=== PATIENT | female | born 1960 | race Hispanic/Latino ===

== ENCOUNTER 2017-09-11 04:39 | Inpatient (IN) | payer OTHER ==
[2017-09-11] VITALS (45 sets, daily range): BP systolic 93–171; BP diastolic 58–104
[~2017-09-11] VITALS: Ht 152.4 cm; Wt 78.5 kg
[~2017-09-11 04:39] MED LIST: ACETAMINOPHEN650 M1 PO; CARAFATE1 GM/10 ML PO; FENOFIBRATE160 MG PO; FLAGYL500 MG PO; GLIMEPIRIDE2 MG PO; GLYBURIDE5 MG PO; HYDROCHLOROTHIA25 MG; Insulin Detemir SQ; LEVAQUIN500 MG PO; LEVEMIR100 UNIT/1 SQ; LISINOPRIL5 MG PO; METFORMIN HCL500 MG PO; METOCLOPRAMIDE10 MG PO; NABUMETONE750 MG PO; NIFEDIPINE ER30 M1 PO; NORCO 10-325 T1 EACH PO; NOVOLOG100 UNITS1 SQ; OXYCODONE-ACET1 EAC1 PO; PANTOPRAZOLE SO40 MG PO; PROMETHAZINE HC25 M1 PO; PROTONIX40 MG PO; REGLAN10 MG PO; REMERON15 MG PO; SENOKOT-S TABL1 EACH PO; TYLENOL # 31 EA PO; TYLENOL WITH C1 EACH PO; ULTRAM 50MG50 MG PO
[2017-09-11] MEDS ORDERED: SODIUM CHLORIDE 0.9% 1000ML 1,000 ML IV STA (04:57)
[2017-09-11] MEDS ORDERED: PROMETHAZINE 12.5MG/ NACL 0.9% 12.5 MG/50 ML BAG IV ONE (05:00)
[2017-09-11 05:05] LABS: BASOPHILS % 0.1 % (0.0-1.0); HEMATOCRIT 41.9 % (34.2-44.1); HEMOGLOBIN 14.1 g/dL (12.0-16.0); LYMPHOCYTES # (AUTO) 1.3 (1.0-3.2); LYMPHOCYTES % 10.8 % (18.0-39.1); MEAN CORPUSCULAR HEMOGLOBIN 28.3 pg (28-32); MEAN CORPUSCULAR HGB CONC 33.7 g/dL (31-35); MONOCYTES # (AUTO) 0.5 (0.2-0.8); MONOCYTES % 3.9 % (4.4-11.3); NEUTROPHILS % 84.8 % (38.7-80.0); PLATELET COUNT 209 x10e3/uL (140-360); RED BLOOD COUNT 4.99 x10e6/uL (3.6-5.1); RED CELL DISTRIBUTION WIDTH 13.4 % (11.7-14.4)
[2017-09-11 05:22] LABS: ALBUMIN/GLOBULIN RATIO 0.9 (0.8-2.0); ANION GAP 21.3 mmol/L (8-16); CALCIUM 9.9 mg/dL (8.4-10.2); CREATININE, SERUM 1.17 mg/dL (0.57-1.11); POTASSIUM 4.3 mmol/L (3.5-5.1)
[2017-09-11 05:23] LABS: BILIRUBIN,URINE NEGATIVE (NEGATIVE); CLARITY,URINE CLOUDY (CLEAR); COLOR,URINE YELLOW (YELLOW); KETONES,URINE 2+ (NEGATIVE); LEUKOCYTE ESTERASE ,URINE NEGATIVE (NEGATIVE); NITRITE,URINE NEGATIVE (NEGATIVE); URINE UROBILINOGEN 0.2 mg/dL (0.2 - 1)
[2017-09-11 05:28] LABS: CREATINE KINASE MB 1.9 ng/mL (0.00-5.00); TROPONIN I 0.005 ng/mL (0-0.300)
[2017-09-11 05:30] LABS: BACTERIA,URINE MANY /HPF; PROTEIN,URINE DIPSTICK 1+ (NEGATIVE)
[2017-09-11 05:31] LABS: EPITHELIAL CELLS,URINE RARE /LPF
[2017-09-11] MEDS ORDERED: INSULIN LISPRO 100 UNIT/1 ML 3ML VIAL SQ STA (05:39)
[2017-09-11] MEDS ORDERED: INSULIN REGULAR, HUMAN 100 UNIT/1 ML 3ML VIAL IV ONE (05:45)
[2017-09-11] MEDS ORDERED: POTASSIUM CHLORIDE 20MEQ/100ML 200 ML IV PRN (06:15)
[2017-09-11] MEDS ORDERED: INSULIN DETEMIR 100 UNIT/ML PEN SQ PRN (06:15)
[2017-09-11] MEDS ORDERED: INSULIN REGULAR, HUMAN 3ML VL 1 UNIT in SODIUM CHLORIDE 0.9% 100 ML IV SCH ×2 (06:15)
[2017-09-11] MEDS ORDERED: MAGNESIUM SULF 1GRAM/DEXTROSE 100 ML IV PRN (06:15)
[2017-09-11] MEDS ORDERED: SODIUM CHLORIDE 0.45% 100 ML 100 ML IV ONE (06:29)
[2017-09-11 06:30] LABS: AMPHETAMINES SCREEN,URINE NEGATIVE (NEGATIVE); BENZODIAZEPINES SCREEN,URINE NEGATIVE (NEGATIVE); CANNABINOIDS SCREEN,URINE NEGATIVE (NEGATIVE); PHENCYCLIDINE SCREEN,URINE NEGATIVE (NEGATIVE)
[2017-09-11] MEDS ORDERED: HYDRALAZINE HCL 20 MG/ML VIAL ONE (06:31)
[2017-09-11] MEDS: HYDRALAZINE HCL 20 MG/ML VIAL IV PRN ×2 (06:34→20:46)
[2017-09-11] MEDS: CEFTRIAXONE SOD 1 GM VIAL IV SCH (06:34)
[2017-09-11] MEDS: SODIUM CHLORIDE 0.9% 1000ML 1,000 ML IV SCH ×5 (06:34→21:57)
[2017-09-11] MEDS ORDERED: OXYCODONE HCL20 M1 PO (07:45)
[2017-09-11] MEDS ORDERED: PROMETHAZINE12.5 M1 PO (07:49)
[2017-09-11] MEDS ORDERED: ZOLPIDEM TARTRA10 MG PO (07:49)
[2017-09-11] MEDS ORDERED: INSULIN REGULAR, HUMAN 3ML VL 100 UNIT in SODIUM CHLORIDE 0.9% 100 ML IV SCH ×2 (08:30)
[2017-09-11] MEDS: HYDROMORPHONE 1MG/1ML INJ IV PRN ×3 (09:09→20:47)
[2017-09-11] MEDS: ONDANSETRON HCL INJ 2 MG/ML VIAL IV PRN (09:09)
[2017-09-11] MEDS: DEXTROSE 5%/0.45% SOD CHL 1,000 ML IV SCH ×3 (10:13→17:22)
--- NOTE | 2017-09-11 10:23 | History and Physical ---
This 56-year-old female comes in with nausea and vomiting. She was found to have DKA. HISTORY OF PRESENT ILLNESS: Ms. Isadora Parnell is a 56-year-old lady with a history of recent administration of flu vaccination, and she started to have sudden sickness about a day or 2 after the flu vaccine. The patient started to have nausea and vomiting and apparently was diagnosed with flu 2. She was not given Tamiflu because the patient came to the PCP's office about 2 or 3 days later. She was given some antibiotic and some breathing treatment and sent home. Today, the patient presents with nausea, vomiting, and was dehydrated and was in DKA. PAST MEDICAL HISTORY 1. History of low back pain, chronic back pain. 2. History of diabetes mellitus. 3. History of hyperlipidemia. 4. History of hypertension. MEDICATIONS AT HOME: Include: 1. Glimepiride 2 mg. 2. Levofloxacin 5 mg. 3. Lisinopril 5 mg daily. SURGICAL HISTORY: History of hysterectomy, lap tash, and back surgery. FAMILY HISTORY: History of cirrhosis in brother and diabetes in mother. REVIEW OF SYSTEMS: Negative for chest pain. Positive for nausea and vomiting. No diarrhea. Positive for some shortness of breath. No constipation. No rectal bleeding. No hematochezia. No hematemesis. No diplopia. No blurry vision. Positive for headache, also. PHYSICAL EXAMINATION VITAL SIGNS: Temperature 98.8, pulse 82, respiratory rate 18, blood pressure 205/107. HEENT: Normocephalic and atraumatic. Dry mucosal membranes. NECK: No JVD present. CV: Normal, regular rate and rhythm. ABDOMEN: Nondistended. Mildly tender diffusely. EXTREMITIES: No clubbing. No cyanosis. No edema. MICROBIOLOGY: Urine culture is pending. LABORATORY: White count 11.7, neutrophil count 84.8. Chemistry: Sodium 131, anion gap 21.3, creatinine 1.17, estimated GFR 48, glucose 492, magnesium 2.4. Troponin is negative. CK and CK-MB were also within normal limits. T-bili was 1.0. Her bicarb was 17. Toxicology negative for everything. ASSESSMENT 1. Diabetic ketoacidosis. 2. Flu-like symptoms. 3. Viral syndrome. 4. History of diabetes. 5. History of hypertension. 6. History of hyperlipoproteinemia. PLAN: Continue monitoring the patient. We will go ahead and put her on a DKA drip. Consult also endocrinology. Continue monitoring the patient. Further recommendations per the clinical course. The patient is also on fluids, and will follow DKA protocol in the ICU. Restart her home medications. Further recommendations per the clinical course. Also order A1c. Job#: [id number]
[2017-09-11 13:15] LABS: BLOOD UREA NITROGEN 21 mg/dL (7-26); BUN/CREATININE RATIO 25 (6-25); CALCIUM 8.7 mg/dL (8.4-10.2); CARBON DIOXIDE 22 mmol/L (22-29); CHLORIDE 106 mmol/L (98-107); CREATININE, SERUM 0.84 mg/dL (0.57-1.11); EST GLOMERULAR FILTRATION RATE > 60 ML/MIN (60-); GLUCOSE 73 mg/dL (74-118); MAGNESIUM 2.2 MG/DL (1.3-2.1); SODIUM 137 mmol/L (136-145)
[2017-09-11 13:36] LABS: CHOL/HDL RATIO 5.3 (3.0-3.6)
[2017-09-11] MEDS ORDERED: POTASSIUM CHLORIDE 20MEQ/100ML 200 ML IV ONE (14:00)
[2017-09-11 17:10] LABS: ANION GAP 12.6 mmol/L (8-16); BLOOD UREA NITROGEN 19 mg/dL (7-26); BUN/CREATININE RATIO 23 (6-25); CALCIUM 8.5 mg/dL (8.4-10.2); CARBON DIOXIDE 20 mmol/L (22-29); CHLORIDE 106 mmol/L (98-107); CREATININE, SERUM 0.84 mg/dL (0.57-1.11); EST GLOMERULAR FILTRATION RATE > 60 ML/MIN (60-); GLUCOSE 213 mg/dL (74-118); MAGNESIUM 1.9 MG/DL (1.3-2.1); POTASSIUM 3.6 mmol/L (3.5-5.1); SODIUM 135 mmol/L (136-145)
[2017-09-11] MEDS ORDERED: FLUCONAZOLE 100 MG/NS 50 ML 50 ML IV SCH (17:45)
[2017-09-11 19:14] LABS: FREE T4 (FREE THYROXINE) 1.04 ng/dL (0.8-1.8); THYROID STIMULATING HORMONE 0.475 uIU/mL (0.350-4.940)
[2017-09-11] MEDS: INSULIN REGULAR, HUMAN 3ML VL 100 UNIT in SODIUM CHLORIDE 0.9% 100 ML 100 ML IV SCH ×2 (20:00)
--- NOTE | 2017-09-11 20:44 | Consultation ---
DATE OF CONSULTATION: September 11, 2017 ENDOCRINE CONSULT[address] Patient of Dr. Mansfield. Thank you very much for referring this patient. This is a 56-year-old lady, who was referred to me for evaluation of uncontrolled diabetes mellitus and diabetic ketoacidosis. Patient is a known diabetic for almost 8 to 10 years and takes oral hypoglycemics at home. She came to the hospital with history of nausea vomiting. Her blood sugar was 492 at the time of admission and anion gap was 21.3. Her hemoglobin A1c is 9.3. Patient also has history of degenerative joint disease with multiple back surgeries, and hypertension. She has history of obesity, and pretty strong family history of diabetes mellitus. Patient is postmenopausal. PHYSICAL EXAMINATION: Today. GENERAL: The patient is alert awake a little bit apprehensive. She is moderately overweight. VITALS: Her heart rate is around 78. Blood pressure is 110/70 mmHg. HEENT: Examination essentially unremarkable. Thyroid is palpable. Clinically she is euthyroid. CHEST: Bilateral vesicular breathing. She has mild bronchospasm. CARDIAC: First and second heart sounds. There is no 3rd or 4th heart sound. Ejection sound grade 2/6. NEURO: Patient has evidence of diabetic sensory neuropathy in both lower extremities. CLINICAL IMPRESSIONS 1. Diabetes mellitus, type 2, uncontrolled with complications. 2. Diabetic ketoacidosis. 3. Degenerative joint disease. 4. Hypertension. The plan at this time is to continue the IV fluids, insulin drip. Monitor her blood sugars closely and adjust insulin dose. Will also do extensive diabetic and dietary education. Slowly advance the diet. Thanks for referring this patient. I will follow this patient with you. Job#: [id number] [email or web address]
[2017-09-11] MEDS ORDERED: INSULIN DETEMIR 100 UNIT/ML PEN SQ SCH (21:00)
[2017-09-11] MEDS ORDERED: INSULIN LISPRO 100 UNIT/1 ML 3ML VIAL SQ SCH (21:00)
[2017-09-11] MEDS ORDERED: GLYBURIDE5 MG PO (21:44)
[2017-09-11] MEDS ORDERED: ROPINIROLE HCL1 MG PO (21:48)
[2017-09-11] MEDS ORDERED: CYCLOBENZAPRINE10 MG PO (21:50)
[2017-09-11] MEDS ORDERED: ACETAMINOPHEN325 M1 PO (21:51)
[2017-09-12] VITALS (18 sets, daily range): BP systolic 110–143; BP diastolic 68–95
[2017-09-12] MEDS: ONDANSETRON HCL INJ 2 MG/ML VIAL IV PRN ×3 (00:50→19:02)
[2017-09-12] MEDS: DEXTROSE 5%/0.45% SOD CHL 1,000 ML IV SCH ×2 (00:50→23:21)
[2017-09-12] MEDS: HYDROMORPHONE 1MG/1ML INJ IV PRN ×5 (00:55→23:21)
[2017-09-12] MEDS: SODIUM CHLORIDE 0.9% 1000ML 1,000 ML IV SCH ×5 (01:02→18:10)
[2017-09-12] MEDS ORDERED: PNEUMOCOCCAL VACCINE POLYVALENT 23 MCG/0.5 ML VIAL IM ONE (04:15)
[2017-09-12 04:38] LABS: BASOPHILS % 0.1 % (0.0-1.0); EOSINOPHILS # (AUTO) 0.1 (0.0-0.4); LYMPHOCYTES # (AUTO) 2.1 (1.0-3.2); LYMPHOCYTES % 24.5 % (18.0-39.1); MEAN CORPUSCULAR HEMOGLOBIN 28.4 pg (28-32); MEAN CORPUSCULAR HGB CONC 32.4 g/dL (31-35); MONOCYTES # (AUTO) 0.7 (0.2-0.8); MONOCYTES % 7.7 % (4.4-11.3); NEUTROPHILS # (AUTO) 5.8 (2.1-6.9); NEUTROPHILS % 66.4 % (38.7-80.0); RED BLOOD COUNT 3.88 x10e6/uL (3.6-5.1); RED CELL DISTRIBUTION WIDTH 14.1 % (11.7-14.4)
[2017-09-12 04:45] LABS: MEAN CORPUSCULAR VOLUME 87.6 fL (81-99); PLATELET COUNT 182 x10e3/uL (140-360)
[2017-09-12 04:51] LABS: ANION GAP 11.4 mmol/L (8-16); BLOOD UREA NITROGEN 14 mg/dL (7-26); BUN/CREATININE RATIO 16 (6-25); CALCIUM 8.4 mg/dL (8.4-10.2); CARBON DIOXIDE 20 mmol/L (22-29); CHLORIDE 110 mmol/L (98-107); CREATININE, SERUM 0.87 mg/dL (0.57-1.11); EST GLOMERULAR FILTRATION RATE > 60 ML/MIN (60-); GLUCOSE 208 mg/dL (74-118); POTASSIUM 3.4 mmol/L (3.5-5.1); SODIUM 138 mmol/L (136-145)
[2017-09-12] MEDS: CEFTRIAXONE SOD 1 GM VIAL IV SCH (05:30)
[2017-09-12] MEDS ORDERED: POTASSIUM CHLORIDE 20 MEQ TAB CR PO STA (06:56)
[2017-09-12] MEDS ORDERED: ZOLPIDEM TARTRATE 10 MG TAB PO PRN (07:00)
[2017-09-12] MEDS ORDERED: ACETAMINOPHEN 325 MG TAB PO PRN ×2 (07:00)
[2017-09-12] MEDS ORDERED: CYCLOBENZAPRINE HCL 10 MG TAB PO PRN (07:00)
[2017-09-12] MEDS ORDERED: OXYCODONE HCL 20 MG TAB CR PO PRN (07:00)
[2017-09-12] MEDS: LISINOPRIL 2.5 MG TAB PO SCH (08:50)
[2017-09-12] MEDS ORDERED: NON-FORMULARY MEDICATION (Lisinopril 5 MG) PO SCH (09:00)
[2017-09-12] MEDS ORDERED: INSULIN LISPRO 100 UNIT/1 ML 3ML VIAL SQ NR (14:15)
[2017-09-12] MEDS ORDERED: DEXTROSE 50% SYRINGE 50 ML IV PRN (14:15)
[2017-09-12] MEDS ORDERED: INSULIN LISPRO 100 UNIT/1 ML 3ML VIAL SQ SCH (16:30)
[2017-09-12] MEDS: INSULIN LISPRO 100 UNIT/1 ML 3ML VIAL SQ SCH ×2 (16:30→20:36)
[2017-09-12] MEDS: INSULIN REGULAR, HUMAN 3ML VL 100 UNIT in SODIUM CHLORIDE 0.9% 100 ML 100 ML IV SCH ×2 (20:00)
[2017-09-12] MEDS ORDERED: ROPINIROLE HCL 1 MG TAB PO SCH (21:00)
[2017-09-12] MEDS ORDERED: INSULIN DETEMIR 100 UNIT/ML PEN SQ SCH (21:00)
[2017-09-13] VITALS: BP 129/78
[2017-09-13] MEDS: ONDANSETRON HCL INJ 2 MG/ML VIAL IV PRN (03:54)
[2017-09-13] MEDS: HYDROMORPHONE 1MG/1ML INJ IV PRN (03:55)
[2017-09-13 04:00] VITALS: BP 142/82
[2017-09-13] MEDS: CEFTRIAXONE SOD 1 GM VIAL IV SCH (06:01)
[2017-09-13 07:41] VITALS: BP 157/85
[2017-09-13] MEDS ORDERED: KEFLEX500 MG PO (07:42)
[2017-09-13] MEDS ORDERED: LEVEMIR100 UNIT/1 SQ (07:43)
[2017-09-13] MEDS: LISINOPRIL 2.5 MG TAB PO SCH (08:00)
== END 2017-09-13 08:40 | disposition home or self-care (01) | DRG 638 ==
LOC: ER 04:39 → ERHOLD 11:16 → ICU 11:19 → MED/SURG3 09-12 19:51
PROVIDERS: ADMIT Family Medicine; ATTEND Family Medicine
DX: E11.10 Type 2 diabetes mellitus with ketoacidosis without coma (principal); N39.0 Urinary tract infection, site not specified; B34.9 Viral infection, unspecified; J11.1 Influenza due to unidentified influenza virus with other respiratory manifestations; I10 Essential (primary) hypertension; M47.9 Spondylosis, unspecified; E11.42 Type 2 diabetes mellitus with diabetic polyneuropathy; E87.6 Hypokalemia; Z79.84 Long term (current) use of oral hypoglycemic drugs
CPT/HCPCS: 36415; 80048; 80053; 80061; 80307; 81001; 82150; 82550; 82553; 82948; 83036; 83735; 84439; 84443; 84484; 85025; 87086; 87186; 87400; 96360; 96361; 96366; 96372; 96374; 99284; J0360; J0696; J1170; J2405; J2550; J3480; J7030; J7050

== ENCOUNTER → 2018-07-05 | Day surgery (SDC) | payer OTHER ==
[2018-06-30 12:18] LABS: BASOPHILS % 0.2 % (0.0-1.0); EOSINOPHILS # (AUTO) 0.2 (0.0-0.4); EOSINOPHILS % 2.1 % (0.0-6.0); HEMATOCRIT 41.2 % (34.2-44.1); HEMOGLOBIN 13.1 g/dL (12.0-16.0); LYMPHOCYTES # (AUTO) 2.4 (1.0-3.2); LYMPHOCYTES % 23.4 % (18.0-39.1); MEAN CORPUSCULAR HEMOGLOBIN 28.4 pg (28-32); MEAN CORPUSCULAR HGB CONC 31.8 g/dL (31-35); MEAN CORPUSCULAR VOLUME 89.2 fL (81-99); MONOCYTES # (AUTO) 0.7 (0.2-0.8); MONOCYTES % 6.9 % (4.4-11.3); NEUTROPHILS # (AUTO) 6.8 (2.1-6.9); NEUTROPHILS % 66.9 % (38.7-80.0); PLATELET COUNT 253 x10e3/uL (140-360); RED BLOOD COUNT 4.62 x10e6/uL (3.6-5.1); RED CELL DISTRIBUTION WIDTH 14.7 % (11.7-14.4)
[2018-06-30 12:38] LABS: ANION GAP 17.4 mmol/L (8-16); BLOOD UREA NITROGEN 12 mg/dL (7-26); BUN/CREATININE RATIO 14 (6-25); CALCIUM 9.8 mg/dL (8.4-10.2); CARBON DIOXIDE 25 mmol/L (22-29); CHLORIDE 104 mmol/L (98-107); CREATININE, SERUM 0.88 mg/dL (0.57-1.11); EST GLOMERULAR FILTRATION RATE > 60 ML/MIN (60-); GLUCOSE 96 mg/dL (74-118); POTASSIUM 4.4 mmol/L (3.5-5.1); SODIUM 142 mmol/L (136-145)
[~2018-07-05] MED LIST changes: +ACETAMINOPHEN325 M1 PO; +CYCLOBENZAPRINE10 MG PO; +FENTANYL CITRATE/PF 100MCG/2 ML INJ ONE; +KEFLEX500 MG PO; +MIDAZOLAM HCL 2 MG/2 ML VIAL ONE; +OXYCODONE HCL20 M1 PO; +PROMETHAZINE12.5 M1 PO; +PROPOFOL IV EMULSION 10 MG/ML 20 ML VIAL ONE; +ROPINIROLE HCL1 MG PO; +ZOLPIDEM TARTRA10 MG PO
[2018-07-05 09:50] VITALS: BP 133/75
--- OUTSIDE RECORDS SUMMARY | 2018-07-11 12:28 | XMS REPORT | Summary of Care ---
Author Author [facility] Organization [facility] Address Unknown Phone Unavailable Encounter GONZALO Nair(YASMINE) [id number] Date(s): 06/08/17 - 06/08/17 [facility] [address] [place] [address]- [phone] Discharge Disposition: Home or Self Care Attending Physician: Roz Patterson DO Admitting Physician: Roz Patterson DO Referring Physician: Roz Patterson DO Vital Signs No data available for this section Problem List Condition Effective Dates Status Health Status Informant Elevated alkaline Active phosphatase level(Confirmed) Chronic back Active pain(Confirmed) Chronic kidney Active disease (CKD)(Confirmed) Diabetes mellitus Active type 2(Confirmed) Diabetic Active neuropathy(Confirmed ) Urine(Confirmed)1, 2 05/31/11 Active Hyperlipidemia(Confi Active rmed) Hypertension(Confirm Active ed) Right groin Active pain(Confirmed) Lymphadenopathy(Conf Active irmed) Cancer of Active colon(Confirmed) Body mass index Active (BMI) 36.0-36.9, adult(Confirmed) 1MDRO ESBL+ E. coli in urine on 05/31/2011. 2Problem added by Discern Expert. Allergies, Adverse Reactions, Alerts Substance Reaction Severity Status NKDA Active Medications No data available for this section Results No data available for this section Immunizations No data available for this section Procedures Procedure Date Related Diagnosis Body Site Diabetic retinopathy screening1 03/2017 Mammogram - screening 08/2016 Colonoscopy 2016 Hysterectomy 1normal Social History Social History Type Response Exercise Exercise duration: 0. 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 Alcohol Never Smoking Status Never smoker; Exposure to Tobacco Smoke None; Cigarette Smoking Last 365 Days No; Reg Smoking Cessation Counseling No Assessment and Plan No data available for this section
--- OUTSIDE RECORDS SUMMARY | 2018-07-11 12:28 | XMS REPORT | Summary of Care ---
Author Author [facility] Organization [facility] Address Unknown Phone Unavailable Encounter GONZALO Nair(YASMINE) [id number] Date(s): 08/02/17 - 08/02/17 [facility] [address] [place] [address]- Discharge Disposition: Home or Self Care Attending Physician: Luis Fernando Dubois MD Admitting Physician: Luis Fernando Dubois MD Referring Physician: Luis Fernando Dubois MD Vital Signs No data available for this section Problem List Condition Effective Dates Status Health Status Informant Elevated alkaline Active phosphatase level(Confirmed) Pain, joint, hip, Active right(Confirmed) Chronic back Active pain(Confirmed) Chronic kidney Active disease (CKD)(Confirmed) Diabetes(Confirmed) Active Diabetes mellitus Active type 2(Confirmed) Diabetic Active neuropathy(Confirmed ) Urine(Confirmed)1, 2 05/31/11 Active Acid Active reflux(Confirmed) History of inguinal Active hernia(Confirmed) Hyperlipidemia(Confi Active rmed) Hypertension(Confirm Active ed) Hypertension(Confirm Active ed) Right groin Active pain(Confirmed) Lymphadenopathy(Conf Active irmed) Low back Active pain(Confirmed) Cancer of Resolved colon(Confirmed) Cancer of Active colon(Confirmed) Body mass index Active (BMI) 36.0-36.9, adult(Confirmed) 1MDRO ESBL+ E. coli in urine on 05/31/2011. 2Problem added by Discern Expert. Allergies, Adverse Reactions, Alerts Substance Reaction Severity Status NKDA Active Medications No data available for this section Results CHEM PANEL Most recent to 1 oldest [Reference Range]: eGFR 96 mL/min/1.73m2 1 *NA* (08/02/17 9:57 AM) POC Creatinine 0.7 mg/dL [0.5-1.4 mg/dL] (08/02/17 9:57 AM) 1Result Comment: The eGFR is calculated using the CKD-EPI formula. In most young, healthy individuals the eGFR will be >90 mL/min/1.73m2. The eGFR declines with age. An eGFR of 60-89 may be normal in some populations, particularly the elderly, for whom the CKD-EPI formula has not been extensively validated. Use of the eGFR is not recommended in the following populations: Individuals with unstable creatinine concentrations, including patients and those with serious co-morbid conditions. Patients with extremes in muscle mass or diet. The data above are obtained from the National Kidney Disease Education Program ( NKDEP) which additionally recommends that when the eGFR is used in patients with extremes of body mass index for purposes of drug dosing, the eGFR should be mul tiplied by the estimated BMI. Immunizations No data available for this section Procedures Procedure Date Related Diagnosis Body Site Colonoscopy1 06/23/17 Diabetic retinopathy screening2 03/2017 Mammogram - screening 08/2016 Appendectomy Cholecystectomy Esophagogastroduodenoscopy Hysterectomy Laparoscopic repair of hiatus hernia Lumbar spinal fusion Partial resection of colon Repair of inguinal hernia 1diverticulosis 2normal Social History Social History Type Response Exercise Exercise duration: 0. 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 Alcohol Never Smoking Status Never smoker; Exposure to Tobacco Smoke None; Cigarette Smoking Last 365 Days No; Reg Smoking Cessation Counseling No Assessment and Plan No data available for this section
--- OUTSIDE RECORDS SUMMARY | 2018-07-11 12:28 | XMS REPORT | Summary of Care ---
Author Author [facility] [place] Organization [facility] [place] Address Unknown Phone Unavailable Encounter HQ Fuadr_roberto(FIN) [id number] Date(s): 12/31/16 - 12/31/16 [facility] [place] [address] [place] [address]- [phone] Discharge Disposition: Home or Self Care Attending Physician: Estelle Bishop MD Vital Signs No data available for this section Problem List Condition Effective Dates Status Health Status Informant Abdominal Active pain(Confirmed) Diabetes mellitus Active type 2(Confirmed) Urine(Confirmed)1, 2 05/31/11 Active 1MDRO ESBL+ E. coli in urine on 05/31/2011. 2Problem added by Discern Expert. Allergies, Adverse Reactions, Alerts Substance Reaction Severity Status NKDA Active Medications No data available for this section Results No data available for this section Immunizations No data available for this section Procedures No data available for this section Social History Social History Type Response Assessment and Plan No data available for this section
--- OUTSIDE RECORDS SUMMARY | 2018-07-11 12:28 | XMS REPORT | Clinical Summary ---
Author Author [facility] Address Unknown Phone Unavailable Care Team Providers Care Collective Bargaining Specialist Name Role Phone Tyson Bauer MD PCP Allergies No Known Allergies Current Medications Prescription Sig. Disp. Refills Start End Date Status Date lisinopril Take 5 mg by mouth daily. Active (PRINIVIL,ZESTRIL) 5 mg tablet LYRICA 150 mg capsule Take 75 mg by mouth 2 12/01/19 Active nightly. 17 oxyCODone (ROXICODONE) 30 30 mg every 6 (six) hours 0 01/13/20 Active MG immediate release as needed. 17 tablet ondansetron (ZOFRAN) 4 MG 4 mg as needed for 4 12/21/19 Active tablet nausea. 17 cyclobenzaprine 10 mg as needed. 2 12/21/19 Active (FLEXERIL) 10 mg tablet 17 glyBURIDE (DIABETA) 5 MG Take 5 mg by mouth daily Active tablet with breakfast. MULTIVITAMIN ORAL Take by mouth. Active ferrous sulfate 325 (65 Take 1 tablet (325 mg 60 tablet 11 01/28/20 01/28/20 FE) MG EC tablet total) by mouth 2 (two) 17 18 times a day with meals. Active Problems Problem Noted Date Spinal stenosis 03/17/2017 Lumbar stenosis 03/16/2017 Hypertension Type 2 diabetes mellitus (HCC) Family History Medical History Relation Name Comments Cancer Mother Breast cancer Sister Relation Name Status Comments Father Mother Sister Social History Tobacco Use Types Packs/Day Years Used Date Never Smoker Smokeless Tobacco: Never Used Alcohol Use Drinks/Week oz/Week Comments No Sex Assigned at Date Recorded Not on file Last Filed Vital Signs Not on file Plan of Treatment Health Maintenance Due Date Last Done Comments DIABETIC FOOT EXAM 1969 DIABETIC RETINAL EYE EXAM 1969 CERVICAL CANCER SCREENING 1980 BREAST CANCER SCREENING 2009 COLON CANCER SCREENING 2009 SHINGRIX VACCINE (#1) 2009 INFLUENZA VACCINE 04/26/2018 08/28/2014 Implants Implanted Type Area Tile And Marble Setter Device Expiration Model / Identifier Date Serial / Lot Putmeghana Dbm Dbx 5cc - [id number] Orthopedic N/A: Spine MUSCULOSKELETAL 10/07/2018 [id number] / Implanted: Qty: 1 on 03/16/2017 by Trauma Lumbar TRANSPLANT / Vishal Morgan MD [employer] Nufix 5.0 Mm Dowel - [id number] Spinal Bilateral: NUTECH 09/06/2021 [id number] / Implanted: 03/16/2017 (Quantity not Implants Spine / on file) Lumbar [id number] Nufix 5.0 Mm Dowel - [id number] Spinal Bilateral: NUTECH 09/06/2021 [id number] / Implanted: 03/16/2017 (Quantity not Implants Spine / on file) Lumbar [id number] Results Not on fileafter 07/04/2017 Insurance Payer Benefit Subscriber ID Type Phone Address Plan / Group [employer] xxxxxxxxx HMO [employer] [facility] [place] [address]
--- OUTSIDE RECORDS SUMMARY | 2018-07-11 12:28 | XMS REPORT | Continuity of Care Document ---
Author Author [facility] Interface Address Unknown Phone Unavailable Problems Problem Status Onset Date Classification Date Reported Comments Source S/P LUMBAR FUSION Active 02/11/2018 [facility] Low back pain 12/30/2017 03/31/2018 [facility] R10.31 Active 07/12/2017 [facility] DX: R10.30=/ R59.1= Active 06/15/2017 [facility] UNK Active 06/15/2017 [facility] DX: RT GROIN PAIN ARTERIAL DOPP Active 05/31/2017 [facility] N18.3 - "CHRONIC KIDNEY DISEASE, STAGE" Active 12/21/2016 [facility] Urine<sup>1, 2</sup> Active 05/31/2011 Problem 08/05/2017 Problem added by Discern Expert. [facility], DELIA Kam,[facility] Abdominal pain Active Problem 01/03/2017 [facility], [facility] Diabetes mellitus type 2 Active Problem 03/31/2018 [facility], DELIA Kam,[facility] Right groin pain Active Problem 08/05/2017 [facility] Body mass index 36.0-36.9, adult(<span ID="[id number]">Confirmed</span>) Active Problem 09/11/2017 [facility] Acid reflux Active Problem 02/24/2018 [facility] Pain, joint, hip, right Active Problem 08/05/2017 [facility] Diabetes Active Problem 08/05/2017 [facility] Low back pain Active Problem 08/05/2017 [facility] Elevated alkaline phosphatase level Active Problem 03/24/2018 [facility] BMI 37.0-37.9, adult Active Problem 03/24/2018 [facility] Chronic back pain Active Problem 03/24/2018 [facility] Chronic kidney disease (<span ID="[id number]">Confirmed</span>) Active Problem 03/24/2018 [facility], [facility] Diabetic neuropathy Active Problem 03/24/2018 [facility], [facility] Acid reflux Active Problem 03/24/2018 [facility] History of inguinal hernia Active Problem 03/24/2018 [facility], [facility] Hyperlipidemia Active Problem 03/24/2018 [facility], [facility] Hypertension Active Problem 03/24/2018 [facility], [facility] Elevated IgE level Active Problem 03/24/2018 [facility], [facility] Lymphadenopathy Active Problem 03/24/2018 [facility] Cancer of colon Resolved Problem 03/24/2018 [facility] Pain in thoracic spine 03/31/2018 [facility] Spinal stenosis, thoracolumbar region 03/31/2018 [facility] Spondylosis without myelopathy or radiculopathy, thoracolumbar region 03/31/2018 [facility] Osteophyte, vertebrae 03/31/2018 [facility] Other specific arthropathies, not elsewhere classified, other specified site 03/31/2018 [facility] Elevated alkaline phosphatase level Active Problem 03/31/2018 [facility], [facility] BMI 37.0-37.9, adult Active Problem 03/31/2018 [facility], [facility] Chronic back pain Active Problem 03/31/2018 [facility], [facility] Chronic kidney disease (<span ID="[id number]">Confirmed</span>) Active Problem 03/31/2018 [facility], [facility] Diabetic neuropathy Active Problem 03/31/2018 [facility], [facility] Acid reflux Active Problem 03/31/2018 [facility], [facility] History of inguinal hernia Active Problem 03/31/2018 [facility], [facility] Hyperlipidemia Active Problem 03/31/2018 [facility], [facility] Hypertension Active Problem 03/31/2018 [facility], [facility] Elevated IgE level Active Problem 03/31/2018 [facility], [facility], [facility] Lymphadenopathy Active Problem 03/31/2018 [facility], [facility], [facility] Cancer of colon Resolved Problem 03/31/2018 [facility], [facility], [facility] Medications Medication Details Route Status Patient Instructions Ordering Provider Order Date Source atorvastatin 10 mg oral tablet 10 mg=1 tab, PO, Bedtime, # 90 tab, 1 Refill(s), Pharmacy: [id number] Active 01/11/2018 [facility] glyBURIDE 5 mg oral tablet 10 mg=2 tab, PO, BID, # 360 tab, 1 Refill(s), Pharmacy: [facility] [id number] Active 01/11/2018 [facility] canagliflozin 100 MG Oral Tablet [Invokana] 100 mg=1 tab, PO, Before Breakfast, # 30 tab, 5 Refill(s), Pharmacy: [facility] [id number] Active 01/10/2018 [facility] losartan 25 mg oral tablet 25 mg=1 tab, PO, Daily, # 90 tab, 1 Refill(s), Pharmacy: [facility] [id number] Active 01/10/2018 [facility] gabapentin 600 MG Oral Tablet 300 mg=0.5 tab, PO, BID, # 90 tab, 1 Refill(s), Pharmacy: [facility] [id number] Active 01/10/2018 [facility] Hydroxyzine Hydrochloride 25 MG Oral Tablet 12.5 mg=0.5 tab, PO, QID, PRN Itching, X 10 day, # 30 tab, 2 Refill(s), Pharmacy: [facility] [id number] No Longer Active 11/07/2017 [facility] Hydroxyzine Hydrochloride 25 MG Oral Tablet 12.5 mg=0.5 tab, PO, QID, PRN Itching, X 10 day, # 30 tab, 0 Refill(s), Pharmacy: [facility] [id number] Inactive 11/07/2017 [facility] losartan 25 mg oral tablet 25 mg=1 tab, PO, Daily, # 30 tab, 5 Refill(s), Pharmacy: [facility] [id number] No Longer Active 11/07/2017 [facility] Codeine Phosphate 2 MG/ML / Guaifenesin 20 MG/ML Oral Solution [Cheratussin] 5 ml, PO, Q6H, PRN for cough and congestion, X 14 day, # 150 mL, 0 Refill(s) Active 09/08/2017 [facility] Fluticasone propionate 0.05 MG/ACTUAT Metered Dose Nasal [place] 1 spray, NASAL, Daily, # 1 ea, 3 Refill(s), Pharmacy: [facility] [id number] Active 09/08/2017 [facility] Albuterol 0.833 MG/ML / Ipratropium [place] 0.167 MG/ML Inhalant Solution 3 mL, Route: NEB, Dosing Weight 85.455, kg, ONCE, STAT, Start date: 06/23/17 8:44:00 CDT, Stop date: 06/23/17 8:44:00 CDT Inactive 06/23/2017 [facility] Sodium Chloride 0.9% IV 500 mL 500 mL, Rate: 25 ml/hr, Infuse over: 20 hr, Route: IV, Dosing Weight 85.455 kg, Total Volume: 500, Start date: 06/23/17 8:44:00 CDT, Duration: 30 day, Stop date: 07/23/17 8:43:00 CDT Inactive 06/23/2017 [facility] pregabalin 100 MG Oral Capsule [Lyrica] 100 mg=1 cap, PO, BID, # 90 cap, 1 Refill(s) Active 06/20/2017 [facility] Allergies, Adverse Reactions, Alerts Substance Category Reaction Severity Reaction type Status Date Reported Comments Source Immunizations Immunization Date Given Site Status Last Updated Comments Source influenza virus vaccine, inactivated<sup>1</sup> 09/08/2017 Left Deltoid completed [place] Result Comment: Patient waited 15 minutes, no reaction noted[facility], inactivated<sup>1</sup> 09/08/2017 Left Deltoid completed [place] Result Comment: Patient waited 15 minutes, no reaction noted. [facility], inactivated<sup>1</sup> 09/08/2017 Left Deltoid completed [place] Result Comment: Patient waited 15 minutes, no reaction noted. [facility], [facility] Results Order Name Results Value Reference Range Date Interpretation Comments Source Spine lumbar wo contrast CT Spine lumbar wo contrast CT Clinical Indication: - pain. 57-year-old female with chronic back pain and multiple previous surgeries. Comparison: CT post myelogram October 26, 2016 TECHNIQUE: Sequential trans-axial images were obtained with a multi-detector helical CT. Coronal and sagittal reconstructions were obtained. CT Radiation Dose DLP 551 mGy-cm FINDINGS: ALIGNMENT AND GENERAL ASSESSMENT: There are 5 nonrib-bearing lumbar vertebral segments. Postoperative changes of posterior fusions are seen with intrapedicle screws bilaterally at the levels of L2, L3 and L4 with left-sided screws at the levels of L5 and S1. The screws are attached to posterior rods. The hardware is intact. The right screws have been removed from the levels of L5 and S1 since the previous examination. The screws at the level of L2 are located within the pedicles posteriorly and then extends through the superior endplates at the junction with the posterior wall of the vertebral bodies. The tips are located within the disc space. Bony lucencies surrounding both of the screws. The screws at the level of L3 are seen within the pedicles posteriorly and penetrate the endplates with the tips located partially within the disc disc space. The screws at L4 and L5 are within the pedicles and the tips are within the vertebral bodies. The left screw at S1 is seen within the pedicle and penetrates the anterior body of the S1 by approximately 6 mm with progressive lucency surrounding the screw especially in the body of S1 since the previous examination suspicious for loosening or infection. Postoperative changes of anterior interbody fusions are seen with fusion material and metallic markers. Again seen is an anterior wedging deformity of L1 that similar to the previous CT October 26, 2016. The anterior and posterior paraspinal soft tissues are unremarkable. There are no fractures or subluxations of the lumbar spine. There are no pars interarticularis defects and no spondylolisthesis. The facet joints are well aligned. DISK SPACES AND SOFT TISSUES: MRI has higher sensitivity and specificity for disc and soft tissue disease. T11-T12: The disc spaces unremarkable. No extradural abnormality is seen. Mild bilateral facet arthropathies are seen. T12-L1: No changes seen in the disc space compared to the previous examination. Retropulsion of the posterior superior endplate is seen into the spinal canal by 6 mm similar to the previous examination. No significant narrowing of the spinal canal is seen. No narrowing of the neural foramina is seen. Moderate facet arthropathies are seen. L1-L2: The disc spaces unremarkable. No extradural abnormality is seen. No narrowing of the neural foramina is seen. Moderate to moderately advanced facet arthropathies are seen. PICC artifact from the rods partially obscures the detail. L2-L3: Moderately advanced narrowing of the anterior disc space is seen. Interbody fusion material is again seen in the posterior disc space with a bilateral laminectomy at L3. Again seen is the interbody fusion material and metallic spacers projecting posteriorly into the spinal canal on the right and left similar to the previous examination. The dural sac is less well-seen without the intrathecal contrast seen on the previous examination. The degree of spinal stenosis cannot be adequately assessed. Mild to moderate right and no left narrowing of the neural foramina is seen. L3-L4: Anterior disc space narrowing is seen. Intradiscal fusion material is seen in the position within the disc space. Postoperative changes of a bilateral laminectomy are again seen. No abnormality is seen within the spinal canal or the neural foramina. Fusion of the facets are seen. L4-L5: Intradiscal fusion material is seen within the disc space. A focal protrusion is seen to the left of midline that may represent a disc remnant or fusion material. No other abnormality is seen within the spinal canal. Osteophytic ridging is seen in the right neural foramen along the endplates. Mild right and no left narrowing of the neural foramina is seen. L5-S1: Intradiscal fusion material is again seen. A dense protrusion with a punctate metallic spacer is seen in the right lateral recess that was also seen on the previous examination October 26, 2016. No narrowing of the neural foramina is seen. Fusion of the facets are again seen. If there is further concern, CT myelogram or MRI of the lumbar spine may be performed for complete assessment. IMPRESSION: 1. Increased bony lucency is seen surrounding the remaining left screw at S1 since the CT October 26, 2016 consistent with an infection or loosening. 2. Again seen is the spinal stenosis at L2-3 with the fusion material extending into the spinal canal. The degree of spinal stenosis cannot be determined without the intradural contrast that was seen on the previous examination. 3. The anterior compression deformity at L1 remains stable compared to the previous examination. 4. Both of the screws at L2 penetrates the superior endplate and are surrounded by bony lucency that may be postoperative, infection or loosening. 5. Postoperative changes of a posterior and anterior fusions as described above with multiple laminectomies. 6. Dense extradural abnormality is seen in the right lateral recess at L5-S1 similar to the previous examination. This previously significantly indenting the dural sac and the right traversing nerve root. SL: [id number] 02/21/2018 - - Read by: Danilo Menard MD Dictated Date/time: 02/23/18 09:52 Electronically Signed by: Danilo Menard MD 02/23/18 10:53 FINAL REPORT [facility] Spine lumbar w/wo contrast MRI Spine lumbar w/wo contrast MRI LUMBAR SPINE MRI WITH AND WITHOUT CONTRAST. Indication:57 years Female M54.5 Low back pain - M54.5 Low back pain Comparison: October 26, 2016 CT the lumbar myelogram TECHNIQUE: Sagittal T1, sagittal T2, sagittal STIR and axial T1/T2 images without contrast were obtained. Postcontrast sagittal T1 and axial T1 images were obtained after the administration of 17 cc of Dotarem. FINDINGS: Again noted is laminectomy defects from L3 through S1 with artificial disc cages and pedicle screws and rods from L2 through S1. The right greater than left L2 pedicle screws enter into the L1-2 disc. There is been interval removal of the right S1 pedicle screw. The right L5-S1 artificial disc cage extends approximately 10 mm beyond the posterior cortex of L5 into the right subarticular/foraminal region. Bilateral L2-3 and left L4-5 artificial disc cages extends 3 mm posteriorly predominantly into the central canal and L2-3 right lateral recess. There is stable moderate compression deformity of the L1 vertebral body with residual enhancement and T2 hyperintensity of the superior endplate suggesting this is probably acute to subacute. Superior portion of the posterior cortex is demonstrates retropulsion of 6 mm into the canal with mild to moderate canal stenosis and slight contact and minimal flattening to the conus. Mild posterior wedge deformities of the L3-L5 vertebral bodies is prob ably related to the artificial disc cages. The vertebrae are otherwise normal in shape, signal intensity and alignment. No evidence of arachnoiditis or significant paravertebral fluid collection. Mild posterior epidural scarring is noted without significant mass effect on the thecal side. The conus medullaris terminates normally at the L1 level. There is no intradural mass lesion. T12-L1: Disc is desiccated with mild disc height loss. 4 mm disc bulge exaggerated by the retropulsion of the L1 cortex with minimal facet hypertrophy. His results in [id number] canal stenosis with slight contact to the anterior conus, with minimal flattening. No cord signal change. Mild bilateral neural foraminal narrowing. No focal disc herniation. L1-L2: Disc is desiccated with disc height preserved. Minimal disc bulge 2 mm with mild facet hypertrophy. Mildly limited by metallic artifact, without evidence of disc herniation, significant canal or neural foraminal narrowing. L2-L3: Limited by metallic artifact. Migration of artificial disc cages posteriorly resulting in in mild right lateral recess narrowing. No residual disc herniation, significant canal or neural foraminal narrowing. L3-L4: Limited by metallic artifact. No significant disc bulge/herniation or canal/neural foraminal narrowing. L4-L5: Limited by metallic artifact. Retropulsed left artificial disc cage resulting in mild left lateral recess narrowing. No significant canal or neural foraminal narrowing. No focal disc herniation. L5-S1: Limited by metallic artifact. Posterior placement right artificial disc cage results in moderate right lateral recess narrowing with displacement and impingement of the descending right S1 nerve root. Moderate right and mild left neural foraminal narrowing with minimal residual facet hypertrophy/foraminal disc osteophyte complexes. This causes deformity of the right L5 nerve root. IMPRESSION: 1. Postoperative and degenerative changes are grossly stable as detailed above. This includes artificial disc cages migrated posteriorly into the canal with deformity/displacement of the foraminal right L5 and descending right S1 nerve roots. Other mild stenoses as above. 2. Acute to subacute L1 moderate compression fracture with retropulsion of fragments causing contact and minimal flattening of the anterior conus. This is likely posttraumatic/insufficiency in nature. 12/23/2017 - - Read by: Rasheed Gutierrez MD Dictated Date/time: 12/23/17 15:33 Electronically Signed by: Rasheed Gutierrez MD 12/23/17 16:02 FINAL REPORT [facility] Spine Thoracic w/wo contrast MRI Spine Thoracic w/wo contrast MRI PATIENT NAME: LOREN ROCK : 1960; Age: 57 years y/o Female MR: [id number] STUDY: Spine Thoracic w/wo contrast MRI 12/23/2017 8:07 AM CDT ORDERING PHYSICIAN: Piotr Ceja MD CLINICAL INDICATION: M54.6 Pain in thoracic spine - M54.6 Pain in thoracic spine; TECHNIQUE: Multiplanar, multisequence MRI thoracic spine both prior to and after uncomplicated IV administration of 17 cc Dotarem contrast COMPARISON: Limited comparison made to lumbar CT myelogram of 10/26/2016 and lumbar MRI of December 23, 2017 FINDINGS: The thoracic vertebral bodies have normal height, shape, and alignment. There is an L1 superior endplate compression deformity. There is no worrisome marrow signal abnormality. The thoracic cord signal is normal and homogenous. Paravertebral soft tissue signals are normal. INTERVERTEBRAL DISC SPACES, SPINAL CANAL, AND NEURAL FORAMINA: The thoracic intervertebral disc heights and signals are maintained. There is multilevel lower thoracic facet hypertrophy. At T9-T10 and T10-T11 enlarged facets indent the thecal sac but do not cause mass effect on spinal cord. Neural foramina are patent. IMPRESSION: 1. Lower thoracic facet arthropathy with facets indenting thecal sac but not causing substantial mass effect on spinal cord 2. No substantial thoracic disc degeneration 3. Please refer to same-day lumbar spine for additional findings 12/23/2017 - - Read by: Vitaly Richardson MD Dictated Date/time: 12/23/17 16:07 Electronically Signed by: Vitaly Richardson MD 12/23/17 16:39 FINAL REPORT [facility] CHEM PANEL eGFR 96 mL/min/1.73m2 08/02/2017 Result Comment: The eGFR is calculated using the [...] from the National Kidney Disease Education Program (NKDEP) which additionally recommends that when the eGFR is used in patients with extremes of body mass index for purposes of drug dosing, the eGFR should be multiplied by the estimated BMI. [facility] CHEM PANEL POC Creatinine 0.7 mg/dL 0.5 - 1.4 08/02/2017 [facility] Pelvis w/wo contrast MRI Pelvis w/wo contrast MRI MRI pelvis with and without contrast HISTORY: 56-year-old female with complaints of chronic right lower quadrant abdominal pain. TECHNIQUE: T1, T2 and STIR sequences performed in multiple planes. Fat- suppressed T1 acquisitions included with and without IV contrast. COMPARISON: CT 06/16/2017, 01/28/2012. FINDINGS: No bowel distention, inflammatory change, lymphadenopathy or significant free fluid are apparent. There is evidence of colonic fecal loading within the proximal right colon. Absent uterus. No adnexal mass. Trace volume free fluid is considered physiologic. A few scattered diverticula are seen along the course of the proximal right colon and the distal left colon. No evidence of associated inflammatory change. Normal appearance of the urinary bladder. No significant marrow abnormality. Susceptibility artifact is seen within the lumbosacral spine which is attributable to pedicle screws, posterior rods an intravertebral spacer devices.. Spacer device on the right side at the lumbosacral junction extends into the right lateral recess (image 40 of series 6). This is stable as compared to CT myelogram of 10/26/2016. IMPRESSION: 1. No acute finding. 2. Moderate proximal colonic fecal loading suggests a history of constipation. 3. Diverticulosis. 4. Hysterectomy. 5. Right intervertebral spacer device at L5-S1 extends into the right lateral recess of the spinal canal. Correlate for radicular symptoms. 08/02/2017 - - Read by: Von Martinez MD Dictated Date/time: 08/02/17 13:20 Electronically Signed by: Von Martinez MD 08/02/17 13:35 FINAL REPORT [facility] CHEM PANEL eGFR 67 mL/min/1.73m2 06/20/2017 Result Comment: The eGFR is calculated using the [...] from the National Kidney Disease Education Program (NKDEP) which additionally recommends that when the eGFR is used in patients with extremes of body mass index for purposes of drug dosing, the eGFR should be multiplied by the estimated BMI. [facility] CHEM PANEL Chloride Lvl 105 meq/L 95 - 109 06/20/2017 [facility] CHEM PANEL Potassium Lvl 4.8 meq/L 3.5 - 5.1 06/20/2017 [facility] CHEM PANEL Calcium Lvl 9.3 mg/dL 8.5 - 10.5 06/20/2017 [facility] CHEM PANEL CO2 25 meq/L 24 - 32 06/20/2017 [facility] CHEM PANEL Sodium Lvl 138 meq/L 135 - 145 06/20/2017 [facility] CHEM PANEL BUN 27 mg/dL 7 - 22 06/20/2017 [facility] CHEM PANEL Glucose Lvl 140 mg/dL 70 - 99 06/20/2017 [facility] CHEM PANEL Creatinine Lvl 0.95 mg/dL 0.50 - 1.40 06/20/2017 [facility] CHEM PANEL AGAP 12.8 meq/L 10.0 - 20.0 06/20/2017 [facility] Pelvis wo IV contrast CT Pelvis wo IV contrast CT Pelvis wo IV contrast CT Female 56 years Clinical Indication: lymphadenopathy \\T\\ rt groin pain, pt states she was having rt groin pain and they found lymph nodes in that area; Comparison: 01/28/2012 Technique: Noncontrast CT of the pelvis is performed from the umbilicus to the symphysis pubis after oral contrast only. 25cc omni po. Coronal and sagittal reformatted views. CT FXG=958 mGy-cm. FINDINGS: Examination of the pelvis is compared with previous examination of 01/28/2012. Since the prior examination the patient has had a posterior laminectomy and fusion involving the lower lumbar spine. Postoperative scarring is present in the posterior midline. There is some metallic hardware associated with pedicle screws related to the fusion procedure. The bowel is normal in course and caliber. The cecum projects into the right lower pelvis and produces impression on the urinary bladder. Proximal sigmoid diverticulosis is moderate. There is formed stool in the rectum. A large calcification seen near the bladder base on the left is elongated in the course of the ureter, measuring 14 mm in length. This calcification was present on the previous examination and appears slightly larger. The calcifications inferior to the ureter and likely represents a phlebolith. Some additional phleboliths seen in the left lateral pelvis. No iliac or inguinal adenopathy identified. A few small superficial inguinal nodes seen bilaterally are within normal limits of size, but slightly more prominent than on the previous exam. The visualized osseous structures are remarkable for some spurring projecting anteriorly from the region of the greater trochanter of the right proximal femur. This may represent evidence of intraorbital injury involving anterior muscular attachments to the greater trochanter which have healed with bony deformity and some heterotopic ossification. IMPRESSION: 1. Multiple calcified phleboliths in the pelvis including a prominent left lower pelvic phlebolith measuring 14 mm in greatest dimension. Slightly increased from previous exam. Doubtful clinical significance. 2. Interval development of deformity in the region of the greater trochanter of the right femur. Findings may represent the result of interval trauma or possibly bone graft harvest site? 3. Interval multilevel lower lumbar laminectomy and fusion procedure with postoperative scarring. 4. No significant adenopathy identified. 5. Sigmoid diverticulosis. SL: [id number] 06/16/2017 - - Read by: Berlin Longo MD Dictated Date/time: 06/16/17 10:03 Electronically Signed by: Berlin Longo MD 06/16/17 10:12 FINAL REPORT [facility] Ext Lower limited non vascular US Ext Lower limited non vascular US Patient Name: LOREN ROCK : 1960; Age: 56 years Female MR: [id number] Study: Ext Lower limited non vascular US 06/08/2017 7:07 AM CDT Clinical Indication: - r/o inguinal/femoral hernia. COMPARISON: Computed axial tomography scan 01/28/2012. FINDINGS: There is a 1.6 x 0.6 x 1.3 cm lymph node in the right groin area. There is no ultrasound evidence for recurrent hernia. No mass or fluid collections identified. IMPRESSION: Right groin lymph node. No evidence for recurrent hernia. If the symptoms do not improve, computed tomography scan of the pelvis without IV contrast may provide more detail. SL: [id number] 06/08/2017 - - Read by: Rodger Bobby MD Dictated Date/time: 06/08/17 07:53 Electronically Signed by: Rodger Bobby MD 06/08/17 07:57 FINAL REPORT [facility] Retroperitoneal Complete US Retroperitoneal Complete US Exam: Bilateral renal ultrasound. Reason for Exam: N18.3 Chronic kidney disease, stage 3 (moderate) Comparison Exam: CT scan 01/28/2012 Discussion: Multiple sagittal and axial images were obtained of the kidneys. The right kidney measures 7.9 x 4.8 x 4.7 cm. It is of unremarkable echogenicity without focal masses, hydronephrosis, or shadowing renal calculi. The cortical thickness measures 1.0 cm. The left kidney measures 11.8 x 5.3 x 5.3 cm. It is of unremarkable echogenicity without focal masses, hydronephrosis, or shadowing renal calculi. The cortical thickness measures 1.3 cm. Visualized portions of the bladder are unremarkable. Bilateral ureteral jets are identified. Visualized portions of the aorta and IVC are unremarkable. The common iliac arteries are not adequately seen. Impression: 1. Right kidney is smaller than expected. The kidneys are unremarkable in echogenicity without evidence for hydronephrosis. 12/31/2016 - - Read by: Glen Michelle MD Dictated Date/time: 12/31/16 10:29 Electronically Signed by: Glen Michelle MD 12/31/16 10:31 FINAL REPORT [facility] Spine lumbar myelogram DX Spine lumbar myelogram DX EXAM: FLUOROSCOPY-GUIDED LUMBAR PUNCTURE FOR CT MYELOGRAM. EXAM: CT MYELOGRAM Lumbar SPINE. DATE: 10/26/2016 9:35 AM [employer] INDICATION: M43.28 Fusion of spine, sacral and sacrococcygeal region, Z98.1 Arthrodesis status COMPARISON: CT abdomen and pelvis 05/31/2011. PROCEDURE: An interlaminar lumbar puncture was carried out under fluoroscopic guidance with a 22 gauge spinal needle at the level of L3-L4 under the usual sterile conditions and local anesthesia. 10 mL of Omnipaque 240 was instilled into the lumbar thecal sac. The patient tolerated the procedure well. FLUOROSCOPIC TIME: [address] Lumbar SPINE TECHNIQUE: Axial images of Lumbar spine were obtained following intrathecal administration of contrast as described above. Coronal and sagittal reformatted images are provided. FINDINGS: 5 nonrib-bearing lumbar type vertebral bodies. Interval posterior fusion from L2 to S1 with transpedicular screws and paraspinous stabilization rods. Laminectomies at L3-S1. Interval development of anterior compression fracture deformity of L1 with 50% loss of vertebral body height. Retropulsion of the posterior superior aspect of the vertebral body by 7 mm with flattening of the ventral surface of the cord conus and mild to moderate spinal canal stenosis. L1-L2: The L2 transpedicular screws course through the superior endplate to terminate partially within the L1-T2 disc space. Lucency surrounding the screws as they course through the superior endplate. Osteophyte formation is seen around the right transpedicular screw. Mild circumferential disc bulge. No significant spinal canal stenosis or neural foraminal stenosis. L2-L3: L3 laminectomies. Interbody fusion devices are seen in the disc space and project posterior to the vertebral body margins into the spinal canal particularly on the right. The right interbody device projects into the spinal canal and inferior right neural foramen. The left interbody device projects mildly into the spinal canal. Indentation of the ventral thecal sac with mild spinal canal stenosis. Mild right neural foraminal stenosis. Clumping of the intrathecal nerve roots in the ventral thecal sac and posterior displacement of the interbody devices may obscure residual or recurrent disc protrusion material. Mild osseous bridging between the vertebral bodies. Osseous graft material seen posteriorly with fusion of the right facet joint. The L3 vertebral body demonstrates posterior compression deformity with 25% loss of posterior vertebral body height. L3-L4: Laminectomies. Interbody fusion devices without mild osseous bridging between the vertebral bodies. Small radiopaque, possibly metallic fragment is seen along the ventral margin of the thecal sac and epidural space at the level of the superior margin of the L4 vertebral body. Posterior fusion with pedicle screws and stabilization rods as previously mentioned. There is some osseous fusion of the posterior elements/facets. No significant spinal canal or neural foraminal stenosis. Mild chronic posterior compression deformity of L4. L4-L5: Laminectomies. Posterior fusion with bilateral pedicle screws and stabilization rods. Osseous fusion of the posterior elements. Interbody devices are seen in the intervertebral disc spaces with minimal osseous bridging between the vertebral bodies. No significant spinal canal or neural foraminal stenosis. Left interbody device mildly indents the left ventral thecal sac. Mild posterior compression deformity of L4 vertebral body L5-S1: Laminectomies. Posterior fusion with bilateral pedicle screws and stabilization rods. Osseous fusion of the posterior elements. Lucency surrounding the bilateral S1 screws suggesting loosening. The right S1 screw extends through the superior endplate of S1. The right interbody device projects posterior to the vertebral body the right subarticular zone and neural foramen. Mass effect on the descending right S1 nerve root. Indentation mass effect on the right aspect of the thecal sac. Osseous fusion of the posterior elements. Mild compression deformity of the posterior aspect of the L5 vertebral body. There is some thickening and clumping of the intrathecal nerve roots of the cauda equina particularly at L2-L3. IMPRESSION: New anterior compression fracture deformity of L1 with 50% loss of vertebral body height and retropulsion of the posterior superior aspect of vertebral body by 7 mm. This results in mild to moderate narrowing of the spinal canal and indentation the ventral aspect of the conus. New mild posterior compression deformities of L3, L4 and L5. Postsurgical changes with laminectomies from L3 to S1 and posterior fusion with transpedicular screws and paraspinous stabilization rods from L2 to S1. Interbody fusion devices from L2-L3 through L5-S1. The transpedicular screws at L2 transverse the superior endplate of the L2 vertebral body into the L1-L2 disc space, right greater than left. Lucency surrounding the screws suggesting loosening. Interbody devices at L2-L3 projects posterior to the vertebral body margin indenting the thecal sac and mildly narrowing the spinal canal. Ventral clumping of the intrathecal nerve roots of the cauda equina at this level may suggest the sequela of arachnoiditis. This in combination with the posterior displacement of the interbody devices could obscure underlying residual disc material. The right interbody device projects into the right subarticular zone and inferior right neural foramen. Lucency surrounding the S1 screw suggestive of loosening. The right S1 screw projects through the superior endplate to the margin of the intervertebral disc space. The right interbody device at L5-S1 projects posterior to the vertebral body margin into the right subarticular zone and right neural foramen. Posterior displacement of the descending right S1 nerve root. 10/26/2016 - - Read by: Rebeca Villasenor MD Dictated Date/time: 10/27/16 08:50 Electronically Signed by: Rebcea Villasenor MD 10/27/16 11:31 FINAL REPORT [facility] Spine lumbar myelogram CT Spine lumbar myelogram CT EXAM: FLUOROSCOPY-GUIDED LUMBAR PUNCTURE FOR CT MYELOGRAM. EXAM: CT MYELOGRAM Lumbar SPINE. DATE: 10/26/2016 9:35 AM [employer] INDICATION: M43.28 Fusion of spine, sacral and sacrococcygeal region, Z98.1 Arthrodesis status COMPARISON: CT abdomen and pelvis 05/31/2011. PROCEDURE: An interlaminar lumbar puncture was carried out under fluoroscopic guidance with a 22 gauge spinal needle at the level of L3-L4 under the usual sterile conditions and local anesthesia. 10 mL of Omnipaque 240 was instilled into the lumbar thecal sac. The patient tolerated the procedure well. FLUOROSCOPIC TIME: [address] Lumbar SPINE TECHNIQUE: Axial images of Lumbar spine were obtained following intrathecal administration of contrast as described above. Coronal and sagittal reformatted images are provided. FINDINGS: 5 nonrib-bearing lumbar type vertebral bodies. Interval posterior fusion from L2 to S1 with transpedicular screws and paraspinous stabilization rods. Laminectomies at L3-S1. Interval development of anterior compression fracture deformity of L1 with 50% loss of vertebral body height. Retropulsion of the posterior superior aspect of the vertebral body by 7 mm with flattening of the ventral surface of the cord conus and mild to moderate spinal canal stenosis. L1-L2: The L2 transpedicular screws course through the superior endplate to terminate partially within the L1-T2 disc space. Lucency surrounding the screws as they course through the superior endplate. Osteophyte formation is seen around the right transpedicular screw. Mild circumferential disc bulge. No significant spinal canal stenosis or neural foraminal stenosis. L2-L3: L3 laminectomies. Interbody fusion devices are seen in the disc space and project posterior to the vertebral body margins into the spinal canal particularly on the right. The right interbody device projects into the spinal canal and inferior right neural foramen. The left interbody device projects mildly into the spinal canal. Indentation of the ventral thecal sac with mild spinal canal stenosis. Mild right neural foraminal stenosis. Clumping of the intrathecal nerve roots in the ventral thecal sac and posterior displacement of the interbody devices may obscure residual or recurrent disc protrusion material. Mild osseous bridging between the vertebral bodies. Osseous graft material seen posteriorly with fusion of the right facet joint. The L3 vertebral body demonstrates posterior compression deformity with 25% loss of posterior vertebral body height. L3-L4: Laminectomies. Interbody fusion devices without mild osseous bridging between the vertebral bodies. Small radiopaque, possibly metallic fragment is seen along the ventral margin of the thecal sac and epidural space at the level of the superior margin of the L4 vertebral body. Posterior fusion with pedicle screws and stabilization rods as previously mentioned. There is some osseous fusion of the posterior elements/facets. No significant spinal canal or neural foraminal stenosis. Mild chronic posterior compression deformity of L4. L4-L5: Laminectomies. Posterior fusion with bilateral pedicle screws and stabilization rods. Osseous fusion of the posterior elements. Interbody devices are seen in the intervertebral disc spaces with minimal osseous bridging between the vertebral bodies. No significant spinal canal or neural foraminal stenosis. Left interbody device mildly indents the left ventral thecal sac. Mild posterior compression deformity of L4 vertebral body L5-S1: Laminectomies. Posterior fusion with bilateral pedicle screws and stabilization rods. Osseous fusion of the posterior elements. Lucency surrounding the bilateral S1 screws suggesting loosening. The right S1 screw extends through the superior endplate of S1. The right interbody device projects posterior to the vertebral body the right subarticular zone and neural foramen. Mass effect on the descending right S1 nerve root. Indentation mass effect on the right aspect of the thecal sac. Osseous fusion of the posterior elements. Mild compression deformity of the posterior aspect of the L5 vertebral body. There is some thickening and clumping of the intrathecal nerve roots of the cauda equina particularly at L2-L3. IMPRESSION: New anterior compression fracture deformity of L1 with 50% loss of vertebral body height and retropulsion of the posterior superior aspect of vertebral body by 7 mm. This results in mild to moderate narrowing of the spinal canal and indentation the ventral aspect of the conus. New mild posterior compression deformities of L3, L4 and L5. Postsurgical changes with laminectomies from L3 to S1 and posterior fusion with transpedicular screws and paraspinous stabilization rods from L2 to S1. Interbody fusion devices from L2-L3 through L5-S1. The transpedicular screws at L2 transverse the superior endplate of the L2 vertebral body into the L1-L2 disc space, right greater than left. Lucency surrounding the screws suggesting loosening. Interbody devices at L2-L3 projects posterior to the vertebral body margin indenting the thecal sac and mildly narrowing the spinal canal. Ventral clumping of the intrathecal nerve roots of the cauda equina at this level may suggest the sequela of arachnoiditis. This in combination with the posterior displacement of the interbody devices could obscure underlying residual disc material. The right interbody device projects into the right subarticular zone and inferior right neural foramen. Lucency surrounding the S1 screw suggestive of loosening. The right S1 screw projects through the superior endplate to the margin of the intervertebral disc space. The right interbody device at L5-S1 projects posterior to the vertebral body margin into the right subarticular zone and right neural foramen. Posterior displacement of the descending right S1 nerve root. 10/26/2016 - - Read by: Rebeca Villasenor MD Dictated Date/time: 10/27/16 08:50 Electronically Signed by: Rebeca Villasenor MD 10/27/16 11:31 FINAL REPORT [facility] Vital Signs Vital Sign Value Date Comments Source Height 152.4 cm 02/07/2018 [facility] Weight 85.994 02/07/2018 [facility] BMI Calculated 37.03 02/07/2018 [facility] Systolic (mm Hg) 129 02/07/2018 [facility] Diastolic (mm Hg) 87 02/07/2018 [facility] Heart Rate 91 02/07/2018 [facility] Temperature Oral (F) 97.9 F 02/07/2018 [facility] Height 152.4 cm 01/10/2018 [facility] Temperature Oral (F) 98.0 F 01/10/2018 [facility] Respitory Rate 14 01/10/2018 [facility] BMI Calculated 37.77 01/10/2018 [facility] Weight 87.727 01/10/2018 [facility] Systolic (mm Hg) 130 01/10/2018 [facility] Diastolic (mm Hg) 76 01/10/2018 [facility] Heart Rate 63 01/10/2018 [facility] Height 152.4 cm 11/07/2017 [facility] Weight 86.364 11/07/2017 [facility] BMI Calculated 37.18 11/07/2017 [facility] Temperature Oral (F) 98.3 F 11/07/2017 [facility] Respitory Rate 14 11/07/2017 [facility] Heart Rate 81 11/07/2017 [facility] Systolic (mm Hg) 144 11/07/2017 [facility] Diastolic (mm Hg) 84 11/07/2017 [facility] Height 152.4 cm 09/08/2017 [facility] BMI Calculated 36.99 09/08/2017 [facility] Weight 85.909 09/08/2017 [facility] Systolic (mm Hg) 135 09/08/2017 [facility] Diastolic (mm Hg) 83 09/08/2017 [facility] Temperature Oral (F) 98.2 F 09/08/2017 [facility] Respitory Rate 14 09/08/2017 [facility] Heart Rate 54 09/08/2017 [facility] Respitory Rate 20 06/23/2017 [facility] Systolic (mm Hg) 121 06/23/2017 [facility] Diastolic (mm Hg) 86 06/23/2017 [facility] Systolic (mm Hg) 133 06/23/2017 [facility] Diastolic (mm Hg) 93 06/23/2017 [facility] Respitory Rate 21 06/23/2017 [facility] Diastolic (mm Hg) 73 06/23/2017 [facility] Systolic (mm Hg) 103 06/23/2017 [facility] Respitory Rate 19 06/23/2017 [facility] Heart Rate 80 06/23/2017 [facility] Heart Rate 66 06/20/2017 [facility] Temperature Oral (F) 98 F 06/20/2017 [facility] Height 152.4 cm 06/20/2017 [facility] BMI Calculated 36.79 06/20/2017 [facility] Weight 85.455 06/20/2017 [facility] Encounters Location Location Details Encounter Type Encounter Number Reason For Visit Attending Provider ADM Date DC Date Status Source [facility] [place] [facility] [id number] Piotr Ceja 10/26/2016 10/27/2016 DELIA Kam [facility] [place] [facility] Di[facility] Services [id number] Estelle Bishop 12/31/2016 01/01/2017 [facility] [place] [facility]patient [id number] UMER PATTERSON 05/31/2017 [facility] Outpatient [id number] Umer Patterson 06/08/2017 06/09/2017 [facility] Outpatient [id number] Umer Patterson 06/16/2017 06/17/2017 [facility] Bedded Outpatient [id number] Angelo Gilliam 06/23/2017 06/23/2017 [facility] Outpatient [id number] FRANTZ CHAPMAN 07/07/2017 [facility] Outpatient [id number] Frantz Chapman 08/02/2017 08/03/2017 [facility] Outpatient [id number] UMER PATTERSON 09/08/2017 [facility] Primary Care [facility] Outpatient [id number] Umer Patterson 09/08/2017 09/09/2017 [facility] Primary Care [facility] Outpatient [id number] Umer Patterson 11/07/2017 11/08/2017 [facility] Phone Message [id number] 12/13/2017 12/15/2017 [facility] Phone Message [id number] 12/15/2017 12/17/2017 [facility] Ambulatory Pre-Reg [id number] Sergo Palacios 12/16/2017 12/16/2017 [facility] [place] [facility] Dia Services [id number] Piotr Ceja 12/23/2017 12/24/2017 [facility] [place] Outpatient [id number] UMER PATTERSON 01/10/2018 [facility] Primary Care [facility] Outpatient [id number] Umer Patterson 01/10/2018 01/11/2018 [facility] Phone Message [id number] 01/31/2018 02/02/2018 [facility] Outpatient [id number] TYSON GONSALO 02/07/2018 [facility] Outpatient [id number] Tyson [facility] 02/07/2018 02/08/2018 [facility] Phone Message [id number] 02/09/2018 02/11/2018 [facility] Phone Message [id number] 02/09/2018 02/11/2018 [facility] [place] Phone Message [id number] 02/09/2018 02/11/2018 [facility] Outpatient [id number] Tyson Gonsalo 02/21/2018 02/22/2018 [facility] Phone Message [id number] 03/06/2018 03/08/2018 [facility] Outpatient [id number] [facility] 03/14/2018 [facility] Ambulatory Pre-Reg [id number] Sergo Palacios 03/14/2018 03/14/2018 [facility] Outpatient [id number] UMER PATTERSON 04/11/2018 [facility] Outpatient [id number] UMER PATTERSON 05/23/2018 [facility] Outpatient [id number] UMER PATTERSON 07/24/2018 [facility] Procedures Procedure Code Date Perfomer Comments Source Colonoscopy<sup>1</sup> [id number] 06/23/2017 diverticulosis [facility] Colonoscopy<sup>1</sup> [id number] 06/23/2017 diverticulosis [facility] Colonoscopy<sup>1</sup> 41198924 06/23/2017 diverticulosis [facility] Colonoscopy<sup>1</sup> 31799275 06/23/2017 diverticulosis [facility] [place] Diabetic retinopathy screening<sup>1</sup> [id number] 03/26/2017 normal [facility] Diabetic retinopathy screening<sup>2</sup> 984872793 03/26/2017 normal [facility] Diabetic retinopathy screening<sup>2</sup> 981518513 03/26/2017 normal [facility] Diabetic retinopathy screening<sup>2</sup> 065427791 03/26/2017 normal [facility] Diabetic retinopathy screening<sup>2</sup> 965178867 03/26/2017 normal [facility] [place] Mammogram - screening [id number] 08/26/2016 [facility] Mammogram - screening [id number] 08/26/2016 [facility] Mammogram - screening [id number] 08/26/2016 [facility] Mammogram - screening [id number] 08/26/2016 [facility] [place] Colonoscopy [id number] 09/26/2015 [facility] Hysterectomy [id number] [facility] Appendectomy [id number] [facility] Cholecystectomy [id number] [facility] Esophagogastroduodenoscopy [id number] [facility] Hysterectomy [id number] [facility] Laparoscopic repair of hiatus hernia [id number] [facility] Lumbar spinal fusion [id number] [facility] Partial resection of colon [id number] [facility] Repair of inguinal hernia [id number] [facility] Appendectomy [id number] [facility] Cholecystectomy [id number] [facility] Esophagogastroduodenoscopy [id number] [facility] Laparoscopic repair of hiatus hernia [id number] [facility] Lumbar spinal fusion [id number] [facility] Partial resection of colon [id number] [facility] Repair of inguinal hernia [id number] [facility] Appendectomy [id number] [facility] Cholecystectomy [id number] [facility] Esophagogastroduodenoscopy 56858302 [facility] Hysterectomy 881110155 [facility] Laparoscopic repair of hiatus hernia [id number] [facility] Lumbar spinal fusion 49219582 [facility] Partial resection of colon [id number] [facility] Repair of inguinal hernia 82502921 [facility] Appendectomy [id number] [facility] [place] Cholecystectomy [id number] [facility] [place] Esophagogastroduodenoscopy [id number] [facility] [place] Hysterectomy [id number] [facility] [place] Laparoscopic repair of hiatus hernia [id number] [facility] [place] Lumbar spinal fusion [id number] [facility] [place] Partial resection of colon [id number] [facility] [place] Repair of inguinal hernia [id number] [facility] [place]
--- OUTSIDE RECORDS SUMMARY | 2018-07-11 12:28 | XMS REPORT | Summary of Care ---
Author Author [facility] Organization [facility] Address Unknown Phone Unavailable Encounter GONZALO Nair(YASMINE) [id number] Date(s): 06/23/17 - 06/23/17 [facility] [address] [place] [address]- Discharge Disposition: Home or Self Care Attending Physician: Angelo Gliliam MD Referring Physician: Angelo Gilliam MD Vital Signs 1 2 3 Most recent to oldest [Reference Range]: 152.4 cm (06/20/17 9:11 AM) Height 98 DegF (06/20/17 9:37 AM) Temperature Oral [96.4-99.1 DegF] 121/86 mmHg (06/23/17 11:34 AM) 133/93 mmHg (06/23/17 11:19 AM) Blood Pressure [90-140/60-90 mmHg] 103 mmHg (06/23/17 11:04 AM) Systolic Blood Pressure [90-140 mmHg] 73 mmHg (06/23/17 11:04 AM) Diastolic Blood Pressure [60-90 mmHg] 20 BRMIN (06/23/17 11:34 AM) 21 BRMIN *HI* (06/23/17 11:19 AM) 19 BRMIN (06/23/17 11:04 AM) Respiratory Rate [14-20 BRMIN] 80 bpm (06/23/17 8:45 AM) 66 bpm (06/20/17 9:37 AM) Peripheral Pulse Rate [60-100 bpm] 85.455 kg (06/20/17 9:11 AM) Weight 36.79 m2 (06/20/17 9:11 AM) Body Mass Index Problem List Condition Effective Dates Status Health [...] Substance Reaction Severity Status NKDA Active Medications albuterol-ipratropium 2.5-0.5 mg inhalation solution 3 mL, Route: NEB, Dosing Weight 85.455, kg, ONCE, STAT, Start date: 06/23/17 8:4 4:00 CDT, Stop date: 06/23/17 8:44:00 CDT Start Date: 06/23/17 Stop Date: 06/23/17 Status: Discontinued Lyrica 100 mg oral capsule 100 mg=1 cap, PO, BID, # 90 cap, 1 Refill(s) Start Date: 06/20/17 Status: Ordered Sodium Chloride 0.9% IV 500 mL 500 mL, Rate: 25 ml/hr, Infuse over: 20 hr, Route: IV, Dosing Weight 85.455 kg, Total Volume: 500, Start date: 06/23/17 8:44:00 CDT, Duration: 30 day, Stop date : 07/23/17 8:43:00 CDT Start Date: 06/23/17 Stop Date: 06/23/17 Status: Discontinued Results ELECTROLYTES Most recent to 1 oldest [Reference Range]: Sodium Lvl [135-145 138 mEq/L mEq/L] (06/20/17 9:42 AM) Potassium Lvl 4.8 mEq/L [3.5-5.1 mEq/L] (06/20/17 9:42 AM) Chloride Lvl [95-109 105 mEq/L mEq/L] (06/20/17 9:42 AM) CO2 [24-32 mEq/L] 25 mEq/L (06/20/17 9:42 AM) AGAP [10.0-20.0 12.8 mEq/L mEq/L] (06/20/17 9:42 AM) CHEM PANEL Most recent to 1 oldest [Reference Range]: Creatinine Lvl 0.95 mg/dL [0.50-1.40 mg/dL] (06/20/17 9:42 AM) eGFR 67 mL/min/1.73m2 1 *NA* (06/20/17 9:42 AM) BUN [7-22 mg/dL] 27 mg/dL *HI* (06/20/17 9:42 AM) Glucose Lvl [70-99 140 mg/dL mg/dL] *HI* (06/20/17 9:42 AM) Calcium Lvl 9.3 mg/dL [8.5-10.5 mg/dL] (06/20/17 9:42 AM) 1Result Comment: The eGFR is calculated [...] repair of hiatus hernia Lumbar spinal fusion Repair of inguinal hernia 1diverticulosis 2normal Social History Social History Type Response Exercise Exercise duration: 0. 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 Alcohol Current1 Smoking Status Never smoker; Exposure to Tobacco Smoke None; Cigarette Smoking Last 365 Days No; Reg Smoking Cessation Counseling No 1rare Assessment and Plan No data available for this section
--- OUTSIDE RECORDS SUMMARY | 2018-07-11 12:28 | XMS REPORT | Summary of Care ---
Author Author [facility] Organization [facility] Address Unknown Phone Unavailable Encounter GONZALO Nair(YASMINE) [id number] Date(s): 06/16/17 - 06/16/17 [facility] [address] [place] [address]- Discharge Disposition: Home or Self Care Attending [...] Active neuropathy(Confirmed ) Urine(Confirmed)1, 2 05/31/11 Active History of inguinal Active hernia(Confirmed) Hyperlipidemia(Confi Active rmed) Hypertension(Confirm Active ed) Right [...]
--- OUTSIDE RECORDS SUMMARY | 2018-07-11 12:28 | XMS REPORT | Summary of Care ---
Author Author [facility] Outpatient Imaging - [facility] Outpatient Imaging - [facility] Address Unknown Phone Unavailable Encounter HQ Joanie(YASMINE) [id number] Date(s): 10/26/16 - 10/26/16 [facility] Outpatient Imaging - [facility] [address] [place] [address]- Discharge Disposition: Home or Self Care Attending Physician: Piotr Ceja MD Vital Signs No data available for [...]
--- OUTSIDE RECORDS SUMMARY | 2018-07-11 12:29 | XMS REPORT | Summary of Care ---
Author Author [facility] Organization [facility] Neurosurgery [facility] Address Unknown Phone Unavailable Encounter HQ Joanie(FIN) [id number] Date(s): 03/06/18 - 03/07/18 [facility] Neurosurgery [facility] [address], [address] [place], [place] [address] [phone] Vital Signs No data available for this section Problem List Condition Effective Dates Status Health Status Informant Elevated alkaline Active phosphatase level(Confirmed) BMI 37.0-37.9, Active adult(Confirmed) Chronic back Active pain(Confirmed) Chronic kidney Active disease (CKD)(Confirmed) Diabetes mellitus Active type 2(Confirmed) Diabetic Active neuropathy(Confirmed ) Acid Active reflux(Confirmed) History of inguinal Active hernia(Confirmed) Hyperlipidemia(Confi Active rmed) Hypertension(Confirm Active ed) Hypertension(Confirm Active ed) Elevated IgE Active level(Confirmed) Lymphadenopathy(Conf Active irmed) Cancer of Resolved colon(Confirmed) Cancer of Active colon(Confirmed) Allergies, Adverse Reactions, Alerts Substance Reaction Severity Status NKDA Active Medications No data available for this section Results No data available for this section Immunizations Given and Recorded Vaccine Date Status Refusal Reason influenza virus vaccine, inactivated1 09/08/17 Given 1Result Comment: Patient waited 15 minutes, no reaction noted. Procedures Procedure Date Related Diagnosis Body Site Status Colonoscopy1 06/23/17 Completed Diabetic retinopathy screening2 03/2017 Completed Mammogram - screening 08/2016 Completed Appendectomy Completed Cholecystectomy Completed Esophagogastroduodenoscopy Completed Hysterectomy Completed Laparoscopic repair of hiatus hernia Completed Lumbar spinal fusion Completed Partial resection of colon Completed Repair of inguinal hernia Completed 1diverticulosis 2normal Social History Social History Type Response Exercise Exercise duration: 0. 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 Alcohol Never Smoking Status Never smoker; Exposure to Tobacco Smoke None; Cigarette Smoking Last 365 Days No; Reg Smoking Cessation Counseling No entered on: 02/07/18 Assessment and Plan No data available for this section
--- OUTSIDE RECORDS SUMMARY | 2018-07-11 12:29 | XMS REPORT | Summary of Care ---
Author Author [facility] Organization [facility] Neurosurgery [facility] Address Unknown Phone Unavailable Encounter HQ Joanie(FIN) [id number] Date(s): 01/31/18 - 02/01/18 [facility] Neuro[facility] [address], [address] [place], [place] [address] [phone] Vital Signs No data available for this [...] Reg Smoking Cessation Counseling No entered on: 01/10/18 Assessment and Plan No data available for this section
--- OUTSIDE RECORDS SUMMARY | 2018-07-11 12:29 | XMS REPORT | Summary of Care ---
Author Author [facility] Organization [facility] Address Unknown Phone Unavailable Encounter GONZALO Nair(YASMINE) [id number] Date(s): 11/07/17 - 11/07/17 [facility] [address], [address] [place] [address]- [phone] Discharge Disposition: Home or Self Care Attending Physician: Roz Patterson DO Vital Signs Most recent to 1 oldest [Reference Range]: Height 152.4 cm (11/07/17 11:58 AM) Temperature Oral 98.3 DegF [96.4-99.1 DegF] (11/07/17 11:58 AM) Blood Pressure 144/84 mmHg [90-140/60-90 mmHg] *HI* (11/07/17 11:58 AM) Respiratory Rate 14 BRMIN [14-20 BRMIN] (11/07/17 11:58 AM) Peripheral Pulse 81 bpm Rate [60-100 bpm] (11/07/17 11:58 AM) Weight 86.364 kg (11/07/17 11:58 AM) Body Mass Index 37.18 m2 (11/07/17 11:58 AM) Problem List Condition Effective Dates Status Health [...] Substance Reaction Severity Status NKDA Active Medications hydrOXYzine hydrochloride 25 mg oral tablet 12.5 mg=0.5 tab, PO, QID, PRN Itching, X 10 day, # 30 tab, 2 Refill(s), Pharmacy : [facility] [id number] Start Date: 11/07/17 Stop Date: 12/07/17 Status: Completed hydrOXYzine hydrochloride 25 mg oral tablet 12.5 mg=0.5 tab, PO, QID, PRN Itching, X 10 day, # 30 tab, 0 Refill(s), Pharmacy : [facility] [id number] Start Date: 11/07/17 Stop Date: 11/07/17 Status: Discontinued losartan 25 mg oral tablet 25 mg=1 tab, PO, Daily, # 30 tab, 5 Refill(s), Pharmacy: [facility] [id number] Start Date: 11/07/17 Stop Date: 01/10/18 Status: Discontinued Results No data available for this section [...]
--- OUTSIDE RECORDS SUMMARY | 2018-07-11 12:29 | XMS REPORT | Summary of Care ---
Author Author [facility] Organization [facility] Address Unknown Phone Unavailable Encounter HQ Joanie(FIN) [id number] Date(s): 02/09/18 - 02/10/18 [facility] [address], [address] [place], [place] [address] [phone] Vital Signs No data available for this [...]
--- OUTSIDE RECORDS SUMMARY | 2018-07-11 12:29 | XMS REPORT | Summary of Care ---
Author Author [facility] Organization [facility] Neurosurgery [facility] Address Unknown Phone Unavailable Encounter HQ Joanie(FIN) [id number] Date(s): 01/31/18 - 02/01/18 [facility] Neurosurgery [facility] [address] [address] [facility], [address] [place], [place] [address] [phone] Vital Signs No data available for this [...]
--- OUTSIDE RECORDS SUMMARY | 2018-07-11 12:29 | XMS REPORT | Summary of Care ---
Author Author [facility] Organization [facility] Neurosurgery [facility] Address Unknown Phone Unavailable Encounter HQ Joanie(FIN) [id number] Date(s): 02/09/18 - 02/10/18 [facility] Neurosurgery [facility] [address], [address] [place], [place] [address] [phone] Vital Signs No data available for this [...]
--- OUTSIDE RECORDS SUMMARY | 2018-07-11 12:29 | XMS REPORT | Summary of Care ---
Author Author [facility] Organization [facility] Address Unknown Phone Unavailable Encounter GONZALO Nair(FIN) [id number] Date(s): 09/08/17 - 09/08/17 [facility] [address], [address] [place], [place] [address]- [phone] Discharge Disposition: Home or Self Care Attending Physician: Roz Patterson DO Vital Signs Most recent to 1 oldest [Reference Range]: Height 152.4 cm (09/08/17 3:53 PM) Temperature Oral 98.2 DegF [96.4-99.1 DegF] (09/08/17 3:53 PM) Blood Pressure 135/83 mmHg [90-140/60-90 mmHg] (09/08/17 3:53 PM) Respiratory Rate 14 BRMIN [14-20 BRMIN] (09/08/17 3:53 PM) Peripheral Pulse 54 bpm Rate [60-100 bpm] *LOW* (09/08/17 3:53 PM) Weight 85.909 kg (09/08/17 3:53 PM) Body Mass Index 36.99 m2 (09/08/17 3:53 PM) Problem List Condition Effective Dates Status Health Status Informant Elevated alkaline Active phosphatase level(Confirmed) Chronic back Active pain(Confirmed) Chronic kidney Active disease (CKD)(Confirmed) Diabetes mellitus Active type 2(Confirmed) Diabetic Active neuropathy(Confirmed ) Acid Active reflux(Confirmed) History of inguinal Active hernia(Confirmed) Hyperlipidemia(Confi Active rmed) Hypertension(Confirm Active ed) Hypertension(Confirm Active ed) Lymphadenopathy(Conf Active irmed) Cancer of Resolved colon(Confirmed) Cancer of Active colon(Confirmed) Body mass index Active (BMI) 36.0-36.9, adult(Confirmed) Allergies, Adverse Reactions, Alerts Substance Reaction Severity Status NKDA Active Medications Cheratussin AC oral syrup 5 ml, PO, Q6H, PRN for cough and congestion, X 14 day, # 150 mL, 0 Refill(s) Start Date: 09/08/17 Stop Date: 09/22/17 Status: Ordered fluticasone nasal 0.05 mg/inh spray 1 spray, NASAL, Daily, # 1 ea, 3 Refill(s), Pharmacy: [facility] [id number] Start Date: 09/08/17 Stop Date: 09/03/18 Status: Ordered Results No data available for this section [...]
--- OUTSIDE RECORDS SUMMARY | 2018-07-11 12:29 | XMS REPORT | Summary of Care ---
Author Author [facility] Organization [facility] Address Unknown Phone Unavailable Encounter GONZALO Nair(YASMINE) [id number] Date(s): 01/10/18 - 01/10/18 [facility] [address] [place] [address], [address] [place] [address]- [phone] Discharge Disposition: Home or Self Care Attending Physician: Roz Patterson DO Vital Signs Most recent to 1 oldest [Reference Range]: Height 152.4 cm (01/10/18 10:17 AM) Temperature Oral 98.0 DegF [96.4-99.1 DegF] (01/10/18 10:17 AM) Blood Pressure 130/76 mmHg [90-140/60-90 mmHg] (01/10/18 10:17 AM) Respiratory Rate 14 BRMIN [14-20 BRMIN] (01/10/18 10:17 AM) Peripheral Pulse 63 bpm Rate [60-100 bpm] (01/10/18 10:17 AM) Weight 87.727 kg (01/10/18 10:17 AM) Body Mass Index 37.77 m2 (01/10/18 10:17 AM) Problem List Condition Effective Dates Status [...] Substance Reaction Severity Status NKDA Active Medications atorvastatin 10 mg oral tablet 10 mg=1 tab, PO, Bedtime, # 90 tab, 1 Refill(s), Pharmacy: [facility] [address] Start Date: 01/11/18 Stop Date: 07/10/18 Status: Ordered gabapentin 600 mg oral tablet 300 mg=0.5 tab, PO, BID, # 90 tab, 1 Refill(s), [facility] [id number] [id number] Start Date: 01/10/18 Stop Date: 07/09/18 Status: Ordered glyBURIDE 5 mg oral tablet 10 mg=2 tab, PO, BID, # 360 tab, 1 Refill(s), [facility]30 95 Start Date: 01/11/18 Stop Date: 07/10/18 Status: Ordered Invokana 100 mg oral tablet 100 mg=1 tab, PO, Before Breakfast, # 30 tab, 5 Refill(s), Pharmacy: [facility] [address] Start Date: 01/10/18 Status: Ordered losartan 25 mg oral tablet 25 mg=1 tab, PO, Daily, # 90 tab, 1 Refill(s), [facility] 03 095 Start Date: 01/10/18 Stop Date: 07/09/18 Status: Ordered Results No data available for [...]
--- OUTSIDE RECORDS SUMMARY | 2018-07-11 12:29 | XMS REPORT | Summary of Care ---
Author Author DIANN Neurosurgery [facility] Organization [employer] Neurosurgery [facility] Address Unknown Phone Unavailable Encounter HQ Joanie(FIN) [id number] Date(s): 02/09/18 - 02/10/18 [facility] [facility] [facility] [address] [facility] [address], [address] [place], [place] [address] [phone] Vital Signs No data available for this [...]
--- OUTSIDE RECORDS SUMMARY | 2018-07-11 12:29 | XMS REPORT | Summary of Care ---
Author Author [facility] Organization [facility] Neurosurgery [facility] Address Unknown Phone Unavailable Encounter GONZALO Nair(YASMINE) [id number] Date(s): 12/16/17 - 12/16/17 [facility] Neurosurgery [facility] [address], [address] [place], [place] [address] [phone] Attending Physician: Alesha Ravi NP Referring Physician: Sergo Palacios Vital Signs No data available for this [...]
--- OUTSIDE RECORDS SUMMARY | 2018-07-11 12:29 | XMS REPORT | Summary of Care ---
Author Author [facility] Organization [facility] Neurosurgery [facility] Address Unknown Phone Unavailable Encounter GONZALO Nair(YASMINE) [id number] Date(s): 03/14/18 - 03/14/18 [facility]surgery [facility] [address], [address] [place], [place] [address] [phone] Attending Physician: Tyson Leal MD Referring Physician: Sergo Palacios Vital Signs No [...]
--- OUTSIDE RECORDS SUMMARY | 2018-07-11 12:29 | XMS REPORT | Summary of Care ---
Author Author [facility] Organization [facility] Neurosurgery [facility] Address Unknown Phone Unavailable Encounter GONZALO Nair(FIN) [id number] Date(s): 12/15/17 - 12/16/17 [facility] Neurosurgery [facility] [address], [address] [phone] Vital Signs No data available for this [...]
--- OUTSIDE RECORDS SUMMARY | 2018-07-11 12:29 | XMS REPORT | Summary of Care ---
Author Author [facility] Organization [facility] Neurosurgery [facility] Address Unknown Phone Unavailable Encounter HQ Joanie(FIN) [id number] Date(s): 12/13/17 - 12/14/17 [facility] Neurosurgery [facility] [address], [address] [place], [place] [address] [phone] Vital Signs No data available for this [...]
--- OUTSIDE RECORDS SUMMARY | 2018-07-11 12:29 | XMS REPORT | Summary of Care ---
Author Author [facility] Organization [facility] Neurosurgery [facility] Address Unknown Phone Unavailable Encounter GONZALO Nair(YASMINE) [id number] Date(s): 02/07/18 - 02/07/18 [facility] Neurosurgery [facility] [address], [address] [place], [place] [address] [phone] Discharge Disposition: Home or Self Care Attending Physician: Tyson Leal MD Referring Physician: Sergo Palacios Vital Signs Most recent to 1 oldest [Reference Range]: Height 152.4 cm (02/07/18 2:21 PM) Temperature Oral 97.9 DegF [96.4-99.1 DegF] (02/07/18 2:21 PM) Blood Pressure 129/87 mmHg [90-140/60-90 mmHg] (02/07/18 2:21 PM) Peripheral Pulse 91 bpm Rate [60-100 bpm] (02/07/18 2:21 PM) Weight 85.994 kg (02/07/18 2:21 PM) Body Mass Index 37.03 m2 (02/07/18 2:21 PM) Problem List Condition Effective Dates Status [...]
--- OUTSIDE RECORDS SUMMARY | 2018-07-11 12:29 | XMS REPORT | Summary of Care ---
Author Author [facility] [place] Organization [facility] [place] Address Unknown Phone Unavailable Encounter HQ Joanie(FIN) [id number] Date(s): 12/23/17 - 12/23/17 [facility] - [place] [address] [place], [place] [address] [phone] Encounter Diagnosis Low back pain (Final) - 12/29/17 Pain in thoracic spine (Final) - Spinal stenosis, thoracolumbar region (Final) - Spondylosis without myelopathy or radiculopathy, thoracolumbar region (Final) - Osteophyte, vertebrae (Final) - Other specific arthropathies, not elsewhere classified, other specified site (Final) - Discharge Disposition: Home or Self Care Attending [...]
--- OUTSIDE RECORDS SUMMARY | 2018-07-11 12:29 | XMS REPORT | Summary of Care ---
Author Author [facility] Organization [facility] Address Unknown Phone Unavailable Encounter GONZALO Nair(YASMINE) [id number] Date(s): 02/21/18 - 02/21/18 [facility] [address] [place] [address]- [phone] Discharge Disposition: Home or Self Care Attending Physician: Tyson Leal MD Admitting Physician: Tyson Leal MD Referring Physician: Tyson Leal MD Vital Signs No data available for [...]
== END | disposition home or self-care (01) ==
LOC: OR 05:05
PROVIDERS: ATTEND Surgery
DX: Z12.11 Encounter for screening for malignant neoplasm of colon (principal); K57.30 Diverticulosis of large intestine without perforation or abscess without bleeding; I10 Essential (primary) hypertension; E11.9 Type 2 diabetes mellitus without complications; Z01.810 Encounter for preprocedural cardiovascular examination; Z01.812 Encounter for preprocedural laboratory examination; Z79.84 Long term (current) use of oral hypoglycemic drugs
CPT/HCPCS: 36415 ×2; 45378; 80048; 82948; 85025; 93005; J2250

== ENCOUNTER → 2019-06-22 | Day surgery (SDC) | payer BC, OTHER ==
[2019-06-19 17:15] LABS: BASOPHILS % 0.4 % (0.0-1.0); EOSINOPHILS # (AUTO) 0.2 (0.0-0.4); HEMATOCRIT 37.5 % (34.2-44.1); HEMOGLOBIN 11.8 g/dL (12.0-16.0); MEAN CORPUSCULAR HEMOGLOBIN 28.9 pg (28-32); MEAN CORPUSCULAR HGB CONC 31.5 g/dL (31-35); MEAN CORPUSCULAR VOLUME 91.7 fL (81-99); MONOCYTES # (AUTO) 0.5 (0.2-0.8); MONOCYTES % 5.9 % (4.4-11.3); NEUTROPHILS # (AUTO) 5.3 (2.1-6.9); NEUTROPHILS % 65.2 % (38.7-80.0); PLATELET COUNT 212 x10e3/uL (140-360); RED BLOOD COUNT 4.09 x10e6/uL (3.6-5.1)
[2019-06-19 17:30] LABS: ANION GAP 11.4 mmol/L (8-16); CALCIUM 9.3 mg/dL (8.4-10.2); CREATININE, SERUM 0.95 mg/dL (0.57-1.11); POTASSIUM 4.4 mmol/L (3.5-5.1)
--- NOTE | 2019-06-19 17:48 | Diagnostic Imaging Report ---
Frontal and lateral views of the chest. HISTORY: Preop, screening colonoscopy COMPARISON: None available. DISCUSSION: Soft tissue attenuation partially limits sensitivity of the exam. Lungs: Low lung volumes result in bibasilar vascular crowding, accentuation of the pulmonary interstitial markings, central pulmonary vasculature, and the cardiac silhouette. Allowing for these limitations, the findings are as follows: No evidence of a consolidative pneumonia or pulmonary alveolar edema. Pleura: No pleural effusion or pneumothorax. Heart and mediastinum: The cardiomediastinal silhouette appear(s) unremarkable. Bones and soft tissues: Partially visualized lumbar fixation hardware. Other: Cholecystectomy clips. IMPRESSION: No acute radiographic abnormality. Signed by: Dr. Rosas Reed D.O., M.M.M. on 06/19/2019 5:45 PM
[~2019-06-22] MED LIST changes: +LIDOCAINE HCL 2% LOCAL INJ 5 ML SDV VIAL INJ ONE; +LOSARTAN POTAS100 MG PO
--- OUTSIDE RECORDS SUMMARY | 2019-06-22 05:41 | XMS REPORT | Clinical Summary ---
Author Author [facility] Organization [facility] Address Unknown Phone Unavailable Care Team Providers Care Rn Procedures Name Role Phone Tyson Bauer MD PCP Allergies No Known Allergies Medications End Date Status Medication Sig Dispensed Refills Start Date Active lisinopril Take 5 mg by 0 (PRINIVIL,ZESTRIL) 5 mg mouth daily. tablet Active LYRICA 150 mg capsule Take 75 mg by 2 mouth 7 nightly. Active oxyCODone (ROXICODONE) 30 30 mg every 6 0 MG immediate release (six) hours 7 tablet as needed. Active ondansetron (ZOFRAN) 4 MG 4 mg as 4 tablet needed for 7 nausea. Active cyclobenzaprine 10 mg as 2 (FLEXERIL) 10 mg tablet needed. 7 Active glyBURIDE (DIABETA) 5 MG Take 5 mg by 0 tablet mouth daily with breakfast. Active MULTIVITAMIN ORAL Take by 0 mouth. Active Problems Problem Noted Date Spinal stenosis 03/17/2017 Lumbar stenosis 03/16/2017 Hypertension Type 2 diabetes mellitus Family History Medical History Relation Name Comments Cancer Mother Breast cancer Sister Relation Name Status Comments Father Mother Sister Social History Date Tobacco Use Types Packs/Day Years Used Never Smoker Smokeless Tobacco: Never Used Drinks/Week oz/Week Comments Alcohol Use No Sex Assigned at Date Recorded Not on file Industry Job Start Date Occupation Not on file Not on file Not on file Travel End Travel History Travel Start No recent travel history available. Last Filed Vital Signs Not on file Plan of Treatment Health Maintenance Due Date Last Done Comments DIABETIC RETINAL EYE EXAM 1959 DIABETIC FOOT EXAM 1969 CERVICAL CANCER SCREENING 1980 BREAST CANCER SCREENING 2009 COLONOSCOPY SCREENING 2009 SHINGLES VACCINES (#1) 2009 INFLUENZA VACCINE 04/26/2019 08/28/2014 Implants Device Identifier Shelf Expiration Date Model / Serial / Lot Implanted Type Area Manufactur er 10/07/2018 [id number] / / Putty Dbm Dbx 5cc - [id number] Orthopedic N/A: Spine MUSCULOSKE Implanted: Qty: 1 on 03/16/2017 by Trauma Lumbar Vishal Freitas MD at [facility] Implants [facility] 09/06/2021 [id number] / / [id number] Nufix 5.0 Mm Dowel - [id number] Spinal Bilateral: NUTECH Implanted: 03/16/2017 at [facility] Implants Spine Lumbar [facility] (Quantity not on file) 09/06/2021 [id number] / / [id number] Nufix 5.0 Mm Dowel - [id number] Spinal Bilateral: NUTECH Implanted: 03/16/2017 at [facility] Implants Spine Lumbar [facility] (Quantity not on file) Results Not on fileafter 06/21/2018 Insurance Type Payer Benefit Subscriber ID Effective Phone Address Plan / Dates Group HMO [employer] xxxxxxxxx [id number] [employer] resent [facility] Advance Directives For more information, please contact: [phone] 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
--- OUTSIDE RECORDS SUMMARY | 2019-06-22 05:42 | XMS REPORT | Continuity of Care Document ---
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 tab, PO, Bedtime, # 90 tab, 1 Refill(s), [facility] [id number] Active 01/11/2018 [facility] glyBURIDE 5 mg oral tablet 10 mg=2 tab, PO, BID, # 360 tab, 1 Refill(s), [facility] [id number] Active 01/11/2018 [facility] canagliflozin 100 MG Oral Tablet [Invokana] 100 mg=1 tab, PO, Before Breakfast, # 30 tab, 5 Refill(s), Pharmacy: [facility] [id number] Active 01/10/2018 [facility] losartan 25 mg oral tablet 25 mg=1 tab, PO, Daily, # 90 tab, 1 Refill(s), Pharmacy: [facility] [id number] Active 01/10/2018 [facility] gabapentin 600 MG Oral Tablet 300 mg=0.5 tab, PO, BID, # 90 tab, 1 Refill(s), Pharmacy: [facility] [id number] Active 01/10/2018 [facility] Hydroxyzine Hydrochloride 25 MG Oral Tablet 12.5 mg=0.5 tab, PO, QID, PRN Itching, X 10 day, # 30 tab, 2 Refill(s), Pharmacy: [facility] [id number] No Longer Active 11/07/2017 [facility] Hydroxyzine Hydrochloride 25 MG Oral Tablet 12.5 mg=0.5 tab, PO, QID, PRN Itching, X 10 day, # 30 tab, 0 Refill(s), Pharmacy: [facility] [id number] Inactive 11/07/2017 [facility] losartan 25 mg oral tablet 25 mg=1 tab, PO, Daily, # 30 tab, 5 Refill(s), Pharmacy: [facility] [id number] No Longer Active 11/07/2017 [facility] Codeine Phosphate 2 MG/ML / Guaifenesin 20 MG/ML Oral Solution [Cheratussin] 5 ml, PO, Q6H, PRN for cough and congestion, X 14 day, # 150 mL, 0 Refill(s) Active 09/08/2017 [facility] Fluticasone propionate 0.05 MG/ACTUAT Metered Dose Nasal [place] 1 spray, NASAL, Daily, # 1 ea, 3 Refill(s), Pharmacy: [facility] [id number] Active 09/08/2017 [facility] Albuterol 0.833 MG/ML / Ipratropium [place] 0.167 MG/ML Inhalant Solution 3 mL, Route: NEB, Dosing Weight 85.455, kg, ONCE, STAT, Start date: 06/23/17 8:44:00 CDT, Stop date: 06/23/17 8:44:00 CDT Inactive 06/23/2017 [facility] Sodium Chloride 0.9% IV 500 mL 500 mL, Rate: 25 ml/hr, Infuse over: 20 hr, Route: IV, Dosing Weight 85.455 kg, Total Volume: 500, Start date: 06/23/17 8:44:00 CDT, Duration: 30 day, Stop date: 07/23/17 8:43:00 CDT Inactive 06/23/2017 [facility] pregabalin 100 MG Oral Capsule [Lyrica] 100 mg=1 cap, PO, BID, # 90 cap, 1 Refill(s) Active 06/20/2017 [facility] Allergies, Adverse Reactions, Alerts Substance Category Reaction Severity Reaction type Status Date Reported Comments Source No Known Medication Allergies Assertion Drug allergy [facility] Immunizations Immunization Date Given Site Status Last Updated Comments Source pneumococcal 23-valent vaccine 09/16/2018 Left deltoid completed [facility], DELIA De Dios,[facility] influenza virus vaccine, inactivated<sup>1</sup> 07/24/2018 Left Deltoid completed [facility] Result Comment: Patient waited 15 minutes, no reaction noted. [facility], DELIA De Dios,[facility] influenza virus vaccine, inactivated<sup>1</sup> 09/08/2017 Left Deltoid completed [facility] Result Comment: Patient waited 15 minutes, no reaction noted. [facility], DELIA De Dios,[facility] influenza virus vaccine, inactivated<sup>2</sup> 09/08/2017 Left Deltoid completed [facility] Result Comment: Patient waited 15 minutes, no reaction noted. [facility] Order Name Results Value Reference Range Date Interpretation Comments Source CARDIAC ENZYMES Troponin-I <0.02 0.00 - 0.40 03/29/2019 [facility] CARDIAC ENZYMES Troponin-I <0.02 0.00 - 0.40 03/29/2019 [facility] LIPIDS LDL (Calculated) 64 <=99 mg/dL 03/29/2019 [facility] LIPIDS VLDL 29 03/29/2019 [facility] LIPIDS Chol 154 <=199 mg/dL 03/29/2019 [facility] LIPIDS HDL 61 >=61 mg/dL 03/29/2019 [facility] LIPIDS Trig 144 <=149 mg/dL 03/29/2019 [facility] LIPIDS CHD Risk 2.52 3.90 - 5.80 03/29/2019 [facility] SPECIAL CHEMISTRY Hgb A1C 6.6 <=5.6 % 03/29/2019 [facility] URINE AND STOOL UA Mucus Few /LPF None Seen /LPF 03/29/2019 [facility] URINE AND STOOL UA Color Ltyellow 03/29/2019 [facility] URINE AND STOOL UA Urobilinogen <=1.0 mg/dL 0.1 - 1.0 03/29/2019 [facility] URINE AND STOOL UA Turbidity Clear (03/29/19 8:02 AM) Clear 03/29/2019 [facility] URINE AND STOOL UA Protein Negative mg/dL Negative mg/dL 03/29/2019 [facility] URINE AND STOOL UA pH 6.0 5.0 - 8.0 03/29/2019 [facility] URINE AND STOOL UA Spec Grav 1.006 <=1.030 03/29/2019 [facility] URINE AND STOOL UA Glucose Negative mg/dL Negative mg/dL 03/29/2019 [facility] URINE AND STOOL UA Blood Negative (03/29/19 8:02 AM) Negative 03/29/2019 [facility] URINE AND STOOL UA Bili Negative *NA* (03/29/19 8:02 AM) Negative 03/29/2019 [facility] URINE AND STOOL UA Ketones Negative mg/dL Negative mg/dL 03/29/2019 [facility] URINE AND STOOL UA Nitrite Negative (03/29/19 8:02 AM) Negative 03/29/2019 [facility] URINE AND STOOL UA WBC 3 0 - 5 03/29/2019 [facility] URINE AND STOOL UA Leuk Est Trace *ABN* (03/29/19 8:02 AM) Negative 03/29/2019 [facility] URINE AND STOOL UA Sq Epi Few /LPF Few /LPF 03/29/2019 [facility] URINE AND STOOL UA Bacteria Many /HPF None Seen /HPF 03/29/2019 [facility] CARDIAC ENZYMES BNP 18 <=100 pg/mL 03/29/2019 [facility] CARDIAC ENZYMES Total CK 72 12 - 191 03/29/2019 [facility] CARDIAC ENZYMES Troponin-I <0.02 0.00 - 0.40 03/29/2019 [facility] CHEM PANEL B/C Ratio 12 6 - 25 03/29/2019 [facility] CHEM PANEL AGAP 11.6 10.0 - 20.0 03/29/2019 [facility] CHEM PANEL A/G Ratio 1.0 0.7 - 1.6 03/29/2019 [facility] CHEM PANEL Globulin 3.9 2.7 - 4.2 03/29/2019 [facility] CHEM PANEL Alk Phos 132 39 - 136 03/29/2019 [facility] CHEM PANEL AST 27 0 - 37 03/29/2019 [facility] CHEM PANEL ALT 61 0 - 65 03/29/2019 [facility] CHEM PANEL Albumin Lvl 3.8 3.5 - 5.0 03/29/2019 [facility] CHEM PANEL Bili Total 0.6 0.2 - 1.3 03/29/2019 [facility] CHEM PANEL Chloride Lvl 107 95 - 109 03/29/2019 [facility] CHEM PANEL Sodium Lvl 137 135 - 145 03/29/2019 [facility] CHEM PANEL Potassium Lvl 3.6 3.5 - 5.1 03/29/2019 [facility] CHEM PANEL Total Protein 7.7 6.4 - 8.4 03/29/2019 [facility] CHEM PANEL Calcium Lvl 9.5 8.5 - 10.5 03/29/2019 [facility] CHEM PANEL CO2 22 24 - 32 03/29/2019 [facility] CHEM PANEL eGFR 78 03/29/2019 Result Comment: The eGFR is calculated using [...] should be multiplied by the estimated BMI. [facility] CHEM PANEL Glucose Lvl 191 70 - 99 03/29/2019 [facility] CHEM PANEL BUN 10 7 - 22 03/29/2019 [facility] CHEM [facility] Creatinine Lvl 0.83 0.50 - 1.40 03/29/2019 [facility] HEMATOLOGY PT 12.2 12.0 - 14.7 03/29/2019 [facility] HEMATOLOGY INR 0.92 0.85 - 1.17 03/29/2019 [facility] HEMATOLOGY PTT 35.3 22.9 - 35.8 03/29/2019 [facility] HEMATOLOGY RBC 4.34 4.20 - 5.40 03/29/2019 [facility] HEMATOLOGY Hgb 12.7 12.0 - 16.0 03/29/2019 [facility] HEMATOLOGY WBC 7.0 3.7 - 10.4 03/29/2019 [facility] MCV 87.2 80.0 - 98.0 03/29/2019 [facility] Hct 37.8 36.0 - 48.0 03/29/2019 [facility] MCH 29.3 27.0 - 31.0 03/29/2019 [facility] Platelet 189 133 - 450 03/29/2019 [facility] MCHC 33.5 32.0 - 36.0 03/29/2019 [facility] RDW 13.9 11.5 - 14.5 03/29/2019 [facility] MPV 8.9 7.4 - 10.4 03/29/2019 [facility] Neutrophils # 5.5 1.5 - 8.1 03/29/2019 [facility] Basophils 0.2 0.0 - 1.0 03/29/2019 [facility] Monocytes # 0.4 0.0 - 0.8 03/29/2019 [facility] Lymphocytes # 1.1 1.0 - 5.5 03/29/2019 [facility] Eosinophils 0.8 0.0 - 4.0 03/29/2019 [facility] Eosinophils # 0.1 0.0 - 0.5 03/29/2019 [facility] Segs 78.1 45.0 - 75.0 03/29/2019 [facility] Monocytes 5.4 2.0 - 12.0 03/29/2019 [facility] Lymphocytes 15.5 20.0 - 40.0 03/29/2019 [facility] CHEM PANEL eGFR 97 09/16/2018 Result Comment: The eGFR is calculated using [...] should be multiplied by the estimated BMI. [facility] CHEM PANEL ALT 29 0 - 65 09/16/2018 [facility] CHEM PANEL AST 18 0 - 37 09/16/2018 [facility] CHEM PANEL Alk Phos 78 39 - 136 09/16/2018 [facility] CHEM PANEL Bili Total 0.3 0.2 - 1.3 09/16/2018 [facility] CHEM PANEL B/C Ratio 16 6 - 25 09/16/2018 [facility] CHEM PANEL Albumin Lvl 2.6 3.5 - 5.0 09/16/2018 [facility] CHEM PANEL Total Protein 5.6 6.4 - 8.4 09/16/2018 [facility] CHEM PANEL Globulin 3.0 2.7 - 4.2 09/16/2018 [facility] CHEM PANEL A/G Ratio 0.9 0.7 - 1.6 09/16/2018 [facility] CHEM PANEL Calcium Lvl 7.4 8.5 - 10.5 09/16/2018 [facility] CHEM PANEL AGAP 7.6 10.0 - 20.0 09/16/2018 [facility] CHEM PANEL BUN 11 7 - 22 09/16/2018 [facility] CHEM PANEL Creatinine Lvl 0.68 0.50 - 1.40 09/16/2018 [facility] CHEM PANEL Sodium Lvl 143 135 - 145 09/16/2018 [facility] CHEM PANEL Chloride Lvl 113 95 - 109 09/16/2018 [facility] CHEM PANEL Potassium Lvl 3.6 3.5 - 5.1 09/16/2018 [facility] CHEM PANEL CO2 26 24 - 32 09/16/2018 [facility] CHEM PANEL Glucose Lvl 134 70 - 99 09/16/2018 [facility] HEMATOLOGY MPV 8.9 7.4 - 10.4 09/16/2018 [facility] HEMATOLOGY Platelet 140 133 - 450 09/16/2018 [facility] HEMATOLOGY MCHC 32.6 32.0 - 36.0 09/16/2018 [facility] HEMATOLOGY RDW 14.1 11.5 - 14.5 09/16/2018 [facility] HEMATOLOGY MCV 88.4 80.0 - 98.0 09/16/2018 [facility] HEMATOLOGY MCH 28.8 27.0 - 31.0 09/16/2018 [facility] HEMATOLOGY Hgb 10.5 12.0 - 16.0 09/16/2018 [facility] HEMATOLOGY Hct 32.4 36.0 - 48.0 09/16/2018 [facility] HEMATOLOGY WBC 5.0 3.7 - 10.4 09/16/2018 [facility] HEMATOLOGY RBC 3.67 4.20 - 5.40 09/16/2018 [facility] HEMATOLOGY Eosinophils 3.6 0.0 - 4.0 09/16/2018 [facility] HEMATOLOGY Monocytes 9.4 2.0 - 12.0 09/16/2018 [facility] Lymphocytes 28.5 20.0 - 40.0 09/16/2018 [facility] HEMATOLOGY Segs 57.9 45.0 - 75.0 09/16/2018 [facility] HEMATOLOGY Basophils 0.6 0.0 - 1.0 09/16/2018 [facility] HEMATOLOGY Eosinophils # 0.2 0.0 - 0.5 09/16/2018 [facility] Monocytes # 0.5 0.0 - 0.8 09/16/2018 [facility] Lymphocytes # 1.4 1.0 - 5.5 09/16/2018 [facility] Neutrophils # 2.9 1.5 - 8.1 09/16/2018 [facility] SPECIAL CHEMISTRY Hgb A1C 6.5 <=5.6 % 09/16/2018 [facility] ELECTROLYTES Potassium Lvl 4.2 3.5 - 5.1 09/15/2018 [facility] ELECTROLYTES Calcium Lvl 7.4 8.5 - 10.5 09/15/2018 [facility] ELECTROLYTES CO2 24 24 - 32 09/15/2018 [facility] ELECTROLYTES Chloride Lvl 110 95 - 109 09/15/2018 [facility] ELECTROLYTES AGAP 10.2 10.0 - 20.0 09/15/2018 [facility] ELECTROLYTES eGFR 44 09/15/2018 Result Comment: The eGFR is calculated using [...] should be multiplied by the estimated BMI. [facility] ELECTROLYTES Sodium Lvl 140 135 - 145 09/15/2018 [facility] ELECTROLYTES Creatinine Lvl 1.32 0.50 - 1.40 09/15/2018 [facility] ELECTROLYTES BUN 21 7 - 22 09/15/2018 [facility] ELECTROLYTES Glucose Lvl 60 70 - 99 09/15/2018 [facility] MCHC 32.4 32.0 - 36.0 09/15/2018 [facility] RDW 14.1 11.5 - 14.5 09/15/2018 [facility] Platelet 169 133 - 450 09/15/2018 Result Comment: specimen not clotted, [id number]/16/2017 06:43 [facility] MPV 8.8 7.4 - 10.4 09/15/2018 [facility] MCH 28.7 27.0 - 31.0 09/15/2018 [facility] RBC 3.81 4.20 - 5.40 09/15/2018 [facility] Hgb 11.0 12.0 - 16.0 09/15/2018 [facility] Hct 33.8 36.0 - 48.0 09/15/2018 [facility] MCV 88.8 80.0 - 98.0 09/15/2018 [facility] WBC 8.9 3.7 - 10.4 09/15/2018 [facility] Monocytes # 0.8 0.0 - 0.8 09/15/2018 [facility] Eosinophils # 0.2 0.0 - 0.5 09/15/2018 [facility] Monocytes 8.9 2.0 - 12.0 09/15/2018 [facility] Eosinophils 1.9 0.0 - 4.0 09/15/2018 [facility] Basophils 0.4 0.0 - 1.0 09/15/2018 [facility] Neutrophils # 5.1 1.5 - 8.1 09/15/2018 [facility] Lymphocytes # 2.8 1.0 - 5.5 09/15/2018 [facility] HEMATOLOGY Segs 57.6 45.0 - 75.0 09/15/2018 [facility] Lymphocytes 31.2 20.0 - 40.0 09/15/2018 [facility] CHEM PANEL POC Creatinine 1.7 0.5 - 1.4 09/15/2018 [facility] CHEM PANEL eGFR 33 09/15/2018 Result Comment: The eGFR is calculated using [...] should be multiplied by the estimated BMI. [facility] URINE AND STOOL UA RBC 8 0 - 2 09/15/2018 [facility] URINE AND STOOL UA Bacteria Occasional /HPF None Seen /HPF 09/15/2018 [facility] URINE AND STOOL UA Sq Epi Many /LPF Few /LPF 09/15/2018 [facility] URINE AND STOOL UA WBC 37 0 - 5 09/15/2018 [facility] URINE AND STOOL UA Leuk Est Negative (09/14/18 8:09 PM) Negative 09/15/2018 [facility] URINE AND STOOL UA Nitrite Negative (09/14/18 8:09 PM) Negative 09/15/2018 [facility] URINE AND STOOL UA Blood Negative (09/14/18 8:09 PM) Negative 09/15/2018 [facility] URINE AND STOOL UA Urobilinogen 0.2 0.1 - 1.0 09/15/2018 [facility] URINE AND STOOL UA Glucose 100 mg/dL Negative mg/dL 09/15/2018 [facility] URINE AND STOOL UA pH 5.0 5.0 - 8.0 09/15/2018 [facility] URINE AND STOOL UA Protein 100 mg/dL Negative mg/dL 09/15/2018 [facility] URINE AND STOOL UA Turbidity Clear (09/14/18 8:09 PM) Clear 09/15/2018 [facility] URINE AND STOOL UA Spec Grav 1.025 <=1.030 09/15/2018 [facility] URINE AND STOOL UA Color Yellow *NA* (09/14/18 8:09 PM) Yellow 09/15/2018 [facility] URINE AND STOOL UA Mucus Few /LPF None Seen /LPF 09/15/2018 [facility] URINE AND STOOL UA Ketones Trace *ABN* (09/14/18 8:09 PM) Negative 09/15/2018 [facility] URINE AND STOOL UA Bili Moderate *ABN* (09/14/18 8:09 PM) Negative 09/15/2018 [facility] Culture: Urine >100,000 CFU/mL Skin Radha 09/15/2018 [facility] CARDIAC ENZYMES Troponin-I <0.02 0.00 - 0.40 09/14/2018 [facility] CHEM PANEL Lactic Acid Lvl 1.7 0.5 - 2.2 09/14/2018 [facility] CHEM PANEL Lipase Lvl 109 73 - 393 09/14/2018 [facility] CHEM PANEL B/C Ratio 11 6 - 25 09/14/2018 [facility] CHEM PANEL AGAP 14.3 10.0 - 20.0 09/14/2018 [facility] CHEM PANEL A/G Ratio 0.9 0.7 - 1.6 09/14/2018 [facility] CHEM PANEL Globulin 4.2 2.7 - 4.2 09/14/2018 [facility] CHEM PANEL Albumin Lvl 3.6 3.5 - 5.0 09/14/2018 [facility] CHEM PANEL ALT 43 0 - 65 09/14/2018 [facility] CHEM PANEL AST 24 0 - 37 09/14/2018 [facility] CHEM PANEL Alk Phos 112 39 - 136 09/14/2018 [facility] CHEM PANEL Bili Total 0.6 0.2 - 1.3 09/14/2018 [facility] CHEM PANEL BUN 17 7 - 22 09/14/2018 [facility] CHEM PANEL Glucose Lvl 130 70 - 99 09/14/2018 [facility] CHEM PANEL Sodium Lvl 135 135 - 145 09/14/2018 [facility] CHEM PANEL Creatinine Lvl 1.49 0.50 - 1.40 09/14/2018 [facility] CHEM PANEL Potassium Lvl 4.3 3.5 - 5.1 09/14/2018 [facility] CHEM PANEL Chloride Lvl 101 95 - 109 09/14/2018 [facility] [facility]EL CO2 24 24 - 32 09/14/2018 [facility] CHEM PANEL Total Protein 7.8 6.4 - 8.4 09/14/2018 [facility] CHEM PANEL Calcium Lvl 8.7 8.5 - 10.5 09/14/2018 [facility] HEMATOLOGY Neutrophils # 9.5 1.5 - 8.1 09/14/2018 [facility] HEMATOLOGY Lymphocytes # 1.7 1.0 - 5.5 09/14/2018 [facility] Monocytes # 0.7 0.0 - 0.8 09/14/2018 [facility] HEMATOLOGY Eosinophils 0.2 0.0 - 4.0 09/14/2018 [facility] Monocytes 6.3 2.0 - 12.0 09/14/2018 [facility] Lymphocytes 13.9 20.0 - 40.0 09/14/2018 [facility] Segs 79.4 45.0 - 75.0 09/14/2018 [facility] Basophils 0.2 0.0 - 1.0 09/14/2018 [facility] MPV 9.8 7.4 - 10.4 09/14/2018 [facility] MCHC 32.4 32.0 - 36.0 09/14/2018 [facility] RDW 14.3 11.5 - 14.5 09/14/2018 [facility] Platelet 223 133 - 450 09/14/2018 [facility] MCV 89.4 80.0 - 98.0 09/14/2018 [facility] MCH 29.0 27.0 - 31.0 09/14/2018 [facility] RBC 4.53 4.20 - 5.40 09/14/2018 [facility] Hct 40.5 36.0 - 48.0 09/14/2018 [facility] Hgb 13.1 12.0 - 16.0 09/14/2018 [facility] WBC 11.9 3.7 - 10.4 09/14/2018 [facility] CHEM PANEL eGFR 96 08/02/2017 Result Comment: The eGFR is calculated [...] should be multiplied by the estimated BMI. [facility] CHEM PANEL POC Creatinine 0.7 0.5 - 1.4 08/02/2017 [facility] CHEM PANEL eGFR 67 06/20/2017 Result Comment: The eGFR is calculated [...] should be multiplied by the estimated BMI. [facility] CHEM PANEL Chloride Lvl 105 95 - 109 06/20/2017 [facility] CHEM PANEL Potassium Lvl 4.8 3.5 - 5.1 06/20/2017 [facility] CHEM PANEL Calcium Lvl 9.3 8.5 - 10.5 06/20/2017 [facility] CHEM PANEL CO2 25 24 - 32 06/20/2017 [facility] CHEM PANEL Sodium Lvl 138 135 - 145 06/20/2017 [facility] CHEM PANEL BUN 27 7 - 22 06/20/2017 [facility] CHEM PANEL Glucose Lvl 140 70 - 99 06/20/2017 [facility] CHEM PANEL Creatinine Lvl 0.95 0.50 - 1.40 06/20/2017 [facility] CHEM PANEL AGAP 12.8 10.0 - 20.0 06/20/2017 [facility] Pathology Reports No Data Provided for This Section Diagnostic Reports Report Value Date Source Brain wo contrast MRI Patient Name: LOREN ROCK : 1960; Age: 58 years y/o Female MR: [id number] Study: Brain wo contrast MRI 03/29/2019 6:54 AM CDT Ordering Physician: Rehana Young MD Clinical Indication: - TIA; Comparison: CT from 03/29/2019 TECHNIQUE: Multiplanar multisequence noncontrast magnetic resonance imaging of the brain performed. FINDINGS: There is no acute intracranial hemorrhage, acute infarct, mass, focal edema, midline shift or herniation. There is mild generalized cerebral volume loss with associated ventricular prominence. There are mild nonspecific FLAIR hyperintensities in the periventricular white matter likely representing chronic small vessel ischemic changes in this age. A couple of these are oriented perpendicular to the lateral ventricles, underlying demyelinating process is not entirely excluded. Reflect. There is moderate-sized focus of encephalomalacia/gliosis with hemosiderin deposition in the right occipital lobe related to prior hemorrhagic infarct. Similar smaller focus of encephalomalacia in the left occipital cortex, suggestive of old infarct. A small old left cerebellar infarct is seen. The posterior fossa and midline structures are grossly unremarkable. The central intracranial flow voids are maintained. The paranasal sinuses and mastoids are clear. The visualized orbits and soft tissues are unremarkable. IMPRESSION: 1. No evidence of acute intracranial process. 2. 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 3. Multiple FLAIR hyperintensities in the periventricular and deep hemispheric white matter likely representing chronic microangiopathy. 4. Old lacunar insult in the right thalamus. 03/29/2019 [facility] Carotid artery Doppler bilat US BILATERAL CAROTID DOPPLER: HISTORY: Transient ischemic attack. TECHNIQUE: Triplex evaluation of the cervical carotid and vertebral vasculature was done. Stenosis estimates are based on Consensus Panel and NASCET Criteria. FINDINGS: No significant plaque is demonstrated. The peak systolic velocity in the right common carotid artery is 70 cm/s. The peak systolic velocity in the right internal carotid artery is 63 cm/s, with a right systolic velocity ratio of 0.9. The peak systolic velocity in the left common carotid artery is 80 cm/s. The peak systolic velocity in the left internal carotid artery is 47 cm/s, with a left systolic velocity ratio of 0.6. Antegrade flow is demonstrated in the vertebral arteries. IMPRESSION: No evidence of significant carotid stenosis. [id number] 03/29/2019 [facility] Chest 1view DX CHEST RADIOGRAPH SINGLE VIEW INDICATION: Chest pain, headaches COMPARISON: Chest radiograph 09/14/2018 IMPRESSION: The lungs are underinflated. No consolidation or other acute intrathoracic abnormalities are visualized. SL:16 03/29/2019 [facility] Brain wo contrast CT CT BRAIN WITHOUT CONTRAST INDICATION: Headache, vomiting COMPARISON: CT brain 12/23/2018 TECHNIQUE: All CT scans at this location are performed using dose optimization techniques as appropriate to a performed exam including the following: * Automated exposure control * Adjustment of the mA and/or kV according to patient size (this includes techniques or standardized protocols for targeted exams where dose is matched to indication/reason for exam; i.e. extremities or head) * Use of iterative reconstruction technique CT dose DLP 902.22 DISCUSSION: There are chronic infarcts of the right occipitotemporal region and left cerebellum. There is no evidence of acute vascular insults, space occupying lesions, hemorrhage, hydrocephalus, midline shift, or extra-axial fluid collections. The calvarium is intact. The bilateral mastoid air cells, middle ear cavities, external auditory canals, and paranasal sinuses are clear. IMPRESSION: Stable chronic infarcts of the right occipitotemporal region and left cerebellum. No acute intracranial abnormalities are visualized. SL:16 03/29/2019 [facility] Shoulder series DX Thoracic spine, 2 views Lumbar spine, 3 views Left shoulder, 3 views HISTORY: Pain following trauma. COMPARISON: Abdominopelvic CT 09/14/2018. Lumbar MRI 07/27/2018. FINDINGS: Thoracic spine: AP and lateral images of the thoracic spine demonstrate no acute skeletal abnormality. Positioning versus slight dextroscoliotic curvature. Mild degenerative changes noted. No focal bone lesion apparent. Lumbar spine: AP and lateral images of the lumbar spine. Moderate chronic L1 compression fracture deformity. Intact pedicle screws and posterior rods are again demonstrated on the right side from L2 through L4 and on the left side from L2 through S1. Corresponding intervertebral spacer devices again noted along the fused segment, L2-S1. Opaque markers are again demonstrated posterior to the vertebral body column/disc spaces at the levels of L2-L3 and L5-S1. Left shoulder: Frontal images of the left shoulder with internal and extra rotation of the humerus. Transscapular Y view included. No acute bone, joint or soft tissue abnormality. Evidence of glenohumeral osteoarthritis noted. IMPRESSION: 1. No acute finding. SL: [id number] 12/23/2018 [facility] Spine lumbar 2 or 3 views DX Thoracic spine, 2 views Lumbar spine, 3 views Left shoulder, 3 views HISTORY: Pain following trauma. COMPARISON: Abdominopelvic CT 09/14/2018. Lumbar MRI 07/27/2018. FINDINGS: Thoracic spine: AP and lateral images of the thoracic spine demonstrate no acute skeletal abnormality. Positioning versus slight dextroscoliotic curvature. Mild degenerative changes noted. No focal bone lesion apparent. Lumbar spine: AP and lateral images of the lumbar spine. Moderate chronic L1 compression fracture deformity. Intact pedicle screws and posterior rods are again demonstrated on the right side from L2 through L4 and on the left side from L2 through S1. Corresponding intervertebral spacer devices again noted along the fused segment, L2-S1. Opaque markers are again demonstrated posterior to the vertebral body column/disc spaces at the levels of L2-L3 and L5-S1. Left shoulder: Frontal images of the left shoulder with internal and extra rotation of the humerus. Transscapular Y view included. No acute bone, joint or soft tissue abnormality. Evidence of glenohumeral osteoarthritis noted. IMPRESSION: 1. No acute finding. SL: [id number] 12/23/2018 [facility] Spine cervical wo contrast CT (ER) Spine cervical wo contrast CT (ER) CLINICAL HX: - trauma; COMPARISON: none TECHNIQUE: Contiguous transaxial 2.5 mm images were obtained through the cervical spine. Images were reformatted in sagittal and coronal projections. CT imaging performed at this location utilizes radiation dose optimization techniques which include one or more of the following: -Automated exposure control -Adjustment of the mA and/or kV according to patient size -Use of iterative reconstruction technique CT Radiation Dose DLP 946.16 mGy-cm FINDINGS: BONES: There is no evidence for fracture or subluxation. The alignment on the sagittal and coronal reformations is within normal limits. No significant spondylosis is evident. There is mild facet arthrosis, mid cervical region. The bony spinal canal is patent throughout the cervical spine. NECK SOFT TISSUES: The prevertebral soft tissues are within normal limits. Airway and lung apices: Visualized portion of the lung apices and airway are clear. IMPRESSION: No significant abnormality is noted on the cervical spine CT. SL: [id number] 12/23/2018 [facility] Spine thoracic 2 views DX Thoracic spine, 2 views Lumbar spine, 3 views Left shoulder, 3 views HISTORY: Pain following trauma. COMPARISON: Abdominopelvic CT 09/14/2018. Lumbar MRI 07/27/2018. FINDINGS: Thoracic spine: AP and lateral images of the thoracic spine demonstrate no acute skeletal abnormality. Positioning versus slight dextroscoliotic curvature. Mild degenerative changes noted. No focal bone lesion apparent. Lumbar spine: AP and lateral images of the lumbar spine. Moderate chronic L1 compression fracture deformity. Intact pedicle screws and posterior rods are again demonstrated on the right side from L2 through L4 and on the left side from L2 through S1. Corresponding intervertebral spacer devices again noted along the fused segment, L2-S1. Opaque markers are again demonstrated posterior to the vertebral body column/disc spaces at the levels of L2-L3 and L5-S1. Left shoulder: Frontal images of the left shoulder with internal and extra rotation of the humerus. Transscapular Y view included. No acute bone, joint or soft tissue abnormality. Evidence of glenohumeral osteoarthritis noted. IMPRESSION: 1. No acute finding. SL: [id number] 12/23/2018 [facility] Brain wo contrast CT Clinical Indication trauma. Comparison: None TECHNIQUE: CT images were obtained from the foramen magnum to the vertex without the use of intravenous contrast on a multidetector CT. Axial, coronal and sagittal reformats created. CT imaging performed at this location utilizes radiation dose optimization techniques which include one or more of the following: -Automated exposure control -Adjustment of the mA and/or kV according to patient size -Use of iterative reconstruction technique CT Radiation Dose DLP: 982 mGy-cm. DLP means Dose Length Product, a radiation dose metric that does not report individual patient dose, but is a reference value related to the radiation output of the scanner used for this exam. FINDINGS: Calvarium and scalp: No acute skull fracture or scalp hematoma. Ventricles and sulci: Mild age-related cerebral volume loss. No hydrocephalus. Extra-axial spaces: No acute extra axial hemorrhage, fluid collection or mass effect. BRAIN PARENCHYMA: No acute parenchymal hemorrhage, or large subacute vascular territory infarction. There is a 2.7 cm chronic infarction centered in the middle/inferior right occipital lobe (series 400, image 22; series 2, image 32). There is also a chronic 1.7 cm infarction in the left cerebellum (series 2, image 13). There is also a 0.8 cm chronic infarction in the left middle/inferior occipital lobe (400, image 38) Are scattered areas of hypoattenuation in the supratentorial white matter, which are nonspecific, but likely represent mild microvascular ischemic changes. There is no mass effect, midline shift or edema. Paranasal sinuses and mastoid air cells: Paranasal sinuses are unremarkable. The mastoid air cells are clear. If there is further concern for intracranial pathology or acute stroke, MRI of the brain may be performed for complete assessment. IMPRESSION: No acute intracranial hemorrhage, mass effect or large subacute infarction. 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 SL: [id number] 12/23/2018 [facility] ED Abdomen/Pelvis IV contrast only CT Clinical Indication: Abdominal pain. Comparison: CT pelvis without contrast, 06/16/2017. Technique: Multi-detector CT imaging of the abdomen and pelvis is performed with contrast. Coronal and sagittal reconstructions were obtained. IV CONTRAST: 100 mL of Omnipaque GI CONTRAST: No oral contrast was administered which can limit assessment. CT imaging performed at this location utilizes radiation dose optimization techniques which include one or more of the following: -Automated exposure control -Adjustment of the mA and/or kV according to patient size -Use of iterative reconstruction technique CT Radiation Dose DLP 1192 mGy-cm FINDINGS: CT ABDOMEN WITH CONTRAST: LUNG BASES: Bibasilar atelectasis. ABDOMINAL SOLID ORGANS: The contrast enhanced images of the spleen, pancreas, gallbladder, adrenals and kidneys are unremarkable. There is diffuse hypoattenuation of the hepatic parenchyma. There is right-sided renal cortical atrophy and scarring. There is a 2 mm nonobstructing calculus in the inferior right renal collecting system. STOMACH AND BOWEL: Lack of oral contrast limits assessment. Stomach is decompressed. Nonopacified small bowel loops are unremarkable. The appendix is nonvisualized. There are surgical clips along the cecum, suggesting appendectomy. There is colonic diverticulosis without associated inflammatory changes. PERITONEUM AND RETROPERITONEUM: There is no abdominal lymphadenopathy. There is no pneumoperitoneum or abdominal ascites. There are no retroperitoneal abnormalities. VASCULAR STRUCTURES: The abdominal aorta is unremarkable without aneurysm. Takeoffs of the mesenteric arteries and renal arteries are patent. The inferior vena cava is unremarkable. Portal venous structures are grossly patent. OSSEOUS STRUCTURES: Mild multilevel degenerative spondylosis. ------- CT PELVIS WITH CONTRAST: REPRODUCTIVE ORGANS: Status post hysterectomy. BOWEL: Sigmoid diverticulosis without associated inflammatory changes. PERITONEAL AND EXTRAPERITONEAL REGIONS: There is no pelvic free fluid or lymphadenopathy. The inguinal regions are unremarkable. Unchanged pelvic fluid with are noted. BLADDER / : The bladder is unremarkable. OSSEOUS STRUCTURES: Mild multilevel degenerative spondylosis. Stable lumbosacral fixation hardware. ----- IMPRESSION: 1. Nonobstructing right nephrolithiasis and right renal atrophy with cortical scarring. 2. Colonic diverticulosis without evidence of diverticulitis. 3. Hepatic steatosis and/or chronic hepatocellular disease. 09/14/2018 [facility] Chest 1view DX SINGLE VIEW CHEST RADIOGRAPH CLINICAL INDICATION: Abnormal chest sounds - chest pain. TECHNIQUE: A single frontal view radiograph of the chest was obtained. COMPARISON: Chest x-ray 05/05/2012 FINDINGS: There is no acute osseous fracture or dislocation. There is an incompletely imaged lumbar metallic device suggesting fusion. There are surgical clips in the right upper quadrant abdomen. There is no intra-abdominal free gas under the hemidiaphragms. The cardiomediastinal silhouette reveals normal size and contour. There are increased reticular markings in the region of the lingula and medial right lung base. There is no pneumothorax or pleural effusion. IMPRESSION: 1. There are increased mild reticular markings in the region of the lingula and medial right lung base which could be atelectasis or infiltrate. SL: [id number] 09/14/2018 [facility] Spine lumbar w/wo contrast MRI Spine lumbar w/wo contrast MRI 07/27/2018 1:33 PM CDT CLINICAL: S32.010A Wedge compression fracture of first lumbar vertebra, initial encounter for closed fracture - S32.010A Wedge compression fracture of first lumbar vertebra, initial encounter for closed fracture TECHNIQUE: Sagittal T1, sagittal T2 with fat saturation, axial T1 and axial T2 images were obtained. Intravenous gadolinium was given. Contrast: 16 mL gadolinium IV contrast. COMPARISON: 02/21/2018 CT, 12/23/2017 MRI exam. FINDINGS: The conus medullaris terminates at the L1-L2 level. Stable multiple level lumbar spine postsurgical changes. No evidence of pseudomeningocele or arachnoiditis. Stable moderate chronic L1 superior endplate compression fracture deformity. No marrow edema. Stable approximately 4 mm retropulsion with contact with the anterior margin of the lower spinal cord and mild to moderate central canal stenosis. T12-L1: Mild to moderate central canal stenosis due to the L1 retropulsion as above. No foraminal stenosis. L1-L2: No central canal stenosis. Stable mild right foraminal stenosis due to disc osteophyte complex. L2-L3: Stable mild central canal stenosis due to posterior protrusion of the disc graft material into the anterior epidural space. No foraminal stenosis. L3-L4: No central canal or foraminal stenosis. L4-L5: Stable approximately 3 mm posterior protrusion of the left interbody graft into the left lateral recess. No central canal stenosis. Stable mild bilateral foraminal stenosis. L5-S1: Stable effacement of the right lateral recess with mass effect on the right S1 and S2 descending nerve roots. Stable severe bilateral foraminal stenosis. No central canal stenosis. No abnormal enhancement is seen. IMPRESSION: 1. Stable findings compared to the prior imaging exams. 2. Stable moderate chronic L1 vertebral compression fracture and retropulsion with mild to moderate central canal stenosis. 3. Stable L2-L3 mild central canal stenosis due to posterior protrusion of disc graft material into the spinal canal. 4. Stable L5-S1 severe right lateral recess stenosis with mass effect on right S1 and S2 descending nerve roots, likely due to posterior protrusion of the disc graft material into the right lateral recess. Stable severe bilateral foraminal stenosis. 07/27/2018 [facility] [place] Spine lumbar wo contrast CT Clinical Indication: [...] and the right traversing nerve root. SL: [id number] 02/21/2018 [facility] Spine lumbar w/wo contrast MRI LUMBAR SPINE [...] with minimal facet hypertrophy. His results in [id number] canal stenosis with slight contact to the [...] This is likely posttraumatic/insufficiency in nature. 12/23/2017 [facility] Thoracic w/wo contrast MRI PATIENT NAME: LOREN ROCK : 1960; Age: 57 years y/o Female MR: [id number] STUDY: Spine Thoracic w/wo contrast MRI 12/23/2017 [...] same-day lumbar spine for additional findings 12/23/2017 [facility] Pelvis w/wo contrast MRI MRI pelvis with [...] spinal canal. Correlate for radicular symptoms. 08/02/2017 [facility] Pelvis wo IV contrast CT Pelvis wo [...] po. Coronal and sagittal reformatted views. CT BDN=549 mGy-cm. FINDINGS: Examination of the pelvis is [...] significant adenopathy identified. 5. Sigmoid diverticulosis. SL: [id number] 06/16/2017 [facility] Ext Lower limited non vascular US Patient Name: LOREN ROCK : 1960; Age: 56 years Female MR: [id number] Study: Ext Lower limited non vascular US [...] IV contrast may provide more detail. SL: [id number] 06/08/2017 [facility] Retroperitoneal Complete US Exam: Bilateral renal ultrasound. [...] in echogenicity without evidence for hydronephrosis. 12/31/2016 [facility] [place] [facility] lumbar myelogram DX EXAM: FLUOROSCOPY-GUIDED LUMBAR PUNCTURE FOR CT MYELOGRAM. EXAM: CT MYELOGRAM Lumbar SPINE. DATE: 10/26/2016 9:35 AM [facility] BIT INDICATION: M43.28 Fusion of spine, sacral and [...] the descending right S1 nerve root. 10/26/2016 [facility] [place] [facility] lumbar myelogram CT EXAM: FLUOROSCOPY-GUIDED LUMBAR PUNCTURE FOR CT MYELOGRAM. EXAM: CT MYELOGRAM Lumbar SPINE. DATE: 10/26/2016 9:35 AM TAPPER BIT INDICATION: M43.28 Fusion of spine, sacral and [...] the descending right S1 nerve root. 10/26/2016 [facility] Consultation Notes No Data Provided for This Section Discharge Summaries No Data Provided for This Section History and Physicals No Data Provided for This Section Vital Signs Vital Sign Value Date Comments Source BMI Calculated 34.44 04/03/2019 [facility] Weight 80 04/03/2019 [facility] Systolic (mm Hg) 157 04/03/2019 [facility] Diastolic (mm Hg) 92 04/03/2019 [facility] Heart Rate 73 04/03/2019 [facility] Respitory Rate 14 04/03/2019 [facility] Height 152.4 cm 04/03/2019 [facility] Heart Rate 71 03/29/2019 [facility] Respitory Rate 17 03/29/2019 [facility] Systolic (mm Hg) 153 03/29/2019 [facility] Diastolic (mm Hg) 88 03/29/2019 [facility] Temperature Oral (F) 98.6 F 03/29/2019 [facility] Respitory Rate 19 03/29/2019 [facility] Weight 77.273 03/29/2019 [facility] Height 152.4 cm 03/29/2019 [facility] BMI Calculated 33.27 03/29/2019 [facility] Temperature Oral (F) 98.1 F 03/29/2019 [facility] Heart Rate 74 03/29/2019 [facility] Respitory Rate 16 03/29/2019 [facility] Systolic (mm Hg) 159 03/29/2019 [facility] Diastolic (mm Hg) 91 03/29/2019 [facility] Temperature Oral (F) 98.5 F 03/29/2019 [facility] Heart Rate 82 03/29/2019 [facility] Systolic (mm Hg) 150 03/29/2019 [facility] Diastolic (mm Hg) 78 03/29/2019 [facility] BMI Calculated 33.27 03/29/2019 [facility] Weight 77.273 03/29/2019 [facility] Height 152.4 cm 03/29/2019 [facility] [facility] BMI Calculated 33.27 03/29/2019 [facility] Height 152.4 cm 01/02/2019 [facility] Weight 80.909 01/02/2019 [facility] BMI Calculated 34.84 01/02/2019 [facility] Systolic (mm Hg) 169 01/02/2019 [facility] Diastolic (mm Hg) 95 01/02/2019 [facility] Respitory Rate 14 01/02/2019 [facility] Heart Rate 58 01/02/2019 [facility] Temperature Oral (F) 98.0 F 01/02/2019 [facility] Heart Rate 79 12/23/2018 [facility] Temperature Oral (F) 98.1 F 12/23/2018 [facility] Respitory Rate 18 12/23/2018 [facility] Systolic (mm Hg) 122 12/23/2018 [facility] Diastolic (mm Hg) 86 12/23/2018 [facility] Respitory Rate 18 12/23/2018 [facility] Systolic (mm Hg) 131 12/23/2018 [facility] Diastolic (mm Hg) 83 12/23/2018 [facility] Heart Rate 78 12/23/2018 [facility] Systolic (mm Hg) 143 12/23/2018 [facility] Diastolic (mm Hg) 84 12/23/2018 [facility] Respitory Rate 18 12/23/2018 [facility] BMI Calculated 35.23 12/23/2018 [facility] Height 152.4 cm 12/23/2018 [facility] Heart Rate 79 12/23/2018 [facility] Temperature Oral (F) 97.9 F 12/23/2018 [facility] Weight 81.818 12/23/2018 [facility] BMI Calculated 34.84 10/03/2018 [facility] Weight 80.909 10/03/2018 [facility] Height 152.4 cm 10/03/2018 [facility] Heart Rate 75 10/03/2018 [facility] Respitory Rate 14 10/03/2018 [facility] Systolic (mm Hg) 148 10/03/2018 [facility] Diastolic (mm Hg) 85 10/03/2018 [facility] Temperature Oral (F) 97.9 F 09/16/2018 [facility] Systolic (mm Hg) 158 09/16/2018 [facility] Diastolic (mm Hg) 92 09/16/2018 [facility] Respitory Rate 18 09/16/2018 [facility] Heart Rate 49 09/16/2018 [facility] Respitory Rate 18 09/16/2018 [facility] Systolic (mm Hg) 138 09/16/2018 [facility] Diastolic (mm Hg) 79 09/16/2018 [facility] Heart Rate 55 09/16/2018 [facility] Temperature Oral (F) 98.9 F 09/16/2018 [facility] Respitory Rate 18 09/16/2018 [facility] Systolic (mm Hg) 128 09/16/2018 [facility] Diastolic (mm Hg) 78 09/16/2018 [facility] Heart Rate 60 09/16/2018 [facility] Temperature Oral (F) 97.7 F 09/16/2018 [facility] Weight 82 09/15/2018 [facility] BMI Calculated 35.31 09/15/2018 [facility] Height 152.4 cm 09/15/2018 [facility] Height 152.4 cm 09/14/2018 [facility] BMI Calculated 33.27 09/14/2018 [facility] Weight 77.273 09/14/2018 [facility] BMI Calculated 35.42 09/08/2018 [facility] Weight 82.273 09/08/2018 [facility] Height 152.4 cm 09/08/2018 [facility] Heart Rate 73 09/08/2018 [facility] Temperature Oral (F) 98.0 F 09/08/2018 [facility] Respitory Rate 14 09/08/2018 [facility] Systolic (mm Hg) 133 09/08/2018 [facility] Diastolic (mm Hg) 78 09/08/2018 [facility] Heart Rate 79 07/24/2018 [facility] Respitory Rate 14 07/24/2018 [facility] Temperature Oral (F) 98.0 F 07/24/2018 [facility] Height 152.4 cm 07/24/2018 [facility] Weight 83.182 07/24/2018 [facility] BMI Calculated 35.81 07/24/2018 [facility] Systolic (mm Hg) 137 07/24/2018 [facility] Diastolic (mm Hg) 88 07/24/2018 [facility] Height 152.4 cm 05/23/2018 [facility] Heart Rate 86 05/23/2018 [facility] Respitory Rate 14 05/23/2018 [facility] Temperature Oral (F) 98.0 F 05/23/2018 [facility] BMI Calculated 36.21 05/23/2018 [facility] Weight 84.091 05/23/2018 [facility] Systolic (mm Hg) 139 05/23/2018 [facility] Diastolic (mm Hg) 85 05/23/2018 [facility] Weight 85 04/11/2018 [facility] BMI Calculated 36.6 04/11/2018 [facility] Systolic (mm Hg) 170 04/11/2018 [facility] Diastolic (mm Hg) 91 04/11/2018 [facility] Temperature Oral (F) 98.0 F 04/11/2018 [facility] Respitory Rate 14 04/11/2018 [facility] Heart Rate 83 04/11/2018 [facility] Height 152.4 cm 04/11/2018 [facility] Height 152.4 cm 02/07/2018 [facility] Weight [...] 09/08/2017 [facility] Respitory Rate 20 06/23/2017 [facility] Systolic (mm Hg) 121 06/23/2017 [facility] Diastolic (mm Hg) 86 06/23/2017 [facility] Systolic (mm Hg) 133 06/23/2017 [facility] Diastolic (mm Hg) 93 06/23/2017 [facility] Respitory Rate 21 06/23/2017 [facility] Diastolic (mm Hg) 73 06/23/2017 [facility] Systolic (mm Hg) 103 06/23/2017 [facility] Respitory Rate 19 06/23/2017 [facility] Heart Rate 80 06/23/2017 [facility] Heart Rate 66 06/20/2017 [facility] Temperature Oral (F) 98 F 06/20/2017 [facility] Height 152.4 cm 06/20/2017 [facility] BMI Calculated 36.79 06/20/2017 [facility] Weight 85.455 06/20/2017 [facility] Encounters Location Location Details Encounter Type Encounter Number Reason For Visit Attending Provider ADM Date DC Date Status Source [facility] [place] [facility] Services [id number] Piotr Ceja 10/26/2016 10/27/2016 DELIA Kam [facility] - [place] Out[facility] Diag Services [id number] Estelle Bishop 12/31/2016 01/01/2017 [facility] [place] Outpatient [id number] UMER PATTERSON 05/31/2017 [facility] Outpatient [id number] Umer Patterson 06/08/2017 06/09/2017 [facility] Outpatient [id number] Umer Patterson 06/16/2017 06/17/2017 [facility] Bedded Outpatient [id number] Angelo Wadedhyay 06/23/2017 06/23/2017 [facility] [id number] FRANTZ ADELA 07/07/2017 Active [facility] Outpatient [id number] Frantz Adela 08/02/2017 08/03/2017 [facility] Outpatient [id number] UMER LEONARDO 09/08/2017 Active [facility] Outpatient [id number] Umer Williamh 09/08/2017 09/09/2017 [facility] Outpatient [id number] Umer Williamh 11/07/2017 11/08/2017 [facility] Phone Message [id number] 12/13/2017 12/15/2017 [facility] Phone Message [id number] 12/15/2017 12/17/2017 [facility] Ambulatory Pre-Reg [id number] Sergo Palacios 12/16/2017 12/16/2017 [facility] Out[facility] - [place] Outpt Diag Services [id number] Piotr Ceja 12/23/2017 12/24/2017 [facility] [place] Outpatient [id number] UMER PATTERSON 01/10/2018 Active [facility] Outpatient [id number] Umer Patterson 01/10/2018 01/11/2018 [facility] Phone Message [id number] 01/31/2018 02/02/2018 [facility] Outpatient [id number] TYSON POWERSH 02/07/2018 Active [facility] Outpatient [id number] Tyosn Powersh 02/07/2018 02/08/2018 [facility] Phone Message [id number] 02/09/2018 02/11/2018 [facility] Phone Message [id number] 02/09/2018 02/11/2018 [facility] Phone Message [id number] 02/09/2018 02/11/2018 [facility] Outpatient [id number] Tyson Powersh 02/21/2018 02/22/2018 [facility] Phone Message [id number] 03/06/2018 03/08/2018 [facility] Outpatient [id number] TYSON DOMÍNGUEZIEH 03/14/2018 Active [facility] Ambulatory Pre-Reg [id number] Sergo Philip 03/14/2018 03/14/2018 [facility] Outpatient [id number] UMER PATTERSON 04/11/2018 Active [facility] Outpatient [id number] Umer Patterson 04/11/2018 04/12/2018 [facility] Phone Message [id number] 04/12/2018 04/14/2018 [facility] Outpatient [id number] UMER PATTERSON 05/23/2018 Active [facility] Outpatient [id number] Umer Patterson 05/23/2018 05/24/2018 [facility] Primary [facility] Phone Message [id number] 05/26/2018 05/28/2018 [facility] Outpatient [id number] UMER PATTERSON 07/24/2018 Active [facility] Outpatient [id number] Umer Patterson 07/24/2018 07/25/2018 [facility] - [place] Outpt Diag Services [id number] Piotr Ceja 07/27/2018 07/28/2018 [facility] [place] Outpatient [id number] UMER PATTERSON 09/08/2018 Active [facility] Primary [facility] Outpatient [id number] Umer Patterson 09/08/2018 09/09/2018 [facility] Inpatient [id number] Bartolo Cm 09/14/2018 09/16/2018 [facility] Outpatient [id number] UMER PATTERSON 10/03/2018 Active [facility] Outpatient [id number] Umer Patterson 10/03/2018 10/04/2018 [facility] Emergency [id number] Yovany Nba 12/23/2018 12/23/2018 [facility] Primary [facility] Phone Message [id number] 12/26/2018 12/28/2018 [facility] Outpatient [id number] Umer Patterson 01/02/2019 Active [facility] Outpatient [id number] Umer Leonardo 01/02/2019 01/03/2019 Medical [facility] Observation [id number] Evelyne Schofield 03/29/2019 03/29/2019 [facility] Outpatient [id number] Umer Leonardo 04/03/2019 Active [facility] Outpatient [id number] Umer [facility] 04/03/2019 04/04/2019 Medical [facility] Procedures Procedure Code Date Perfomer Comments Source Diabetic retinopathy screening<sup>1, 2</sup> [id number] 08/25/2018 normalnormal [facility], [facility] [place],[facility] Colonoscopy<sup>1</sup> [id number] 06/23/2017 diverticulosis [facility], [facility] [place],[facility] Colonoscopy<sup>3</sup> [id number] 06/23/2017 diverticulosis Medical [facility], [facility] [place],[facility] Diabetic retinopathy screening<sup>1</sup> [id number] 03/26/2017 normal [facility] Diabetic retinopathy screening<sup>2</sup> [id number] 03/26/2017 normal Medical [facility], [facility] [place],[facility] Mammogram - screening [id number] 08/26/2016 Medical [facility], [facility] [place],[facility] Colonoscopy [id number] 09/26/2015 [facility] Appendectomy [id number] Medical [facility], [facility] [place],[facility] Cholecystectomy [id number] Medical [facility], [facility] [place],[facility] Esophagogastroduodenoscopy [id number] Medical [facility], [facility] [place],[facility] Hysterectomy [id number] Medical [facility], [facility] [place],[facility] Laparoscopic repair of hiatus hernia [id number] Medical [facility], [facility] [place],[facility] Lumbar spinal fusion [id number] Medical [facility], [facility] [place],[facility] Partial resection of colon [id number] Medical [facility], [facility] [place],[facility] Repair of inguinal hernia [id number] [facility], [facility] Assessment and Plan Assessment and Plan Date Source Extracted from:Title: Clinical Document Author: Andie Steel MD Date: 03/29/19 [facility] Initial Cardiology Consultation Note Reason for Consult: Chest pain Chief Complaint: Headache HPI: This is a 58-year-old woman with a past medical history of diabetes mellitus, GERD, hypertension, hyperlipidemia, colon cancer who presented with headaches that began yesterday. She notices a throbbing headache with associated numbness of her left face and nausea vomiting. The episode was also associated with the chest pain that she describes as a dull pain located in a focal substernal area that is reproducible on palpation. There is also some associated tingling of the right upper extremity. Currently her symptoms have resolved and she feels better. She had a stress test about 2 years ago that was normal Her EKG is a normal and first set of cardiac enzymes is normal REVIEW OF SYSTEMS: CONSTITUTIONAL: No fever. No chills. No dizziness. No weakness. EYES: No pain, erythema, or discharge. No blurring of vision. EAR, NOSE AND THROAT: No sore throat, URI symptoms. No epistaxis. No tinnitus. CARDIOVASCULAR: + chest pain. No palpitations. No lower extremity edema. RESPIRATORY: No shortness of breath, cough, pain with respiration, or pleuritic chest pain. No hemoptysis. No dyspnea. No paroxysmal nocturnal dyspnea. GASTROINTESTINAL: No abdominal pain, nausea, diarrhea, vomiting. GENITOURINARY: No frequency, urgency, nocturia. No hematuria or dysuria. MUSCULOSKELETAL: No arthralgias or myalgias. INTEGUMENTARY: No swelling. No bruising. No contusions. No abrasions. No lymphangitis. NEUROLOGIC:+ headache. No neck pain. + numbness or tingling of the extremities. No weakness. PSYCHIATRIC: No confusion. METABOLIC: No fatigue. No weakness. No history of thyroid, diabetes or adrenal problems. HEMATOLOGICAL: No bleeding. No petechiae. No bruising. ALLERGY: No asthma. No urticaria. Past Medical History Cancer of colon Hypertension Diabetes mellitus Hyperlipidemia GERD Chronic back pain Allergies: Allergies (1) Active Reaction No Known Medication Allergies None documented Medications: Medications (26) Active Scheduled Meds (5): 03/30/19 aspirin (aspirin 81 mg tablet, enteric coated) 81 mg PO Daily 03/29/19 atorvastatin 80 mg PO Bedtime 03/29/19 enoxaparin 40 mg SUB-Q [id number] 03/29/19 losartan 50 mg PO Daily 03/29/19 sodium chloride (Saline Flush 0.9%) 10 ml IVP Q12H Unscheduled Meds: None PRN Meds (17): 03/29/19 Dextrose 50% in Water IV (Dextrose 50% Syringe) 12.5 gm IVP PRN 03/29/19 Dextrose 50% in Water IV (Dextrose 50% Syringe) 25 gm IVP PRN 03/29/19 acetaminophen 650 mg PO Q4H 03/29/19 acetaminophen 650 mg PO Q4H 03/29/19 bisacodyl 10 mg ND Daily 03/29/19 glucagon 1 mg IM PRN 03/29/19 hydrALAZINE 10 mg IV Q6H 03/29/19 insulin lispro 1 unit SUB-Q TID-Before Meals 03/29/19 insulin lispro 2 unit SUB-Q TID-Before Meals 03/29/19 insulin lispro 3 unit SUB-Q TID-Before Meals 03/29/19 insulin lispro 4 unit SUB-Q TID-Before Meals 03/29/19 insulin lispro 5 unit SUB-Q TID-Before Meals 03/29/19 nitroglycerin (nitroglycerin SL Tab) 0.4 mg SL Q5Min 03/29/19 nitroglycerin (nitroglycerin 0.1 mg/hr transdermal film) 1 patch Transdermal Daily 03/29/19 ondansetron 4 mg PO Q8H 03/29/19 sodium chloride (Saline Flush 0.9%) 10 ml IVP PRN 03/29/19 temazepam 15 mg PO Bedtime One Time Meds (4): 03/29/19 (Completed) acetaminophen 650 mg PO ONCE 03/29/19 (Completed) aspirin 325 mg PO ONCE 03/29/19 (Completed) diphenhydrAMINE 25 mg IVP ONCE 03/29/19 (Completed) metoclopramide 10 mg IVP ONCE Continuous Infusions: None Home medication: No qualifying data available Family history Father: DM - Diabetes mellitus Mother: Cancer Sister: CA - Breast cancer Grandparent: DM - Diabetes mellitus Brother: Cancer Social history Employment/School Details: Status: Unemployed. 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 Alcohol Details: Never Exercise Details: Exercise duration: 0. Tobacco Details: Use: Never smoker. Ready to change: No. Household tobacco concerns: No. Tobacco smoke exposure: None. Did the Patient Smoke Cigarettes Anytime During the Last 365 Days? No. Cessation Counseling Provided? No. Substance Abuse Details: Use: None. Vital Signs (last 24 hrs) Last Charted Temp Oral 98.1 DegF (MAR 29 07:50) Heart Rate Peripheral 74 bpm (MAR 29 07:50) Resp Rate 19 BRMIN (MAR 29 08:30) SBP H 159mmHg (MAR 29 07:50) DBP H 91mmHg (MAR 29 07:50) SpO2 96 % (MAR 29 08:30) Weight 77.273 kg (MAR 29 08:05) Height 152.4 cm (MAR 29 08:05) BMI 33.27 (MAR 29 08:05) I/O Intake Output Balance 03/29/2019 7a-3p 10.00 0.00 10.00 As of 10:51 3p-11p 0.00 0.00 0.00 11p-7a 0.00 0.00 0.00 Totals 10.00 0.00 10.00 03/28/2019 7a-3p 0.00 0.00 0.00 3p-11p 0.00 0.00 0.00 11p-7a 0.00 0.00 0.00 Totals 0.00 0.00 0.00 03/27/2019 7a-3p 0.00 0.00 0.00 3p-11p 0.00 0.00 0.00 11p-7a 0.00 0.00 0.00 Totals 0.00 0.00 0.00 Physical exam: Gen: Alert, no apparent distress Neck: No carotid bruits, No JVD Lungs: CTAB Heart: Regular, S1-S2, reproducible on palpation Abd: Soft, non tender, positive bowel sounds Ext: No edema, 2+ pulses distally Neuro: No focal deficits Skin: warm, moist Labs (Last four charted values) WBC 7.0 (MAR 29) Hgb 12.7 (MAR 29) Hct 37.8 (MAR 29) Plt 189 (MAR 29) Na 137 (MAR 29) K 3.6 (MAR 29) CO2 L 22 (MAR 29) Cl 107 (MAR 29) Cr 0.83 (MAR 29) BUN 10 (MAR 29) Glucose Random H 191 (MAR 29) Ca 9.5 (MAR 29) PT 12.2 (MAR 29) INR 0.92 (MAR 29) PTT 35.3 (MAR 29) Troponin <0.02 (MAR 29) Total CK 72 (MAR 29) Electrocardiogram:NSR Assessment and plan: Chest pain: Atypical chest pain that is reproducible on palpation. She can be trended for total of 3 sets of cardiac enzymes and if these are negative she may be discharged Hypertension continue home meds Hyperlipidemia: Continue statin Migraine headaches: Per neurology Thank you for the consult. Call with questions. 03/29/2019 Ai Extracted from:Title: History and Physical Author: Vitaly Barney MD Date: 09/15/18 57yo woman with above PMHx presents with N/V/poor PO fluid intake and evidence of UTI Abdominal pain, acute(R10.9) >analgesics/antiemetics, analgesics Ordered: Admit/Condition, 09/14/18 21:12:00 TAPPER BIT, Status: Inpatient, Acute, Expected LOS: 2 Midnights, Marlo Figueredo MD, Mikhail GOMEZ Review/Approve Yes, Isolation: No Isolation/Standard Precautions, TIFFANI (acute kidney injury) | Abdominal pain, acute | Acute lower UTI | Back... Acute lower UTI(N39.0) >Given IV rocephin in the ED and will continue for now pending culture results Ordered: Admit/Condition, 09/14/18 21:12:00 TAPPER BIT, Status: Inpatient, Acute, Expected LOS: 2 Midnights, Marlo Figueredo MD, Mikhail GOMEZ Review/Approve Yes, Isolation: No Isolation/Standard Precautions, TIFFANI (acute kidney injury) | Abdominal pain, acute | Acute lower UTI | Back... TIFFANI (acute kidney injury)(N17.9) >close to resolution overnight. WIll rechek labs in AM, avoid nephrotoxins Ordered: Admit/Condition, 09/14/18 21:12:00 TAPPER BIT, Status: Inpatient, Acute, Expected LOS: 2 Midnights, Marlo Figueredo MD, Mikhail GOMEZ Review/Approve Yes, Isolation: No Isolation/Standard Precautions, TIFFANI (acute kidney injury) | Abdominal pain, acute | Acute lower UTI | Back... Back pain, chronic(M54.9) >reconcile home meds. Ordered: Admit/Condition, 09/14/18 21:12:00 TAPPER BIT, Status: Inpatient, Acute, Expected LOS: 2 Midnights, Marlo Figueredo MD, Mikhail GOMEZ Review/Approve Yes, Isolation: No Isolation/Standard Precautions, TIFFANI (acute kidney injury) | Abdominal pain, acute | Acute lower UTI | Back... N&V (nausea and vomiting)(R11.2) >symptoms have been cocntrolled Ordered: Admit/Condition, 09/14/18 21:12:00 TAPPER BIT, Status: Inpatient, Acute, Expected LOS: 2 Midnights, Marlo Figueredo MD, Mikhail GOMEZ Review/Approve Yes, Isolation: No Isolation/Standard Precautions, TIFFANI (acute kidney injury) | Abdominal pain, acute | Acute lower UTI | Back... Right nephrolithiasis(N20.0) >without evidence of obstrucition Ordered: Admit/Condition, 09/14/18 21:12:00 TAPPER BIT, Status: Inpatient, Acute, Expected LOS: 2 Midnights, Marlo Figueredo MD, Mikhail GOMEZ Review/Approve Yes, Isolation: No Isolation/Standard Precautions, TIFFANI (acute kidney injury) | Abdominal pain, acute | Acute lower UTI | Back... per protocol 2-3 midnights, inpatient 09/16/2018 [facility] Plan of Care No Data Provided for This Section Social History Social History Date Source Social History TypeResponse Substance Abuse Use: None. Exercise Exercise duration: 0. 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 Alcohol Never Smoking Status Never smoker; Ready to change: No; Concerns about tobacco use in household: No; Exposure to Tobacco Smoke None; Cigarette Smoking Last 365 Days No; Reg Smoking Cessation Counseling No entered on: 04/03/19 09/15/2018 [facility] Social History TypeResponse Substance Abuse Use: None. Exercise Exercise duration: 0. 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 Alcohol Never Smoking Status Never smoker; Ready to change: No; Concerns about tobacco use in household: No; Exposure to Tobacco Smoke None; Cigarette Smoking Last 365 Days No; Reg Smoking Cessation Counseling No entered on: 04/03/19 09/15/2018 [facility] Social History TypeResponse Substance Abuse Use: None. Exercise Exercise duration: 0. 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 Alcohol Never Smoking Status Never smoker; Exposure to Tobacco Smoke None; Cigarette Smoking Last 365 Days No; Reg Smoking Cessation Counseling No entered on: 02/07/18 05/31/2017 [facility] Social History TypeResponse 10/27/2016 DELIA Kam Family History No Data Provided for This Section Advance Directives No Data Provided for This Section Functional Status No Data Provided for This Section
--- OUTSIDE RECORDS SUMMARY | 2019-06-22 05:42 | XMS REPORT | Summary of Care ---
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 Role Phone Roz Patterson PCP Encounter [facility] [phone] Date(s): 09/08/18 - 09/08/18 [facility] [address] [address]- Discharge Disposition: Home or Self Care Attending Physician: Roz Patterson DO Vital Signs Most recent to 1 oldest [Reference Range]: Height 152.4 cm (09/08/18 9:21 AM) Temperature Oral 98.0 DegF [96.4-99.1 DegF] (09/08/18 9:21 AM) Blood Pressure 133/78 mmHg [90-140/60-90 mmHg] (09/08/18 9:21 AM) Respiratory Rate 14 BRMIN [14-20 BRMIN] (09/08/18 9:21 AM) Peripheral Pulse 73 bpm Rate [60-100 bpm] (09/08/18 9:21 AM) Weight 82.273 kg (09/08/18 9:21 AM) Body Mass Index 35.42 m2 (09/08/18 9:21 AM) Problem List Condition Effective Dates Status Health Status Informant Anemia(Confirmed) Active BMI Active 34.0-34.9,adult(Conf irmed) Chronic back Active pain(Confirmed) Diabetic Active neuropathy(Confirmed ) Acid Active reflux(Confirmed) History of inguinal Active hernia(Confirmed) Hyperlipidemia(Confi Active rmed) Hypertension(Confirm Active ed) Elevated IgE Active level(Confirmed) Lymphadenopathy(Conf Active irmed) Cancer of Resolved colon(Confirmed) Cancer of Active colon(Confirmed) Diabetes type 2, Active controlled(Confirmed ) Allergies, Adverse Reactions, Alerts No Known Medication Allergies Medications ciprofloxacin 500 mg oral tablet 500 mg=1 tab, PO, Q12H, for UTI, X 3 day, # 6 tab, 0 Refill(s), Pharmacy: [facility] [id number] Start Date: 09/08/18 Stop Date: 09/08/18 Status: Completed ciprofloxacin 500 mg oral tablet 500 mg=1 tab, PO, Q12H, for UTI, X 3 day, # 6 tab, 0 Refill(s), [facility] [id number] Start Date: 09/08/18 Stop Date: 09/11/18 Status: Discontinued sulfamethoxazole-trimethoprim DS 800 mg-160 mg oral tablet 1 tab, PO, BID, For UTI, X 3 day, # 6 tab, 0 Refill(s), [facility] [id number] Start Date: 09/11/18 Stop Date: 09/14/18 Status: Completed Results No data available for this section Immunizations Given and Recorded Vaccine Date Status Refusal Reason pneumococcal 23-valent vaccine 09/16/18 Given influenza virus vaccine, inactivated1 07/24/18 Given influenza virus vaccine, inactivated2 09/08/17 Given 1Result Comment: Patient waited 15 minutes, no reaction noted. 2Result Comment: Patient waited 15 minutes, no reaction noted. Procedures Procedure Date Related Diagnosis Body Site Status Diabetic retinopathy screening1, 2 08/25/18 Completed Colonoscopy3 06/23/17 Completed Mammogram - screening 08/2016 Completed Appendectomy Completed Cholecystectomy Completed Esophagogastroduodenoscopy Completed Hysterectomy Completed Laparoscopic repair of hiatus hernia Completed Lumbar spinal fusion Completed Partial resection of colon Completed Repair of inguinal hernia Completed 1normal 2normal 3diverticulosis Social History Social History Type Response Substance Abuse Use: None. Exercise Exercise duration: 0. 

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
--- OUTSIDE RECORDS SUMMARY | 2019-06-22 05:42 | XMS REPORT | Summary of Care ---
Author Author [facility] Organization [facility] Address Unknown Phone Unavailable Care Team Providers Care Funeral Planning Counselor Name Role Phone Roz Patterson PCP Encounter HQ Manavntr_roberto([facility]) [phone] Date(s): 03/29/19 - 03/29/19 [facility] [address] [place] [address]- Discharge Disposition: Home or Self Care Attending Physician: Evelyne Schofield MD Admitting Physician: Evelyne Schofield MD Vital Signs 1 2 3 Most recent to oldest [Reference Range]: 152.4 cm (03/29/19 8:05 AM) 152.4 cm (03/29/19 4:43 AM) Height 98.6 DegF (03/29/19 12:48 PM) 98.1 DegF (03/29/19 7:50 AM) 98.5 DegF (03/29/19 7:10 AM) Temperature Oral [96.4-99.1 DegF] 153/88 mmHg *HI* (03/29/19 12:48 PM) 159/91 mmHg *HI* (03/29/19 7:50 AM) 150/78 mmHg *HI* (03/29/19 7:10 AM) Blood Pressure [90-140/60-90 mmHg] 17 BRMIN (03/29/19 12:48 PM) 19 BRMIN (03/29/19 8:30 AM) 16 BRMIN (03/29/19 7:50 AM) Respiratory Rate [14-20 BRMIN] 71 bpm (03/29/19 12:48 PM) 74 bpm (03/29/19 7:50 AM) 82 bpm (03/29/19 7:10 AM) Peripheral Pulse Rate [60-100 bpm] 77.273 kg (03/29/19 8:05 AM) 77.273 kg (03/29/19 4:43 AM) Weight 33.27 m2 (03/29/19 8:05 AM) 33.27 m2 (03/29/19 6:56 AM) 33.27 m2 (03/29/19 4:43 AM) Body Mass Index Problem List Condition [...] Reactions, Alerts No Known Medication Allergies Medications acetaminophen 650 mg, 2 tab, Route: PO, Drug form: TAB, Q4H, Dosing Weight 77.273, kg, PRN Oth er -See Comment, Start date: 03/29/19 6:56:00 CDT, Duration: 30 day, Stop date: 04/28/19 6:55:00 CDT, 0 Notes: Do not exceed 4 gm/day. (Same as: Tylenol) Start Date: 03/29/19 Stop Date: 03/29/19 Status: Discontinued acetaminophen 650 mg, 2 tab, Route: PO, Drug form: TAB, Q4H, Dosing Weight 77.273, kg, PRN Alissa n 1-3/Temp > 100.4 F, Start date: 03/29/19 6:54:00 CDT, Duration: 30 day, Stop date: 04/28/19 6:53:00 CDT, 0 Notes: Do not exceed 4 gm/day. (Same as: Tylenol) Start Date: 03/29/19 Stop Date: 03/29/19 Status: Discontinued acetaminophen 650 mg, Route: PO, Drug form: TAB, ONCE, Dosing Weight 77.273, kg, Priority: STA T, Start date: 03/29/19 5:21:00 CDT, Stop date: 03/29/19 5:21:00 CDT Start Date: 03/29/19 Stop Date: 03/29/19 Status: Completed aspirin 325 mg, 1 tab, Route: PO, Drug form: TAB, ONCE, Dosing Weight 77.273, kg, Priori ty: STAT, Start date: 03/29/19 6:35:00 CDT, Stop date: 03/29/19 6:35:00 CDT, 0 Notes: Take with food. Start Date: 03/29/19 Stop Date: 03/29/19 Status: Completed aspirin 81 mg tablet, enteric coated 81 mg, Route: PO, Drug form: ECTAB, Q24H, Dosing Weight 77.273, kg, Start date: 03/29/19 7:00:00 CDT, Duration: 30 day, Stop date: 04/27/19 7:00:00 CDT Start Date: 03/29/19 Stop Date: 03/29/19 Status: Deleted aspirin 81 mg tablet, enteric coated 81 mg=1 tab, PO, Daily, # 30 tab, 0 Refill(s), Pharmacy: [facility] Start Date: 03/29/19 Status: Ordered aspirin 81 mg tablet, enteric coated 81 mg, 1 tab, Route: PO, Drug form: ECTAB, Daily, Start date: 03/30/19 9:00:00 C DT, Duration: 30 day, Stop date: 04/28/19 9:00:00 CDT, 0 Notes: Do not crush or chew.(Same As: Ecotrin) Start Date: 03/30/19 Stop Date: 03/29/19 Status: Canceled atorvastatin 80 mg, 2 tab, Route: PO, Drug form: TAB, Bedtime, Dosing Weight 77.273, kg, Star t date: 03/29/19 21:00:00 CDT, Duration: 30 day, Stop date: 04/27/19 21:00:00 CD T, 0 Notes: (Same as: Lipitor) Start Date: 03/29/19 Stop Date: 03/29/19 Status: Canceled bisacodyl 10 mg, 1 supp, Route: TN, Drug form: SUPP, Daily, Dosing Weight 77.273, kg, PRN Constipation, Start date: 03/29/19 6:54:00 CDT, Duration: 30 day, Stop date: 12/12 6:53:00 CDT, 0 Notes: (Same As: Dulcolax, Bisco-Lax) Start Date: 03/29/19 Stop Date: 03/29/19 Status: Discontinued Dextrose 50% Syringe 12.5 gm, 25 mL, Route: IVP, Drug Form: INJ, Dosing Weight 77.273, kg, PRN, PRN B lood Glucose Results, Start date: 03/29/19 8:28:00 CDT, Duration: 30 day, Stop d ate: 04/28/19 8:27:00 CDT, 0 Start Date: 03/29/19 Stop Date: 03/29/19 Status: Discontinued Dextrose 50% Syringe 25 gm, 50 mL, Route: IVP, Drug Form: INJ, Dosing Weight 77.273, kg, PRN, PRN Blo od Glucose Results, Start date: 03/29/19 8:28:00 CDT, Duration: 30 day, Stop carmina e: 04/28/19 8:27:00 CDT, 0 Start Date: 03/29/19 Stop Date: 03/29/19 Status: Discontinued diphenhydrAMINE 25 mg, Route: IVP, ONCE, Dosing Weight 77.273, kg, Priority: STAT, Start date: 0 03/29/19 5:05:00 CDT, Stop date: 03/29/19 5:05:00 CDT Start Date: 03/29/19 Stop Date: 03/29/19 Status: Completed enoxaparin 40 mg, 0.4 mL, Route: SUB-Q, Drug form: INJ, [id number], Dosing Weight 77.273, kg, Start date: 03/29/19 7:00:00 CDT, Duration: 30 day, Stop date: 04/27/19 7:00:00 CDT, 0 Notes: (Same as: Lovenox) Start Date: 03/29/19 Stop Date: 03/29/19 Status: Discontinued enoxaparin 40 mg, Route: SUB-Q, Drug form: INJ, [id number], Dosing Weight 77.273, kg, Start d ate: 03/29/19 7:00:00 CDT, Stop date: 04/27/19 7:00:00 CDT Start Date: 03/29/19 Stop Date: 03/29/19 Status: Deleted glucagon 1 mg, Route: IM, Drug form: PDR/INJ, PRN, Dosing Weight 77.273, kg, PRN Blood Gl ucose Results, Start date: 03/29/19 8:28:00 CDT, Duration: 30 day, Stop date: 8:27:00 CDT, 0 Start Date: 03/29/19 Stop Date: 03/29/19 Status: Discontinued hydrALAZINE 10 mg, 0.5 mL, Route: IV, Drug form: INJ, Q6H, Dosing Weight 77.273, kg, PRN, St art date: 03/29/19 6:52:00 CDT, Duration: 30 day, Stop date: 04/28/19 6:51:00 CD T, SBP more than 160 mm of Hg, 0 Notes: (Same as: Apresoline)Push over 5 minutes Start Date: 03/29/19 Stop Date: 03/29/19 Status: Discontinued insulin lispro 1 unit, 0.01 mL, Route: SUB-Q, Drug form: SOLN, TID-Before Meals, Dosing Weight 77.273, kg, PRN Blood Glucose Results, Start date: 03/29/19 8:28:00 CDT, Duratio n: 30 day, Stop date: 04/28/19 8:27:00 CDT, 0 Notes: (Same as: Humalog) Roll in palms of hands gently; Do not shake vigorously . WASTE: F/P - Black; E - Municipal Trash BinStable for 28 days at room tempera ture.Expires in days from Date Start Date: 03/29/19 Stop Date: 03/29/19 Status: Discontinued insulin lispro 3 unit, 0.03 mL, Route: SUB-Q, Drug form: SOLN, TID-Before Meals, Dosing Weight 77.273, kg, PRN Blood Glucose Results, Start date: 03/29/19 8:28:00 CDT, Duratio n: 30 day, Stop date: 04/28/19 8:27:00 CDT, 0 Notes: (Same as: Humalog) Roll in palms of hands gently; Do not shake vigorously . WASTE: F/P - Black; E - Municipal Trash BinStable for 28 days at room tempera ture.Expires in days from Date Start Date: 03/29/19 Stop Date: 03/29/19 Status: Discontinued insulin lispro 2 unit, 0.02 mL, Route: SUB-Q, Drug form: SOLN, TID-Before Meals, Dosing Weight 77.273, kg, PRN Blood Glucose Results, Start date: 03/29/19 8:28:00 CDT, Duratio n: 30 day, Stop date: 04/28/19 8:27:00 CDT, 0 Notes: (Same as: Humalog) Roll in palms of hands gently; Do not shake vigorously . WASTE: F/P - Black; E - Municipal Trash BinStable for [address] [facility].Expires in days from Date Start Date: 03/29/19 Stop Date: 03/29/19 Status: Discontinued insulin lispro 4 unit, 0.04 mL, Route: SUB-Q, Drug form: SOLN, TID-Before Meals, Dosing Weight 77.273, kg, PRN Blood Glucose Results, Start date: 03/29/19 8:28:00 CDT, Duratio n: 30 day, Stop date: 04/28/19 8:27:00 CDT, 0 Notes: (Same as: Humalog) Roll in palms of hands gently; Do not shake vigorously . WASTE: F/P - Black; E - Municipal Trash BinStable for [address] [facility].Expires in days from Date Start Date: 03/29/19 Stop Date: 03/29/19 Status: Discontinued insulin lispro 5 unit, 0.05 mL, Route: SUB-Q, Drug form: SOLN, TID-Before Meals, Dosing Weight 77.273, kg, PRN Blood Glucose Results, Start date: 03/29/19 8:28:00 CDT, Duratio n: 30 day, Stop date: 04/28/19 8:27:00 CDT, 0 Notes: (Same as: Humalog) Roll in palms of hands gently; Do not shake vigorously . WASTE: F/P - Black; E - Municipal Trash BinStable for 28 days at room tempera ture.Expires in days from Date Start Date: 03/29/19 Stop Date: 03/29/19 Status: Discontinued losartan 50 mg, 1 tab, Route: PO, Drug form: TAB, Daily, Dosing Weight 77.273, kg, Start date: 03/29/19 9:00:00 CDT, Duration: 30 day, Stop date: 04/27/19 9:00:00 CDT, 0 Notes: (Same as: Unruly) Start Date: 03/29/19 Stop Date: 03/29/19 Status: Discontinued metoclopramide 10 mg, Route: IVP, Drug form: INJ, ONCE, Dosing Weight 77.273, kg, Priority: STA T, Start date: 03/29/19 5:05:00 CDT, Stop date: 03/29/19 5:05:00 CDT Start Date: 03/29/19 Stop Date: 03/29/19 Status: Completed nitroglycerin 0.1 mg/hr transdermal film 1 patch, Route: Transdermal, Drug Form: ERFILM, Dosing Weight 77.273, kg, Daily, Start date: 03/29/19 9:00:00 CDT, Duration: 30 day, Stop date: 04/27/19 9:00:00 CDT, 0 Notes: Apply only once for up to 12 hours in a 24 hour period (12 hours on and 1 2 hours off.)(Same as:Nitro-Dur,Deponit,Transderm Nitro) For topical use only." Remove old patch before application of new patch" Start Date: 03/29/19 Stop Date: 03/29/19 Status: Canceled nitroglycerin 0.1 mg/hr transdermal film 1 patch, Route: Transdermal, Drug Form: ERFILM, Dosing Weight 77.273, kg, Daily, PRN Chest Pain, Start date: 03/29/19 8:28:00 CDT, Duration: 30 day, Stop date: 04/28/19 8:27:00 CDT, 0 Notes: Apply only once for up to 12 hours in a 24 hour period (12 hours on and 1 2 hours off.)(Same as:Nitro-Dur,Deponit,Transderm Nitro) For topical use only." Remove old patch before application of new patch" Start Date: 03/29/19 Stop Date: 03/29/19 Status: Discontinued nitroglycerin SL Tab 0.4 mg, 1 tab, Route: SL, Drug form: TAB, Q5Min, Dosing Weight 77.273, kg, PRN C hest Pain, Start date: 03/29/19 6:56:00 CDT, Duration: 3 doses or times, Stop da te: Limited # of times, 0 Notes: (Same as:Nitroquick, Nitrostat)"Do Not Crush" Sublingual tablet Start Date: 03/29/19 Stop Date: 03/29/19 Status: Discontinued ondansetron 4 mg, 1 tab, Route: PO, Drug form: TAB, Q8H, Dosing Weight 77.273, kg, PRN Nause a & Vomiting, Start date: 03/29/19 6:56:00 CDT, Duration: 30 day, Stop date: 04/28/19 6:55:00 CDT, 0 Notes: (Same as: Zofran) Start Date: 03/29/19 Stop Date: 03/29/19 Status: Discontinued remove patch Route: TOP, Drug form: ERFILM, Bedtime, Start date: 03/29/19 21:00:00 CDT, Durat ion: 30 day, Stop date: 04/27/19 21:00:00 CDT, 0 Notes: Remove from 9 pm to 9 am daily for 12 hour nitrate free period. (Verify Patient has not taken Viagra, Cialis or Levitra in last 24 hours; if taken, hold NTG and notify MD.) Start Date: 03/29/19 Stop Date: 03/29/19 Status: Deleted Saline Flush 0.9% 10 ml, Route: IVP, Drug Form: INJ, Dosing Weight 77.273, kg, Q12H, Start date: 0 03/29/19 9:00:00 CDT, Duration: 30 day, Stop date: 04/27/19 21:00:00 CDT Start Date: 03/29/19 Stop Date: 03/29/19 Status: Deleted Saline Flush 0.9% 10 ml, Route: IVP, Drug Form: INJ, Dosing Weight 77.273, kg, PRN, PRN Line Flush , Start date: 03/29/19 6:56:00 CDT, Duration: 30 day, Stop date: 04/28/19 6:55:0 0 CDT Start Date: 03/29/19 Stop Date: 03/29/19 Status: Deleted Saline Flush 0.9% 10 ml, Route: IVP, Drug Form: INJ, Dosing Weight 77.273, kg, Q12H, Start date: 0 03/29/19 9:00:00 CDT, Duration: 30 day, Stop date: 04/27/19 21:00:00 CDT, 0 Notes: (Same as: BD Posiflush) Start Date: 03/29/19 Stop Date: 03/29/19 Status: Discontinued Saline Flush 0.9% 10 ml, Route: IVP, Drug Form: INJ, Dosing Weight 77.273, kg, PRN, PRN Line Flush , Start date: 03/29/19 6:54:00 CDT, Duration: 30 day, Stop date: 04/28/19 6:53:0 0 CDT, 0 Notes: (Same as: BD Posiflush) Start Date: 03/29/19 Stop Date: 03/29/19 Status: Discontinued temazepam 15 mg, 1 cap, Route: PO, Drug form: CAP, Bedtime, Dosing Weight 77.273, kg, PRN Insomnia, Start date: 03/29/19 6:56:00 CDT, Duration: 30 day, Stop date: 9 6:55:00 CDT, 0 Notes: (Same As: Restoril) Start Date: 03/29/19 Stop Date: 03/29/19 Status: Discontinued Results 1 2 3 Most recent to oldest [Reference Range]: 5.5 K/CMM (03/29/19 5:09 AM) Neutrophils # [1.5-8.1 K/CMM] 1.1 K/CMM (03/29/19 5:09 AM) Lymphocytes # [1.0-5.5 K/CMM] 0.4 K/CMM (03/29/19 5:09 AM) Monocytes # [0.0-0.8 K/CMM] 0.1 K/CMM (03/29/19 5:09 AM) Eosinophils # [0.0-0.5 K/CMM] 18 pg/mL (03/29/19 5:09 AM) BNP [<=100 pg/mL] 78 mL/min/1.73m2 1 *NA* (03/29/19 5:09 AM) eGFR 1.0 (03/29/19 5:09 AM) A/G Ratio [0.7-1.6] 3.8 g/dL (03/29/19 5:09 AM) Albumin Lvl [3.5-5.0 g/dL] 132 unit/L (03/29/19 5:09 AM) Alk Phos [39-136 unit/L] 61 unit/L (03/29/19:09 AM) ALT [0-65 unit/L] 11.6 mEq/L (03/29/19:09 AM) AGAP [10.0-20.0 mEq/L] 27 unit/L (03/29/19:09 AM) AST [0-37 unit/L] 12 (03/29/19 5:09 AM) B/C Ratio [6-25] 0.2 % (03/29/19 5:09 AM) Basophils [0.0-1.0 %] 10 mg/dL (03/29/19 5:09 AM) BUN [7-22 mg/dL] 9.5 mg/dL (03/29/19 5:09 AM) Calcium Lvl [8.5-10.5 mg/dL] 2.52 *LOW* (03/29/19 11:16 AM) CHD Risk [3.90-5.80] 154 mg/dL (03/29/19 11:16 AM) Chol [<=199 mg/dL] 72 unit/L (03/29/19 5:09 AM) Total CK [12-191 unit/L] 107 mEq/L (03/29/19 5:09 AM) Chloride Lvl [95-109 mEq/L] 22 mEq/L *LOW* (03/29/19 5:09 AM) CO2 [24-32 mEq/L] 0.83 mg/dL (03/29/19 5:09 AM) Creatinine Lvl [0.50-1.40 mg/dL] 0.8 % (03/29/19 5:09 AM) Eosinophils [0.0-4.0 %] 3.9 g/dL (03/29/19 5:09 AM) Globulin [2.7-4.2 g/dL] 191 mg/dL *HI* (03/29/19 5:09 AM) Glucose Lvl [70-99 mg/dL] 37.8 % (03/29/19:09 AM) Hct [36.0-48.0 %] 61 mg/dL (03/29/19 11:16 AM) HDL [>=61 mg/dL] 12.7 g/dL (03/29/19:09 AM) Hgb [12.0-16.0 g/dL] 6.6 % *HI* (03/29/19 11:16 AM) Hgb A1C [<=5.6 %] 0.92 (03/29/19:09 AM) INR [0.85-1.17] 3.6 mEq/L (03/29/19:09 AM) Potassium Lvl [3.5-5.1 mEq/L] 64 mg/dL (03/29/19 11:16 AM) LDL (Calculated) [<=99 mg/dL] 15.5 % *LOW* (03/29/19 5:09 AM) Lymphocytes [20.0-40.0 %] 29.3 pg (03/29/19:09 AM) MCH [27.0-31.0 pg] 33.5 g/dL (03/29/19:09 AM) MCHC [32.0-36.0 g/dL] 87.2 fL (03/29/19 5:09 AM) MCV [80.0-98.0 fL] 5.4 % (03/29/19 5:09 AM) Monocytes [2.0-12.0 %] 8.9 fL (03/29/19 5:09 AM) MPV [7.4-10.4 fL] 137 mEq/L (03/29/19 5:09 AM) Sodium Lvl [135-145 mEq/L] 189 K/CMM (03/29/19 5:09 AM) Platelet [133-450 K/CMM] 78.1 % *HI* (03/29/19 5:09 AM) Segs [45.0-75.0 %] 7.7 g/dL (03/29/19 5:09 AM) Total Protein [6.4-8.4 g/dL] 12.2 seconds (03/29/19 5:09 AM) PT [12.0-14.7 seconds] 35.3 seconds (03/29/19 5:09 AM) PTT [22.9-35.8 seconds] 4.34 M/CMM (03/29/19 5:09 AM) RBC [4.20-5.40 M/CMM] 13.9 % (03/29/19 5:09 AM) RDW [11.5-14.5 %] 0.6 mg/dL (03/29/19 5:09 AM) Bili Total [0.2-1.3 mg/dL] 144 mg/dL (03/29/19 11:16 AM) Trig [<=149 mg/dL] <0.02 ng/mL (03/29/19 3:31 PM) <0.02 ng/mL (03/29/19 11:16 AM) <0.02 ng/mL (03/29/19 5:09 AM) Troponin-I [0.00-0.40 ng/mL] Many /HPF *ABN* (03/29/19 8:02 AM) UA Bacteria [None Seen /HPF] Negative *NA* (03/29/19 8:02 AM) UA Bili [Negative] Negative (03/29/19 8:02 AM) UA Blood [Negative] Ltyellow *NA* (03/29/19 8:02 AM) UA Color Negative mg/dL *NA* (03/29/19 8:02 AM) UA Glucose [Negative mg/dL] Negative mg/dL *NA* (03/29/19 8:02 AM) UA Ketones [Negative mg/dL] Trace *ABN* (03/29/19 8:02 AM) UA Leuk Est [Negative] Few /LPF *NA* (03/29/19 8:02 AM) UA Mucus [None Seen /LPF] Negative (03/29/19 8:02 AM) UA Nitrite [Negative] 6.0 (03/29/19 8:02 AM) UA pH [5.0-8.0] Negative mg/dL (03/29/19 8:02 AM) UA Protein [Negative mg/dL] 1.006 (03/29/19 8:02 AM) UA Spec Grav [<=1.030] Few /LPF *NA* (03/29/19 8:02 AM) UA Sq Epi [Few /LPF] Clear (03/29/19 8:02 AM) UA Turbidity [Clear] <=1.0 mg/dL *NA* (03/29/19 8:02 AM) UA Urobilinogen [0.1-1.0 mg/dL] 3 /HPF (03/29/19 8:02 AM) UA WBC [0-5 /HPF] 7.0 K/CMM (03/29/19 5:09 AM) WBC [3.7-10.4 K/CMM] 29 *NA* (03/29/19 11:16 AM) VLDL 1Result Comment: The eGFR is calculated using [...] mul tiplied by the estimated BMI. Immunizations Given and Recorded Vaccine Date Status [...] No entered on: 03/29/19 Assessment and Plan Extracted from: Title: Clinical Document Author: Andie Steel MD Date: 03/29/19 [facility] Initial Cardiology Consultation Note [...] GERD Chronic back pain Allergies: Allergies (1) ActiveReaction No Known Medication AllergiesNone documented Medications: Medications (26) Active Scheduled Meds (5): 03/30/19 aspirin (aspirin 81 mg tablet, enteric coated) 81 mg PO Daily 03/29/19 atorvastatin 80 mg PO Bedtime 03/29/19 enoxaparin 40 mg SUB-Q [id number] 03/29/19 losartan 50 mg PO Daily 03/29/19 [...] mg PO Q4H 03/29/19 bisacodyl 10 mg TN Daily 03/29/19 glucagon 1 mg IM PRN [...] Signs (last 24 hrs) Last Charted Temp Oral98.1 DegF (MAR 29 07:50) Heart Rate [id number] bpm (MAR 29 07:50) Resp Rate 19 BRMIN (MAR 29 08:30) SBPH 159mmHg (MAR 29 07:50) DBPH 91mmHg (MAR 29 07:50) XrT040 % (MAR 29 08:30) Ktdsou66.273 kg (MAR 29 08:05) Sbcgdm348.4 cm (MAR 29 08:05) BMI33.27 (MAR 29 08:05) I/O Intake OutputBalance 03/29/20197a-3p 10.00 0.00 10.00As of 10:51 3p-11p 0.00 0.00 0.00 11p-7a 0.00 0.00 0.00 Totals 10.00 0.00 10.00 03/28/20197a-3p 0.00 0.00 0.00 3p-11p 0.00 0.00 0.00 11p-7a 0.00 0.00 0.00 Totals 0.00 0.00 0.00 03/27/20197a-3p 0.00 0.00 0.00 3p-11p 0.00 0.00 0.00 11p-7a 0.00 0.00 0.00 Totals 0.00 0.00 0.00 Physical exam: Gen: Alert, no apparent distress Neck: No carotid bruits, No JVD Lungs: CTAB Heart: Regular, S1-S2, reproducible on palpation Abd: Soft, non tender, positive bowel sounds Ext: No edema, 2+ pulses distally Neuro: No focal deficits Skin: warm, moist Labs (Last four charted values) WBC 7.0(MAR 29) Hgb 12.7(MAR 29) Hct 37.8(MAR 29) Plt 189(MAR 29) Na 137(MAR 29) K 3.6(MAR 29) CO2 L 22(MAR 29) Cl 107(MAR 29) Cr 0.83(MAR 29) BUN 10(MAR 29) Glucose Random H 191(MAR 29) Ca 9.5(MAR 29) PT 12.2(MAR 29) INR 0.92(MAR 29) PTT 35.3(MAR 29) Troponin <0.02(MAR 29) Total CK 72(MAR 29) Electrocardiogram:NSR Assessment and plan: Chest pain: Atypical chest pain that is reproducible on palpation. She can be trended for total of 3 sets of cardiac enzymes and if these are negative she may be discharged Hypertension continue home meds Hyperlipidemia: Continue statin Migraine headaches: Per neurology Thank you for the consult. Call with questions.
--- OUTSIDE RECORDS SUMMARY | 2019-06-22 05:43 | XMS REPORT | Summary of Care ---
Author Author [facility] Organization [facility] Address Unknown Phone Unavailable Encounter GONZALO Nair(YASMINE) [id number] Date(s): 01/02/19 - 01/02/19 [facility] [address] [address]- Discharge Disposition: Home or Self Care Attending Physician: Roz Patterson DO Vital Signs Most recent to 1 oldest [Reference Range]: Height 152.4 cm (01/02/19 8:01 AM) Temperature Oral 98.0 DegF [96.4-99.1 DegF] (01/02/19 8:01 AM) Blood Pressure 169/95 mmHg [90-140/60-90 mmHg] *HI* (01/02/19 8:01 AM) Respiratory Rate 14 BRMIN [14-20 BRMIN] (01/02/19 8:01 AM) Peripheral Pulse 58 bpm Rate [60-100 bpm] *LOW* (01/02/19 8:01 AM) Weight 80.909 kg (01/02/19 8:01 AM) Body Mass Index 34.84 m2 (01/02/19 8:01 AM) Problem List Condition Effective Dates Status [...] Substance Reaction Severity Status NKDA Active Medications Blood Glucose Monitor 1 ea, MISC, Daily, freestyle machine. Use as directed., # 1 ea, 0 Refill(s), Ph armacy: [facility] Start Date: 01/04/19 Status: Ordered Blood Glucose Test Strips 1 box, MISC, TID-Before Meals, freestyle, # 100 strip, 3 Refill(s), Pharmacy: [facility] Start Date: 01/04/19 Status: Ordered Blood Glucose Test Strips 1 box, MISC, TID-Before Meals, # 100 strip, 3 Refill(s), [facility] Start Date: 01/02/19 Stop Date: 01/04/19 Status: Completed tizanidine 2 mg oral tablet 2 mg=1 tab, PO, TID, PRN for muscle spasm, # 30 tab, 1 Refill(s), Pharmacy: [facility] Start Date: 01/02/19 Status: Ordered Results No data available for [...] Smoking Cessation Counseling No entered on: 01/02/19 Assessment and Plan No data available for this section
--- OUTSIDE RECORDS SUMMARY | 2019-06-22 05:43 | XMS REPORT | Summary of Care ---
Author Author [facility] Organization [facility] Address Unknown Phone Unavailable Care Team Providers Care Maintenance Department Manager Name Role Phone Roz Patterson PCP Encounter HQ Misha_roberto([facility]) [id number] Date(s): 07/24/18 - 07/24/18 [facility] [address] [address]- [phone] Discharge Disposition: Home or Self Care Attending Physician: Roz Patterson DO Vital Signs Most recent to 1 oldest [Reference Range]: Height 152.4 cm (07/24/18 11:45 AM) Temperature Oral 98.0 DegF [96.4-99.1 DegF] (07/24/18 11:45 AM) Blood Pressure 137/88 mmHg [90-140/60-90 mmHg] (07/24/18 11:45 AM) Respiratory Rate 14 BRMIN [14-20 BRMIN] (07/24/18 11:45 AM) Peripheral Pulse 79 bpm Rate [60-100 bpm] (07/24/18 11:45 AM) Weight 83.182 kg (07/24/18 11:45 AM) Body Mass Index 35.81 m2 (07/24/18 11:45 AM) Problem List Condition Effective Dates Status [...] Reactions, Alerts No Known Medication Allergies Medications No Known Medications Results No data available for this section [...]
--- OUTSIDE RECORDS SUMMARY | 2019-06-22 05:43 | XMS REPORT | Summary of Care ---
Author Author [facility] Organization [facility] Address Unknown Phone Unavailable Encounter [facility] Joanie([place]) [id number] Date(s): 12/26/18 - 12/27/18 [facility] [address] [facility] [address] [place] [address]- Vital Signs No data available for this [...] Severity Status NKDA Active Medications Blood Glucose Test Strips 1 box, MISC, TID-Before Meals, # 100 strip, 3 Refill(s), Pharmacy: [email or web address] [id number] Start Date: 12/26/18 Status: Ordered Results No data available for [...]
--- OUTSIDE RECORDS SUMMARY | 2019-06-22 05:43 | XMS REPORT | Summary of Care ---
Author Author [facility] Care [facility] Organization [facility] Address Unknown Phone Unavailable Care Team Providers Care Orthopedic Physician Name Role Phone Roz Patterson PCP Encounter [facility] [email or web address]([facility] [phone] Date(s): 04/03/19 - 04/03/19 [facility] [address] [address]- Discharge Disposition: Home or Self Care Attending Physician: Roz Patterson DO Vital Signs Most recent to 1 oldest [Reference Range]: Height 152.4 cm (04/03/19 9:52 AM) Blood Pressure 157/92 mmHg [90-140/60-90 mmHg] *HI* (04/03/19 9:52 AM) Respiratory Rate 14 BRMIN [14-20 BRMIN] (04/03/19 9:52 AM) Peripheral Pulse 73 bpm Rate [60-100 bpm] (04/03/19 9:52 AM) Weight 80 kg (04/03/19 9:52 AM) Body Mass Index 34.44 m2 (04/03/19 9:52 AM) Problem List Condition Effective Dates Status Health Status Informant Anemia(Confirmed) Active BMI Active 34.0-34.9,adult(Conf irmed) Chronic back Active pain(Confirmed) Diabetic Active neuropathy(Confirmed ) Body mass index Active (BMI) 34.0-34.9, adult(Confirmed) Acid Active reflux(Confirmed) History of inguinal Active hernia(Confirmed) Hyperlipidemia(Confi Active rmed) Hypertension(Confirm Active ed) Elevated IgE Active level(Confirmed) Lymphadenopathy(Conf Active irmed) Cancer of Resolved colon(Confirmed) Cancer of Active colon(Confirmed) Diabetes type 2, Active controlled(Confirmed ) Allergies, Adverse Reactions, Alerts No Known Medication Allergies Medications glyBURIDE 5 mg oral tablet 10 mg=2 tab, PO, BID, # 360 tab, 1 Refill(s), Pharmacy: [id number] Start Date: 04/03/19 Stop Date: 09/30/19 Status: Ordered losartan 100 mg oral tablet 100 mg=1 tab, PO, Daily, # 90 tab, 1 Refill(s), Pharmacy: [facility] [id number] Start Date: 04/03/19 Status: Ordered metFORMIN PO, 0 Refill(s) Start Date: 04/03/19 Stop Date: 04/03/19 Status: Discontinued metFORMIN 1000 mg oral tablet 1,000 mg=1 tab, PO, BID-Meals, # 180 tab, 1 Refill(s), Pharmacy: [facility] [id number] Start Date: 04/03/19 Stop Date: 09/30/19 Status: Ordered Results No data available for [...] Smoking Cessation Counseling No entered on: 04/03/19 Assessment and Plan No data available for this section
--- OUTSIDE RECORDS SUMMARY | 2019-06-22 05:43 | XMS REPORT | Summary of Care ---
Author Author [facility] Organization [facility] Address Unknown Phone Unavailable Care Team Providers Care Elementary Supervisor Name Role Phone Roz Patterson PCP Encounter HQ [email or web address]) [phone] Date(s): 09/14/18 - 09/16/18 [facility] [address] [place] [address]- [phone] Encounter Diagnosis TIFFANI (acute kidney injury) (Discharge Diagnosis) - 09/14/18 Right nephrolithiasis (Discharge Diagnosis) - 09/14/18 Hepatic steatosis (Discharge Diagnosis) - 09/14/18 Abdominal pain, acute (Discharge Diagnosis) - 09/14/18 Colon, diverticulosis (Discharge Diagnosis) - 09/14/18 N&V (nausea and vomiting) (Discharge Diagnosis) - 09/14/18 Back pain, chronic (Discharge Diagnosis) - 09/14/18 Acute lower UTI (Discharge Diagnosis) - 09/14/18 Urinary tract infection, site not specified (Final) - 09/27/18 Acute kidney failure, unspecified (Final) - Chronic kidney disease, stage 3 (moderate) (Final) - Type 2 diabetes mellitus with diabetic chronic kidney disease (Final) - Hypertensive chronic kidney disease with stage 1 through stage 4 chronic kidney disease, or unspecified chronic kidney disease (Final) - Hyperlipidemia, unspecified (Final) - Calculus of kidney (Final) - Type 2 diabetes mellitus with diabetic neuropathy, unspecified (Final) - Dorsalgia, unspecified (Final) - Gastro-esophageal reflux disease without esophagitis (Final) - Diverticulosis of large intestine without perforation or abscess without bleedin g (Final) - Fatty (change of) liver, not elsewhere classified (Final) - Personal history of other malignant neoplasm of large intestine (Final) - Discharge Disposition: Home or Self Care Attending Physician: Bartolo Cm MD Admitting Physician: Bartolo Cm MD Vital Signs 1 2 3 Most recent to oldest [Reference Range]: 152.4 cm (09/15/18 12:21 AM) 152.4 cm (09/14/18 2:42 PM) Height 80 kg (09/15/18 6:26 AM) Current Weight 97.9 DegF (09/16/18 11:30 AM) 98.9 DegF (09/16/18 7:52 AM) 97.7 DegF (09/16/18 4:46 AM) Temperature Oral [96.4-99.1 DegF] 158/92 mmHg *HI* (09/16/18 11:30 AM) 138/79 mmHg (09/16/18 7:52 AM) 128/78 mmHg (09/16/18 4:46 AM) Blood Pressure [90-140/60-90 mmHg] 18 BRMIN (09/16/18 11:30 AM) 18 BRMIN (09/16/18 7:52 AM) 18 BRMIN (09/16/18 4:46 AM) Respiratory Rate [14-20 BRMIN] 49 bpm *LOW* (09/16/18 11:30 AM) 55 bpm *LOW* (09/16/18 7:52 AM) 60 bpm (09/16/18 4:46 AM) Peripheral Pulse Rate [60-100 bpm] 82 kg (09/15/18 12:21 AM) 77.273 kg (09/14/18 2:42 PM) Weight 35.31 m2 (09/15/18 12:21 AM) 33.27 m2 (09/14/18 2:42 PM) Body Mass Index Problem List Condition Effective [...] Reactions, Alerts No Known Medication Allergies Medications *Please bring pt's own glyburide to pharmacy for label* *Please bring pt's own glyburide to pharmacy for label*, ATTN:RN, Drug form: MIS C, Route: MISC, QSHIFT, 09/16/18 0:00:00 MANAGER LOAN, Duration: 30 day, Stop date: 10/15 16:00:00 MANAGER LOAN Start Date: 09/16/18 Stop Date: 09/16/18 Status: Discontinued acetaminophen 650 mg, 2 tab, Route: PO, Drug form: TAB, Q4H, Dosing Weight 82, kg, PRN For Tem p > 100.4 F, Start date: 09/15/18 2:16:00 MANAGER LOAN, Duration: 30 day, Stop date: 10/15/18 2:15:00 MANAGER LOAN Notes: Do not exceed 4 gm/day. (Same as: Tylenol) Start Date: 09/15/18 Stop Date: 09/16/18 Status: Discontinued atorvastatin 10 mg, 1 tab, Route: PO, Drug form: TAB, Bedtime, Dosing Weight 82, kg, Start da te: 09/15/18 21:00:00 MANAGER LOAN, Duration: 30 day, Stop date: 10/14/18 21:00:00 MANAGER LOAN Notes: (Same As: Lipitor) Start Date: 09/15/18 Stop Date: 09/16/18 Status: Discontinued Ceftin 250 mg oral tablet 250 mg=1 tab, PO, BID, X 7 day, # 14 tab, 0 Refill(s) Start Date: 09/16/18 Stop Date: 09/23/18 Status: Completed cefTRIAXone + sterile water 10 mL 1 gm, Route: IV, [id number], Dosing Weight 82, kg, Start date: 09/15/18 22:00:00 CS T, Duration: 10 day, Stop date: 09/24/18 22:00:00 MANAGER LOAN, ABX Indication: Urinary T ract Infection Notes: (Same As: Rocephin).Use with 100 mL NS and infuse over 30 min MEDICA TION WASTE Product Size: 1000 mgProduct Wasted: ___ mg Start Date: 09/15/18 Stop Date: 09/16/18 Status: Discontinued Dextrose 50% Syringe 12.5 gm, 25 mL, Route: IVP, Drug Form: INJ, Dosing Weight 82, kg, PRN, PRN Blood Glucose Results, Start date: 09/15/18 2:16:00 MANAGER LOAN, Duration: 30 day, Stop date: 10/15/18 2:15:00 MANAGER LOAN Start Date: 09/15/18 Stop Date: 09/15/18 Status: Discontinued Dextrose 50% Syringe 25 gm, 50 mL, Route: IVP, Drug Form: INJ, Dosing Weight 82, kg, PRN, PRN Blood G lucose Results, Start date: 09/15/18 2:16:00 MANAGER LOAN, Duration: 30 day, Stop date: 0 10/15/18 2:15:00 MANAGER LOAN Start Date: 09/15/18 Stop Date: 09/15/18 Status: Discontinued Dextrose 50% Syringe 12.5 gm, 25 mL, Route: IVP, Drug Form: INJ, Dosing Weight 82, kg, PRN, PRN Blood Glucose Results, Start date: 09/15/18 18:43:00 MANAGER LOAN, Duration: 30 day, Stop date: 10/15/18 18:42:00 MANAGER LOAN Start Date: 09/15/18 Stop Date: 09/16/18 Status: Discontinued Dextrose 50% Syringe 25 gm, 50 mL, Route: IVP, Drug Form: INJ, Dosing Weight 82, kg, PRN, PRN Blood G lucose Results, Start date: 09/15/18 18:43:00 MANAGER LOAN, Duration: 30 day, Stop date: 10/15/18 18:42:00 MANAGER LOAN Start Date: 09/15/18 Stop Date: 09/16/18 Status: Discontinued gabapentin 300 mg, 1 cap, Route: PO, Drug form: CAP, BID, Dosing Weight 82, kg, Start date: 09/16/18 9:00:00 MANAGER LOAN, Duration: 30 day, Stop date: 10/15/18 17:00:00 MANAGER LOAN Notes: (Same as: Neurontin) Start Date: 09/16/18 Stop Date: 09/16/18 Status: Discontinued glucagon 1 mg, Route: IM, Drug form: PDR/INJ, PRN, Dosing Weight 82, kg, PRN Blood Glucos e Results, Start date: 09/15/18 2:16:00 MANAGER LOAN, Duration: 30 day, Stop date: 2:15:00 MANAGER LOAN Start Date: 09/15/18 Stop Date: 09/15/18 Status: Discontinued glucagon 1 mg, Route: IM, Drug form: PDR/INJ, PRN, Dosing Weight 82, kg, PRN Blood Glucos e Results, Start date: 09/15/18 18:43:00 MANAGER LOAN, Duration: 30 day, Stop date: 10/15 18:42:00 MANAGER LOAN Start Date: 09/15/18 Stop Date: 09/16/18 Status: Discontinued glyBURIDE 10 mg, Route: PO, Drug form: TAB, BID, Dosing Weight 82, kg, Start date: 8 9:00:00 MANAGER LOAN, Duration: 30 day, Stop date: 10/15/18 17:00:00 MANAGER LOAN Start Date: 09/16/18 Stop Date: 09/16/18 Status: Discontinued heparin 5,000 unit, 1 mL, Route: SUB-Q, Drug form: INJ, Q8H, Dosing Weight 82, kg, Start date: 09/15/18 8:00:00 MANAGER LOAN, Stop date: 10/15/18 0:00:00 MANAGER LOAN Notes: porcine heparin Start Date: 09/15/18 Stop Date: 09/16/18 Status: Discontinued insulin lispro 1 unit, 0.01 mL, Route: SUB-Q, Drug form: SOLN, Bedtime, Dosing Weight 82, kg, P RN Blood Glucose Results, Start date: 09/15/18 18:43:00 MANAGER LOAN, Duration: 30 day, S top date: 10/15/18 18:42:00 MANAGER LOAN Notes: (Same as: Humalog ) Roll in palms of hands gently; Do not shake `vigorou sly. "Single Patient Use Only " WASTE: F/P - Black; E - SET Trash Bin St able for 28 days at room temperature.Expires in days from Da te Start Date: 09/15/18 Stop Date: 09/16/18 Status: Discontinued insulin lispro 2 unit, 0.02 mL, Route: SUB-Q, Drug form: SOLN, Bedtime, Dosing Weight 82, kg, P RN Blood Glucose Results, Start date: 09/15/18 18:43:00 MANAGER LOAN, Duration: 30 day, S top date: 10/15/18 18:42:00 MANAGER LOAN Notes: (Same as: Humalog ) Roll in palms of hands gently; Do not shake `vigorou sly. "Single Patient Use Only " WASTE: F/P - Black; E - [facility] [employer] [facility] able for 28 days at room temperature.Expires in days from Da te Start Date: 09/15/18 Stop Date: 09/16/18 Status: Discontinued insulin lispro 4 unit, 0.04 mL, Route: SUB-Q, Drug form: SOLN, TID-Before Meals, Dosing Weight 82, kg, PRN Blood Glucose Results, Start date: 09/15/18 18:43:00 MANAGER LOAN, Duration: 30 day, Stop date: 10/15/18 18:42:00 MANAGER LOAN Notes: (Same as: Humalog ) Roll in palms of hands gently; Do not shake `vigorou sly. "Single Patient Use Only " WASTE: F/P - Black; E - [facility] [employer] [facility] [address] able for 28 days at room temperature.Expires in days from Da te Start Date: 09/15/18 Stop Date: 09/16/18 Status: Discontinued insulin lispro 10 unit, 0.1 mL, Route: SUB-Q, Drug form: SOLN, TID-Before Meals, Dosing Weight 82, kg, PRN Blood Glucose Results, Start date: 09/15/18 18:43:00 MANAGER LOAN, Duration: 30 day, Stop date: 10/15/18 18:42:00 MANAGER LOAN Notes: (Same as: Humalog ) Roll in palms of hands gently; Do not shake `vigorou sly. "Single Patient Use Only " WASTE: F/P - Black; E - [facility] [employer] [address] able for 28 days at room temperature.Expires in days from Da te Start Date: 09/15/18 Stop Date: 09/16/18 Status: Discontinued insulin lispro 8 unit, 0.08 mL, Route: SUB-Q, Drug form: SOLN, TID-Before Meals, Dosing Weight 82, kg, PRN Blood Glucose Results, Start date: 09/15/18 18:43:00 MANAGER LOAN, Duration: 30 day, Stop date: 10/15/18 18:42:00 MANAGER LOAN Notes: (Same as: Humalog ) Roll in palms of hands gently; Do not shake `vigorou sly. "Single Patient Use Only " WASTE: F/P - Black; E - [facility] [employer] [address] able for 28 days at room temperature.Expires in days from Da te Start Date: 09/15/18 Stop Date: 09/16/18 Status: Discontinued insulin lispro 6 unit, 0.06 mL, Route: SUB-Q, Drug form: SOLN, TID-Before Meals, Dosing Weight 82, kg, PRN Blood Glucose Results, Start date: 09/15/18 18:43:00 MANAGER LOAN, Duration: 30 day, Stop date: 10/15/18 18:42:00 MANAGER LOAN Notes: (Same as: Humalog ) Roll in palms of hands gently; Do not shake `vigorou sly. "Single Patient Use Only " WASTE: F/P - Black; E - [facility] [employer] [address] able for 28 days at room temperature.Expires in days from Da te Start Date: 09/15/18 Stop Date: 09/16/18 Status: Discontinued insulin lispro 2 unit, 0.02 mL, Route: SUB-Q, Drug form: SOLN, TID-Before Meals, Dosing Weight 82, kg, PRN Blood Glucose Results, Start date: 09/15/18 18:43:00 MANAGER LOAN, Duration: 30 day, Stop date: 10/15/18 18:42:00 MANAGER LOAN Notes: (Same as: Humalog ) Roll in palms of hands gently; Do not shake `vigorou sly. "Single Patient Use Only " WASTE: F/P - Black; E - [facility] [employer] [address] able for 28 days at room temperature.Expires in days from Da te Start Date: 09/15/18 Stop Date: 09/16/18 Status: Discontinued insulin lispro 4 unit, 0.04 mL, Route: SUB-Q, Drug form: SOLN, Bedtime, Dosing Weight 82, kg, P RN Blood Glucose Results, Start date: 09/15/18 18:43:00 MANAGER LOAN, Duration: 30 day, S top date: 10/15/18 18:42:00 MANAGER LOAN Notes: (Same as: Humalog ) Roll in palms of hands gently; Do not shake `vigorou sly. "Single Patient Use Only " WASTE: F/P - Black; E - [facility] [employer] [address] able for 28 days at room temperature.Expires in days from Da te Start Date: 09/15/18 Stop Date: 09/16/18 Status: Discontinued insulin lispro 3 unit, 0.03 mL, Route: SUB-Q, Drug form: SOLN, Bedtime, Dosing Weight 82, kg, P RN Blood Glucose Results, Start date: 09/15/18 18:43:00 MANAGER LOAN, Duration: 30 day, S top date: 10/15/18 18:42:00 MANAGER LOAN Notes: (Same as: Humalog ) Roll in palms of hands gently; Do not shake `vigorou sly. "Single Patient Use Only " WASTE: F/P - Black; E - [facility] [facility] [address] able for 28 days at room temperature.Expires in days from Da te Start Date: 09/15/18 Stop Date: 09/16/18 Status: Discontinued Keflex 500 mg oral capsule 500 mg=1 cap, PO, TID, X 7 day, # 21 cap, 0 Refill(s) Start Date: 09/14/18 Stop Date: 09/14/18 Status: Discontinued losartan 50 mg, 1 tab, Route: PO, Drug form: TAB, Daily, Dosing Weight 82, kg, Start date : 09/16/18 9:00:00 MANAGER LOAN, Duration: 30 day, Stop date: 10/15/18 9:00:00 MANAGER LOAN Notes: (Same as: Unruly) Start Date: 09/16/18 Stop Date: 09/16/18 Status: Discontinued morphine Sulfate 4 mg, 1 mL, Route: IVP, Drug form: SOLN, ONCE, Dosing Weight 77.273, kg, Priorit y: STAT, Start date: 09/14/18 17:39:00 MANAGER LOAN, Stop date: 09/14/18 17:39:00 MANAGER LOAN Notes: (Same as:MORPhine Sulfate) Start Date: 09/14/18 Stop Date: 09/14/18 Status: Completed morphine Sulfate 4 mg, 1 mL, Route: IVP, Drug form: SOLN, Q4H, Dosing Weight 82, kg, PRN Pain Sco re 7-10, Start date: 09/15/18 2:16:00 MANAGER LOAN, Duration: 30 day, Stop date: 10/15/18 2:15:00 MANAGER LOAN Notes: (Same as:MORPhine Sulfate) Start Date: 09/15/18 Stop Date: 09/16/18 Status: Discontinued morphine Sulfate 4 mg, 1 mL, Route: IVP, Drug form: SOLN, ONCE, Dosing Weight 77.273, kg, Priorit y: STAT, Start date: 09/14/18 15:50:00 MANAGER LOAN, Stop date: 09/14/18 15:50:00 MANAGER LOAN Notes: (Same as:MORPhine Sulfate) Start Date: 09/14/18 Stop Date: 09/14/18 Status: Completed morphine Sulfate 4 mg, 1 mL, Route: IVP, Drug form: SOLN, ONCE, Dosing Weight 77.273, kg, Priorit y: STAT, Start date: 09/14/18 21:16:00 MANAGER LOAN, Stop date: 09/14/18 21:16:00 MANAGER LOAN Notes: (Same as:MORPhine Sulfate) Start Date: 09/14/18 Stop Date: 09/14/18 Status: Completed ondansetron 4 mg, 2 mL, Route: IVP, Drug form: INJ, Q4H, Dosing Weight 82, kg, PRN Nausea & Vomiting, Start date: 09/15/18 2:16:00 MANAGER LOAN, Duration: 30 day, Stop date: 2:15:00 MANAGER LOAN Notes: (Same as: Zofran) MEDICATION WASTE Product Size: 4 mgProduct Was salud: ___ mg Start Date: 09/15/18 Stop Date: 09/16/18 Status: Discontinued Rocephin + sterile water 10 mL 1 gm, Route: IV, ONCE, Dosing Weight 77.273, kg, Priority: STAT, Start date: 21:13:00 MANAGER LOAN, Stop date: 09/14/18 21:13:00 MANAGER LOAN, ABX Indication: Urinary Tr act Infection Notes: (Same As: Rocephin).Use with 100 mL NS and infuse over 30 min MEDICA TION WASTE Product Size: 1000 mgProduct Wasted: ___ mg Start Date: 09/14/18 Stop Date: 09/14/18 Status: Completed Saline Flush 0.9% 10 ml, Route: IVP, Drug Form: INJ, Dosing Weight 82, kg, PRN, PRN Line Flush, St art date: 09/15/18 2:16:00 MANAGER LOAN, Duration: 30 day, Stop date: 10/15/18 2:15:00 CS T Notes: (Same as: BD Posiflush) Start Date: 09/15/18 Stop Date: 09/16/18 Status: Discontinued Sodium Chloride 0.9% (Bolus) IV 1,000 mL, 1000 ml/hr, Infuse Over: 1 hr, Route: IV, 1,000, Drug form: INJ, ONCE, Priority: STAT, Dosing Weight 77.273 kg, Start date: 09/14/18 17:42:00 MANAGER LOAN, Stop date: 09/14/18 17:42:00 MANAGER LOAN Start Date: 09/14/18 Stop Date: 09/14/18 Status: Completed Sodium Chloride 0.9% (Bolus) IV 1,000 mL, 1000 ml/hr, Infuse Over: 1 hr, Route: IV, 1,000, Drug form: INJ, ONCE, Dosing Weight 82 kg, Start date: 09/15/18 0:31:00 MANAGER LOAN, Stop date: 09/15/18 0:31 :00 MANAGER LOAN Start Date: 09/15/18 Stop Date: 09/15/18 Status: Completed Sodium Chloride 0.9% (Bolus) IV 1,000 mL, 1000 ml/hr, Infuse Over: 1 hr, Route: IV, 1,000, Drug form: INJ, ONCE, Priority: STAT, Dosing Weight 77.273 kg, Start date: 09/14/18 15:50:00 MANAGER LOAN, Stop date: 09/14/18 15:50:00 MANAGER LOAN Start Date: 09/14/18 Stop Date: 09/14/18 Status: Completed Sodium Chloride 0.9% IV 1,000 mL 1,000 mL, Rate: 125 ml/hr, Infuse over: 8 hr, Route: IV, Dosing Weight 82 kg, To cyn Volume: 1,000, Start date: 09/15/18 2:16:00 MANAGER LOAN, Duration: 30 day, Stop date : 10/15/18 2:15:00 MANAGER LOAN, 1.9, m2 Start Date: 09/15/18 Stop Date: 09/16/18 Status: Discontinued Zofran 4 mg, 2 mL, Route: IVP, Drug form: INJ, ONCE, Dosing Weight 77.273, kg, Priority : STAT, Start date: 09/14/18 15:50:00 MANAGER LOAN, Stop date: 09/14/18 15:50:00 MANAGER LOAN Notes: (Same as: Zofran) MEDICATION WASTE Product Size: 4 mgProduct Was salud: ___ mg Start Date: 09/14/18 Stop Date: 09/14/18 Status: Completed Zofran ODT 4 mg oral tablet, disintegrating 4 mg=1 tab, PO, TID, PRN Nausea & Vomiting, Dissolve tab under tongue, # 15 tab, 0 Refill(s) Start Date: 09/14/18 Stop Date: 09/14/18 Status: Discontinued Results 1 2 3 Most recent to oldest [Reference Range]: 2.9 K/CMM (09/16/18 5:51 AM) 5.1 K/CMM (09/15/18 6:00 AM) 9.5 K/CMM *HI* (09/14/18 4:32 PM) Neutrophils # [1.5-8.1 K/CMM] 1.4 K/CMM (09/16/18 5:51 AM) 2.8 K/CMM (09/15/18 6:00 AM) 1.7 K/CMM (09/14/18 4:32 PM) Lymphocytes # [1.0-5.5 K/CMM] 0.5 K/CMM (09/16/18 5:51 AM) 0.8 K/CMM (09/15/18 6:00 AM) 0.7 K/CMM (09/14/18 4:32 PM) Monocytes # [0.0-0.8 K/CMM] 0.2 K/CMM (09/16/18 5:51 AM) 0.2 K/CMM (09/15/18 6:00 AM) Eosinophils # [0.0-0.5 K/CMM] 97 mL/min/1.73m2 1 *NA* (09/16/18 5:51 AM) 44 mL/min/1.73m2 2 *NA* (09/15/18 6:00 AM) 33 mL/min/1.73m2 3 *NA* (09/14/18 8:55 PM) eGFR 0.9 (09/16/18 5:51 AM) 0.9 (09/14/18 4:32 PM) A/G Ratio [0.7-1.6] 2.6 g/dL *LOW* (09/16/18 5:51 AM) 3.6 g/dL (09/14/18 4:32 PM) Albumin Lvl [3.5-5.0 g/dL] 78 unit/L (09/16/18 5:51 AM) 112 unit/L (09/14/18 4:32 PM) Alk Phos [39-136 unit/L] 29 unit/L (09/16/18 5:51 AM) 43 unit/L (09/14/18 4:32 PM) ALT [0-65 unit/L] 7.6 mEq/L *LOW* (09/16/18 5:51 AM) 10.2 mEq/L (09/15/18 6:00 AM) 14.3 mEq/L (09/14/18 4:32 PM) AGAP [10.0-20.0 mEq/L] 18 unit/L (09/16/18 5:51 AM) 24 unit/L (09/14/18 4:32 PM) AST [0-37 unit/L] 16 (09/16/18 5:51 AM) 11 (09/14/18 4:32 PM) B/C Ratio [6-25] 0.6 % (09/16/18 5:51 AM) 0.4 % (09/15/18 6:00 AM) 0.2 % (09/14/18 4:32 PM) Basophils [0.0-1.0 %] 11 mg/dL (09/16/18 5:51 AM) 21 mg/dL (09/15/18 6:00 AM) 17 mg/dL (09/14/18 4:32 PM) BUN [7-22 mg/dL] 7.4 mg/dL *LOW* (09/16/18 5:51 AM) 7.4 mg/dL *LOW* (09/15/18 6:00 AM) 8.7 mg/dL (09/14/18 4:32 PM) Calcium Lvl [8.5-10.5 mg/dL] 113 mEq/L *HI* (09/16/18 5:51 AM) 110 mEq/L *HI* (09/15/18 6:00 AM) 101 mEq/L (09/14/18 4:32 PM) Chloride Lvl [95-109 mEq/L] 26 mEq/L (09/16/18 5:51 AM) 24 mEq/L (09/15/18 6:00 AM) 24 mEq/L (09/14/18 4:32 PM) CO2 [24-32 mEq/L] 0.68 mg/dL (09/16/18 5:51 AM) 1.32 mg/dL (09/15/18 6:00 AM) 1.49 mg/dL *HI* (09/14/18 4:32 PM) Creatinine Lvl [0.50-1.40 mg/dL] 3.6 % (09/16/18 5:51 AM) 1.9 % (09/15/18 6:00 AM) 0.2 % (09/14/18 4:32 PM) Eosinophils [0.0-4.0 %] 3.0 g/dL (09/16/18 5:51 AM) 4.2 g/dL (09/14/18 4:32 PM) Globulin [2.7-4.2 g/dL] 134 mg/dL *HI* (09/16/18 5:51 AM) 60 mg/dL *LOW* (09/15/18 6:00 AM) 130 mg/dL *HI* (09/14/18 4:32 PM) Glucose Lvl [70-99 mg/dL] 32.4 % *LOW* (09/16/18 5:51 AM) 33.8 % *LOW* (09/15/18 6:00 AM) 40.5 % (09/14/18 4:32 PM) Hct [36.0-48.0 %] 10.5 g/dL *LOW* (09/16/18 5:51 AM) 11.0 g/dL *LOW* (09/15/18 6:00 AM) 13.1 g/dL (09/14/18 4:32 PM) Hgb [12.0-16.0 g/dL] 6.5 % *HI* (09/16/18 5:51 AM) Hgb A1C [<=5.6 %] 3.6 mEq/L (09/16/18 5:51 AM) 4.2 mEq/L (09/15/18 6:00 AM) 4.3 mEq/L (09/14/18 4:32 PM) Potassium Lvl [3.5-5.1 mEq/L] 1.7 mMol/L (09/14/18 4:32 PM) Lactic Acid Lvl [0.5-2.2 mMol/L] 109 unit/L (09/14/18 4:32 PM) Lipase Lvl [73-393 unit/L] 28.5 % (09/16/18 5:51 AM) 31.2 % (09/15/18 6:00 AM) 13.9 % *LOW* (09/14/18 4:32 PM) Lymphocytes [20.0-40.0 %] 28.8 pg (09/16/18 5:51 AM) 28.7 pg (09/15/18 6:00 AM) 29.0 pg (09/14/18 4:32 PM) MCH [27.0-31.0 pg] 32.6 g/dL (09/16/18 5:51 AM) 32.4 g/dL (09/15/18 6:00 AM) 32.4 g/dL (09/14/18 4:32 PM) MCHC [32.0-36.0 g/dL] 88.4 fL (09/16/18 5:51 AM) 88.8 fL (09/15/18 6:00 AM) 89.4 fL (09/14/18 4:32 PM) MCV [80.0-98.0 fL] 9.4 % (09/16/18 5:51 AM) 8.9 % (09/15/18 6:00 AM) 6.3 % (09/14/18 4:32 PM) Monocytes [2.0-12.0 %] 8.9 fL (09/16/18 5:51 AM) 8.8 fL (09/15/18 6:00 AM) 9.8 fL (09/14/18 4:32 PM) MPV [7.4-10.4 fL] 143 mEq/L (09/16/18 5:51 AM) 140 mEq/L (09/15/18 6:00 AM) 135 mEq/L (09/14/18 4:32 PM) Sodium Lvl [135-145 mEq/L] 140 K/CMM (09/16/18 5:51 AM) 169 K/CMM 4 (09/15/18 6:00 AM) 223 K/CMM (09/14/18 4:32 PM) Platelet [133-450 K/CMM] 57.9 % (09/16/18 5:51 AM) 57.6 % (09/15/18 6:00 AM) 79.4 % *HI* (09/14/18 4:32 PM) Segs [45.0-75.0 %] 5.6 g/dL *LOW* (09/16/18 5:51 AM) 7.8 g/dL (09/14/18 4:32 PM) Total Protein [6.4-8.4 g/dL] 3.67 M/CMM *LOW* (09/16/18 5:51 AM) 3.81 M/CMM *LOW* (09/15/18 6:00 AM) 4.53 M/CMM (09/14/18 4:32 PM) RBC [4.20-5.40 M/CMM] 14.1 % (09/16/18 5:51 AM) 14.1 % (09/15/18 6:00 AM) 14.3 % (09/14/18 4:32 PM) RDW [11.5-14.5 %] 0.3 mg/dL (09/16/18 5:51 AM) 0.6 mg/dL (09/14/18 4:32 PM) Bili Total [0.2-1.3 mg/dL] <0.02 ng/mL (09/14/18 4:32 PM) Troponin-I [0.00-0.40 ng/mL] Occasional /HPF *NA* (09/14/18 8:09 PM) UA Bacteria [None Seen /HPF] Moderate *ABN* (09/14/18 8:09 PM) UA Bili [Negative] Negative (09/14/18 8:09 PM) UA Blood [Negative] Yellow *NA* (09/14/18 8:09 PM) UA Color [Yellow] 100 mg/dL *ABN* (09/14/18 8:09 PM) UA Glucose [Negative mg/dL] Trace *ABN* (09/14/18 8:09 PM) UA Ketones [Negative] Negative (09/14/18 8:09 PM) UA Leuk Est [Negative] Few /LPF *NA* (09/14/18 8:09 PM) UA Mucus [None Seen /LPF] Negative (09/14/18 8:09 PM) UA Nitrite [Negative] 5.0 (09/14/18 8:09 PM) UA pH [5.0-8.0] 100 mg/dL *ABN* (09/14/18 8:09 PM) UA Protein [Negative mg/dL] 8 /HPF *HI* (09/14/18 8:09 PM) UA RBC [0-2 /HPF] 1.025 (09/14/18 8:09 PM) UA Spec Grav [<=1.030] Many /LPF *ABN* (09/14/18 8:09 PM) UA Sq Epi [Few /LPF] Clear (09/14/18 8:09 PM) UA Turbidity [Clear] 0.2 EU/dL (09/14/18 8:09 PM) UA Urobilinogen [0.1-1.0 EU/dL] 37 /HPF *HI* (09/14/18 8:09 PM) UA WBC [0-5 /HPF] 5.0 K/CMM (09/16/18 5:51 AM) 8.9 K/CMM (09/15/18 6:00 AM) 11.9 K/CMM *HI* (09/14/18 4:32 PM) WBC [3.7-10.4 K/CMM] 1.7 mg/dL *HI* (09/14/18 8:55 PM) POC Creatinine [0.5-1.4 mg/dL] 1Result Comment: The eGFR is calculated using [...] be mul tiplied by the estimated BMI. 2Result Comment: The eGFR is calculated using the [...] be mul tiplied by the estimated BMI. 3Result Comment: The eGFR is calculated using the [...] be mul tiplied by the estimated BMI. 4Result Comment: specimen not clotted, [id number] 06:43 Microbiology Reports TEST: Culture: Urine STATUS: Auth (Verified) BODY SITE: SOURCE: Urine, Clean Catch COLLECTED DATE/TIME: 09/14/18 8:09 PM FINAL REPORT >100,000 CFU/mL Skin Radha Immunizations Given and Recorded Vaccine Date Status [...] No entered on: 04/03/19 Assessment and Plan Extracted from: Title: History and Physical Author: Vitaly Barney MD Date: 09/15/18 57yo woman with above PMHx presents with N/V/poor PO fluid intake and evidence of UTI Abdominal pain, acute(R10.9) >analgesics/antiemetics, analgesics Ordered: Admit/Condition, 09/14/18 21:12:00 MANAGER LOAN, Status: Inpatient, Acute, Expected LOS: 2 Midnights, Marlo Figueredo MD, Admit MD Review/Approve Yes, Isolation: No Isolation/Standard Precautions, TIFFANI (acute kidney injury) | Abdominal pain, acute | Acute lower UTI | Back... Acute lower UTI(N39.0) >Given IV rocephin in the ED and will continue for now pending culture results Ordered: Admit/Condition, 09/14/18 21:12:00 MANAGER LOAN, Status: Inpatient, Acute, Expected LOS: 2 Midnights, Marlo Figueredo MD, Mikhail GOMEZ Review/Approve Yes, Isolation: No Isolation/Standard Precautions, TIFFANI (acute kidney injury) | Abdominal pain, acute | Acute lower UTI | Back... TIFFANI (acute kidney injury)(N17.9) >close to resolution overnight. WIll rechek labs in AM, avoid nephrotoxins Ordered: Admit/Condition, 09/14/18 21:12:00 MANAGER LOAN, Status: Inpatient, Acute, Expected LOS: 2 Midnights, Marlo Figueredo MD, Mikhail GOMEZ Review/Approve Yes, Isolation: No Isolation/Standard Precautions, TIFFANI (acute kidney injury) | Abdominal pain, acute | Acute lower UTI | Back... Back pain, chronic(M54.9) >reconcile home meds. Ordered: Admit/Condition, 09/14/18 21:12:00 MANAGER LOAN, Status: Inpatient, Acute, Expected LOS: 2 Midnights, Marlo Figueredo MD, Mikhail GOMEZ Review/Approve Yes, Isolation: No Isolation/Standard Precautions, TIFFANI (acute kidney injury) | Abdominal pain, acute | Acute lower UTI | Back... N&V (nausea and vomiting)(R11.2) >symptoms have been cocntrolled Ordered: Admit/Condition, 09/14/18 21:12:00 MANAGER LOAN, Status: Inpatient, Acute, Expected LOS: 2 Midnights, Marlo Figueredo MD, Mikhail GOMEZ Review/Approve Yes, Isolation: No Isolation/Standard Precautions, TIFFANI (acute kidney injury) | Abdominal pain, acute | Acute lower UTI | Back... Right nephrolithiasis(N20.0) >without evidence of obstrucition Ordered: Admit/Condition, 09/14/18 21:12:00 MANAGER LOAN, Status: Inpatient, Acute, Expected LOS: 2 Midnights, Marlo Figueredo MD, Admit MD Review/Approve Yes, Isolation: No Isolation/Standard Precautions, TIFFANI (acute kidney injury) | Abdominal pain, acute | Acute lower UTI | Back... per protocol 2-3 midnights, inpatient
--- OUTSIDE RECORDS SUMMARY | 2019-06-22 05:44 | XMS REPORT ---
Author Author [facility] Organization [facility] Address Unknown Phone Unavailable Care Team Providers Care Hash Slinger Name Role Phone aRcquel NEIL Unavailable Unavailable Payers Payer Name Policy Type Policy Number Effective Date Expiration Date Problems This patient has no known problems. Allergies, Adverse Reactions, Alerts Allergy Name Allergy Type Status Severity Reaction(s) Onset Date Inactive Date Treating Clinician Comments No Known Allergies DA Active U 2018-07-13 00:00:00 Medications This patient has no known medications. Encounters Start Date/Time End Date/Time Encounter Type Admission Type Attending Clinicians [facility] Facility Care Department Encounter ID 2019-03-29 06:37:00 2019-03-29 06:37:00 Outpatient E [facility] [id number] Results Test Description Test Time Test Comments Text Results Atomic Results Result Comments CHEST 2 VIEWS 2019-06-19 17:43:00 [place] [address] Patient Name: LOREN ROCK MR #: [id number] : 1960 Age/Sex: 58/F Req #: [id number] Adm Physician: Ordered by: VERONICA NEIL MD Report #: [id number] Location: OR Room/Bed: Procedure: [id number] DX/CHEST 2 VIEWS Exam Date: 06/19/19 Exam Time: 1710 REPORT STATUS: Signed Frontal and lateral views of the chest. HISTORY: Preop, screening colonoscopy COMPARISON: None available. DISCUSSION: Soft tissue attenuation partially limits sensitivity of the exam. Lungs: Low lung volumes result in bibasilar vascular crowding, accentuation of the pulmonary interstitial markings, central pulmonary vasculature, and the cardiac silhouette. Allowing for these limitations, the findings are as follows: No evidence of a consolidative pneumonia or pulmonary alveolar edema. Pleura: No pleural effusion or pneumothorax. Heart and mediastinum: The cardiomediastinal silhouette appear(s) unremarkable. Bones and soft tissues: Partially visualized lumbar fixation hardware. Other: Cholecystectomy clips. IMPRESSION: No acute radiographic abnormality. Signed by: Dr. Salty Reed D.O., M.M.M. on 06/19/2019 5:45 PM Dictated By: SALTY REED DO 44 Transcribed By: REED on 06/19/191744 COPY TO: VERONICA NEIL MD
--- OUTSIDE RECORDS SUMMARY | 2019-06-22 05:44 | XMS REPORT | Summary of Care ---
Author Author [facility] Care [facility] Organization [facility] Address Unknown Phone Unavailable Care Team Providers Care Planishing Hammer Operator Name Role Phone Roz Patterson PCP Encounter HQ Manavntr_roberto(FIN) [id number] Date(s): 10/03/18 - 10/03/18 [facility] [address] [address]- Discharge Disposition: Home or Self Care Attending Physician: Roz Patterson DO Vital Signs Most recent to 1 oldest [Reference Range]: Height 152.4 cm (10/03/18 8:25 AM) Blood Pressure 148/85 mmHg [90-140/60-90 mmHg] *HI* (10/03/18 8:25 AM) Respiratory Rate 14 BRMIN [14-20 BRMIN] (10/03/18 8:25 AM) Peripheral Pulse 75 bpm Rate [60-100 bpm] (10/03/18 8:25 AM) Weight 80.909 kg (10/03/18 8:25 AM) Body Mass Index 34.84 m2 (10/03/18 8:25 AM) Problem List Condition Effective Dates Status [...] Reactions, Alerts No Known Medication Allergies Medications gabapentin 600 mg oral tablet 600 mg=1 tab, PO, BID, # 180 tab, 1 Refill(s), Pharmacy: [id number] Start Date: 10/03/18 Stop Date: 03/29/19 Status: Completed Results No data available for [...]
--- OUTSIDE RECORDS SUMMARY | 2019-06-22 05:44 | XMS REPORT | Summary of Care ---
Author Author [facility] Organization [facility] Address Unknown Phone Unavailable Encounter GONZALO Nair(FIN) [id number] Date(s): 04/11/18 - 04/11/18 [facility] [address] [facility], [address] [place] [address]- [phone] Discharge Disposition: Home or Self Care Attending Physician: Roz Patterson DO Vital Signs Most recent to 1 oldest [Reference Range]: Height 152.4 cm (04/11/18 8:05 AM) Temperature Oral 98.0 DegF [96.4-99.1 DegF] (04/11/18 8:05 AM) Blood Pressure 170/91 mmHg [90-140/60-90 mmHg] *HI* (04/11/18 8:05 AM) Respiratory Rate 14 BRMIN [14-20 BRMIN] (04/11/18 8:05 AM) Peripheral Pulse 83 bpm Rate [60-100 bpm] (04/11/18 8:05 AM) Weight 85 kg (04/11/18 8:05 AM) Body Mass Index 36.6 m2 (04/11/18 8:05 AM) Problem List Condition Effective Dates Status [...] Substance Reaction Severity Status NKDA Active Medications Bydureon Pen 2 mg subcutaneous injection, extended release 2 mg, SUB-Q, qWeek, # 4 ea, 5 Refill(s), Pharmacy: [facility] [id number] Start Date: 04/13/18 Stop Date: 05/23/18 Status: Discontinued gabapentin 600 mg oral tablet 300 mg=0.5 tab, PO, BID, X 90 day, # 90 tab, 1 Refill(s), Pharmacy: [facility] [id number] Start Date: 04/11/18 Stop Date: 04/12/18 Status: Completed glyBURIDE 5 mg oral tablet 10 mg=2 tab, PO, BID, # 360 tab, 1 Refill(s), Pharmacy: [facility] Start Date: 04/11/18 Stop Date: 10/08/18 Status: Ordered losartan 50 mg oral tablet =1 tab, PO, Daily, # 90 tab, Refill(s) 1, Pharmacy: [facility] [id number] Start Date: 10/16/18 Status: Ordered losartan 50 mg oral tablet 50 mg=1 tab, PO, Daily, # 90 tab, 1 Refill(s), Pharmacy: [facility] Start Date: 04/11/18 Stop Date: 10/16/18 Status: Completed metFORMIN 1000 mg oral tablet =1 tab, PO, BID-Meals, # 180 tab, Refill(s) 1, Pharmacy: [facility] 095 Start Date: 10/16/18 Status: Ordered metFORMIN 1000 mg oral tablet 1,000 mg=1 tab, PO, BID-Meals, # 180 tab, 1 Refill(s), Pharmacy: [facility] [id number] Start Date: 04/11/18 Stop Date: 10/16/18 Status: Completed metFORMIN 500 mg oral tablet 500 mg=1 tab, PO, BID-Meals, X 90 day, # 180 tab, 1 Refill(s), Pharmacy: [facility] [id number] Start Date: 04/11/18 Stop Date: 04/11/18 Status: Completed Victoza 18 mg/3 mL subcutaneous injection 1.2 mg, SUB-Q, Daily, Initial: 0.6 mg once daily for 1 week; then increase to 1. 2 mg once daily, # 6 mL, 5 Refill(s), Pharmacy: [facility] [id number] Start Date: 04/11/18 Stop Date: 10/03/19 Status: Ordered Results No data available for [...] Reg Smoking Cessation Counseling No entered on: 10/03/18 Assessment and Plan No data available for this section
--- OUTSIDE RECORDS SUMMARY | 2019-06-22 05:44 | XMS REPORT | Summary of Care ---
Author Author [facility] Organization [facility] Address Unknown Phone Unavailable Encounter GONZALO Nair(FIN) [id number] Date(s): 05/26/18 - 05/27/18 [facility] [address] [facility] [address] [place] [address]- Vital Signs No data available for this [...] Substance Reaction Severity Status NKDA Active Medications Insulin Pen Poth Misc/Other 1 ea, MISC, Daily, # 100 ea, 3 Refill(s), dispense needles for victoza Start Date: 05/26/18 Stop Date: 09/16/18 Status: Discontinued Results No data available for [...]
--- OUTSIDE RECORDS SUMMARY | 2019-06-22 05:44 | XMS REPORT | Summary of Care ---
Author Author [facility] Organization [facility] Address Unknown Phone Unavailable Encounter HQ Joanie(FIN) [id number] Date(s): 04/12/18 - 04/13/18 [facility] [address] [facility], [address] [place] [address]- [phone] Vital Signs No data available for this [...] Substance Reaction Severity Status NKDA Active Medications gabapentin 600 mg oral tablet 300 mg=0.5 tab, PO, BID, X 90 day, # 90 tab, 1 Refill(s), Pharmacy: [facility] [id number] Start Date: 04/12/18 Stop Date: 10/03/18 Status: Completed Results No data available for [...]
--- OUTSIDE RECORDS SUMMARY | 2019-06-22 05:44 | XMS REPORT | Summary of Care ---
Author Author [facility] Organization [facility] [place] Address Unknown Phone Unavailable Care Team Providers Care Engraver Wood Name Role Phone Roz Patterson PCP Encounter HQ Joanie([facility]) [id number] Date(s): 07/27/18 - 07/27/18 [facility] [address] [place] [address] [phone] Encounter Diagnosis Wedge compression fracture of first lumbar vertebra, initial encounter for close d fracture (Final) - 08/01/18 Wedge compression fracture of second lumbar vertebra, initial encounter for clos ed fracture (Final) - Other intervertebral disc displacement, lumbar region (Final) - Spinal stenosis, lumbar region without neurogenic claudication (Final) - Osteophyte, vertebrae (Final) - Discharge Disposition: Home or Self Care Attending Physician: Piotr Ceja MD Referring Physician: Piotr Ceja MD Vital Signs No [...] Alerts No Known Medication Allergies Medications No data available for this section [...]
--- OUTSIDE RECORDS SUMMARY | 2019-06-22 05:44 | XMS REPORT | Summary of Care ---
Author Author [facility] Organization [facility] Address Unknown Phone Unavailable Encounter GONZALO Nair(YASMINE) [id number] Date(s): 05/23/18 - 05/23/18 [facility] [address] [facility], [address] [place] [address]- [phone] Discharge Disposition: Home or Self Care Attending Physician: Roz Patterson DO Vital Signs Most recent to 1 oldest [Reference Range]: Height 152.4 cm (05/23/18 8:35 AM) Temperature Oral 98.0 DegF [96.4-99.1 DegF] (05/23/18 8:35 AM) Blood Pressure 139/85 mmHg [90-140/60-90 mmHg] (05/23/18 8:35 AM) Respiratory Rate 14 BRMIN [14-20 BRMIN] (05/23/18 8:35 AM) Peripheral Pulse 86 bpm Rate [60-100 bpm] (05/23/18 8:35 AM) Weight 84.091 kg (05/23/18 8:35 AM) Body Mass Index 36.21 m2 (05/23/18 8:35 AM) Problem List Condition Effective Dates Status [...] Reaction Severity Status NKDA Active Medications No Known Medications Results No data [...]
[2019-06-22 09:50] VITALS: BP 137/90
== END | disposition home or self-care (01) ==
LOC: OR 05:37
PROVIDERS: ATTEND Surgery
DX: Z12.11 Encounter for screening for malignant neoplasm of colon (principal); Z85.038 Personal history of other malignant neoplasm of large intestine; K57.30 Diverticulosis of large intestine without perforation or abscess without bleeding; Z90.49 Acquired absence of other specified parts of digestive tract; Z01.810 Encounter for preprocedural cardiovascular examination; Z01.812 Encounter for preprocedural laboratory examination; Z01.818 Encounter for other preprocedural examination; Z79.84 Long term (current) use of oral hypoglycemic drugs
CPT/HCPCS: 36415 ×2; 45378; 71046; 80048; 82948; 85025; 93005; J2001; J2250; J2704; J3010

== ENCOUNTER 2019-10-19 18:40 | Inpatient (IN) | payer BC, OTHER ==
[~2019-10-19] VITALS: Ht 152.4 cm; Wt 78.5 kg
[~2019-10-19 18:40] MED LIST changes: -FENTANYL CITRATE/PF 100MCG/2 ML INJ ONE; -LIDOCAINE HCL 2% LOCAL INJ 5 ML SDV VIAL INJ ONE; -MIDAZOLAM HCL 2 MG/2 ML VIAL ONE; -PROPOFOL IV EMULSION 10 MG/ML 20 ML VIAL ONE
[2019-10-19] MEDS ORDERED: SODIUM CHLORIDE 0.9% 1000ML 1,000 ML IV STA (18:43)
[2019-10-19] MEDS ORDERED: ONDANSETRON HCL INJ 2MG/ML 2ML 2 MG/ML VIAL IV STA (18:43)
[2019-10-19] MEDS ORDERED: MORPHINE SULFATE 2 MG/ML SYR 1ML IV STA (19:04)
[2019-10-19] MEDS ORDERED: PANTOPRAZOLE 40 MG 10ML VIAL IV STA (19:11)
[2019-10-19 19:31] LABS: BASOPHILS % 0.1 % (0.0-1.0); EOSINOPHILS % 0.4 % (0.0-6.0); HEMATOCRIT 33.6 % (34.2-44.1); HEMOGLOBIN 10.5 g/dL (12.0-16.0); LYMPHOCYTES # (AUTO) 1.2 (1.0-3.2); LYMPHOCYTES % 13.8 % (18.0-39.1); MEAN CORPUSCULAR HEMOGLOBIN 25.4 pg (28-32); MEAN CORPUSCULAR HGB CONC 31.3 g/dL (31-35); MEAN CORPUSCULAR VOLUME 81.4 fL (81-99); MONOCYTES # (AUTO) 0.3 (0.2-0.8); MONOCYTES % 3.7 % (4.4-11.3); NEUTROPHILS # (AUTO) 6.8 (2.1-6.9); NEUTROPHILS % 81.6 % (38.7-80.0); PLATELET COUNT 239 x10e3/uL (140-360); RED BLOOD COUNT 4.13 x10e6/uL (3.6-5.1); RED CELL DISTRIBUTION WIDTH 13.4 % (11.7-14.4)
--- NOTE | 2019-10-19 19:37 | Diagnostic Imaging Report ---
EXAMINATION: Head CT without contrast. HISTORY:Headache and vomiting. COMPARISON:CT brain from 12/27/2015. TECHNIQUE: Multidetector axial images were obtained from the foramen magnum to the vertex without contrast. The images were reconstructed using brain and bone algorithms. Thin section brain images were reformatted into coronal and sagittal planes. Dose modulation, iterative reconstruction, and/or weight based adjustment of the mA/kV was utilized to reduce the radiation dose to as low as reasonably achievable. Intravenous contrast: None IMAGE QUALITY: Acceptable. FINDINGS: Skull/scalp: No lytic or blastic. lesions. No surgical changes. Parenchyma: Interval development of cortical-based hypodensity in right more than left occipital lobe represents age indeterminate vascular insult in [employer] territory. Interval development of focal hypodensity in lateral aspect of left cerebellar hemisphere represents another age indeterminate, possible chronic vascular insult. Unchanged punctate chronic lacunar infarct in the anterior limb of left internal capsule. No acute hemorrhage or mass. Arteries: No density suggestive of thrombosis. Mild atherosclerotic calcification in bilateral carotid siphon. Dural sinuses: No abnormal density suggestive of thrombosis. Ventricles: No hydrocephalus or displacement. Extra-axial spaces: No abnormal density. Brain volume: Mild generalized cerebral volume loss. Craniocervical junction: No mass, Chiari malformation, or basilar invagination. Sella: Partial empty sella. Paranasal/mastoid sinuses: Mild mucosal thickening in bilateral ethmoid sinuses. IMPRESSION: 1. Interval development of age indeterminate vascular insult in right more than left occipital lobe in [employer] territory. 2. Interval development of age indeterminate possible chronic vascular insult in left cerebellar hemisphere. 3. Chronic punctate lacunar infarct in the anterior limb of left internal capsule. 4. Mild generalized cerebral volume loss. Signed by: Dr. Tracy Perez M.D. on 10/19/2019 7:35 PM
[2019-10-19] MEDS ORDERED: HYDRALAZINE HCL 20 MG/ML VIAL IV STA (19:38)
[2019-10-19 19:39] LABS: INR 0.86; PROTHROMBIN TIME 12.2 seconds (11.9-14.5)
[2019-10-19 19:40] LABS: PARTIAL THROMBOPLASTIN TIME 29.7 seconds (23.8-35.5)
[2019-10-19 19:50] LABS: ALBUMIN/GLOBULIN RATIO 1.1 (0.8-2.0); ANION GAP 19.8 mmol/L (8-16); CALCIUM 9.7 mg/dL (8.4-10.2); CREATININE, SERUM 0.99 mg/dL (0.57-1.11); POTASSIUM 3.8 mmol/L (3.5-5.1)
[2019-10-19 19:56] LABS: CREATINE KINASE MB 0.9 ng/mL (0-5.0)
--- NOTE | 2019-10-19 20:42 | Diagnostic Imaging Report ---
CT Abdomen And Pelvis with Intravenous Contrast INDICATION: Nausea, vomiting ^abd pain n/v ^[id number] ^2009 TECHNIQUE: Thin collimation axial images obtained from the diaphragm to the level of the pubic symphysis following the uneventful administration of 100 cc of low osmolar, nonionic intravenous contrast. Dose reduction techniques used: Automated exposure control, adjustment of the mAs and/or kVp according to patient size, standardized low-dose protocol, and/or iterative reconstruction technique. RADIATION DOSE: Total DLP: 719 mGy*cm Estimated effective dose: (DLP x 0.015 x size factor) mSv CTDIvol has been reviewed. It is below the limits set by the Radiation Protocol Committee (RPC). COMPARISON: Report of CT of the abdomen/pelvis performed 01/28/2016. Images are not available for comparison.. ABDOMEN FINDINGS: Lung Bases: Bibasilar atelectasis. There is mild thickening of the distal esophagus. A small hiatal hernia may be present. Visualized portion of the heart is normal. Liver: Steatosis. No evidence for mass. The right lobe measures 20 cm in length. Gallbladder: Absent. No biliary ductal dilatation. Pancreas: Mild atrophy. No mass or ductal dilatation. Spleen: Normal in size. No evidence of mass.. Adrenal Glands: No evidence for mass. Kidneys: Right: Atrophic with normal enhancement parenchyma. No soft tissue mass. No hydronephrosis. Left: Normal enhancement. No soft tissue mass. No hydronephrosis. Lymph Nodes: No lymphadenopathy. Aorta: Normal in diameter with scattered calcifications PELVIS FINDINGS: Bowel: Stomach: Normal. Small Bowel: Small periampullary duodenal diverticulum. Small bowel is normal in diameter with normal wall thickness. Large Bowel: Moderate burden of stool throughout. No mural thickening or pericolonic inflammation. There are a few scattered diverticula. Surgical clips at the base of the cecum. Appendix: Absent. Bladder: Well distended and normal. The uterus is absent. No adnexal mass Peritoneum/retroperitoneum: No free fluid or fluid collection. Bones: Hardware in the lumbar spine from L2 to S1. No evidence of hardware failure. There is a compression fracture of L1 proximally 50%. This is stable by report. No new compression deformities. Small focus of retropulsed bone from the superior endplate of L1 the spinal canal. Soft tissues: Small fat-containing helical hernia. IMPRESSION: 1. Diverticulosis coli. No evidence for bowel obstruction or inflammation. 2. Steatosis and hepatomegaly. 3. Hysterectomy, appendectomy, and cholecystectomy. 4. Nonspecific thickening of the distal esophagus, either due to vomiting or small hiatal hernia. 5. L1 compression deformity as described above. Signed by: Dr. Allyson Ta MD on 10/19/2019 8:40 PM
[2019-10-19] MEDS ORDERED: MORPHINE SULFATE 2 MG/ML SYR 1ML IV PRN (21:00)
[2019-10-19] MEDS ORDERED: PROMETHAZINE 12.5MG/ NACL 0.9% 12.5 MG/50 ML BAG IV ONE (21:00)
[2019-10-19 21:18] LABS: BILIRUBIN,URINE NEGATIVE (NEGATIVE); CLARITY,URINE SL CLOUDY (CLEAR); COLOR,URINE YELLOW (YELLOW); KETONES,URINE NEGATIVE (NEGATIVE); LEUKOCYTE ESTERASE ,URINE NEGATIVE (NEGATIVE); NITRITE,URINE NEGATIVE (NEGATIVE); PROTEIN,URINE DIPSTICK NEGATIVE (NEGATIVE); URINE UROBILINOGEN 0.2 mg/dL (0.2 - 1)
[2019-10-19] MEDS ORDERED: PANTOPRAZOLE 40 MG 10ML VIAL IV SCH (21:30)
[2019-10-19 21:32] LABS: BACTERIA,URINE MANY /HPF; EPITHELIAL CELLS,URINE FEW /LPF; WBC,URINE (MAN) 0-5 /HPF (0-5)
[2019-10-19] MEDS ORDERED: SODIUM CHLORIDE 0.9% 50ML 50 ML ONE (21:47)
[2019-10-19] MEDS ORDERED: IOPAMIDOL 370 MG/ML 200 ML INFUS..BTL INJ ONE (21:47)
--- NOTE | 2019-10-19 22:38 | NUR ---
Pt requesting to take medications she normally takes at home- Gabapetin and "something for anxiety", unable to recall precise doses and schedule times; unable to provide medication list for reconciliation at this time; will medicate per standing orders from ED physician and will continue to monitor. Spouse at bedside and updated on plan of care, call light in easy reach, will continue to monitor.
[2019-10-19] MEDS: ONDANSETRON HCL INJ 2MG/ML 2ML 2 MG/ML VIAL IV PRN (22:40)
[2019-10-19] MEDS: MORPHINE SULFATE INJ 4 MG/ML INJ 1ML IV PRN (22:41)
[2019-10-19] MEDS: SODIUM CHLORIDE 0.9% 1000ML 1,000 ML IV SCH (22:44)
[2019-10-20] VITALS (8 sets, daily range): BP systolic 124–192; BP diastolic 67–89
[2019-10-20] MEDS: PROMETHAZINE 12.5MG/ NACL 0.9% 12.5 MG/50 ML BAG IV PRN (00:49)
[2019-10-20] MEDS ORDERED: ATIVAN1 MG PO (01:12)
[2019-10-20] MEDS ORDERED: LORAZEPAM 1 MG TAB PO PRN (01:45)
[2019-10-20] MEDS ORDERED: DEXTROSE 50% SYRINGE 50 ML IV PRN ×3 (01:45→03:15)
[2019-10-20] MEDS ORDERED: METOCLOPRAMIDE HCL 10 MG/2ML VIAL IV ONE (01:45)
[2019-10-20] MEDS: MORPHINE SULFATE INJ 4 MG/ML INJ 1ML IV PRN ×5 (02:34→21:02)
[2019-10-20] MEDS: SODIUM CHLORIDE 0.9% 1000ML 1,000 ML IV SCH ×3 (02:35→20:59)
[2019-10-20 06:08] LABS: BASOPHILS % 0.1 % (0.0-1.0); HEMATOCRIT 33.3 % (34.2-44.1); HEMOGLOBIN 10.2 g/dL (12.0-16.0); LYMPHOCYTES # (AUTO) 1.7 (1.0-3.2); LYMPHOCYTES % 15.9 % (18.0-39.1); MEAN CORPUSCULAR HEMOGLOBIN 25.4 pg (28-32); MEAN CORPUSCULAR HGB CONC 30.6 g/dL (31-35); MEAN CORPUSCULAR VOLUME 82.8 fL (81-99); MONOCYTES # (AUTO) 0.5 (0.2-0.8); MONOCYTES % 4.9 % (4.4-11.3); NEUTROPHILS # (AUTO) 8.5 (2.1-6.9); NEUTROPHILS % 78.6 % (38.7-80.0); PLATELET COUNT 223 x10e3/uL (140-360); RED BLOOD COUNT 4.02 x10e6/uL (3.6-5.1); RED CELL DISTRIBUTION WIDTH 13.7 % (11.7-14.4)
[2019-10-20 06:18] LABS: CREATINE KINASE 68 IU/L (29-168)
[2019-10-20] MEDS: METOCLOPRAMIDE HCL 10 MG/2ML VIAL IV SCH ×3 (06:28→17:12)
[2019-10-20 06:41] LABS: ALANINE AMINOTRANSFERASE 40 IU/L (0-55); ALBUMIN 3.7 g/dL (3.5-5.0); ALBUMIN/GLOBULIN RATIO 1.1 (0.8-2.0); ALKALINE PHOSPHATASE 144 IU/L (40-150); ANION GAP 16.5 mmol/L (8-16); BLOOD UREA NITROGEN 12 mg/dL (7-26); BUN/CREATININE RATIO 14 (6-25); CALCIUM 9.2 mg/dL (8.4-10.2); CARBON DIOXIDE 21 mmol/L (22-29); CHLORIDE 103 mmol/L (98-107); CREATININE, SERUM 0.84 mg/dL (0.57-1.11); EST GLOMERULAR FILTRATION RATE > 60 ML/MIN (60-); GLUCOSE 244 mg/dL (74-118); POTASSIUM 3.5 mmol/L (3.5-5.1); SODIUM 137 mmol/L (136-145)
[2019-10-20] MEDS: INSULIN LISPRO 100 UNIT/1 ML 3ML VIAL SQ SCH ×4 (07:24→21:02)
[2019-10-20] MEDS: PANTOPRAZOLE 40 MG 10ML VIAL IV SCH ×2 (10:04→21:02)
[2019-10-20] MEDS: ONDANSETRON HCL INJ 2MG/ML 2ML 2 MG/ML VIAL IV PRN ×3 (10:59→21:02)
--- NOTE | 2019-10-20 12:06 | Diagnostic Imaging Report ---
History: Evaluate age-indeterminate infarcts are seen on head CT. Comparison studies: Head CT 10/19/2019 at 18:51 hours Technique: Sagittal and axial T2 FS, axial DWI, axial T2*GRE, axial T1 FLAIR and axial coronal T2 FLAIR. Intravenous contrast: None Findings: Scalp: Normal in signal. No masses. Bone marrow: Normal in signal intensity. Brain sulci: Appropriate for age. Ventricles: Mildly prominent. No hydrocephalus. Extra axial spaces: No mass, no fluid collection. Parenchyma: No mass, acute hemorrhage or acute ischemia. A few scattered T2 FLAIR hyperintense foci in the supratentorial white matter are nonspecific but are most compatible with chronic microvascular ischemic changes. There are small chronic lacunar infarcts in the right reyes radiata near the level of the perirolandic gyri. Chronic bilateral middle occipital infarcts are also present with encephalomalacia and gliosis (2.5 cm on the right subcentimeter on the on the left). Right occipital infarct is with curvilinear decreased signal along its margins on the T2*GRE sequence compatible with hemosiderin staining from prior hemorrhage. Small chronic insult with encephalomalacia and gliosis also present in the left cerebellum. Suprasellar region: No abnormalities. Craniocervical junction: Patent foramen magnum. No Chiari malformation. Vessels: Normal flow-voids in the arteries and sinuses. Incidental findings: Left intraocular lens or placement for previous cataract surgery. IMPRESSION: 1. No acute intracranial abnormalities. 2. Mild chronic microvascular ischemic changes with chronic bilateral middle occipital and left cerebellar infarcts and small lacunar infarcts in the right reyes radiata. Signed by: Dr. Danilo Greene M.D. on 10/20/2019 12:04 PM
[2019-10-20 14:29] LABS: CREATINE KINASE 47 IU/L (29-168)
--- NOTE | 2019-10-20 15:04 | History and Physical ---
CHIEF COMPLAINT: A 58-year-old female who comes in with intractable nausea, vomiting, and headache. HISTORY OF PRESENTING ILLNESS: Ms. Isadora Parnell who is a 58-year-old female with multiple episodes of nausea and vomiting was in usual state of health until yesterday. The patient had something from [employer] and apparently that exposure to food and the patient started to have intractable nausea and vomiting and which led on to continuum of nausea and the patient also started to have headache. Came to emergency room and brought by the spouse and the patient was admitted to the hospital for intractable nausea and vomiting. PAST MEDICAL HISTORY: 1. History of uncontrolled diabetes mellitus. 2. History of hypertension. 3. History of hyperlipidemia. 4. History of restless legs syndrome. 5. History of long-term use of insulin. 6. History of CVA in the past. 7. History of reflux esophagitis. 8. History of chronic back pain. 9. History of again colon mass. PAST SURGICAL HISTORY: 1. History of abdominal surgeries, which include hysterectomy and also a cholecystectomy. 2. The patient also had a hiatal hernia repair. 3. Other surgeries include multiple back surgeries x4. 4. The patient also has had history for colon resection for colonic max colon cancer. MEDICATIONS: She takes at home as presented are: 1. Glyburide 5 mg daily. 2. Lorazepam 1 mg daily. 3. Losartan 100 mg daily. 4. Metformin 500 mg daily. 5. Oxycodone 30 mg q.4 hours p.r.n. 6. Ropinirole 1 mg daily. ALLERGIES: THE PATIENT HAS NO DRUG ALLERGIES. SOCIAL HISTORY: No EtOH, no IV drug abuse reported by the . The patient is currently asleep. FAMILY HISTORY: Positive for diabetes and positive for hypertension. REVIEW OF SYSTEMS: Most of this filled by the , the patient is sleepy at this time. Positive for chest pain. Positive for some shortness of breath. Positive for nausea and vomiting as described. No constipation. No rectal bleeding. No hematochezia. Positive for abdominal pain. Positive for headache and no diplopia, no blurry vision, and no paresthesias or hyperesthesias or weakness in either extremities. PHYSICAL EXAMINATION: GENERAL: The patient is alert, can be is arousable, but goes back to sleep. VITAL SIGNS: Temperature is 99, pulse of 80, respirations of 24, blood pressure is 133/67, and pulse oximetry of 96% on room air. HEENT: Normocephalic and atraumatic. Pupils are reactive. NECK: No JVD present. CVS: S1 and S2 normal. Regular rate and rhythm. LUNGS: Clear to auscultation. ABDOMEN: In binder, nontender, and nondistended. EXTREMITIES: No clubbing, no cyanosis, and no edema. LABORATORY DATA: Initial white count is 8.36, hemoglobin 10.5, hematocrit of 33.6, and platelet counts 239. Neutrophil count is 81.6. Chemistry shows sodium of 141, potassium of 3.8, CO2 was 21, BUN of 14, and creatinine 0.99. EGFR of 57, glucose is 273. Troponins x2 has been negative. Lipase was negative. IMAGING STUDIES: Abdominal CT shows diverticulosis coli, steatosis and hepatomegaly, hysterectomy, appendectomy, cholecystectomy, nonspecific thickening of the distal esophagus either due to vomiting or hiatal hernia and L1 compression fracture seen. Brain CT was done, which shows interval development of age indeterminate vascular insult in the right more than the left occipital lobe in the [employer] territory, chronic punctate lacunar infarcts and mild generalized volume loss. MICROBIOLOGY: Urine culture is pending. Urine did show many bacteria. ASSESSMENT: Ms. Isadora Parnell is a 58-year-old female with history of diabetes with: 1. Intractable nausea and vomiting. 2. Hypoglycemia. 3. Possible age-indeterminate stroke. 4. History of chest pain. 5. History of hyperlipidemia. 6. Headache. 7. Epigastric pain. 8. History of colon cancer. 9. History of hypertension. PLAN: Continue monitoring the patient. IV fluid has been resuscitated. The patient will be getting Phenergan and one dose of Reglan has been given. We will continue to monitor the patient. Fluids will be resuscitated and electrolytes will be balanced out as needed. Further recommendation per clinical course. We will continue to monitor the patient and start her back on insulin sliding scale and monitor CO2 levels. MD DONTA PatelJ/MODL /[id number]
[2019-10-20] MEDS: HYDRALAZINE HCL 20 MG/ML VIAL IV PRN (17:15)
--- NOTE | 2019-10-20 19:51 | Consultation ---
DATE OF CONSULTATION: 10/20/2019 Neurology Consultation REASON FOR CONSULTATION: Seeing the patient for stroke. HISTORY OF PRESENT ILLNESS: She comes in actually for nausea, and vomiting and possible hiatal hernia, but I am seeing her for multiple strokes seen on the CT scan that appeared to be chronic or subacute. Ms. Parnell is having mostly nausea, vomiting, and dyspepsia. She reports no history of strokes. Recent visit to eye doctor was clean despite having an occipital lesion. REVIEW OF SYSTEMS: Nausea, vomiting, and some abdominal pain and discomfort. PHYSICAL EXAMINATION: VITAL SIGNS: Stable. Her blood pressure is 140/87, heart rate is 87, temperature is 98.1. HEENT: Extraocular muscles intact. Face symmetric. Tongue is midline. Speech is clear. Visual quadrants are intact to stimulation, dilated by double simultaneous stimulation as well as direct stimulation. Pupils are reactive. NECK: There is no nuchal rigidity. Trachea is midline. CARDIOVASCULAR: Regular rate and rhythm. PULMONARY: Clear to auscultation. ABDOMEN: Soft and nontender. NEUROLOGIC: Reflexes are 1/4. ASSESSMENT AND PLAN: I am seeing her for chronic strokes, etiology not clear. I discussed workup with the family including an echocardiogram and carotid duplex, which has been done by . No evidence at this time of arrhythmias. She is currently on aspirin daily. Our recommendation will be to finish the workup as there is no evidence of other etiology carotid evaluation. We will put the patient on Plavix and statin and get a lipid panel and then follow up as an outpatient. KRISTAN RODRIGUEZ MD RR/MODL /[id number]
[2019-10-21] VITALS (7 sets, daily range): BP systolic 114–154; BP diastolic 64–92
[2019-10-21] MEDS: METOCLOPRAMIDE HCL 10 MG/2ML VIAL IV SCH ×5 (00:13→23:44)
[2019-10-21] MEDS: MORPHINE SULFATE INJ 4 MG/ML INJ 1ML IV PRN ×5 (04:29→23:45)
[2019-10-21] MEDS: SODIUM CHLORIDE 0.9% 1000ML 1,000 ML IV SCH ×2 (04:29→17:32)
[2019-10-21] MEDS: ONDANSETRON HCL INJ 2MG/ML 2ML 2 MG/ML VIAL IV PRN ×4 (04:29→19:50)
[2019-10-21 05:15] LABS: BASOPHILS % 0.1 % (0.0-1.0); EOSINOPHILS # (AUTO) 0.3 (0.0-0.4); EOSINOPHILS % 4.4 % (0.0-6.0); HEMATOCRIT 30.7 % (34.2-44.1); HEMOGLOBIN 9.5 g/dL (12.0-16.0); LYMPHOCYTES # (AUTO) 2.2 (1.0-3.2); LYMPHOCYTES % 28.9 % (18.0-39.1); MEAN CORPUSCULAR HEMOGLOBIN 25.1 pg (28-32); MEAN CORPUSCULAR HGB CONC 30.9 g/dL (31-35); MEAN CORPUSCULAR VOLUME 81.2 fL (81-99); MONOCYTES # (AUTO) 0.6 (0.2-0.8); MONOCYTES % 7.5 % (4.4-11.3); NEUTROPHILS # (AUTO) 4.5 (2.1-6.9); PLATELET COUNT 215 x10e3/uL (140-360); RED BLOOD COUNT 3.78 x10e6/uL (3.6-5.1); RED CELL DISTRIBUTION WIDTH 13.8 % (11.7-14.4)
[2019-10-21 05:44] LABS: ANION GAP 12.3 mmol/L (8-16); CALCIUM 8.8 mg/dL (8.4-10.2); CHOL/HDL RATIO 3.3 (3.0-3.6); CREATININE, SERUM 0.96 mg/dL (0.57-1.11); MAGNESIUM 1.7 MG/DL (1.3-2.1); POTASSIUM 3.3 mmol/L (3.5-5.1)
[2019-10-21] MEDS: INSULIN LISPRO 100 UNIT/1 ML 3ML VIAL SQ SCH ×4 (07:22→20:27)
[2019-10-21] MEDS ORDERED: POTASSIUM CHLORIDE 20 MEQ TAB CR PO NR (08:02)
--- NOTE | 2019-10-21 08:08 | NUR ---
Met with Dr. Bragg. He stated pt is not ready to go home and change to inpatient status
[2019-10-21] MEDS: PANTOPRAZOLE 40 MG 10ML VIAL IV SCH ×2 (09:08→20:14)
--- NOTE | 2019-10-21 10:08 | Progress Note ---
DATE: SUBJECTIVE: A 58-year-old female who came in with intractable nausea and vomiting. The patient is currently feeling a bit better. Has been given Reglan, Zofran, and promethazine as needed. The patient has taken some clear liquid diet in the morning and has tolerated so far. OBJECTIVE: VITAL SIGNS: Temperature is 99, her pulse is 65, respirations of 18, blood pressure is 151/92, and pulse oximetry of 97% on room air. HEENT: Normocephalic and atraumatic. Pupils are reactive to light and accommodation. CVS: S1 and S2 normal. Regular rate and rhythm. ABDOMEN: Tender in the epigastrium. Bowel sounds are positive, but sluggish. EXTREMITIES: No clubbing, no cyanosis, no edema. LABORATORY DATA: White count is 7.57, hemoglobin of 9.5, and hematocrit of 30.7. Chemistry, sodium 141, potassium of 3.3, BUN of 17, and creatinine of 0.96. Glucose is 178. Her amylase and lipase are normal. Troponins were normal and A1c was 7.4. ASSESSMENT: Ms. Isadora Parnell is a 58-year-old with: 1. Intractable nausea and vomiting. 2. Possible age indeterminate stroke. 3. History of hypertension. 4. History of chest pain. 5. Epigastric pain and history of colon cancer and hypertension. PLAN: Continue fluid. Continue with Reglan, Zofran, and promethazine as needed. Fluid resuscitation will be stopped. The patient to tolerate food and advance diet. If not possible, we can do EGD in the morning with Dr. Ahumada. Continue to monitor the patient. Further recommendations per clinical course. MD BATSHEVA Patel/MARIEL /[id number]
--- NOTE | 2019-10-21 11:48 | NUR ---
progress notes s: no acute neuro complaints, continues to have nausea and emesis v 98.6 69 138/73 aox3 calm speech clear no nuchal rigidity rrr cta abd soft cn intact no dysarthria reflexse 1/4 no ataxia a/p chronic strokes- hemorhagic and ischemic possible cerebral amyloid angiopathy discussed outpt workup and preventative care, including asa 325 sbp control < 140 atorvastatin 40 carotid duplex pending but diagnostic testing won't likely change recomendations neuro to sign off outpt follow up w/ neurology in3 weeks
[2019-10-22] VITALS (10 sets, daily range): BP systolic 133–188; BP diastolic 63–90
[2019-10-22] MEDS ORDERED: DONNATAL/LIDOCAINE/MAALOX 30 ML SUSP PO ONE
[2019-10-22] MEDS ORDERED: MAGNESIUM/ALUMINUM/SIMETHICONE 30 ML UDC ONE (00:46)
[2019-10-22] MEDS ORDERED: BELLADONNA ALK/PHENOBARBITAL 5 ML UDC ONE (00:55)
[2019-10-22] MEDS ORDERED: LIDOCAINE VISC 2% SOLN 15 ML UDC ONE (00:57)
[2019-10-22] MEDS: MORPHINE SULFATE INJ 4 MG/ML INJ 1ML IV PRN ×5 (04:15→21:14)
[2019-10-22] MEDS: ONDANSETRON HCL INJ 2MG/ML 2ML 2 MG/ML VIAL IV PRN ×5 (04:15→21:14)
[2019-10-22] MEDS: HYDRALAZINE HCL 20 MG/ML VIAL IV PRN ×3 (04:16→20:45)
[2019-10-22] MEDS: SODIUM CHLORIDE 0.9% 1000ML 1,000 ML IV SCH ×4 (04:17→19:28)
[2019-10-22] MEDS: METOCLOPRAMIDE HCL 10 MG/2ML VIAL IV SCH ×3 (05:04→17:09)
[2019-10-22 05:49] LABS: ANION GAP 12.6 mmol/L (8-16); BLOOD UREA NITROGEN 11 mg/dL (7-26); BUN/CREATININE RATIO 12 (6-25); CARBON DIOXIDE 22 mmol/L (22-29); CHLORIDE 108 mmol/L (98-107); EST GLOMERULAR FILTRATION RATE > 60 ML/MIN (60-); GLUCOSE 162 mg/dL (74-118); POTASSIUM 3.6 mmol/L (3.5-5.1); SODIUM 139 mmol/L (136-145)
[2019-10-22 06:33] LABS: FERRITIN 25.94 ng/mL (4.63-204.00)
[2019-10-22] MEDS: INSULIN LISPRO 100 UNIT/1 ML 3ML VIAL SQ SCH ×4 (07:23→20:16)
[2019-10-22] MEDS ORDERED: CEFTRIAXONE SOD 1 GM/NS 50 ML 50 ML IV SCH (07:30)
[2019-10-22 07:48] LABS: ALANINE AMINOTRANSFERASE 46 IU/L (0-55); ALBUMIN 3.5 g/dL (3.5-5.0); ALBUMIN/GLOBULIN RATIO 1.2 (0.8-2.0); ALKALINE PHOSPHATASE 122 IU/L (40-150); ANION GAP 14.4 mmol/L (8-16); BLOOD UREA NITROGEN 11 mg/dL (7-26); BUN/CREATININE RATIO 13 (6-25); CALCIUM 9.1 mg/dL (8.4-10.2); CARBON DIOXIDE 20 mmol/L (22-29); CHLORIDE 108 mmol/L (98-107); CREATININE, SERUM 0.83 mg/dL (0.57-1.11); EST GLOMERULAR FILTRATION RATE > 60 ML/MIN (60-); GLUCOSE 195 mg/dL (74-118); POTASSIUM 3.4 mmol/L (3.5-5.1); SODIUM 139 mmol/L (136-145)
[2019-10-22] MEDS: PROMETHAZINE 12.5MG/ NACL 0.9% 12.5 MG/50 ML BAG IV PRN (08:04)
[2019-10-22] MEDS: PANTOPRAZOLE 40 MG 10ML VIAL IV SCH ×2 (08:04→20:09)
[2019-10-22] MEDS: IRON SUCROSE 100 MG in SODIUM CHLORIDE 0.9% 100 ML 100 ML IV SCH (08:59)
--- NOTE | 2019-10-22 09:17 | Progress Note ---
DATE: SUBJECTIVE: The patient comes into the hospital with intractable nausea and vomiting. The patient is able to keep some of the clear liquid diet yesterday, but until the evening the patient started to have intractable abdominal pain and some nausea and the patient is currently in pain 8/10 in intensity. The patient is scheduled for EGD with Dr. Ahumada. OBJECTIVE: VITAL SIGNS: Temperature is 98.5, pulse of 82, respirations of 14, blood pressure is 132/63, and pulse oximetry of 98%. HEENT: Normocephalic and atraumatic. In pain. CVS: S1 and S2 normal. Regular rate and rhythm. ABDOMEN: Tender in the epigastric area. EXTREMITIES: No clubbing. No cyanosis. No edema. LUNGS: Clear to auscultation. LABORATORY DATA: Chemistries show iron of 31, TIBC 412, transferrin of 294. Coags were normal. MICROBIOLOGY: Urine culture grew E coli and Enterobacter. ASSESSMENT: Isadora Parnell is a 58-year-old female with: 1. Intractable nausea and vomiting. 2. Age indeterminate stroke. 3. History of hypertension. 4. Urinary tract infection. 5. Chest pain. 6. Epigastric pain and history of colon cancer. PLAN: Continue fluids. Continue with antiemetics. Continue with EGD today and the patient will be put on antibiotics. We will put her on Rocephin 1 g q.12 hours. Further recommendation per clinical course. We will continue to monitor the patient along with Dr. Ahumada. MD BATSHEVA Patel/MARIEL /[id number]
[2019-10-22] MEDS ORDERED: ACETAMINOPHEN 1000 MG/100 ML IV STA (12:12)
[2019-10-22] MEDS ORDERED: PROPOFOL IV EMULSION 10 MG/ML 50 ML VIAL ONE (12:45)
[2019-10-22] MEDS: PIPER-TAZ 3.375 GM 50 ML IV SCH ×2 (12:59→17:09)
--- NOTE | 2019-10-22 14:09 | NUR ---
PT has had n/v all morning, more dry heave than emesis. abd pain and fever. MD made aware and medicated. pt now leaving for EGD. vs stable
--- NOTE | 2019-10-22 18:50 | NUR ---
Report received. Assumed care. Assessment done. See interventions.
--- NOTE | 2019-10-22 20:46 | NUR ---
Medicated for BP 188/90.
--- NOTE | 2019-10-22 22:29 | Operative Report ---
DATE OF PROCEDURE: 10/22/2019 SURGEON: Tanner Stone MD PROCEDURE: EGD with biopsies. ADDITIONAL REFERRING PHYSICIAN: Donal Bragg MD. INDICATIONS FOR EGD: Upper abdominal pain, nausea, and vomiting. MEDICATIONS: The patient was done under MAC, please see anesthesiologist's note. PROCEDURE IN DETAIL: With the patient in left lateral decubitus position, the flexible fiberoptic Olympus gastroscope was introduced into the esophagus under direct visualization without any difficulty. There was some patchy erythema noted in distal esophagus. The scope was then advanced with ease into the stomach traversing a small hiatal hernia. The mucosa overlying the antrum and the body revealed some diffuse erythema and moderate edema and biopsies were obtained and sent to stain for H pylori. Pylorus was intubated with ease and the scope was advanced all the way to the second portion of the duodenum. The scope was then withdrawn slowly and mucosa overlying the proximal second portion and duodenal bulb grossly appeared to be within normal limits. Biopsies were obtained to rule out sprue. The scope was then withdrawn back into the stomach and retroflexed and the patient apparently has a slipped Raiza. The scope was then straightened out, it was subsequently withdrawn. The patient tolerated the procedure well. IMPRESSION: 1. Distal esophagitis, mild. 2. Small hiatal hernia. 3. Slipped Raiza. 4. Gastritis, biopsied, biopsies sent to stain for H pylori. 5. Rule out sprue. PLAN: Follow up histology. Initiate Protonix 40 mg IV piggyback b.i.d. Tanner Stone MD [facility] [place]/MODL /[id number] cc: MD Donal Ortiz MD Maurice S Haddad, MD
[2019-10-23] VITALS (8 sets, daily range): BP systolic 134–177; BP diastolic 63–94
[2019-10-23] MEDS: METOCLOPRAMIDE HCL 10 MG/2ML VIAL IV SCH ×4 (01:08→17:33)
[2019-10-23] MEDS: MORPHINE SULFATE INJ 4 MG/ML INJ 1ML IV PRN ×5 (01:09→21:41)
[2019-10-23] MEDS: PIPER-TAZ 3.375 GM 50 ML IV SCH ×4 (01:09→17:33)
[2019-10-23] MEDS: ONDANSETRON HCL INJ 2MG/ML 2ML 2 MG/ML VIAL IV PRN ×5 (01:09→21:36)
[2019-10-23] MEDS: HYDRALAZINE HCL 20 MG/ML VIAL IV PRN (04:27)
[2019-10-23 05:13] LABS: BASOPHILS % 0.1 % (0.0-1.0); EOSINOPHILS % 0.1 % (0.0-6.0); HEMATOCRIT 33.9 % (34.2-44.1); HEMOGLOBIN 10.2 g/dL (12.0-16.0); LYMPHOCYTES # (AUTO) 1.2 (1.0-3.2); LYMPHOCYTES % 13.9 % (18.0-39.1); MEAN CORPUSCULAR HEMOGLOBIN 24.8 pg (28-32); MEAN CORPUSCULAR HGB CONC 30.1 g/dL (31-35); MEAN CORPUSCULAR VOLUME 82.3 fL (81-99); MONOCYTES # (AUTO) 0.6 (0.2-0.8); MONOCYTES % 6.7 % (4.4-11.3); NEUTROPHILS # (AUTO) 6.7 (2.1-6.9); NEUTROPHILS % 78.6 % (38.7-80.0); PLATELET COUNT 238 x10e3/uL (140-360); RED BLOOD COUNT 4.12 x10e6/uL (3.6-5.1); RED CELL DISTRIBUTION WIDTH 14.2 % (11.7-14.4)
[2019-10-23] MEDS: SODIUM CHLORIDE 0.9% 1000ML 1,000 ML IV SCH ×3 (05:18→20:59)
[2019-10-23 05:41] LABS: ALANINE AMINOTRANSFERASE 39 IU/L (0-55); ALBUMIN 3.7 g/dL (3.5-5.0); ALBUMIN/GLOBULIN RATIO 1.2 (0.8-2.0); ALKALINE PHOSPHATASE 125 IU/L (40-150); ANION GAP 16.5 mmol/L (8-16); BLOOD UREA NITROGEN 9 mg/dL (7-26); BUN/CREATININE RATIO 10 (6-25); CALCIUM 9.2 mg/dL (8.4-10.2); CARBON DIOXIDE 20 mmol/L (22-29); CHLORIDE 104 mmol/L (98-107); CREATININE, SERUM 0.89 mg/dL (0.57-1.11); EST GLOMERULAR FILTRATION RATE > 60 ML/MIN (60-); GLUCOSE 188 mg/dL (74-118); POTASSIUM 3.5 mmol/L (3.5-5.1); SODIUM 137 mmol/L (136-145)
[2019-10-23] MEDS: PANTOPRAZOLE 40 MG 10ML VIAL IV SCH ×2 (08:06→20:51)
[2019-10-23] MEDS: INSULIN LISPRO 100 UNIT/1 ML 3ML VIAL SQ SCH ×4 (08:12→20:52)
--- NOTE | 2019-10-23 08:21 | Progress Note ---
DATE: SUBJECTIVE: A 59-year-old female, in IM 188. The patient comes in with intractable nausea and vomiting, continues to cough and have some congestion. The patient also has nausea upon eating. The patient has been seen by Dr. Aponte yesterday for possible slippage of the Raiza and EGD shows gastritis. PHYSICAL EXAMINATION: VITAL SIGNS: Temperature is 98.2, pulse of 94, respirations of 18, and blood pressure is 177/83, on room air. HEENT: Normocephalic and atraumatic. Pupils are reactive to light and accommodation. CVS: S1 and S2 normal. Regular rate and rhythm. ABDOMEN: Tender in the epigastrium. EXTREMITIES: No clubbing, no cyanosis, no edema. IMAGING STUDIES: Carotid brain MRI within normal limits. Had small lacunar infarcts of right reyes radiata and also bilateral middle occipital and left cerebral infarcts, which are chronic. ASSESSMENT: Ms. Isadora Parnell with: 1. Intractable nausea and vomiting. 2. Gastritis. 3. Hypertension. 4. Age indeterminate stroke. 5. Urinary tract infection. 6. Chest pain. 7. Epigastric pain and history of colon cancer. PLAN: Consult with Dr. Aponte has been done. The patient will have further study and possible discharge after for possible surgery as an outpatient basis. If not, the patient should will have surgery here secondary to the intractable nausea and vomiting. Further recommendation per clinical course. We will continue to monitor the patient. The patient is also has urinary tract infection at this time, which she is on Zosyn for it. MD BATSHEVA Patel/MODL /[id number]
[2019-10-23] MEDS: IRON SUCROSE 100 MG in SODIUM CHLORIDE 0.9% 100 ML 100 ML IV SCH (09:10)
--- NOTE | 2019-10-23 19:25 | NUR ---
Patient received sitting up in bed. Family at bedside. AAO x 4. Patient had no complaints of pain or discomfort. Respirations even and non-labored. Fall precautions implemented. Patient instructed to call for assistance when needed. Call light within reach.
[2019-10-23] MEDS ORDERED: FENTANYL CITRATE/PF 100MCG/2 ML INJ IV ONE (20:09)
[2019-10-23] MEDS ORDERED: MIDAZOLAM HCL 2 MG/2 ML VIAL INJ ONE (20:09)
[2019-10-24] VITALS (11 sets, daily range): BP systolic 140–176; BP diastolic 64–94
[2019-10-24] MEDS: PIPER-TAZ 3.375 GM 50 ML IV SCH ×5 (00:34→23:27)
[2019-10-24] MEDS: METOCLOPRAMIDE HCL 10 MG/2ML VIAL IV SCH ×5 (00:34→23:26)
[2019-10-24] MEDS: MORPHINE SULFATE INJ 4 MG/ML INJ 1ML IV PRN ×6 (01:45→23:27)
[2019-10-24] MEDS: ONDANSETRON HCL INJ 2MG/ML 2ML 2 MG/ML VIAL IV PRN ×3 (01:47→10:55)
[2019-10-24] MEDS: SODIUM CHLORIDE 0.9% 1000ML 1,000 ML IV SCH ×4 (04:59→23:00)
[2019-10-24] MEDS ORDERED: POTASSIUM CHLORIDE 20 MEQ TAB CR PO ONE (06:50)
--- NOTE | 2019-10-24 07:00 | NUR ---
Patient resting comfortably. Shift report given to oncoming nurse.
[2019-10-24] MEDS: INSULIN LISPRO 100 UNIT/1 ML 3ML VIAL SQ SCH ×4 (08:07→20:30)
[2019-10-24] MEDS: IRON SUCROSE 100 MG in SODIUM CHLORIDE 0.9% 100 ML 100 ML IV SCH (08:29)
[2019-10-24] MEDS: PANTOPRAZOLE 40 MG 10ML VIAL IV SCH ×2 (08:29→20:28)
--- NOTE | 2019-10-24 09:17 | Progress Note ---
DATE: SUBJECTIVE: This is a 59-year-old female, who comes in with intractable nausea and vomiting. Endoscopy showed a slipped Raiza fundoplication. The patient also has gastritis, continues to have a little bit of nausea and vomiting, but much better. Has to be seen by Dr. Aponte, Surgery, for possible redo of Raiza. Currently, no chest pain. No shortness of breath. Complains of some diarrhea, which is not watery. Also, on Zosyn for urinary tract infection and fever. Medications reviewed. PHYSICAL EXAMINATION: VITAL SIGNS: Temperature is 99.1, pulse 64, respirations of 12, blood pressure is 140/64, pulse oximetry of 100% on room air. HEENT: Normocephalic and atraumatic. Pupils are reactive to light and accommodation. CVS: S1 and S2 normal. Regular rate and rhythm. ABDOMEN: Tender in the epigastrium and also in the left lower quadrant and right lower quadrant also. EXTREMITIES: No clubbing, no cyanosis, no edema. LABORATORY DATA: On 10/23/2019, hemoglobin of 10.2, hematocrit of 33.2, and yesterday's sodium was 137, potassium 3.5, creatinine is normal. Glucose is running good. ASSESSMENT: This is Isadora Parnell is a 59-year-old female with: 1. Intractable nausea and vomiting. 2. Slipped Raiza fundoplication. 3. Gastritis. 4. Hypertension. 5. Hypokalemia. 6. History of age indeterminate stroke. 7. Urinary tract infection. 8. Epigastric pain. 9. History of colon cancer resection. PLAN: Continue monitor the patient. We will follow up on Surgery recommendation. Possible discharge if no surgeries to be done. Continue Zosyn. Monitor diarrhea. Monitor potassium and replace potassium today. Further recommendation per clinical course. MD BATSHEVA Patel/MODL /[id number]
[2019-10-24] MEDS: HYDRALAZINE HCL 20 MG/ML VIAL IV PRN (19:41)
--- NOTE | 2019-10-24 21:51 | NUR ---
Received patient from [facility] via wheelchair. Patient resting in bed, no s/s of distress or c/o pain at this time. All safety measures in place. Family at bedside. Will continue to monitor.
[2019-10-25] MEDS: MORPHINE SULFATE INJ 4 MG/ML INJ 1ML IV PRN ×5 (03:28→21:15)
[2019-10-25] MEDS: HYDRALAZINE HCL 20 MG/ML VIAL IV PRN ×2 (04:37→07:51)
[2019-10-25] MEDS: PIPER-TAZ 3.375 GM 50 ML IV SCH (05:35)
[2019-10-25] MEDS: METOCLOPRAMIDE HCL 10 MG/2ML VIAL IV SCH ×3 (05:35→18:20)
[2019-10-25 06:23] LABS: ANION GAP 13.4 mmol/L (8-16); BLOOD UREA NITROGEN 5 mg/dL (7-26); BUN/CREATININE RATIO 6 (6-25); CALCIUM 8.7 mg/dL (8.4-10.2); CARBON DIOXIDE 22 mmol/L (22-29); CHLORIDE 109 mmol/L (98-107); CREATININE, SERUM 0.77 mg/dL (0.57-1.11); EST GLOMERULAR FILTRATION RATE > 60 ML/MIN (60-); GLUCOSE 122 mg/dL (74-118); POTASSIUM 3.4 mmol/L (3.5-5.1); SODIUM 141 mmol/L (136-145)
--- NOTE | 2019-10-25 06:37 | NUR ---
Dr. Bragg here to see patient. Received orders to give 20 mEq potassium IV once, and to change Zosyn to Rocephin 1 g IVPB Q24.
--- NOTE | 2019-10-25 07:18 | NUR ---
Bedside report given to day nurse. Patient resting in bed, no s/s of distress or c/o pain at this time. All safety measures in place. Family at bedside.
--- NOTE | 2019-10-25 07:24 | NUR ---
Received patient and a/ox3, in bed, no N/V, NPO at the moment, Gastric studies due this morning, IV running, KCL being replaced for hypokalemia, Ceftriaxone started for uncomplicated UTI, will monitor.
[2019-10-25] MEDS: INSULIN LISPRO 100 UNIT/1 ML 3ML VIAL SQ SCH ×4 (07:30→21:00)
[2019-10-25] MEDS ORDERED: POTASSIUM CHLORIDE 20MEQ/100ML 100 ML IV ONE (07:30)
[2019-10-25 07:50] VITALS: BP 187/77
[2019-10-25] MEDS: PANTOPRAZOLE 40 MG 10ML VIAL IV SCH ×2 (07:52→21:15)
[2019-10-25] MEDS: ONDANSETRON HCL INJ 2MG/ML 2ML 2 MG/ML VIAL IV PRN ×4 (07:54→21:15)
[2019-10-25] MEDS: IRON SUCROSE 100 MG in SODIUM CHLORIDE 0.9% 100 ML 100 ML IV SCH (08:50)
--- NOTE | 2019-10-25 09:01 | Progress Note ---
DATE: HISTORY OF PRESENT ILLNESS: This patient is a 59-year-old female who comes with intractable nausea and vomiting that still continues. The patient continues to have abdominal pain and diarrhea, weak, and debilitated. The patient feels very weak when she gets up. Currently on Zosyn. We will switch this to Rocephin. She is on Protonix for GI and scoped with a finding of gastritis and slipping up with Raiza fundoplication. Surgeries on consult, the patient is also scheduled for gastric emptying study to see if surgery is the recommendation or not. OBJECTIVE: VITAL SIGNS: Temperature is 99.1, pulse is 66, blood pressure is 168/74. The patient is on room air at this time. GENERAL: On examination, alert and oriented x3. The patient looks sick, has nausea. HEENT: Normocephalic and atraumatic. Pupils reactive. NECK: No JVD. CVS: S1 and S2 normal, regular rate and rhythm. ABDOMEN: Tender in the epigastrium and also in the left lower quadrant. EXTREMITIES: No clubbing, no cyanosis, no edema. LABORATORY VALUES: The patient's white count is 8.54, hemoglobin of 10.2, hematocrit of 33.9. Sodium 131, potassium 3.4, glucose is 122. MICROBIOLOGY: C diff E coli on urine cultures and on Serology, C diff is negative. ASSESSMENT: Ms. Santana with: 1. Intractable nausea and vomiting. 2. Intractable abdominal pain. 3. Slipped Raiza fundoplication. 4. History of gastroparesis. 5. History of uncontrolled diabetes. 6. Hypertension. 7. Low-grade fever, which continues. PLAN: Gastric emptying study today. The patient also get incentive spirometer. We will switch the Zosyn to Rocephin, has good coverage with E coli. We will continue to monitor the patient and surgery depending on gastric emptying today. MD BATSHEVA Patel/MARIEL /[id number]
[2019-10-25 09:26] VITALS: BP 187/77
--- NOTE | 2019-10-25 09:44 | NUR ---
Patient alert and responsive, no distress, picked up at this time for Gastric emptying study, sent Venofer to be infused by procedure nurse, at nuclear medicine and she agreed to run.
[2019-10-25 11:43] VITALS: BP 160/72
[2019-10-25 15:41] VITALS: BP 137/67
[2019-10-25] MEDS: SODIUM CHLORIDE 0.9% 1000ML 1,000 ML IV SCH ×2 (16:04→20:59)
[2019-10-25] MEDS: CEFTRIAXONE SOD 1 GM/NS 50 ML 50 ML IV SCH (16:33)
--- NOTE | 2019-10-25 19:10 | NUR ---
Rounds completed, report given to on coming nurse, call light within reach, safety in place,
--- NOTE | 2019-10-25 19:12 | Diagnostic Imaging Report ---
Solid-phase gastric emptying study Reason for examination: Abdominal pain The protocol used for this study is based on the Consensus Recommendations for Gastric Scintigraphy by the [place] [employer] and the Society of Nuclear Medicine. Clinical information: The patient is diabetic. The patient had gastric sleeve surgery and hiatal hernia repair approximately 8 years ago. The patient has been receiving pain medications and metoclopramide. The patient has been fasting for at least 6 hours prior to this exam. Radiopharmaceutical: Tc-99m sulfur colloid 1 mCi Report: The radiopharmaceutical was added to Ensure Enlive 8 ounces. The patient took the liquid meal orally. Images were obtained of the abdomen in the anterior and posterior projections at 10 minutes post the meal and at 1, 2, 3, and 4 hours. Uptake was determined from the geometric mean of the anterior and posterior counts and the counts were corrected for decay of the radiolabel. NOTE: The patient was very nauseated and having severe abdominal pain at one hour post ingestion of the liquid meal. She was given ondansetron at 1.5 hours post the meal. She continued to have severe abdominal pain and was given metoclopramide and morphine at 2 hours. The percent gastric retention of the labeled meal at: 1 hour was 91% (normal 30-90%) 2 hours was 72% (normal <60%) 3 hours was 71% (normal <30%) 4 hours was 57% (normal <10%) Impression: Gastric emptying is markedly delayed throughout the study. Findings are compatible with severe gastroparesis, however, because the patient was given ondansetron, metoclopramide and morphine during the study, the results may not be valid. The study should be repeated when the patient's nausea and pain have lessened and she can manage without metoclopramide and morphine for more than 4 hours. Signed by: Dr. Piedad Sanchez M.D. on 10/25/2019 7:09 PM
[2019-10-25 19:40] VITALS: BP 163/89
[2019-10-25 21:15] VITALS: BP 163/89
--- NOTE | 2019-10-25 21:15 | NUR ---
PATIENT RESTING IN BED AOX4, NO SIGNS OF DISTRESS NOTED. IS AT BEDSIDE AND PATIENT VOICES PAIN AT A LEVEL OF 8 AND WAS MEDICATED ORDERED. PATIENT WAS FED ON FULL LIQUID DIET AFTER PREVIOUSLY BEING NPO ALL DAY DUE TO GASTRIC EMPTYING STUDY AND IV FLUIDS ARE RUNNING AT ORDERED RATE. BED IS LOW, BOTH SIDE RAILS ARE UP, CALL LIGHT WITHIN EASY REACH, WILL CONTINUE TO MONITOR.
[2019-10-26] VITALS (7 sets, daily range): BP systolic 146–178; BP diastolic 74–94
[2019-10-26] MEDS: METOCLOPRAMIDE HCL 10 MG/2ML VIAL IV SCH ×4 (00:18→17:48)
--- NOTE | 2019-10-26 00:30 | NUR ---
DR. SAINI HAS MADE ROUNDS WITH PATIENT. PATIENT INFORMED TO REMAIN NPO AND OF POSSIBLE PROCEDURES THE FOLLOWING DAY.
[2019-10-26] MEDS: ONDANSETRON HCL INJ 2MG/ML 2ML 2 MG/ML VIAL IV PRN ×5 (01:33→20:27)
[2019-10-26] MEDS: MORPHINE SULFATE INJ 4 MG/ML INJ 1ML IV PRN ×4 (01:33→13:47)
[2019-10-26] MEDS: SODIUM CHLORIDE 0.9% 1000ML 1,000 ML IV SCH ×2 (02:00→13:29)
[2019-10-26] MEDS: HYDRALAZINE HCL 20 MG/ML VIAL IV PRN (05:24)
[2019-10-26 06:20] LABS: BLOOD UREA NITROGEN 5 mg/dL (7-26); BUN/CREATININE RATIO 7 (6-25); CALCIUM 8.7 mg/dL (8.4-10.2); CARBON DIOXIDE 22 mmol/L (22-29); CHLORIDE 108 mmol/L (98-107); CREATININE, SERUM 0.71 mg/dL (0.57-1.11); EST GLOMERULAR FILTRATION RATE > 60 ML/MIN (60-); GLUCOSE 124 mg/dL (74-118); SODIUM 142 mmol/L (136-145)
--- NOTE | 2019-10-26 07:00 | NUR ---
Received bedside shift report from SANDRA Persaud. Patient awake at this time, no visible signs of distress noted. Spouse at bedside. Call light within reach.
[2019-10-26] MEDS: INSULIN LISPRO 100 UNIT/1 ML 3ML VIAL SQ SCH ×3 (07:30→16:30)
[2019-10-26] MEDS: IRON SUCROSE 100 MG in SODIUM CHLORIDE 0.9% 100 ML 100 ML IV SCH (09:19)
[2019-10-26] MEDS: PANTOPRAZOLE 40 MG 10ML VIAL IV SCH ×2 (09:19→20:28)
--- NOTE | 2019-10-26 14:00 | NUR ---
DR. SANFORD OFFICE CALLED FOR CONSULT AND MESSAGE LEFT WITH RUDDY.
[2019-10-26] MEDS: CEFTRIAXONE SOD 1 GM/NS 50 ML 50 ML IV SCH (17:48)
[2019-10-26] MEDS ORDERED: POTASSIUM CHLORIDE 20 MEQ TAB CR PO STA (18:42)
--- NOTE | 2019-10-26 18:45 | NUR ---
RECIEVED 59 YR OLD FEMALE RESTING IN SEMIFOWLERS POSITION.PT IS ALERT AND ORIENTED X3. AT BEDSIDE. AWAITING DISCHARGE. RESPIRATIONS EVEN AND UNLABORED. NO DISTRESS. BED IN LOW POSITION.CALL LIGHT WITHIN REACH.LEFT PT SITTING ON SIDE OF BED WAITING FOR DISCAHRGE.
--- NOTE | 2019-10-26 20:23 | NUR ---
PAGE PLACED FOR MD Juana NEIL CONCERNING DISCHARGE. WAITING FOR CALLBACK.
--- NOTE | 2019-10-26 20:26 | NUR ---
PAGE PLACED FOR MD Nicki SAINI CONCERNING DISCHARGE. WAITING FOR CALLBACK.
--- NOTE | 2019-10-26 20:37 | NUR ---
SPOKE WITH MD Juana NEIL CONCERNING PT REQUEST TO DISCHARGE. ORDERS TO FOLLOW UP NEXT WEEK RECEIVED.
--- NOTE | 2019-10-26 21:12 | NUR ---
RT PIV D/C WITH CATHETER INTACT. SITE WITHOUT SIGNS OF INFECTION. DRESING TO SITE - NO BLEEDING NOTED. D/C HOME ORDERED WITH FAMILY VIA W/C- PCT TOOK PT TO PRIVATE CAR.dISCHARGE INSTRUCTIONS GIVEN TO PT AND FAMILY. tHEY VERBALIZED UNDERSTANDING OF ALL DISCHARGE TEACHING.
--- NOTE | 2019-10-26 22:16 | Progress Note ---
DATE: SUBJECTIVE: This is a 59-year-old female with history of intractable nausea and vomiting, who comes in with gastroparesis. Her gastric emptying was positive. The patient needs surgery, revision of Raiza fundoplication. The patient is currently feeling a bit better and over the weekend, the patient can be discharged home to be followed up with Dr. Aponte for further surgery. OBJECTIVE: VITAL SIGNS: Temperature is 98.5, pulse is 75, blood pressure is 167/93. HEENT: Normocephalic and atraumatic. No icterus present. CVS: S1 and S2 normal. Regular rate and rhythm. ABDOMEN: Tender in the epigastrium. EXTREMITIES: No clubbing, no cyanosis, no edema. LUNGS: Clear. LABORATORY DATA: Chemistries show sodium 142, potassium 3.0, BUN of 5, creatinine 0.71, and glucose of 143. ASSESSMENT: Ms. Isadora Parnell with: 1. Intractable nausea and vomiting. 2. Slippage of fundoplication. 3. Gastritis. 4. Urinary tract infection. 5. Uncontrolled diabetes. 6. Obesity. 7. Gastroparesis. PLAN: Will be discharged home with Reglan. Follow up with Dr. Aponte on a later date and possible surgery as an outpatient. Further recommendations per clinical course. MD BATSHEVA Patel/MARIEL /[id number]
== END 2019-10-26 21:12 | disposition home or self-care (01) | DRG 921 ==
LOC: ER 18:40 → ERHOLD 21:04 → IMCU 10-20 00:09 → OBSVTOIN 10-21 08:05 → MED/SURG 10-24 22:21
PROVIDERS: ADMIT Family Medicine; ATTEND Family Medicine
PROC: 0DB78ZX Excision of Stomach, Pylorus, Via Natural or Artificial Opening Endoscopic, Diagnostic (ICD-10-PCS; principal; 2019-10-22 14:53)
DX: T85.591A Other mechanical complication of esophageal anti-reflux device, initial encounter (principal); K44.9 Diaphragmatic hernia without obstruction or gangrene; K20.9 Esophagitis, unspecified; E11.649 Type 2 diabetes mellitus with hypoglycemia without coma; Z79.4 Long term (current) use of insulin; K29.70 Gastritis, unspecified, without bleeding; Z86.73 Personal history of transient ischemic attack (TIA), and cerebral infarction without residual deficits; R51 Headache; Z85.038 Personal history of other malignant neoplasm of large intestine; E78.5 Hyperlipidemia, unspecified
CPT/HCPCS: 36415; 43239; 70450; 70551; 74177; 78264; 80048; 80053; 80061; 81001; 82150; 82550; 82553; 82607; 82728; 82746; 82948; 83036; 83540; 83690; 83735; 84466; 84484; 85025; 85045; 85610; 85730; 87086; 87186; 87493; 88305; 88312; 93005; 93306; 93880; 96361; 96372; 99285; A9541; G0378; J0360; J0696; J1756; J2250; J2270; J2405; J2543; J2550; J2765; J3010; J3480; J7030; Q9967

== ENCOUNTER 2019-10-29 10:40 | Inpatient (IN) | payer BC, OTHER ==
[~2019-10-29] VITALS: Ht 157.5 cm; Wt 78.9 kg
[~2019-10-29 10:40] MED LIST changes: +ATIVAN1 MG PO
[2019-10-29] MEDS ORDERED: ONDANSETRON HCL INJ 2MG/ML 2ML 2 MG/ML VIAL IV NR (10:51)
[2019-10-29] MEDS ORDERED: MORPHINE SULFATE INJ 4 MG/ML INJ 1ML IV NR (10:51)
[2019-10-29] MEDS ORDERED: SODIUM CHLORIDE 0.9% 1000ML 1,000 ML IV ONE (11:00)
[2019-10-29 11:49] LABS: BASOPHILS % 0.2 % (0.0-1.0); EOSINOPHILS % 0.4 % (0.0-6.0); HEMATOCRIT 41.2 % (34.2-44.1); HEMOGLOBIN 13.1 g/dL (12.0-16.0); LYMPHOCYTES # (AUTO) 1.8 (1.0-3.2); LYMPHOCYTES % 17.5 % (18.0-39.1); MEAN CORPUSCULAR HEMOGLOBIN 25.8 pg (28-32); MEAN CORPUSCULAR HGB CONC 31.8 g/dL (31-35); MEAN CORPUSCULAR VOLUME 81.3 fL (81-99); MONOCYTES # (AUTO) 0.8 (0.2-0.8); MONOCYTES % 7.5 % (4.4-11.3); NEUTROPHILS # (AUTO) 7.4 (2.1-6.9); PLATELET COUNT 259 x10e3/uL (140-360); RED BLOOD COUNT 5.07 x10e6/uL (3.6-5.1); RED CELL DISTRIBUTION WIDTH 17.5 % (11.7-14.4)
[2019-10-29 12:06] LABS: CLARITY,URINE CLEAR (CLEAR); COLOR,URINE YELLOW (YELLOW); LEUKOCYTE ESTERASE ,URINE NEGATIVE (NEGATIVE); NITRITE,URINE NEGATIVE (NEGATIVE); PROTEIN,URINE DIPSTICK 2+ (NEGATIVE)
[2019-10-29 12:07] LABS: BILIRUBIN,URINE MODERATE (NEGATIVE); KETONES,URINE 2+ (NEGATIVE); URINE UROBILINOGEN 0.2 mg/dL (0.2 - 1)
[2019-10-29 12:08] LABS: RBC,URINE 0-5 /HPF (0-5); WBC,URINE (MAN) 0-5 /HPF (0-5)
[2019-10-29 12:09] LABS: BACTERIA,URINE RARE /HPF; EPITHELIAL CELLS,URINE FEW /LPF
[2019-10-29 12:16] LABS: ALANINE AMINOTRANSFERASE 41 IU/L (0-55); ALBUMIN 4.3 g/dL (3.5-5.0); ALBUMIN/GLOBULIN RATIO 1.1 (0.8-2.0); ALKALINE PHOSPHATASE 116 IU/L (40-150); BLOOD UREA NITROGEN 29 mg/dL (7-26); BUN/CREATININE RATIO 33 (6-25); CHLORIDE 104 mmol/L (98-107); CREATININE, SERUM 0.88 mg/dL (0.57-1.11); EST GLOMERULAR FILTRATION RATE > 60 ML/MIN (60-); GLUCOSE 179 mg/dL (74-118); POTASSIUM 3.1 mmol/L (3.5-5.1); SODIUM 140 mmol/L (136-145)
[2019-10-29 12:31] LABS: ANION GAP 26.1 mmol/L (8-16); CARBON DIOXIDE 13 mmol/L (22-29)
[2019-10-29] MEDS ORDERED: KCL 20MEQ/.9 SOD CHL 1,000 ML IV ONE (13:15)
[2019-10-29 14:41] LABS: CREATINE KINASE MB 0.5 ng/mL (0-5.0)
[2019-10-29] MEDS: HYDROMORPHONE 1MG/1ML INJ IV PRN (17:49)
[2019-10-29] MEDS: ONDANSETRON HCL INJ 2MG/ML 2ML 2 MG/ML VIAL IV PRN (17:49)
[2019-10-29 20:00] VITALS: BP 140/84
[2019-10-29 21:35] VITALS: BP 140/84
[2019-10-29 21:40] VITALS: BP 140/84
--- NOTE | 2019-10-29 22:30 | NUR ---
RECEIVED PATIENT FROM ER AOX4 IN STABLE CONDITION, NO SIGNS OF DISTRESS NOTED. IS AT BEDSIDE AND PATIENT VOICES PAIN AT THIS TIME AND WILL BE MEDICATED ORDERED. NEW IV STARTED IN RIGHT HAND WITH 20 GAUGE AND IV FLUIDS ARE RUNNING AT ORDERED RATE. BED IS IN LOWEST POSITION, BOTH SIDE RAILS ARE UP, CALL LIGHT WITHIN EASY REACH, WILL CONTINUE TO MONITOR.
[2019-10-30] VITALS (8 sets, daily range): BP systolic 102–150; BP diastolic 60–91
[2019-10-30] MEDS: HYDROMORPHONE 1MG/1ML INJ IV PRN ×6 (00:04→22:25)
[2019-10-30] MEDS: ONDANSETRON HCL INJ 2MG/ML 2ML 2 MG/ML VIAL IV PRN ×6 (00:05→22:25)
[2019-10-30] MEDS ORDERED: METOCLOPRAMIDE HCL 10 MG/2ML VIAL IV ONE (00:15)
[2019-10-30] MEDS ORDERED: PANTOPRAZOLE 40 MG 10ML VIAL IV STA (00:16)
[2019-10-30] MEDS ORDERED: PANTOPRAZOL 40MG/SOD CHL 0.9% 250 ML IV SCH (00:30)
--- NOTE | 2019-10-30 00:30 | NUR ---
DR. Nicki SAINI HAS MADE ROUNDS WITH PATIENT AND INFORMED HER OF UPDATES AND POSSIBLE PROCEDURES INVOLVING HER CARE.
[2019-10-30] MEDS ORDERED: SODIUM CHLORIDE 0.9% 250ML 250 ML ONE (01:58)
[2019-10-30] MEDS: PANTOPRAZOL 40MG/SOD CHL 0.9% 50 ML IV SCH ×7 (02:00→20:59)
[2019-10-30] MEDS: METOCLOPRAMIDE HCL 10 MG/2ML VIAL IV SCH ×4 (06:29→23:44)
[2019-10-30 06:39] LABS: ALANINE AMINOTRANSFERASE 34 IU/L (0-55); ALBUMIN 3.3 g/dL (3.5-5.0); ALBUMIN/GLOBULIN RATIO 1.3 (0.8-2.0); ALKALINE PHOSPHATASE 83 IU/L (40-150); ANION GAP 14.1 mmol/L (8-16); BLOOD UREA NITROGEN 27 mg/dL (7-26); BUN/CREATININE RATIO 29 (6-25); CALCIUM 8.8 mg/dL (8.4-10.2); CARBON DIOXIDE 20 mmol/L (22-29); CHLORIDE 110 mmol/L (98-107); CREATININE, SERUM 0.94 mg/dL (0.57-1.11); EST GLOMERULAR FILTRATION RATE > 60 ML/MIN (60-); GLUCOSE 121 mg/dL (74-118); POTASSIUM 3.1 mmol/L (3.5-5.1); SODIUM 141 mmol/L (136-145)
[2019-10-30 06:40] LABS: CREATINE KINASE MB 0.4 ng/mL (0-5.0)
[2019-10-30] MEDS ORDERED: LORAZEPAM 1 MG TAB PO PRN (07:00)
--- NOTE | 2019-10-30 07:00 | NUR ---
bedside rounds done. pt is alert resting in bed, no s/s of distress, pt complains of abdominal pain 6/10, pain medication previously given by PM RN. call light within reach and instructed pt to call RN for help. will continue to monitor
[2019-10-30 07:02] LABS: HEMATOCRIT 31.6 % (34.2-44.1); HEMOGLOBIN 9.7 g/dL (12.0-16.0); LYMPHOCYTES % 31.1 % (18.0-39.1); MEAN CORPUSCULAR HEMOGLOBIN 25.6 pg (28-32); MEAN CORPUSCULAR HGB CONC 30.7 g/dL (31-35); MEAN CORPUSCULAR VOLUME 83.4 fL (81-99); MONOCYTES % 9.5 % (4.4-11.3); NEUTROPHILS % 55.7 % (38.7-80.0); PLATELET COUNT 208 x10e3/uL (140-360); RED BLOOD COUNT 3.79 x10e6/uL (3.6-5.1)
[2019-10-30 07:03] LABS: BASOPHILS % 0.3 % (0.0-1.0); EOSINOPHILS % 3.1 % (0.0-6.0)
[2019-10-30] MEDS ORDERED: POTASSIUM CHLORIDE 20MEQ/100ML 100 ML IV ONE (07:30)
[2019-10-30 08:32] LABS: EOSINOPHILS # (AUTO) 0.2 (0.0-0.4); MONOCYTES # (AUTO) 0.6 (0.2-0.8); NEUTROPHILS # (AUTO) 3.6 (2.1-6.9)
[2019-10-30] MEDS: LOSARTAN POTASSIUM 100 MG TAB PO SCH (08:57)
[2019-10-30] MEDS: ROPINIROLE HCL 1 MG TAB PO SCH (08:58)
[2019-10-30] MEDS ORDERED: SODIUM CHLORIDE 0.9% 500ML 500 ML ONE (09:07)
--- NOTE | 2019-10-30 12:32 | History and Physical ---
HISTORY OF PRESENT ILLNESS: This is a 59-year-old female, who was discharged two days prior to admission with history of slipped Raiza fundoplication, intractable nausea and vomiting. The patient went home, was not able to keep any fluids down or any food down. The patient felt weak, tired. Called in Dr. Aponte, surgeon for an appointment. The patient was asked to come to the emergency room for further care and was found to be dehydrated and also came in and admitted for intractable nausea and vomiting. PAST MEDICAL HISTORY: History of anxiety, history of hypertension, history of hyperlipidemia, history of restless legs syndrome, history of diabetes mellitus with neuropathy. MEDICATIONS: She takes at home are glyburide 5 mg daily, lorazepam 1 mg as needed, losartan 100 mg daily, metformin 5 mg daily, oxycodone 30 mg q.4 hours, ropinirole 1 mg at nighttime. PAST SURGICAL HISTORY: 1. The patient has surgical history of hiatal hernia, which was repaired with Raiza fundoplication. 2. History of multiple back surgeries. 3. Hysterectomy. 4. Laparoscopic cholecystectomy. 5. The patient had again multiple back surgeries. The patient recent hospitalization about a week ago and was discharged recently. FAMILY HISTORY: Positive for cancer in mother and sister, cirrhosis in brother. Daughter with a history of seizures and history of mother with diabetes mellitus. SOCIAL HISTORY: Lives with . No EtOH. No IV drug abuse either. REVIEW OF SYSTEMS: Negative for chest pain. No shortness of breath. Positive for nausea. Positive vomiting. No diarrhea. No constipation, abdominal pain noted. No diplopia. No blurry vision. No paresthesias. No hyperesthesias. No radicular symptoms at this time. The patient does suffer from chronic back pain. PHYSICAL EXAMINATION: VITAL SIGNS: Temperature is 97.8, pulse of 56, respirations of 18, blood pressure is 150/79, pulse ox of 96%. HEENT: Normocephalic, atraumatic. Pupils are reactive to light and accommodation. CVS: S1 and S2 normal, regular rhythm. ABDOMEN: Tender in the left lower quadrant, epigastric area in the right lower quadrant too. EXTREMITIES: No clubbing, no cyanosis, no edema. MICROBIOLOGY: None was done. LABORATORY VALUES: Initial white count is 10.04, hemoglobin 13.1, hematocrit of 40.2, neutrophil count was normal at 74. Chemistry; sodium of 140, potassium 3.1, BUN of 29, and creatinine 0.9, anion gap was 26.1, glucose is 179. ALT and alkaline phosphate within normal limits. AST was slightly elevated at 34. Troponin x2 has been negative so far. ASSESSMENT: Ms. Isadora Parnell with: 1. Intractable nausea and vomiting, failed outpatient treatment to regulate her nausea and vomiting. 2. Status post endoscopy with the last visit with findings of gastritis and slipped Raiza fundoplication. 3. Gastroparesis upon gastric emptying study. 4. History of urinary tract infection. 5. Presence of diabetes mellitus. 6. Hyperlipidemia. 7. Chronic pain syndrome. 8. Low back pain. 9. Hypertension. PLAN: Consult with Dr. Tanner Stone and Dr. Fabien Aponte has been done. The patient probably will have surgery for gastroparesis. Reglan will be given. We will continue monitoring the patient's blood pressure. IV hydralazine will be instituted as needed and also restart home medications. Further recommendation per clinical course. We will continue to monitor the patient. The patient has to be seen by Dr. Aponte, who deemed if the surgery is necessary at this point of time. Further recommendation per clinical course. ADDENDUM: Additional diagnoses of dehydration with hypokalemia and rule out urinary tract infection. We will send a urine culture and urine analysis. MD DONTA PatelJ/MODL /[id number]
--- NOTE | 2019-10-30 14:55 | NUR ---
Visit made by the Spiritual Care Department Pastoral Visitor, Luz Zapata. PV provided pastoral presence, prayer, hospitality, and supportive listening. Pastoral Visitor informed pt/family of the scope of [employer] and availability. BEATRIZ GIBSON [employer]ylinder Machine [employer] Spiritual Care Department O: [phone] Pager: [phone] ([phone] calling from)
--- NOTE | 2019-10-30 18:40 | NUR ---
pt education rendered, consent form signed. at the bedside
--- NOTE | 2019-10-30 20:55 | NUR ---
PATIENT IS AOX3 IN STABLE CONDITION, NO SIGNS OF DISTRESS NOTED. IS AT BEDSIDE AND PATIENT VOICES PAIN AT A LEVEL OF 7 AND WILL BE MEDICATED ORDERED. IV PROTONIX DRIP IS RUNNING AT ORDERED RATE, AND PATIENT IS AWARE OF NPO AFTER MIDNIGHT FOR PROCEDURE TOMORROW. BED IS IN LOWEST POSITION, BOTH SIDE RAILS ARE UP, CALL LIGHT WITHIN EASY REACH, WILL CONTINUE TO MONITOR.
[2019-10-31] VITALS (12 sets, daily range): BP systolic 119–157; BP diastolic 61–80
[2019-10-31] MEDS: PANTOPRAZOL 40MG/SOD CHL 0.9% 50 ML IV SCH ×3 (01:45→11:27)
[2019-10-31] MEDS: ONDANSETRON HCL INJ 2MG/ML 2ML 2 MG/ML VIAL IV PRN ×3 (02:59→21:51)
[2019-10-31] MEDS: HYDROMORPHONE 1MG/1ML INJ IV PRN ×2 (02:59→07:07)
[2019-10-31] MEDS: METOCLOPRAMIDE HCL 10 MG/2ML VIAL IV SCH ×2 (05:40→11:27)
--- NOTE | 2019-10-31 06:46 | Progress Note ---
DATE: 10/31/2019 SUBJECTIVE: The patient is 59-year-old female, who comes in with intractable nausea and vomiting, slipped Raiza fundoplication, and hiatal hernia. Currently, the patient is also having some nausea, slept well. No chest pains. Positive for abdominal pain, epigastric. No fever noted. OBJECTIVE: VITAL SIGNS: Temperature 97.2, pulse of 76, respirations of 20, blood pressure is 123/80, pulse oximetry of 97% on room air. HEENT: Normocephalic and atraumatic. Pupils are reactive. CVS: S1 and S2 normal. Regular rate and rhythm. ABDOMEN: Tender in the epigastrium. Bowel sounds are positive. EXTREMITIES: No clubbing, no cyanosis, no edema. LABORATORY VALUES: White count is 6.50, hemoglobin of 9.7, hematocrit of 31.6. Chemistry shows sodium of 141, potassium of 3.4, BUN of 27, creatinine 0.94. MICROBIOLOGY: Urine cultures are still pending. ASSESSMENT: Ms. Isadora Parnell with: 1. Hiatal hernia. 2. Slipped Raiza fundoplication. 3. Diabetes mellitus. 4. Hyperlipidemia. 5. Chronic pain syndrome. PLAN: Today, the patient is scheduled for surgery. The patient is for repair of hiatal hernia, Raiza, and pyloromyotomy. The patient had exploratory laparotomy this morning, findings will dictate surgical procedure. Further recommendation per clinical course. We will continue to monitor the patient and maintenance medicines will be switched to IV. MD BATSHEVA Patel/MARIEL /[id number]
--- NOTE | 2019-10-31 07:00 | NUR ---
received bedside report. pt is sleeping, no s/s of distress. call light within reach and bed safety intact. is at the bedside
[2019-10-31] MEDS: ROPINIROLE HCL 1 MG TAB PO SCH (09:00)
[2019-10-31] MEDS: LOSARTAN POTASSIUM 100 MG TAB PO SCH (09:00)
--- NOTE | 2019-10-31 11:11 | NUR ---
transporter here to take the patient down to OR for procedure. pt is alert, no s/s of distress. pt left the unit via hospital bed.
[2019-10-31] MEDS ORDERED: ACETAMINOPHEN 1000 MG/100 ML 100 ML IV ONE (12:46)
[2019-10-31] MEDS: SODIUM CHLORIDE 0.9% 1000ML 1,000 ML IV SCH (14:38)
[2019-10-31] MEDS ORDERED: NALOXONE HCL INJ 0.4 MG/ML AMP IV PRN (14:45)
[2019-10-31] MEDS ORDERED: PROMETHAZINE HCL (IM) 25 MG/ML VIAL IV PRN (14:45)
[2019-10-31] MEDS ORDERED: HYDROMORPHONE 0.2MG/ML-SOD CHL 30ML PCA SYRINGE IV PRN (14:45)
[2019-10-31] MEDS: SODIUM CHLORIDE 0.9% 250ML IRRIG IR SCH ×3 (14:45→21:51)
[2019-10-31] MEDS ORDERED: HYDROMORPHONE 1MG/1ML INJ ONE ×2 (14:54→15:02)
[2019-10-31] MEDS ORDERED: HYDROMORPHONE 0.2MG/ML-SOD CHL 30ML PCA SYRINGE IV ONE (15:02)
[2019-10-31] MEDS ORDERED: DEXTROSE 50% SYRINGE 50 ML IV PRN (15:15)
[2019-10-31] MEDS ORDERED: SODIUM CHLORIDE 0.9% 1000ML 1,000 ML ONE (15:20)
[2019-10-31] MEDS ORDERED: METOCLOPRAMIDE HCL 10 MG/2ML VIAL ONE (15:23)
[2019-10-31] MEDS ORDERED: ONDANSETRON HCL INJ 2MG/ML 2ML 2 MG/ML VIAL ONE ×2 (15:23→18:02)
[2019-10-31] MEDS ORDERED: HYDRALAZINE HCL 20 MG/ML VIAL ONE (15:41)
--- NOTE | 2019-10-31 15:48 | NUR ---
pt will be transferred to ICU per Dr. Ke Aponte'd orders. was notified and spoke to Betzaida in ICU to give report
[2019-10-31] MEDS: PANTOPRAZOLE 40 MG 10ML VIAL IV SCH (17:00)
[2019-10-31] MEDS: INSULIN REGULAR, HUMAN 100 UNIT/1 ML 3ML VIAL SQ SCH ×2 (18:00→23:46)
[2019-10-31] MEDS ORDERED: ROCURONIUM BROMIDE 10 MG/ML 5ML VIAL ONE (18:02)
[2019-10-31] MEDS ORDERED: LIDOCAINE HCL 2% LOCAL INJ 5 ML SDV VIAL INJ ONE (18:02)
[2019-10-31] MEDS ORDERED: DEXAMETHASONE SOD PHOS INJ 4 MG/ML VIAL ONE (18:02)
[2019-10-31] MEDS ORDERED: PROPOFOL IV EMULSION 10 MG/ML 20 ML VIAL ONE (18:02)
[2019-10-31] MEDS ORDERED: ACETAMINOPHEN 1000 MG/100 ML IV ONE (18:02)
[2019-10-31] MEDS ORDERED: DESFLURANE 240 ML BTL INH ONE (18:02)
[2019-10-31] MEDS ORDERED: FENTANYL CITRATE/PF 100MCG/2 ML INJ ONE (18:15)
[2019-10-31] MEDS ORDERED: MIDAZOLAM HCL 2 MG/2 ML VIAL ONE (18:15)
[2019-10-31] MEDS: NITROGLYCERIN 2% OINT 1 GM PKT TOP SCH (18:53)
--- NOTE | 2019-10-31 19:00 | NUR ---
Bedside report received from Joaquina Aleman RN. Pt received resting in bed with eyes closed, awakens to voice, Ox to place and person, reports pain level of 10 so re-instruction on how to use OIL SPRAYING MACHINE OPERATOR completed at this time. Pts at the bedside and he was also instructed on the OIL SPRAYING MACHINE OPERATOR and time outs/control settings. Pt on 2L n/c no signs of distress noted. Care plan reviewed.
[2019-10-31] MEDS: CEFAZOLIN SOD 1 GM/NS 50ML 50 ML IV SCH (20:25)
--- NOTE | 2019-10-31 20:25 | NUR ---
IVPB antibiotic given at this time. Medication name, purpose desire effect, and allergies/NKA reviewed with the pt and family member at this time.
[2019-10-31] MEDS: PROMETHAZINE 12.5MG/ NACL 0.9% 50 ML IV PRN (22:25)
--- NOTE | 2019-10-31 23:37 | Operative Report ---
DATE OF PROCEDURE: 10/31/2019 SURGEON: Fabien Aponte MD PREOPERATIVE DIAGNOSES: Hiatal hernia with a slipped fundoplication, gastroesophageal reflux disease and pyloric stenosis with gastroparesis. POSTOPERATIVE DIAGNOSES: Hiatal hernia with a slipped fundoplication, gastroesophageal reflux disease and pyloric stenosis with gastroparesis. OPERATION PERFORMED: Exploratory laparotomy, takedown of slipped fundoplication and redo Raiza fundoplication and pyloroplasty. QUILL MACHINE OPERATOR: Ponce Aponte M.D. ANESTHESIA: General endotracheal. COMPLICATIONS: None. ESTIMATED BLOOD LOSS: 50 mL. DESCRIPTION OF PROCEDURE: With the patient lying in bed in the supine position under general endotracheal anesthesia the abdomen was prepped with Betadine solution and draped in the usual manner. An upper midline abdominal incision was made was carried down through the subcutaneous tissue and through the midline fascia. The peritoneum was opened and the abdomen was entered. Upon entering the abdominal cavity, exploration revealed there was some adhesions to the gallbladder bed from the patient's previous cholecystectomy and these were taken down. There was also from the patient's previous hiatal hernia repair and Raiza fundoplication a lot of adhesions felt in the upper abdomen the subdiaphragmatic space. The left lobe of the liver was totally stuck to the to the stomach and there was a lot of adhesions in this area and some of the short gastrics. The top of the stomach had been taken down, but some of the short gastrics were still in place at the level of the top of the fundus. At this point, we then slowly and carefully the left lobe of the liver from the stomach and all of the adhesions were slowly and carefully taken down. It became evident at this point that there was no fundoplication in place. There was no stomach in front of the lower esophagus representing any kind of fundoplication. There were some sutures on both sides of the right and left crura sewing part of the stomach to the undersurface of the diaphragm, but there was no fundoplication that could be seen. This may be because the fundoplication became disrupted or maybe because it was not done at all at her previous surgery. We went ahead at this point and totally freed up the fundus of the stomach taking up the short gastrics that had not been taken down. At this point, we managed to identify the lower esophagus, which was circumferentially then dissected and retracted with a John drain. There was a lot of adhesions mostly on the right side of the stomach with multiple sutures in this area. All of these were taken down and after all of this was done, we had freed up the stomach circumferentially at the top. With all of the adhesions taken down, the stomach was somewhat tubular from the previous surgery. At this point, the fundus of the stomach was then brought in a retroesophageal position without any tension. There was actually no hiatal hernia present so a Raiza fundoplication was then performed using interrupted sutures of 2-0 silk bringing one side of the fundus to the lower esophagus to the other side of the fundus creating a 360 degree wrap. We made a very loose wrap since the patient does have some history of gastric outlet problems, so a very loose Raiza fundoplication was performed over the bougie that was in place. After this was done, we then turned our attention to the pylorus. The pylorus was then mobilized and the pylorus was then opened longitudinally both proximally into the stomach and distally into the duodenum and a nice wide opening was made and then the pyloroplasty was then performed in two layers with an internal layer of sutures of 3-0 chromic and an external layer of interrupted 3-0 silk. This gave us a wide-open pylorus. The whole area was then thoroughly irrigated. Perfect hemostasis was ascertained and the abdomen was then closed in layers after positioning the NG tube in the right place and removing the bougie. The peritoneum was closed with a running suture of #1 Vicryl, the midline fascia was closed with a running suture of #1 Vicryl and the skin was closed with clips. A dressing was applied. The sponge, lap, and needle count was correct. The patient tolerated the procedure well and returned to the recovery room in stable condition. MD NEO Ortiz/HOWARD /[id number]
[2019-11-01] VITALS (16 sets, daily range): BP systolic 128–179; BP diastolic 70–94
[2019-11-01] MEDS: SODIUM CHLORIDE 0.9% 1000ML 1,000 ML IV SCH ×4 (00:18→21:23)
[2019-11-01] MEDS: NITROGLYCERIN 2% OINT 1 GM PKT TOP SCH ×4 (00:18→19:14)
[2019-11-01] MEDS: ONDANSETRON HCL INJ 2MG/ML 2ML 2 MG/ML VIAL IV PRN ×5 (01:39→21:23)
[2019-11-01] MEDS: SODIUM CHLORIDE 0.9% 250ML IRRIG IR SCH ×6 (01:39→21:24)
--- NOTE | 2019-11-01 02:50 | NUR ---
Dr. Nicki Stone present and assessing the pt.
[2019-11-01] MEDS: PROMETHAZINE 12.5MG/ NACL 0.9% 50 ML IV PRN ×4 (02:51→23:34)
[2019-11-01] MEDS: CEFAZOLIN SOD 1 GM/NS 50ML 50 ML IV SCH (04:11)
[2019-11-01] MEDS: INSULIN REGULAR, HUMAN 100 UNIT/1 ML 3ML VIAL SQ SCH ×3 (05:10→18:00)
[2019-11-01] MEDS: ACETAMINOPHEN 1000 MG/100 ML IV PRN ×2 (05:31→13:50)
[2019-11-01 05:44] LABS: BASOPHILS % 0.2 % (0.0-1.0); EOSINOPHILS % 0.1 % (0.0-6.0); HEMATOCRIT 31.4 % (34.2-44.1); HEMOGLOBIN 9.6 g/dL (12.0-16.0); LYMPHOCYTES # (AUTO) 0.8 (1.0-3.2); LYMPHOCYTES % 7.8 % (18.0-39.1); MEAN CORPUSCULAR HEMOGLOBIN 25.7 pg (28-32); MEAN CORPUSCULAR HGB CONC 30.6 g/dL (31-35); MEAN CORPUSCULAR VOLUME 84.2 fL (81-99); MONOCYTES # (AUTO) 0.7 (0.2-0.8); MONOCYTES % 7.3 % (4.4-11.3); NEUTROPHILS # (AUTO) 8.2 (2.1-6.9); NEUTROPHILS % 84.2 % (38.7-80.0); PLATELET COUNT 200 x10e3/uL (140-360); RED BLOOD COUNT 3.73 x10e6/uL (3.6-5.1); RED CELL DISTRIBUTION WIDTH 17.6 % (11.7-14.4)
[2019-11-01 06:03] LABS: ANION GAP 13.8 mmol/L (8-16); CALCIUM 8.2 mg/dL (8.4-10.2); POTASSIUM 3.8 mmol/L (3.5-5.1)
[2019-11-01 06:20] LABS: CREATININE, SERUM 3.36 mg/dL (0.57-1.11)
--- NOTE | 2019-11-01 06:25 | NUR ---
Dr. Bragg present and assessing the pt. Reviewed pts morning lab results included increase in creatinine level and urine output of 1350. Dr. Bragg ordered IV NS increased from 100ml/hr to 150ml/hr and repeat BMP at 1800.
--- NOTE | 2019-11-01 07:00 | NUR ---
Bedside report given to Ivett Alvarez RN. Care plan reviewed, pts is at the bedside. Notified of Dr. Bragg's order to repeat BMP at 1800 d/t increase in creatinine level this AM. No signs of distress noted at this time.
[2019-11-01 07:48] LABS: LYMPHOCYTES % (MANUAL) 5 % (19-48); MONOCYTES % (MANUAL) 6 % (3.4-9.0); NEUTROPHILS % (MANUAL) 89 % (40-74)
--- NOTE | 2019-11-01 07:58 | Progress Note ---
DATE: 11/01/2019 SUBJECTIVE: A 59-year-old female, who went into surgery yesterday for Raiza fundoplication and also for pylorotomy and exploratory laparotomy. The patient is status post surgery, in pain, having the GRINDER SET UP OPERATOR INTERNAL pump. No chest pains. Abdominal pain positive. The patient has a Norman catheter and also an NG tube in. Currently, no complaints from the nursing staff, except the creatinine was elevated on blood work. OBJECTIVE: VITAL SIGNS: Temperature is afebrile, respirations of 14, blood pressure is 152/86, pulse oximetry of 96%, O2 via nasal cannula 2 L. HEENT: Normocephalic. The patient has an NG tube present. CVS: S1 and S2 are normal. Regular rate and rhythm. ABDOMEN: Bandaged. Bowel sounds are nil. EXTREMITIES: No clubbing, no cyanosis, no edema. SINA hose is present. LABORATORY VALUES: Today's white count is 9.75, hemoglobin of 9.6, hematocrit of 31.4, neutrophil count is 82.4. Chemistry shows sodium of 140, BUN of 33, creatinine of 3.36, glucose is 259, ALT and AST elevated at 112 and 108. ASSESSMENT: Ms. Isadora Parnell is a 59-year-old female, status post exploratory laparotomy, redo Raiza fundoplication, and pyloroplasty. 1. In ICU. 2. With acute kidney injury. 3. Hypertension. 4. Diabetes mellitus. 5. Hyperlipidemia. 6. Pain control. PLAN: Continue with current medication. IV fluids will be increased. Urine outputs will be monitored. I's and O's strict. Repeat BMP at 6 o'clock. Check kidney functions and creatinine functions at 06:00 p.m. today. Further recommendation per clinical course. We will keep the patient in ICU. NG tube and Norman catheter in. For further information, look in the chart. The patient has been followed by Dr. Aponte and also by Dr. Tanner Stone. MD DONTA PatelJ/MODL /[id number]
[2019-11-01 08:21] LABS: ANION GAP 14.9 mmol/L (8-16); CALCIUM 8.4 mg/dL (8.4-10.2); CREATININE, SERUM 3.26 mg/dL (0.57-1.11); POTASSIUM 3.9 mmol/L (3.5-5.1)
--- NOTE | 2019-11-01 08:47 | NUR ---
Spoke with Christal for New pt consult to Dr. Locke
[2019-11-01] MEDS: HYDRALAZINE HCL 20 MG/ML VIAL IV PRN (11:25)
[2019-11-01] MEDS ORDERED: MORPHINE SULFATE INJ 4 MG/ML INJ 1ML ONE (11:35)
[2019-11-01] MEDS: MORPHINE SULFATE INJ 4 MG/ML INJ 1ML IV PRN ×4 (11:35→23:00)
--- NOTE | 2019-11-01 14:15 | Consultation ---
DATE OF CONSULTATION: 11/01/2019 Renal Consultation REASON FOR CONSULTATION: Acute kidney injury. HISTORY OF PRESENT ILLNESS: A 59-year-old female with history of diabetes and hypertension, who presented to [facility] with intractable nausea and vomiting for 1 to 2 weeks. The patient is a poor historian and the computer system is temporarily down. History is taken from nurse at bedside as well as the patient's family members. The patient continued to have nausea and vomiting at home, and eventually felt weak to the point where she was instructed to go to the emergency room and the patient was admitted. The patient on 10/31/2019, underwent exploratory laparotomy, takedown of slipped fundoplication and redo Raiza fundoplication and pyloroplasty without complication. The patient was found to have acute kidney injury and was started on IV fluids. There was no significant improvement. Nephrology consultation was called. The patient denied having any history of kidney disease in the past, nor taking any folk-hiw-bljzdag medications prior to the admission including NSAIDs. REVIEW OF SYSTEMS: A 12-point review of systems completed. All systems negative other than the HPI above. PAST MEDICAL HISTORY: 1. Diabetes. 2. Hypertension. 3. Dyslipidemia. 4. Restless legs syndrome. 5. Neuropathy. 6. Anxiety. PAST SURGICAL HISTORY: 1. History of hiatal surgery repaired with Raiza fundoplication. 2. Multiple back surgeries. 3. Hysterectomy. 4. Laparoscopic cholecystectomy. SOCIAL HISTORY: No tobacco. No alcohol. No IV drugs. FAMILY HISTORY: No family history of kidney disease. ALLERGIES: NO KNOWN DRUG ALLERGIES. CURRENT MEDICATIONS: Unable to view, as computer system is down. PHYSICAL EXAMINATION: VITAL SIGNS: Blood pressure 153/111, pulse 84, and respiratory rate 20. GENERAL: No apparent distress. HEENT: Oropharynx clear. NG tube in place. No scleral icterus. No peripheral edema. NECK: Supple. No elevation in jugular venous pressure. No lymphadenopathy. CHEST: Clear to auscultation anteriorly bilaterally. CARDIOVASCULAR: Regular rhythm. No murmurs or rubs. ABDOMEN: Soft. EXTREMITIES: No edema. No clubbing. No cyanosis. SKIN: Warm. : Norman catheter in place with eldon-colored urine. LABORATORY DATA: Sodium 141, potassium 3.9, chloride 113, CO2 17, BUN 33, creatinine 3.26, glucose 212, and calcium 8.4. White count 9.75, hemoglobin 9.6, hematocrit 31.4, and platelets 200. ASSESSMENT AND PLAN: 1. Acute kidney injury secondary to volume depletion and acute tubular necrosis. Continue with IV fluids. We will need to avoid all nephrotoxic medications. We will check urine studies. 2. Volume depleted on exam. IV fluids as above. 3. Lytes acceptable. 4. Metabolic acidosis. May need to add bicarbonate to IV fluids. We will follow. 5. Hypertension. Continue p.r.n. medications while the patient is n.p.o. 6. Status post exploratory laparotomy, postop day #1. MD FARHEEN Zepeda/MODL /[id number]
[2019-11-01] MEDS: PANTOPRAZOLE 40 MG 10ML VIAL IV SCH (16:28)
--- NOTE | 2019-11-01 19:00 | NUR ---
Bedside report received from Ivett Alvarez RN. Care plan reviewed, pts at the bedside. Pt reports increase in nausea at this time, NGT to LCWS and draining per orders.
[2019-11-01 19:14] LABS: BILIRUBIN,URINE NEGATIVE (NEGATIVE); CLARITY,URINE CLEAR (CLEAR); COLOR,URINE YELLOW (YELLOW); KETONES,URINE NEGATIVE (NEGATIVE); LEUKOCYTE ESTERASE ,URINE NEGATIVE (NEGATIVE); NITRITE,URINE NEGATIVE (NEGATIVE); PROTEIN,URINE DIPSTICK NEGATIVE (NEGATIVE); URINE UROBILINOGEN 0.2 mg/dL (0.2 - 1)
[2019-11-01 19:30] LABS: BACTERIA,URINE FEW /HPF; EPITHELIAL CELLS,URINE FEW /LPF; RBC,URINE 0-5 /HPF (0-5)
[2019-11-01 19:31] LABS: YEAST,URINE MANY
[2019-11-01 19:38] LABS: SODIUM,URINE 92 mmol/L; TOTAL PROTEIN, URINE 12.2 mg/dL (1-14)
[2019-11-02] VITALS (30 sets, daily range): BP systolic 143–202; BP diastolic 69–96
[2019-11-02] MEDS: NITROGLYCERIN 2% OINT 1 GM PKT TOP SCH ×5 (00:35→23:42)
[2019-11-02] MEDS: ONDANSETRON HCL INJ 2MG/ML 2ML 2 MG/ML VIAL IV PRN ×4 (00:56→20:35)
--- NOTE | 2019-11-02 01:30 | NUR ---
Pts bp 202/92 and HR 103. Hydralazine IVP given per prn orders for HTN Addendum: 11/02/19 at 0245 by Cecy Jesus RN 0200 - BP now 149/69
[2019-11-02] MEDS: HYDRALAZINE HCL 20 MG/ML VIAL IV PRN ×3 (01:36→11:31)
[2019-11-02] MEDS: SODIUM CHLORIDE 0.9% 250ML IRRIG IR SCH ×6 (01:41→23:41)
--- NOTE | 2019-11-02 01:45 | NUR ---
Dr. Juana Aponte paged at this time d/t change in vital signs, uncontrolled nausea and vomiting, changes in gastric drainage color from dark green to green tinted clear with intermittent clear pinky tinged.
[2019-11-02] MEDS: MORPHINE SULFATE INJ 4 MG/ML INJ 1ML IV PRN ×6 (01:57→20:35)
[2019-11-02] MEDS ORDERED: SODIUM CHLORIDE 0.9% 250ML 250 ML IV SCH (02:00)
--- NOTE | 2019-11-02 02:00 | NUR ---
Dr. Nicki Stone present and updated him on pt status, creatinine level yesterday morning and Dr. Bragg's order to increase IV fluid to 150ml/hr, uncontrolled n/v, changes to gastric drainage color, vital sign changes. New orders received: NS 250ml bolus x1 now, Reglan 20mg IV push now, then Reglan 10mg q6hrs, Protonix 80mg IV push now, then start Protonix IV gtt per protocol, add Ava/Lip to AM lab orders today, and urine c&s. Dr. Nicki Stone assessed pt and gastric drainage at this time as well.
[2019-11-02] MEDS ORDERED: PANTOPRAZOLE 40 MG 10ML VIAL IV STA (02:09)
--- NOTE | 2019-11-02 02:10 | NUR ---
Dr. Juana Daly return called at this time, notified him that Dr. Nicki Stone was present, assessing pt, and had given orders for the pts N/V and started medications to help GI. No new orders received from Dr. Aponte at this time.
[2019-11-02] MEDS ORDERED: METOCLOPRAMIDE HCL 10 MG/2ML VIAL ONE (02:12)
[2019-11-02] MEDS ORDERED: METOCLOPRAMIDE HCL 10 MG/2ML VIAL IV ONE (02:15)
[2019-11-02] MEDS ORDERED: PANTOPRAZOL 40MG/SOD CHL 0.9% 250 ML IV SCH (02:15)
[2019-11-02] MEDS: SODIUM CHLORIDE 0.9% 1000ML 1,000 ML IV SCH (02:39)
[2019-11-02 04:41] LABS: EOSINOPHILS % 0.3 % (0.0-6.0); HEMATOCRIT 30.3 % (34.2-44.1); HEMOGLOBIN 9.3 g/dL (12.0-16.0); LYMPHOCYTES # (AUTO) 0.6 (1.0-3.2); LYMPHOCYTES % 4.9 % (18.0-39.1); MEAN CORPUSCULAR HEMOGLOBIN 26.2 pg (28-32); MEAN CORPUSCULAR HGB CONC 30.7 g/dL (31-35); MEAN CORPUSCULAR VOLUME 85.4 fL (81-99); MONOCYTES # (AUTO) 0.5 (0.2-0.8); NEUTROPHILS # (AUTO) 10.3 (2.1-6.9); NEUTROPHILS % 90.1 % (38.7-80.0); PLATELET COUNT 192 x10e3/uL (140-360); RED BLOOD COUNT 3.55 x10e6/uL (3.6-5.1); RED CELL DISTRIBUTION WIDTH 18.6 % (11.7-14.4)
[2019-11-02 05:06] LABS: ALBUMIN 2.9 g/dL (3.5-5.0); ALBUMIN/GLOBULIN RATIO 0.8 (0.8-2.0); ANION GAP 18.1 mmol/L (8-16); CALCIUM 8.5 mg/dL (8.4-10.2); CREATININE, SERUM 2.03 mg/dL (0.57-1.11)
[2019-11-02 05:20] LABS: POTASSIUM 3.1 mmol/L (3.5-5.1)
[2019-11-02] MEDS: METOCLOPRAMIDE HCL 10 MG/2ML VIAL IV SCH ×4 (05:47→23:41)
[2019-11-02] MEDS: INSULIN REGULAR, HUMAN 100 UNIT/1 ML 3ML VIAL SQ SCH ×5 (05:49→23:41)
[2019-11-02] MEDS: PROMETHAZINE 12.5MG/ NACL 0.9% 50 ML IV PRN (05:52)
[2019-11-02 05:58] LABS: AMYLASE 39 U/L (25-125); LIPASE 17 U/L (8-78)
[2019-11-02] MEDS: PANTOPRAZOL 40MG/SOD CHL 0.9% 50 ML IV SCH ×4 (08:24→23:41)
[2019-11-02] MEDS ORDERED: POTASSIUM CHLORIDE 20MEQ/100ML 200 ML IV ONE (08:45)
[2019-11-02] MEDS: SODIUM BICARBONATE 8.4% 50 ML in SODIUM CHLORIDE 0.45% 1,000 ML IV SCH ×2 (09:38→20:21)
[2019-11-02] MEDS: METOPROLOL TARTRATE INJ 1 MG/ML VIAL IV PRN (15:40)
[2019-11-02 17:04] LABS: ANION GAP 19.4 mmol/L (8-16); CALCIUM 8.7 mg/dL (8.4-10.2); CREATININE, SERUM 1.49 mg/dL (0.57-1.11); POTASSIUM 3.4 mmol/L (3.5-5.1)
--- NOTE | 2019-11-02 17:09 | NUR ---
Dr. Mcmillan notified of low potassium, IV fluids changed and potassium replacement ordered. Labs to rechecked at 1600. Pt stood and sat in chair for 20 minutes. Pt reluctant to participate in ambulation and use incentive spirometer. Pt educated on importance of getting out of bed and use of IS. Dr. Bragg informed about pt's high blood pressure, orders given for medication and physical therapy evaluation. Pt resting in bed at this time. Will continue to monitor.
--- NOTE | 2019-11-02 17:30 | NUR ---
Dr. Mcmillan informed of 1600 lab results, additional potassium replacement ordered. Will continue to monitor.
[2019-11-02] MEDS ORDERED: POTASSIUM CHLORIDE 20MEQ/100ML 100 ML IV ONE (18:00)
[2019-11-03] VITALS (23 sets, daily range): BP systolic 138–183; BP diastolic 74–98
[2019-11-03] MEDS: MORPHINE SULFATE INJ 4 MG/ML INJ 1ML IV PRN ×5 (00:03→20:59)
[2019-11-03] MEDS: HYDRALAZINE HCL 20 MG/ML VIAL IV PRN ×2 (00:13→09:32)
--- NOTE | 2019-11-03 00:17 | Progress Note ---
DATE: 11/02/2019 SUBJECTIVE: The patient is a 59-year-old female with a history of Raiza fundoplication, history of recent pylorotomy, and also exploratory laparotomy. Complains of abdominal pain. The patient had acute kidney injury, has been on fluids. Creatinine is getting better. The patient's pain management is also better. CURRENT MEDICATIONS: Reviewed. OBJECTIVE: VITAL SIGNS: Temperature 98.5, pulse of 91, respirations of 18, blood pressure is 153/81, and pulse oximetry of 96% on 2 L of nasal cannula. HEENT: Normocephalic and atraumatic. The patient has an NG tube placed in and to intermittent suction. CVS: S1 and S2 normal. Regular rhythm. ABDOMEN: Tender in the epigastrium. Bowel sounds negative. EXTREMITIES: No clubbing, no cyanosis, and no edema. SINA hose is in place. LABORATORY VALUES: Today the patient's white count is 11,000, hemoglobin of 9.3, hematocrit of 30.9, and neutrophil count was 98.1. Chemistries; sodium of 146, potassium 3.4, BUN of 21, and creatinine of 1.49. Urine, many yeast and otherwise normal. ASSESSMENT AND PLAN: A 59-year-old female Ms. Santana with: 1. Acute kidney injury after surgery, secondary to acute tubular necrosis. IV fluids continued. Volume depletion better. Lytes are better. Replace it as needed. 2. Status post Raiza fundoplication. Continue monitoring the patient. 3. Hypertension. Continue monitoring blood pressure. 4. Diabetes mellitus, continue with insulin sliding scale. 5. Continue with NG tube postsurgery. Further recommendations per clinical course and we will continue to monitor the patient and watch her lytes and creatinine function very closely. MD DONTA PatelJ/MODL /[id number]
[2019-11-03] MEDS: SODIUM CHLORIDE 0.9% 250ML IRRIG IR SCH ×6 (04:41→23:36)
[2019-11-03] MEDS: PANTOPRAZOL 40MG/SOD CHL 0.9% 50 ML IV SCH ×5 (04:41→23:36)
[2019-11-03] MEDS: METOCLOPRAMIDE HCL 10 MG/2ML VIAL IV SCH ×4 (05:17→23:37)
[2019-11-03] MEDS: NITROGLYCERIN 2% OINT 1 GM PKT TOP SCH ×4 (05:17→23:37)
[2019-11-03] MEDS: INSULIN REGULAR, HUMAN 100 UNIT/1 ML 3ML VIAL SQ SCH ×4 (05:31→23:51)
[2019-11-03 05:50] LABS: ANION GAP 17.9 mmol/L (8-16); CALCIUM 8.7 mg/dL (8.4-10.2); CREATININE, SERUM 1.17 mg/dL (0.57-1.11); MAGNESIUM 1.4 MG/DL (1.3-2.1); PHOSPHORUS 2.2 MG/DL (2.3-4.7)
[2019-11-03] MEDS: SODIUM BICARBONATE 8.4% 50 ML in SODIUM CHLORIDE 0.45% 1,000 ML IV SCH ×2 (05:52→15:23)
[2019-11-03 06:08] LABS: BASOPHILS % 0.1 % (0.0-1.0); EOSINOPHILS # (AUTO) 0.2 (0.0-0.4); EOSINOPHILS % 1.8 % (0.0-6.0); HEMATOCRIT 27.7 % (34.2-44.1); HEMOGLOBIN 8.7 g/dL (12.0-16.0); LYMPHOCYTES # (AUTO) 1.1 (1.0-3.2); LYMPHOCYTES % 10.3 % (18.0-39.1); MEAN CORPUSCULAR HEMOGLOBIN 26.2 pg (28-32); MEAN CORPUSCULAR HGB CONC 31.4 g/dL (31-35); MEAN CORPUSCULAR VOLUME 83.4 fL (81-99); MONOCYTES # (AUTO) 0.6 (0.2-0.8); MONOCYTES % 5.8 % (4.4-11.3); NEUTROPHILS # (AUTO) 8.5 (2.1-6.9); NEUTROPHILS % 81.6 % (38.7-80.0); PLATELET COUNT 198 x10e3/uL (140-360); RED BLOOD COUNT 3.32 x10e6/uL (3.6-5.1)
[2019-11-03 06:45] LABS: POTASSIUM 2.9 mmol/L (3.5-5.1)
[2019-11-03] MEDS: METOPROLOL TARTRATE INJ 1 MG/ML VIAL IV PRN ×2 (08:06→16:00)
[2019-11-03] MEDS ORDERED: POTASSIUM CHLORIDE 20MEQ/100ML 200 ML IV SCH (08:15)
[2019-11-03 09:38] LABS: ALBUMIN 2.7 g/dL (3.5-5.0); ALBUMIN/GLOBULIN RATIO 0.8 (0.8-2.0); ANION GAP 18.9 mmol/L (8-16); CALCIUM 8.7 mg/dL (8.4-10.2); CREATININE, SERUM 1.15 mg/dL (0.57-1.11)
[2019-11-03 09:48] LABS: POTASSIUM 2.9 mmol/L (3.5-5.1)
--- NOTE | 2019-11-03 09:53 | Progress Note ---
DATE: 11/03/2019 SUBJECTIVE: A 59-year-old female status post Raiza fundoplication. The patient is doing well. . No chest pain. No shortness of breath. No flatus. No bowel movement. PHYSICAL EXAMINATION: GENERAL: The patient is alert and oriented x3. VITAL SIGNS: Temperature is 99.2, pulse of 101, blood pressure is 180/91, pulse oximeter 97% on 2 L of oxygen. HEENT: Normocephalic and atraumatic. NG tube in place. CVS: S1 and S2, tachy. ABDOMEN: Tender, bowel sounds are negative. ABDOMEN: Otherwise normal. Clean and dry. EXTREMITIES: No clubbing, no cyanosis, no edema. SCDs in place. LABORATORY VALUES: White count is 10, hemoglobin of 8.7, hematocrit of 27.7. Chemistries, potassium of 2.9, BUN of 20, and creatinine of 1.17. ASSESSMENT: Ms. Santana with. 1. Acute kidney injury secondary to acute tubular necrosis, continue IV fluids. 2. Replace lytes for hypokalemia. 3. Status post Raiza fundoplication. 4. Hypertension. 5. Diabetes. 6. Obesity. PLAN: Continue with monitoring the patient. The patient is progressing well. Further recommendation per clinical course. We will continue to monitor the patient's lytes and labs. MD DONTA PatelJ/MODL /[id number]
[2019-11-03] MEDS ORDERED: ACETAMINOPHEN 1000 MG/100 ML IV PRN (12:45)
--- NOTE | 2019-11-03 15:33 | NUR ---
Nutrition Intervention Note RD Recommendation(s) for Physician: The patient meets criteria for MODERATE protein-calorie malnutrition. -Advance diet as tolerated to ADA 1800 diet with Glucerna BID -Rec MVi w/ minerals and vitamin C 500mg once a day for wound healing -If PO is not feasible within 48hr, rec to initiate PN (Consult RD) Plan of Care: RD following, monitoring for tolerance and adequacy, ONS Nutrition reason for involvement: NPO x [address] Assessment 11/03 59yo F, who was admitted for nausea and vomiting. Status post Raiza fundoplication on 10/31. NPO x 5 days. Visited pt in the room. Limited info was obtained from familys friend on bedside. Friend noticed some weight loss on pt and loss of fat/muscle around her face. Pt was on IVF at 100mL/hr with NGT on suction. No flatus or BM after surgery. No plan to advance PO intake at this time. Will continue to monitor and follow. Principal Problems/Diagnoses: 1.Acute kidney injury after surgery 2.Status post Raiza fundoplication PMH: anxiety, hypertension, hyperlipidemia, restless legs syndrome, diabetes mellitus with neuropathy I/O: +3030ml/ -4200ml IVF: Protonix, IVF @100ml/hr GI: No BM since 10/30 Skin: Stage II skin partial thickness on buttock wound care has been consulted Labs: (11/03) Na 146 H, K 2.9 L, Creatinine 1.17 H, Glucose 150 160 H, Phos 2.2 L Meds: protonix, reglan, NaCl, lopressor, sodium bicarb Ht: 62in Wt: 169lb BMI: 30.9kg/m2 IBW: 110lb +/- 10% Malnutrition Evaluation (11/03/2019) The patient meets criteria for MODERATE protein-calorie malnutrition. 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 Goal: Patient will meet 75-100% of estimated needs by follow up Progress: N/A Interventions: Carbohydrate-modified diet, Commercial beverage, IVF, Prescription medications, Multivitamin/mineral supplement therapy Monitoring/Evaluation: Total energy intake, Total protein intake, IVF, Prescription medication, Modified diet, Liquid supplement, Weight change Signed: Mariella Tan MS, RD, LD
[2019-11-03 16:17] LABS: ANION GAP 19.7 mmol/L (8-16); BLOOD UREA NITROGEN 16 mg/dL (7-26); BUN/CREATININE RATIO 17 (6-25); CALCIUM 8.5 mg/dL (8.4-10.2); CARBON DIOXIDE 22 mmol/L (22-29); CHLORIDE 106 mmol/L (98-107); CREATININE, SERUM 0.92 mg/dL (0.57-1.11); EST GLOMERULAR FILTRATION RATE > 60 ML/MIN (60-); GLUCOSE 147 mg/dL (74-118); POTASSIUM 3.7 mmol/L (3.5-5.1); SODIUM 144 mmol/L (136-145)
--- NOTE | 2019-11-03 18:07 | NUR ---
Small stage II pressure ulcer noted to R buttocks. Wound care consult ordered and foam dressing applied to wound. Pt reluctant to get out of bed. Pt educated on necessity of using incentive spirometer and getting out of bed. Pt ambulated in hallway with physical therapy and sat in chair for about [address] Delmy Aponte recheck BMP at 1600 and pt ok to transfer to medical surgical floor with telemetry if ok with attending physician. Dr. Bragg notified and gave orders to transfer to medical surgical floor with telemetry. Dr. Delmy Aponte gave orders to clamp NGT for 8 hours and then unclamp for 4 hours, continuously. educated pt on importance of ambulating frequently. Dr. Cavazos gave orders to remove Norman catheter. Will continue to monitor the patient.
[2019-11-04] VITALS (11 sets, daily range): BP systolic 134–170; BP diastolic 59–90
[2019-11-04] MEDS: MORPHINE SULFATE INJ 4 MG/ML INJ 1ML IV PRN ×3 (01:12→10:19)
[2019-11-04] MEDS: ONDANSETRON HCL INJ 2MG/ML 2ML 2 MG/ML VIAL IV PRN ×3 (01:12→21:06)
[2019-11-04] MEDS: PANTOPRAZOL 40MG/SOD CHL 0.9% 50 ML IV SCH ×4 (05:34→23:40)
[2019-11-04] MEDS: SODIUM CHLORIDE 0.9% 250ML IRRIG IR SCH ×3 (05:34→10:17)
[2019-11-04] MEDS: SODIUM BICARBONATE 8.4% 50 ML in SODIUM CHLORIDE 0.45% 1,000 ML IV SCH ×3 (05:34→23:41)
[2019-11-04] MEDS: HYDRALAZINE HCL 20 MG/ML VIAL IV PRN (05:34)
[2019-11-04] MEDS: METOCLOPRAMIDE HCL 10 MG/2ML VIAL IV SCH ×4 (05:34→23:40)
[2019-11-04] MEDS: NITROGLYCERIN 2% OINT 1 GM PKT TOP SCH ×4 (05:34→23:41)
[2019-11-04 05:53] LABS: ANION GAP 17.4 mmol/L (8-16); BLOOD UREA NITROGEN 18 mg/dL (7-26); BUN/CREATININE RATIO 21 (6-25); CALCIUM 8.6 mg/dL (8.4-10.2); CARBON DIOXIDE 26 mmol/L (22-29); CHLORIDE 105 mmol/L (98-107); CREATININE, SERUM 0.87 mg/dL (0.57-1.11); EST GLOMERULAR FILTRATION RATE > 60 ML/MIN (60-); GLUCOSE 136 mg/dL (74-118); MAGNESIUM 1.3 MG/DL (1.3-2.1); POTASSIUM 3.4 mmol/L (3.5-5.1); SODIUM 145 mmol/L (136-145)
[2019-11-04] MEDS: INSULIN REGULAR, HUMAN 100 UNIT/1 ML 3ML VIAL SQ SCH ×4 (06:00→23:51)
[2019-11-04] MEDS ORDERED: POTASSIUM CHLORIDE 20MEQ/100ML 200 ML IV ONE (08:15)
--- NOTE | 2019-11-04 11:18 | Progress Note ---
DATE: 11/04/2019 SUBJECTIVE: The patient is a 59-year-old female status post Raiza fundoplication, pylorotomy, the patient is feeling much better. No chest pain. No shortness of breath. Had some flatus yesterday. No bowel movement and has felt better ever since yesterday. No chest pains. OBJECTIVE: VITAL SIGNS: Temperature is 99.1, pulse of 74, respirations of 11, pulse oximetry of 97% O2 on 1 L. HEENT: Normocephalic and atraumatic. The patient has NG tube still in place. ABDOMEN: Soft, nontender, nondistended. Bandage clean and dry. EXTREMITIES: No clubbing, no cyanosis, no edema. SCDs in place. LABORATORY DATA: None done today. Hemoglobin yesterday was 8.7, hematocrit of 27.7. Today's sodium is 134, potassium 3.4, BUN of 18, creatinine 0.87, glucose of 136. MEDICATIONS: Reviewed. ASSESSMENT: Ms. Santana is a 59-year-old female with: 1. Acute kidney injury, status post Raiza fundoplication. 2. Hypokalemia, replaced. 3. Hypertension. 4. Diabetes. 5. Obesity. 6. Intractable nausea and vomiting, status post Raiza fundoplication and pylorotomy. Continue monitor the patient. Further recommendation per clinical course. We will continue monitoring her lytes and also her CBC on a regular basis. The patient can move out to [facility]. MD BATSHEVA Patel/MARIEL /[id number]
[2019-11-04] MEDS ORDERED: MORPHINE SULFATE 2 MG/ML SYR 1ML IV PRN (11:45)
--- NOTE | 2019-11-04 14:10 | NUR ---
Visit made by the Spiritual Care Department Pastoral Visitor, Gregg Robles. PV provided pastoral presence, communion, hospitality, and supportive listening. Pastoral Visitor informed pt/family of the scope of Zoology Teacher Services and availability. BEATRIZ GIBSON Sales Performance Analyst Spiritual Care Department O: [phone] Pager: [phone] ([phone] calling from)
[2019-11-04] MEDS: HYDROCODONE/APAP 7.5MG-325MG 1 EA TAB PO PRN ×2 (14:55→21:06)
--- NOTE | 2019-11-04 17:50 | NUR ---
Dr. Bragg notified of potassium levels, replacement ordered. Pt ambulate in hallway and sat in chair for an hour. Pt getting up to void in toilet. Per Dr. Delmy Aponte pt can have NG tube removed and be started on a clear liquid diet. Pt tolerating clear liquid diet well. Will continue to monitor the patient.
[2019-11-05] VITALS (9 sets, daily range): BP systolic 135–162; BP diastolic 65–92
[2019-11-05] MEDS: PANTOPRAZOL 40MG/SOD CHL 0.9% 50 ML IV SCH ×5 (03:03→20:44)
[2019-11-05] MEDS: ONDANSETRON HCL INJ 2MG/ML 2ML 2 MG/ML VIAL IV PRN ×2 (03:04→08:02)
[2019-11-05] MEDS: HYDROCODONE/APAP 7.5MG-325MG 1 EA TAB PO PRN ×3 (03:04→15:56)
[2019-11-05] MEDS: HYDRALAZINE HCL 20 MG/ML VIAL IV PRN (03:13)
[2019-11-05] MEDS: METOCLOPRAMIDE HCL 10 MG/2ML VIAL IV SCH ×3 (05:41→17:40)
[2019-11-05] MEDS: NITROGLYCERIN 2% OINT 1 GM PKT TOP SCH ×3 (05:41→17:40)
[2019-11-05] MEDS: INSULIN REGULAR, HUMAN 100 UNIT/1 ML 3ML VIAL SQ SCH ×4 (05:41→20:47)
[2019-11-05 05:45] LABS: BASOPHILS % 0.2 % (0.0-1.0); EOSINOPHILS # (AUTO) 0.4 (0.0-0.4); EOSINOPHILS % 6.4 % (0.0-6.0); HEMATOCRIT 26.3 % (34.2-44.1); HEMOGLOBIN 8.3 g/dL (12.0-16.0); LYMPHOCYTES # (AUTO) 1.2 (1.0-3.2); LYMPHOCYTES % 19.4 % (18.0-39.1); MEAN CORPUSCULAR HGB CONC 31.6 g/dL (31-35); MEAN CORPUSCULAR VOLUME 82.4 fL (81-99); MONOCYTES # (AUTO) 0.5 (0.2-0.8); MONOCYTES % 7.9 % (4.4-11.3); NEUTROPHILS # (AUTO) 3.9 (2.1-6.9); NEUTROPHILS % 65.9 % (38.7-80.0); PLATELET COUNT 174 x10e3/uL (140-360); RED BLOOD COUNT 3.19 x10e6/uL (3.6-5.1); RED CELL DISTRIBUTION WIDTH 17.8 % (11.7-14.4)
[2019-11-05 06:09] LABS: ANION GAP 18.8 mmol/L (8-16); BLOOD UREA NITROGEN 11 mg/dL (7-26); BUN/CREATININE RATIO 15 (6-25); CALCIUM 7.7 mg/dL (8.4-10.2); CARBON DIOXIDE 25 mmol/L (22-29); CHLORIDE 101 mmol/L (98-107); CREATININE, SERUM 0.73 mg/dL (0.57-1.11); EST GLOMERULAR FILTRATION RATE > 60 ML/MIN (60-); GLUCOSE 127 mg/dL (74-118); SODIUM 142 mmol/L (136-145)
[2019-11-05 06:11] LABS: POTASSIUM 2.8 mmol/L (3.5-5.1)
--- NOTE | 2019-11-05 06:25 | NUR ---
PT STABLE OVERNIGHT, PAIN MANAGED WITH NORCO, POTASSIUM 2.8, MD ORDER KCL [id number] TOTAL 60MEQ OF KCL. REPORT GIVEN TO ONCOMING RN
[2019-11-05] MEDS ORDERED: POTASSIUM CHLORIDE 20MEQ/100ML 300 ML IV ONE (07:15)
[2019-11-05] MEDS ORDERED: FLUCONAZOLE 100 MG/NS 50 ML 50 ML IV SCH ×2 (08:00→11:00)
[2019-11-05 08:48] LABS: PHOSPHORUS 2.2 MG/DL (2.3-4.7)
[2019-11-05 08:52] LABS: MAGNESIUM 0.9 MG/DL (1.3-2.1)
--- NOTE | 2019-11-05 10:12 | Progress Note ---
DATE: 11/05/2019 The patient is status post Raiza revision. The patient had NG tube removed yesterday and also is tolerating clear liquid diets. No complaints. No flatus and no bowel movements yet. Pain is controlled. No chest pain. No shortness of breath. No nausea, no vomiting, or diarrhea. The patient's medications reviewed. OBJECTIVE: VITAL SIGNS: Temperature is 99.1, pulse of 66, respirations of 10, blood pressure is 144/78, pulse oximetry of 95%. HEENT: Normocephalic and atraumatic. CVS: S1 and S2 normal. Regular rate and rhythm. LUNGS: Decreased air entry into lung bases. ABDOMEN: Nontender nondistended. Bandage clean and dry. EXTREMITIES: No clubbing, no cyanosis. Positive for SCDs. LABORATORY VALUES: White count is 5.93, hemoglobin of 8.3, hematocrit of 26.3. Chemistry show sodium 142, potassium 2.8, BUN of 11, creatinine 0.73. MICROBIOLOGY: Urine culture shows E species. ASSESSMENT: Ms. Isadora Parnell with: 1. Raiza revision. 2. Acute kidney injury. 3. Hypokalemia. 4. Hypertension. 5. Diabetes. 6. Obesity. 7. Yeast growth in urine. PLAN: Continue with fluid resuscitation. Potassium will be replaced. Continue monitoring her blood pressures and lytes. Continue observing the abdomen for changes. Further recommendation per clinical course. We will continue to monitor the patient. The patient also will be started on Diflucan for yeast. MD BATSHEVA Patel/MODL /[id number]
[2019-11-05] MEDS ORDERED: MAGNESIUM SULFATE 2GM/50ML 50 ML IV ONE ×2 (11:30→13:30)
--- NOTE | 2019-11-05 14:10 | NUR ---
WOUND CARE CONSULT 59 YO FEMALE HX OF NAUSEA ,VOMITING ,ABDOMINAL PAIN NEFTALI 16 ON MODERATE PUP STATUS AND INTERVENTIONS AND ALTERNATING PRESSURE SURFACE LABS: WBC- 5.92 , HGB- 8.3, GLUCOSE - 127 SKIN ASSESSMENT COMPLETE PATIENT PRESENTS WITH STAGE 2 ULCERATION TO RIGHT BUTTOCKS MEASURES .8CM X 1CM X .1CM RECOMMENDATIONS : NURSING TO CONTINUE TO MAINTAIN MODERATE PUP STATUS AND INTERVENTIONS AND ALTERNATING PRESSURE SURFACE NURSING TO CONTINUE TO ASSIST PATIENT UP FOR MEALS AND MUCH TOLERATED NURSING TO CLEAN RIGHT BUTTOCKS STG 2 ULCER DAILY WITH NS AND APPLY VENELEX OINTMENT AND COVER WITH ALLEVYN FOAM DRESSING Addendum: 11/05/19 at 1418 by Len Hooper RN Amended: Links added.
[2019-11-06] MEDS: HYDROCODONE/APAP 7.5MG-325MG 1 EA TAB PO PRN (01:25)
[2019-11-06] MEDS: METOCLOPRAMIDE HCL 10 MG/2ML VIAL IV SCH ×2 (01:31→06:07)
[2019-11-06] MEDS: PANTOPRAZOL 40MG/SOD CHL 0.9% 50 ML IV SCH (01:34)
[2019-11-06 03:00] VITALS: BP 158/79
[2019-11-06 05:33] LABS: ANION GAP 16.4 mmol/L (8-16); BLOOD UREA NITROGEN 6 mg/dL (7-26); BUN/CREATININE RATIO 8 (6-25); CALCIUM 8.1 mg/dL (8.4-10.2); CARBON DIOXIDE 25 mmol/L (22-29); CHLORIDE 100 mmol/L (98-107); CREATININE, SERUM 0.71 mg/dL (0.57-1.11); EST GLOMERULAR FILTRATION RATE > 60 ML/MIN (60-); GLUCOSE 118 mg/dL (74-118); MAGNESIUM 1.4 MG/DL (1.3-2.1); PHOSPHORUS 2.6 MG/DL (2.3-4.7); POTASSIUM 3.4 mmol/L (3.5-5.1); SODIUM 138 mmol/L (136-145)
[2019-11-06] MEDS: INSULIN REGULAR, HUMAN 100 UNIT/1 ML 3ML VIAL SQ SCH (07:30)
[2019-11-06] MEDS ORDERED: BALSAM PERU/CASTOR OIL 60 GM OINT...G. TP SCH (09:00)
[2019-11-06] MEDS ORDERED: PANTOPRAZOLE 40 MG 10ML VIAL IV SCH (09:00)
[2019-11-06 09:15] VITALS: BP 167/84
[2019-11-06 09:27] VITALS: BP 167/84
--- NOTE | 2019-11-06 10:08 | Progress Note ---
DATE: 11/06/2019 SUBJECTIVE: This is a 59-year-old female with a history of redo of Raiza fundoplication. The patient is alert and oriented. Had a good night. Pain is controlled. The patient did walk yesterday. Flatus passed. No bowel movements yet. The patient is tolerating her full liquid diet. No chest pain, no shortness of breath, and again, pain controlled. OBJECTIVE: VITAL SIGNS: Temperature 98.8, pulse of 69, respirations 16, blood pressure is 158/79, pulse ox 98% on room air. HEENT: Normocephalic, atraumatic. Pupils reactive. CVS: S1 and S2 normal. Regular rate and rhythm. ABDOMEN: Soft, nontender. Bowel sounds are positive. Midline scar with zhao in place. No wound dehiscence or drainage. EXTREMITIES: No clubbing, no cyanosis, no edema. LABORATORY VALUES: The patient's white count is normal 5.92, hemoglobin of 8.3, hematocrit 26.3. Sodium and potassium 138 and 3.4 today and BUN and creatinine are 6 and 0.71. Glucoses have been running in the 140s. ASSESSMENT: 1. Ms. Isadora Parnell is status post Raiza redo. 2. Acute kidney injury, resolved. 3. Hypokalemia, replace potassium. 4. Hypertension. 5. Diabetes. 6. Obesity. 7. Yeast. PLAN: Continue current medication. Continue advancing diet as tolerated. The patient if having a bowel movement, can be discharged home if it is okay with surgery. Further recommendation per clinical course. We will continue to monitor the patient. Diflucan has been given for yeast and we will restart her p.o. medications. Donal Bragg MD ASJ/MODL /[id number]
[2019-11-06] MEDS ORDERED: POTASSIUM CHLORIDE 10MEQ EA PO ONE (10:30)
--- NOTE | 2019-11-06 11:49 | NUR ---
Patient states understanding of plan of care after speaking with Sherie Bragg and Fadi this morning. Discharge instructions reviewed with patient and . Patient discharged home via private vehicle in the care of her .
--- NOTE | 2019-11-25 14:04 | Discharge Summary ---
HOSPITAL COURSE: This patient came to the hospital with severe abdominal pain, nausea. The patient also has a history of diabetes mellitus, which we started the patient on sliding scale. The patient also has a history of Raiza fundoplication, which seemed to be slipped. Gastric emptying study was done. The patient was given Zofran, Reglan and Phenergan to control her nausea. Also, the patient has a history of chronic back pain, which we started the patient on Dilaudid. The patient takes hydromorphone at home. Consult with Dr. Aponte was done. The patient however still continued to have the problem. Surgery was done by Dr. Aponte for recurrent hiatal hernia. Exploratory laparotomy was done. The patient had a redo of Raiza fundoplication and pyloroplasty by Dr. Aponte, did well during surgery and after surgery the patient spent time in the ICU about 2 days and once she was feeling better three days, the patient was discharged home. Had bowel sounds, bowel movements and the patient was feeling much better. Discharged home on the same medication she came in. For further information, look in the chart. FINAL DIAGNOSES: Ms. Isadora Parnell with: 1. Slipped Raiza. 2. Status post exploratory laparotomy with pyloroplasty and redo of Raiza fundoplication. 3. Intractable nausea and vomiting. For further information, look in the chart. For medicines on discharge, look in medical reconciliation sheet. MD BATSHEVA Patel/MODL /[id number]
== END 2019-11-06 11:53 | disposition home or self-care (01) | DRG 907 ==
LOC: ER 10:40 → ERHOLD 13:10 → MED/SURG2 20:00 → ICU 10-31 15:47
PROVIDERS: ADMIT Family Medicine; ATTEND Family Medicine
PROC: 0DQ40ZZ Repair Esophagogastric Junction, Open Approach (ICD-10-PCS; principal; 2019-10-29)
PROC: 0D870ZZ Division of Stomach, Pylorus, Open Approach (ICD-10-PCS; 2019-10-29)
DX: T85.591A Other mechanical complication of esophageal anti-reflux device, initial encounter (principal); N17.0 Acute kidney failure with tubular necrosis; K31.1 Adult hypertrophic pyloric stenosis; E87.2 Acidosis; B37.49 Other urogenital candidiasis; K46.9 Unspecified abdominal hernia without obstruction or gangrene; E78.5 Hyperlipidemia, unspecified; I10 Essential (primary) hypertension; K21.9 Gastro-esophageal reflux disease without esophagitis; K44.9 Diaphragmatic hernia without obstruction or gangrene; E11.43 Type 2 diabetes mellitus with diabetic autonomic (poly)neuropathy; K31.84 Gastroparesis; Z79.4 Long term (current) use of insulin; G89.4 Chronic pain syndrome; E66.9 Obesity, unspecified; Z68.31 Body mass index [BMI] 31.0-31.9, adult; L89.312 Pressure ulcer of right buttock, stage 2
CPT/HCPCS: 36415; 80048; 80053; 81001; 82150; 82550; 82553; 82570; 82948; 83690; 83735; 84100; 84132; 84156; 84300; 84484; 85025; 86850; 86900; 87086; 99284; J0360; J0690; J1100; J1170; J1450; J1817; J2001; J2250; J2270; J2405; J2550; J2765; J3010; J3475; J3480; J7030; J7040; J7050

== ENCOUNTER 2020-06-05 11:40 | Observation (INO) | payer BC, OTHER ==
[~2020-06-05] VITALS: Ht 152.4 cm; Wt 65.9 kg
[2020-06-05] MEDS ORDERED: MORPHINE SULFATE 2 MG/ML SYR 1ML IV STA (12:01)
[2020-06-05] MEDS ORDERED: ONDANSETRON HCL INJ 2MG/ML 2ML 2 MG/ML VIAL IV STA (12:01)
--- OUTSIDE RECORDS SUMMARY | 2020-06-05 12:01 | XMS REPORT | Continuity of Care Document ---
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 10:30:00 CDT Inactive 07/10/2019 [facility] Ondansetron 4 mg, Route: IVP, Drug form: INJ, ONCE, Dosing Weight 77.273, kg, Priority: STAT, Start date: 07/10/19 10:30:00 CDT, Stop date: 07/10/19 10:30:00 CDT Inactive 07/10/2019 [facility] Metformin hydrochloride 1000 MG Oral Tablet 1,000 mg = 1 tab, PO, BID-Meals, # 180 tab, 1 Refill(s), Pharmacy: [facility] [id number] Active 04/03/2019 [facility] glyBURIDE 5 mg oral tablet 10 mg = 2 tab, PO, BID, # 360 tab, 1 Refill(s), Pharmacy: [facility] [id number] Active 04/03/2019 [facility] losartan 100 mg oral tablet 10 0 mg = 1 tab, PO, Daily, # 90 tab, 1 Refill(s), Pharmacy: [facility] [id number] Active 04/03/2019 [facility] Metformin PO, 0 Refill(s) Inactive 04/03/2019 [facility] aspirin 81 mg tablet, enteric coated Notes: Do not crush or chew. (Same As: Ecotrin) N o Longer Active 03/30/2019 [facility] atorvastatin Notes: (Same as: Lipitor) Inactive 03/30/2019 [facility] remove patch Notes: Remove fro m 9 pm to 9 am daily for 12 hour nitrate free period. (Verify Patient has not taken Viagra, Cialis or Levitra in last 24 hours; if taken, hold NTG and notify MD.) Inactive 03/30/2019 [facility] Aspirin 81 MG Enteric Coated Tablet 81 mg = 1 tab, PO, Daily, # 30 tab, 0 Refill(s), Pharmacy: [facility] [id number] Active 03/29/2019 [facility] Saline Flush 0.9% 10 ml, Route : IVP, Drug Form: INJ, Dosing Weight 77.273, kg, Q12H, Start date: 03/29/19 9:00:00 CDT, Duration: 30 day, Stop date: 04/27/19 21:00:00 CDT Inactive 03/29/2019 [facility] 24 HR Nitroglycerin 0.1 MG/HR Transdermal Patch Notes: Apply only once for up to 12 hours in a 24 hour period (12 hours on and 12 hours off.) (Same as:Nitro-Dur,Deponit,Transderm Nitro) For topical use only. "Remove old patch before application of new patch" Inactive 03/29/2019 [facility] Losartan Notes: (Same as: Raegan hull) Inactive 03/29/2019 [facility] Dextrose 50% Syringe 12.5 gm, 25 mL, Route: IVP, Drug Form: INJ, Dosing Weight 77.273, kg, PRN, PRN Blood Glucose Results, Start date: 03/29/19 8:28:00 CDT, Duration: 30 day, Stop date: 04/28/19 8:27:00 CDT, 0 Inactive 03/29/2019 [facility] Glucagon 1 mg, Route: IM, Drug form: PDR/INJ, PRN, Dosing Weight 77.273, kg, PRN Blood Glucose Results, Start date: 03/29/19 8:28:00 CDT, Duration: 30 day, Stop date: 04/28/19 8:27:00 CDT, 0 Inactive 03/29/2019 [facility] Insulin Lispro Notes: (Same as : Humalog) Roll in palms of hands gently; Do not shake vigorously. WASTE: F/P - Black; E - Municipal Trash Bin Stable for 28 days at room temperature. Expires in days from Date Inactive 03/29/2019 [facility] 24 HR Nitroglycerin 0.1 MG/HR Transdermal Patch Notes: Apply only once for up to 12 hours in a 24 hour period (12 hours on and 12 hours off.) (Same as:Nitro-Dur,Deponit,Transderm Nitro) For topical use only. "Remove old patch before application of new patch" Inactive 03/29/2019 [facility] Enoxaparin Notes: (Same as: Lo venox) Inactive 03/29/2019 [facility] Aspirin 81 MG Enteric Coated Tablet 81 mg, Route: PO, Drug form: ECTAB, Q24H, Dosing Weight 77.273, kg, Start date: 03/29/19 7:00:00 CDT, Duration: 30 day, Stop date: 04/27/19 7:00:00 CDT Inactive 03/29/2019 [facility] Saline Flush 0.9% 10 ml, Route : IVP, Drug Form: INJ, Dosing Weight 77.273, kg, PRN, PRN Line Flush, Start date: 03/29/19 6:56:00 CDT, Duration: 30 day, Stop date: 04/28/19 6:55:00 CDT Inactive 03/29/2019 [facility] Ondansetron Notes: (Same as: Z latiaran) Inactive 03/29/2019 [facility] Temazepam Notes: (Same As: Res toril) Inactive 03/29/2019 [facility] Nitroglycerin Notes: (Same as: Nitroquick, Nitrostat) "Do Not Crush" Sublingual tablet Inactive 03/29/2019 [facility] Acetaminophen Notes: Do not ex ceed 4 gm/day. (Same as: Tylenol) Inactive 03/29/2019 [facility] Saline Flush 0.9% Notes: (Same as: BD Posiflush) Inactive 03/29/2019 [facility] Acetaminophen Notes: Do not ex ceed 4 gm/day. (Same as: Tylenol) Inactive 03/29/2019 [facility] Bisacodyl Notes: (Same As: Dul colax, Bisco-Lax) Inactive 03/29/2019 [facility] Hydralazine Notes: (Same as: A presoline) Push over 5 minutes Inactive 03/29/2019 [facility] Aspirin Notes: Take with food. 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, Drug form: INJ, ONCE, Dosing Weight 77.273, kg, Priority: STAT, Start date: 03/29/19 5:05:00 CDT, Stop date: 03/29/19 5:05:00 CDT Inactive 03/29/2019 [facility] Diphenhydramine 25 mg, Route: IVP, ONCE, Dosing Weight 77.273, kg, Priority: STAT, Start date: 03/29/19 5:05:00 CDT, Stop date: 03/29/19 5:05:00 CDT Inactive 03/29/2019 [facility] Blood Glucose Test Strips 1 leonidas x, MISC, TID-Before Meals, freestyle, # 100 strip, 3 Refill(s), Pharmacy: [facility] [id number] Active 01/04/2019 [facility] Blood Glucose Monitor 1 ea, [place], Daily, freestyle machine. Use as directed., # 1 ea, 0 Refill(s), Pharmacy: [facility] [id number] Active 01/04/2019 [facility] tizanidine 2 mg oral tablet 2 mg = 1 tab, PO, TID, PRN for muscle spasm, # 30 tab, 1 Refill(s), Pharmacy: [facility] [id number] Active 01/02/2019 [facility] Blood Glucose Test Strips 1 leonidas x, MISC, TID-Before Meals, # 100 strip, 3 Refill(s), Pharmacy: [facility] [id number] No Longer Active 01/02/2019 [facility] Blood Glucose Test Strips 1 leonidas x, MISC, TID-Before Meals, # 100 strip, 3 Refill(s), Pharmacy: [facility] [id number] Active 12/26/2018 [facility] Cyclobenzaprine hydrochloride 10 MG Oral Tablet [Flexeril] 10 mg = 1 tab, PO, TID, PRN for spasm, X 7 day, # 21 tab, 0 Refill(s) Active 12/23/2018 [facility] ibuprofen 600 mg oral tablet 6 00 mg = 1 tab, PO, Q8H, PRN pain, X 7 day, # 21 tab, 0 Refill(s) Active 12/23/2018 [facility] cyclobenzaprine Notes: (Same A s: Flexeril) Inactive 12/23/2018 [facility] Zofran Notes: (Same as: Zofran ODT) Inactive 12/23/2018 [facility] Acetaminophen 325 MG / Hydrocodone Willow trate 5 MG Oral Tablet Notes: (Same as: [place] 325/5) Do not ex ceed 4gm/day of acetaminophen. Inactive 12/23/2018 [facility] Metformin hydrochloride 1000 MG Oral Tablet = 1 tab, PO, BID-Meals, # 180 tab, Refill(s) 1, Pharmacy: [facility] [id number] Active 10/16/[facility] losartan 50 mg oral tablet = 1 tab, PO, Daily, # 90 tab, Refill(s) 1, [facility] [id number] Active 10/16/2018 [facility] gabapentin 600 MG Oral Tablet 600 mg = 1 tab, PO, BID, # 180 tab, 1 Refill(s), Pharmacy: [facility] [id number] No Longer Active 10/03/2018 [facility] Cefuroxime 250 MG Oral Tablet [Ceftin] 250 mg = 1 tab, PO, BID, X 7 day, # 14 tab, 0 Refill(s) No Longer Active 09/16/2018 [facility] Losartan Notes: (Same as: Raegan hull) Inactive 09/16/2018 [facility] Glyburide 10 mg, Route: PO, Dr ug form: TAB, BID, Dosing Weight 82, kg, Start date: 09/16/18 9:00:00 AREA INTELLIGENCE TECHNICIAN, Duration: 30 day, Stop date: 10/15/18 17:00:00 AREA INTELLIGENCE TECHNICIAN Inactive 09/16/2018 [facility] gabapentin 600 MG Oral Tablet Notes: (Same as: Neurontin) Inactive 09/16/2018 [facility] *Please bring pt's own glyburide to pharmacy for label * *Please bring pt's own glyburide to pharmacy for label*, ATTN:RN, Drug form: MISC, Route: MISC, ANHFT, 09/16/18 0:00:00 AREA INTELLIGENCE TECHNICIAN, Duration: 30 day, Stop date: 10/15/18 16:00:00 AREA INTELLIGENCE TECHNICIAN Inactive 09/16/2018 [facility] Ceftriaxone Notes: (Same As: Anirudh roe). Use with 100 mL NS and infuse over 30 min MEDICATION WASTE Product Size: 1000 mg Product Wasted: ___ mg No Longer Active 09/16/2018 [facility] atorvastatin Notes: (Same As: Lipitor) No Longer Active 09/16/2018 [facility] Insulin Lispro Notes: (Same as : Humalog ) Roll in palms of hands gently; Do not shake `vigorously. "Single Patient Use Only " WASTE: F/P - Black; E - Municipal Trash Bin Stable for 28 days at room temp erature. Expires in days from Date No Longer Active 09/16/2018 [facility] Dextrose 50% Syringe 12.5 gm, 25 mL, Route: IVP, Drug Form: INJ, Dosing Weight 82, kg, PRN, PRN Blood Glucose Results, Start date: 09/15/18 18:43:00 AREA INTELLIGENCE TECHNICIAN, Duration: 30 day, Stop date: 10/15/18 18:42:00 AREA INTELLIGENCE TECHNICIAN No Longer Active 09/16/2018 [facility] Glucagon 1 mg, Route: IM, Drug form: PDR/INJ, PRN, Dosing Weight 82, kg, PRN Blood Glucose Results, Start date: 09/15/18 18:43:00 AREA INTELLIGENCE TECHNICIAN, Duration: 30 day, Stop date: 10/15/18 18:42:00 AREA INTELLIGENCE TECHNICIAN No Longer Active 09/16/2018 [facility] heparin Notes: porcine heparin No Longer Active 09/15/2018 [facility] Saline Flush 0.9% Notes: (Same as: BD Posiflush) No Longer Active 09/15/2018 [facility] Dextrose 50% Syringe 12.5 gm, 25 mL, Route: IVP, Drug Form: INJ, Dosing Weight 82, kg, PRN, PRN Blood Glucose Results, Start date: 09/15/18 2:16:00 AREA INTELLIGENCE TECHNICIAN, Duration: 30 day, Stop date: 10/15/18 2:15:00 AREA INTELLIGENCE TECHNICIAN Inactive 09/15/2018 [facility] Glucagon 1 mg, Route: IM, Drug form: PDR/INJ, PRN, Dosing Weight 82, kg, PRN Blood Glucose Results, Start date: 09/15/18 2:16:00 AREA INTELLIGENCE TECHNICIAN, Duration: 30 day, Stop date: 10/15/18 2:15:00 AREA INTELLIGENCE TECHNICIAN Inactive 09/15/2018 [facility] Sodium Chloride 0.9% IV 1,000 mL 1,000 mL, Rate: 125 ml/hr, Infuse over: 8 hr, Route: IV, Dosing Weight 82 kg, Total Volume: 1,000, Start date: 09/15/18 2:16:00 AREA INTELLIGENCE TECHNICIAN, Duration: 30 day, Stop date: 10/15/18 2:15:00 AREA INTELLIGENCE TECHNICIAN, 1.9, m2 No Longer Active 09/15/2018 [facility] Ondansetron Notes: (Same as: Sreekanth ricks) MEDICATION WASTE Product Size: 4 mg Product Wasted: ___ mg No Longer Active 09/15/2018 [facility] Acetaminophen Notes: Do not ex ceed 4 gm/day. (Same as: Tylenol) No Longer Active 09/15/2018 [facility] Morphine Notes: (Same as:MORPh ine Sulfate) No Longer Active 09/15/2018 [facility] Sodium Chloride 0.9% (Bolus) IV 1,000 mL, 1000 ml/hr, Infuse Over: 1 hr, Route: IV, 1,000, Drug form: INJ, ONCE, Dosing Weight 82 kg, Start date: 09/15/18 0:31:00 AREA INTELLIGENCE TECHNICIAN, Stop date: 09/15/18 0:31:00 AREA INTELLIGENCE TECHNICIAN Inactive 09/15/2018 [facility] Morphine Notes: (Same as:MORPh ine Sulfate) Inactive 09/15/2018 [facility] Rocephin + sterile water 10 mL Notes: (Same As: Rocephin). Use with 100 mL NS and infuse over 30 min MEDICATION WASTE Product Size: 1000 mg Product Wasted: ___ mg Inactive 09/15/2018 [facility] Cephalexin 500 MG Oral Capsule [Keflex] 500 mg = 1 cap, PO, TID, X 7 day, # 21 cap, 0 Refill(s) Inactive 09/15/2018 [facility] Ondansetron 4 MG Disintegrating Tablet [Zofran] 4 mg = 1 tab, PO, TID, PRN Nausea & Vomiting, Dissolve tab under tongue, # 15 tab, 0 Refill(s) Inactive 09/15/2018 [facility] Sodium Chloride 0.9% (Bolus) IV 1,000 mL, 1000 ml/hr, Infuse Over: 1 hr, Route: IV, 1,000, Drug form: INJ, ONCE, Priority: STAT, Dosing Weight 77.273 kg, Start date: 09/14/18 17:42:00 AREA INTELLIGENCE TECHNICIAN, Stop date: 09/14/18 17:42:00 AREA INTELLIGENCE TECHNICIAN Inactive 09/14/2018 [facility] Morphine Notes: (Same as:MORPh ine Sulfate) Inactive 09/14/2018 [facility] Zofran Notes: (Same as: Zofran ) MEDICATION WASTE Product Size: 4 mg Product Wasted: ___ mg Inactive 09/14/2018 [facility] Morphine Notes: (Same as:MORPh ine Sulfate) Inactive 09/14/2018 [facility] Sodium Chloride 0.9% (Bolus) IV 1,000 mL, 1000 ml/hr, Infuse Over: 1 hr, Route: IV, 1,000, Drug form: INJ, ONCE, Priority: STAT, Dosing Weight 77.273 kg, Start date: 09/14/18 15:50:00 AREA INTELLIGENCE TECHNICIAN, Stop date: 09/14/18 15:50:00 AREA INTELLIGENCE TECHNICIAN Inactive 09/14/2018 [facility] Sulfamethoxazole 800 MG / Trimethoprim 1 60 MG Oral Tablet 1 tab, PO, BID, For UTI, X 3 day, # 6 ta b, 0 Refill(s), Pharmacy: [facility] [id number] No Longer Active 09/11/2018 [facility] ciprofloxacin 500 mg oral tablet 500 mg = 1 tab, PO, Q12H, for UTI, X 3 day, # 6 tab, 0 Refill(s), Pharmacy: [facility] [id number] No Longer Active 09/08/2018 [facility] ciprofloxacin 500 mg oral tablet 500 mg = 1 tab, PO, Q12H, for UTI, X 3 day, # 6 tab, 0 Refill(s), Pharmacy: [facility] [id number] Inactive 09/08/2018 [facility] Insulin Pen Crook Misc/Other 1 ea, MISC, Daily, # 100 ea, 3 Refill(s), dispense needles for victoza No Longer Active 05/26/2018 [facility] 0.65 ML exenatide 3.08 MG/ML Prefilled S yringe [Bydureon] 2 mg, SUB-Q, qWeek, # 4 ea, 5 Refill(s), [id number] No Longer Active 04/13/2018 [facility] gabapentin 600 MG Oral Tablet 300 mg = 0.5 tab, PO, BID, X 90 day, # 90 tab, 1 Refill(s), Pharmacy: [facility] [id number] No Longer Active 04/12/2018 [facility] Metformin hydrochloride 1000 MG Oral Tablet 1,000 mg = 1 tab, PO, BID-Meals, # 180 tab, 1 Refill(s), Pharmacy: [facility] [id number] No Longer Active 04/12/2018 [facility] 3 ML liraglutide 6 MG/ML Prefilled Syringe [Victoza] 1.2 mg, SUB-Q, Daily, Initial: 0.6 mg once daily for 1 week; then increase to 1.2 mg once daily, # 6 mL, 5 Refill(s), Pharmacy: [facility] [id number] Active 04/11/2018 [facility] glyBURIDE 5 mg oral tablet 10 mg = 2 tab, PO, BID, # 360 tab, 1 Refill(s), Pharmacy: [facility] [id number] Active 04/11/2018 [facility] gabapentin 600 MG Oral Tablet 300 mg = 0.5 tab, PO, BID, X 90 day, # 90 tab, 1 Refill(s), Pharmacy: [facility] [id number] No Longer Active 04/11/2018 [facility] Metformin hydrochloride 500 MG Oral Tablet 500 mg = 1 tab, PO, BID-Meals, X 90 day, # 180 tab, 1 Refill(s), [facility] [id number] Inactive 04/11/2018 [facility] losartan 50 mg oral tablet 50 mg = 1 tab, PO, Daily, # 90 tab, 1 Refill(s), [facility] [id number] No Longer Active 04/11/2018 [facility] atorvastatin 10 mg oral tablet 10 mg = 1 tab, PO, Bedtime, # 90 tab, 1 Refill(s), [facility] [id number] Active 01/11/2018 [facility] glyBURIDE 5 mg oral tablet 10 mg = 2 tab, PO, BID, # 360 tab, 1 Refill(s), [facility] [id number] Active 01/11/2018 [facility] canagliflozin 100 MG Oral Tablet [Invokana] 100 mg = 1 tab, PO, Before Breakfast, # 30 tab, 5 Refill(s), Pharmacy: [facility] [id number] Active 01/10/2018 [facility] losartan 25 mg oral tablet 25 mg = 1 tab, PO, Daily, # 90 tab, 1 Refill(s), [facility] [id number] Active 01/10/2018 [facility] gabapentin 600 MG Oral Tablet 300 mg = 0.5 tab, PO, BID, # 90 tab, 1 Refill(s), Pharmacy: [facility] [id number] Active 01/10/2018 [facility] Hydroxyzine Hydrochloride 25 MG Oral Tablet 12.5 mg = 0.5 tab, PO, QID, PRN Itching, X 10 day, # 30 tab, 2 Refill(s), Pharmacy: [facility] [id number] No Longer Active 11/07/2017 [facility] Hydroxyzine Hydrochloride 25 MG Oral Tablet 12.5 mg = 0.5 tab, PO, QID, PRN Itching, X 10 day, # 30 tab, 0 Refill(s), Pharmacy: [facility] [id number] Inactive 11/07/2017 [facility] losartan 25 mg oral tablet 25 mg = 1 tab, PO, Daily, # 30 tab, 5 Refill(s), Pharmacy: [facility] [id number] No Longer Active 11/07/2017 [facility] Codeine Phosphate 2 MG/ML / Guaifenesin 20 MG/ML Oral Solution [Cheratussin] 5 ml, PO, Q6H, PRN for cough and congest ion, X 14 day, # 150 mL, 0 Refill(s) Active 09/08/2017 [facility] Fluticasone propionate 0.05 MG/ACTUAT Me tered Dose Nasal [place] 1 spray, NASAL, Daily, # 1 ea, 3 Refill( s), Pharmacy: [facility] [id number] Active 09/08/2017 [facility] Albuterol 0.833 MG/ML / Ipratropium Brom carl 0.167 MG/ML Inhalant Solution 3 mL, Route: NEB, Dosing Weight 85.455, kg, ONCE, STAT, Start date: 06/23/17 8:44:00 CDT, Stop date: 06/23/17 8:44:00 CDT Inactive 06/23/2017 [facility] Sodium Chloride 0.9% IV 500 mL 500 mL, Rate: 25 ml/hr, Infuse over: 20 hr, Route: IV, Dosing Weight 85.455 kg, Total Volume: 500, Start date: 06/23/17 8:44:00 CDT, Duration: 30 day, Stop date: 07/23/17 8:43:00 CDT Inactive 06/23/2017 [facility] pregabalin 100 MG Oral Capsule [Lyrica] 100 mg = 1 cap, PO, BID, # 90 cap, 1 Refill(s) Active 06/20/2017 [facility] Omeprazole 40 MG Oral Capsule Delayed Release ; Start Date: 03/30/2012; End Date: (Active) Active 03/30/2012 [facility] Allergies, Adverse Reactions, Alerts Substance Category Reaction Severity Reaction type Status Date Reported Comments Source No Known Drug Allergies drug a llergy drug aller gy Active [facility] No Known Medication Allergies Assertion Drug aller gy [facility] Immunizations Immunization Date Given Site Status Last Updated Comments Source influenza virus vaccine, inactivated 09/09/2019 Right deltoid completed Ed [facility] pneumococcal 23-valent vaccine 09/16/2018 Left deltoid completed Fadi Pepe [facility] influenza virus vaccine, inactivated<sup>1</sup> 07/24/2018 Left Deltoid completed [place] Result Comment: Patient waited 15 minutes, no reaction noted. [facility] influenza virus vaccine, inactivated<sup>2</sup> 09/08/2017 Left Deltoid completed [place] Result Comment: Patient waited 15 minutes, no reaction noted. [facility] influenza virus vaccine, inactivated<sup>1</sup> 09/08/2017 Left Deltoid completed [place] Result Comment: Patient waited 15 minutes, no reaction noted. [facility], [facility] Results Order Name Results Value Reference Range Date Interpretation Comments Source CHEM PANEL Lactic Acid Lvl 1.7 0.5 - 2.2 09/08/2019 [facility] CHEM PANEL Lactic Acid Lvl 3.7 0.5 - 2.2 09/08/2019 [facility] CHEM PANEL Lactic Acid Lvl 3.9 0.5 - 2.2 09/07/2019 [facility] GENTAMICIN:SUSC:PT:ISOLATE:ORDQN:EUSEBIA Culture: Urine >100,000 CFU/mL Enterobacter cloacae 09/07/2019 [facility] GENTAMICIN:SUSC:PT:ISOLATE:ORDQN:EUSEBIA Enterobacter cloacae Enterobacter cloacae 09/07/2019 [facility] URINE AND STOOL UA Turbidity Clear (09/07/19 1:15 PM) Clear 09/07/2019 [facility] URINE AND STOOL UA Spec Grav 1.017 <=1.030 09/07/2019 [facility] URINE AND STOOL UA pH 6.0 5.0 - 8.0 09/07/2019 [facility] URINE AND STOOL UA Protein Negative mg/dL Negative mg/dL 09/07/2019 [facility] URINE AND STOOL UA Glucose 50 mg/dL Negative mg/dL 09/07/2019 [facility] URINE AND STOOL UA Ketones Trace mg/dL Negative mg/dL 09/07/2019 [facility] URINE AND STOOL UA Bili Negative *NA* (09/07/19 1:15 PM) Negative 09/07/2019 [facility] URINE AND STOOL UA Blood Negative (09/07/19 1:15 PM) Negative 09/07/2019 [facility] URINE AND STOOL UA Nitrite Negative (09/07/19 1:15 PM) Negative 09/07/2019 [facility] URINE AND STOOL UA Leuk Est Trace *ABN* (09/07/19 1:15 PM) Negative 09/07/2019 [facility] URINE AND STOOL UA Sq Epi Occasional /LPF Few /LPF 09/07/2019 [facility] URINE AND STOOL UA WBC 14 0 - 5 09/07/2019 [facility] URINE AND STOOL UA RBC 3 0 - 2 09/07/2019 [facility] URINE AND STOOL UA Bacteria Many /HPF None Seen /HPF 09/07/2019 [facility] URINE AND STOOL UA Mucus Few /LPF None Seen /LPF 09/07/2019 [facility] URINE AND STOOL UA Hyal Cast 1 0 - 2 09/07/2019 [facility] URINE AND STOOL UA Color Ltyellow 09/07/2019 [facility] URINE AND STOOL UA Urobilinogen <=1.0 mg/dL 0.1 - 1.0 09/07/2019 [facility] CARDIAC ENZYMES Troponin-I <0.02 0.00 - 0.40 09/07/2019 [facility] CARDIAC ENZYMES Total CK 83 12 - 191 09/07/2019 [facility] CHEM PANEL Glucose Lvl 174 70 - 99 09/07/2019 [facility] CHEM PANEL BUN 22 7 - 22 09/07/2019 [facility] CHEM PANEL Creatinine Lvl 0.97 0.50 - 1.40 09/07/2019 [facility] CHEM PANEL Sodium Lvl 141 135 - 145 09/07/2019 [facility] CHEM PANEL Potassium Lvl 4.3 3.5 - 5.1 09/07/2019 [facility] CHEM PANEL Chloride Lvl 109 95 - 109 09/07/2019 [facility] CHEM PANEL CO2 22 24 - 32 09/07/2019 [facility] CHEM PANEL Calcium Lvl 9.1 8.5 - 10.5 09/07/2019 [facility] CHEM PANEL Total Protein 7.8 6.4 - 8.4 09/07/2019 [facility] CHEM PANEL Albumin Lvl 3.6 3.5 - 5.0 09/07/2019 [facility] CHEM PANEL ALT 28 0 - 65 09/07/2019 [facility] CHEM PANEL AST 25 0 - 37 09/07/2019 [facility] CHEM PANEL Alk Phos 141 39 - 136 09/07/2019 [facility] CHEM PANEL Bili Total 0.4 0.2 - 1.3 09/07/2019 [facility] CHEM PANEL eGFR 64 09/07/2019 Result Comment: The eGFR is calculated using [...] by the estimated BMI. [facility] CHEM PANEL AGAP 14.3 10.0 - 20.0 09/07/2019 [facility] CHEM PANEL B/C Ratio 23 6 - 25 09/07/2019 [facility] CHEM PANEL Globulin 4.2 2.7 - 4.2 09/07/2019 [facility] CHEM PANEL A/G Ratio 0.9 0.7 - 1.6 09/07/2019 [facility] CHEM PANEL Lipase Lvl 95 73 - 393 09/07/2019 [facility] CHEM PANEL Magnesium Lvl 1.7 1.8 - 2.4 09/07/2019 [facility] HEMATOLOGY WBC 7.0 3.7 - 10.4 09/07/2019 [facility] HEMATOLOGY RBC 3.81 4.20 - 5.40 09/07/2019 [facility] HEMATOLOGY Hgb 10.8 12.0 - 16.0 09/07/2019 [facility] HEMATOLOGY Hct 33.5 36.0 - 48.0 09/07/2019 [facility] HEMATOLOGY MCV 87.9 80.0 - 98.0 09/07/2019 [facility] HEMATOLOGY MCH 28.2 27.0 - 31.0 09/07/2019 [facility] HEMATOLOGY MCHC 32.1 32.0 - 36.0 09/07/2019 [facility] HEMATOLOGY RDW 13.7 11.5 - 14.5 09/07/2019 [facility] HEMATOLOGY Platelet 290 133 - 450 09/07/2019 [facility] HEMATOLOGY MPV 8.9 7.4 - 10.4 09/07/2019 [facility] HEMATOLOGY INR 0.96 0.85 - 1.17 09/07/2019 [facility] HEMATOLOGY PT 12.6 12.0 - 14.7 09/07/2019 [facility] HEMATOLOGY PTT 30.4 22.9 - 35.8 09/07/2019 [facility] HEMATOLOGY Segs 69.4 45.0 - 75.0 09/07/2019 [facility] HEMATOLOGY Lymphocytes 21.8 20.0 - 40.0 09/07/2019 [facility] HEMATOLOGY Monocytes 6.0 2.0 - 12.0 09/07/2019 [facility] HEMATOLOGY Eosinophils 2.4 0.0 - 4.0 09/07/2019 [facility] HEMATOLOGY Basophils 0.4 0.0 - 1.0 09/07/2019 [facility] HEMATOLOGY Neutrophils # 4.8 1.5 - 8.1 09/07/2019 [facility] HEMATOLOGY Lymphocytes # 1.5 1.0 - 5.5 09/07/2019 [facility] HEMATOLOGY Monocytes # 0.4 0.0 - 0.8 09/07/2019 [facility] HEMATOLOGY Eosinophils # 0.2 0.0 - 0.5 09/07/2019 [facility] CHEM PANEL Glucose Lvl 259 70 - 99 08/20/2019 [facility] CHEM PANEL BUN 22 7 - 22 08/20/2019 [facility] CHEM PANEL Creatinine Lvl 1.04 0.50 - 1.40 08/20/2019 [facility] CHEM PANEL Sodium Lvl 138 135 - 145 08/20/2019 [facility] CHEM PANEL Potassium Lvl 4.1 3.5 - 5.1 08/20/2019 [facility] CHEM PANEL Chloride Lvl 107 95 - 109 08/20/2019 [facility] CHEM PANEL CO2 25 24 - 32 08/20/2019 [facility] CHEM PANEL AGAP 10.1 10.0 - 20.0 08/20/2019 [facility] CHEM PANEL Calcium Lvl 8.1 8.5 - 10.5 08/20/2019 [facility] CHEM PANEL eGFR 59 08/20/2019 Result Comment: The eGFR is calculated using [...] should be multiplied by the estimated BMI. [facility] HEMATOLOGY WBC 8.0 3.7 - 10.4 08/20/2019 [facility] HEMATOLOGY RBC 3.39 4.20 - 5.40 08/20/2019 [facility] HEMATOLOGY Hgb 10.1 12.0 - 16.0 08/20/2019 [facility] HEMATOLOGY Hct 30.5 36.0 - 48.0 08/20/2019 [facility] HEMATOLOGY MCV 89.9 80.0 - 98.0 08/20/2019 [facility] HEMATOLOGY MCH 29.7 27.0 - 31.0 08/20/2019 [facility] HEMATOLOGY MCHC 33.1 32.0 - 36.0 08/20/2019 [facility] HEMATOLOGY RDW 13.5 11.5 - 14.5 08/20/2019 [facility] HEMATOLOGY Platelet 200 133 - 450 08/20/2019 [facility] HEMATOLOGY MPV 8.6 7.4 - 10.4 08/20/2019 [facility] HEMATOLOGY Segs 91.1 45.0 - 75.0 08/20/2019 [facility] HEMATOLOGY Lymphocytes 6.8 20.0 - 40.0 08/20/2019 [facility] HEMATOLOGY Monocytes 1.3 2.0 - 12.0 08/20/2019 [facility] HEMATOLOGY Eosinophils 0.6 0.0 - 4.0 08/20/2019 [facility] HEMATOLOGY Basophils 0.2 0.0 - 1.0 08/20/2019 [facility] HEMATOLOGY Neutrophils # 7.3 1.5 - 8.1 08/20/2019 [facility] HEMATOLOGY Lymphocytes # 0.5 1.0 - 5.5 08/20/2019 [facility] HEMATOLOGY Monocytes # 0.1 0.0 - 0.8 08/20/2019 [facility] Culture: Anaerobic No Anaerobes Is olated After 3 Days 08/20/2019 [facility] Gram Stain Report Few Wbc'S; No Organisms Seen 08/20/2019 [facility] Culture: Aspirate/Body Fluid/Tissue No Growth 08/20/2019 [facility] BLOOD BANK RESULTS Antibody Scrn Negative (08/20/19 3:27 AM) 08/20/2019 [facility] BLOOD BANK RESULTS ABO/Rh O POS 08/20/2019 [facility] CHEM PANEL Glucose Lvl 154 70 - 99 08/20/2019 [facility] CHEM PANEL BUN 25 7 - 22 08/20/2019 [facility] CHEM PANEL Creatinine Lvl 0.88 0.50 - 1.40 08/20/2019 [facility] CHEM PANEL Sodium Lvl 139 135 - 145 08/20/2019 [facility] CHEM PANEL Potassium Lvl 4.2 3.5 - 5.1 08/20/2019 [facility] CHEM PANEL Chloride Lvl 107 95 - 109 08/20/2019 [facility] CHEM PANEL CO2 25 24 - 32 08/20/2019 [facility] CHEM PANEL Calcium Lvl 8.7 8.5 - 10.5 08/20/2019 [facility] CHEM PANEL eGFR 72 08/20/2019 Result Comment: The eGFR is calculated using [...] should be multiplied by the estimated BMI. [facility] CHEM PANEL AGAP 11.2 10.0 - 20.0 08/20/2019 [facility] HEMATOLOGY Segs 55.3 45.0 - 75.0 08/20/2019 [facility] HEMATOLOGY Lymphocytes 27.9 20.0 - 40.0 08/20/2019 [facility] HEMATOLOGY Monocytes 6.9 2.0 - 12.0 08/20/2019 [facility] HEMATOLOGY Eosinophils 9.4 0.0 - 4.0 08/20/2019 [facility] HEMATOLOGY Basophils 0.5 0.0 - 1.0 08/20/2019 [facility] HEMATOLOGY Neutrophils # 3.2 1.5 - 8.1 08/20/2019 [facility] HEMATOLOGY Lymphocytes # 1.6 1.0 - 5.5 08/20/2019 [facility] HEMATOLOGY Monocytes # 0.4 0.0 - 0.8 08/20/2019 [facility] HEMATOLOGY Eosinophils # 0.5 0.0 - 0.5 08/20/2019 [facility] HEMATOLOGY R-time 4.8 5.0 - 10.0 08/20/2019 [facility] HEMATOLOGY K-time 0.9 1.0 - 3.0 08/20/2019 [facility] HEMATOLOGY Angle 61.1 53.0 - 72.0 08/20/2019 [facility] HEMATOLOGY Max Amp 71.8 50.0 - 70.0 08/20/2019 [facility] HEMATOLOGY G-value 12.8 4.5 - 11.0 08/20/2019 [facility] HEMATOLOGY Ly30 0.9 0.0 - 7.5 08/20/2019 [facility] HEMATOLOGY Coag Index 2.1 -3.0-3.0 - 3.0 08/20/2019 [facility] HEMATOLOGY TEG Data See N ote (08/20/19 3:27 AM) 08/20/2019 [facility] HEMATOLOGY TEG Interp Throm belastograph results show shortened value of R and increased value of MA. These findings are suggestive of platelet and enzymatic hypercoagulation. clinical correlation is suggested. CPT:40589 08/20/2019 [facility] HEMATOLOGY PT 12.6 12.0 - 14.7 08/20/2019 [facility] HEMATOLOGY INR 0.96 0.85 - 1.17 08/20/2019 [facility] HEMATOLOGY PTT 33.5 22.9 - 35.8 08/20/2019 [facility] HEMATOLOGY WBC 5.9 3.7 - 10.4 08/20/2019 [facility] HEMATOLOGY RBC 3.43 4.20 - 5.40 08/20/2019 [facility] HEMATOLOGY Hgb 10.1 12.0 - 16.0 08/20/2019 [facility] HEMATOLOGY Hct 30.8 36.0 - 48.0 08/20/2019 [facility] HEMATOLOGY MCV 89.8 80.0 - 98.0 08/20/2019 [facility] HEMATOLOGY MCH 29.6 27.0 - 31.0 08/20/2019 [facility] HEMATOLOGY MCHC 33.0 32.0 - 36.0 08/20/2019 [facility] HEMATOLOGY RDW 13.6 11.5 - 14.5 08/20/2019 [facility] HEMATOLOGY Platelet 189 133 - 450 08/20/2019 [facility] HEMATOLOGY MPV 8.5 7.4 - 10.4 08/20/2019 [facility] BLOOD BANK RESULTS ABO/Rh O POS 08/19/2019 [facility] BLOOD BANK RESULTS Antibody Scrn Negative (08/19/19 6:37 AM) 08/19/2019 [facility] IMMUNOLOGY CDC HIV 4th GEN Negat hellen *NA* (08/19/19 6:32 AM) Negative 08/19/2019 [facility] HEMATOLOGY PT 12.4 12.0 - 14.7 08/19/2019 [facility] HEMATOLOGY INR 0.94 0.85 - 1.17 08/19/2019 [facility] HEMATOLOGY PTT 31.5 22.9 - 35.8 08/19/2019 [facility] CHEM PANEL Glucose Lvl 255 70 - 99 08/19/2019 [facility] CHEM PANEL BUN 21 7 - 22 08/19/2019 [facility] CHEM PANEL Creatinine Lvl 1.01 0.50 - 1.40 08/19/2019 [facility] CHEM PANEL Sodium Lvl 140 135 - 145 08/19/2019 [facility] CHEM PANEL Potassium Lvl 3.9 3.5 - 5.1 08/19/2019 [facility] CHEM PANEL Chloride Lvl 111 95 - 109 08/19/2019 [facility] CHEM PANEL CO2 28 24 - 32 08/19/2019 [facility] CHEM PANEL Calcium Lvl 8.7 8.5 - 10.5 08/19/2019 [facility] CHEM PANEL eGFR 61 08/19/2019 Result Comment: The eGFR is calculated using [...] should be multiplied by the estimated BMI. [facility] CHEM PANEL AGAP 4.9 10.0 - 20.0 08/19/2019 [facility] HEMATOLOGY WBC 7.8 3.7 - 10.4 08/19/2019 [facility] RBC 3.60 4.20 - 5.40 08/19/2019 [facility] HEMATOLOGY Hgb 10.8 12.0 - 16.0 08/19/2019 [facility] HEMATOLOGY Hct 32.3 36.0 - 48.0 08/19/2019 [facility] HEMATOLOGY MCV 89.8 80.0 - 98.0 08/19/2019 [facility] HEMATOLOGY MCH 29.9 27.0 - 31.0 08/19/2019 [facility] MCHC 33.3 32.0 - 36.0 08/19/2019 [facility] RDW 13.2 11.5 - 14.5 08/19/2019 [facility] Platelet 216 133 - 450 08/19/2019 [facility] HEMATOLOGY MPV 8.4 7.4 - 10.4 08/19/2019 [facility] HEMATOLOGY Sed Rate 27 0 - 20 08/19/2019 [facility] HEMATOLOGY Segs 60.5 45.0 - 75.0 08/19/2019 [facility] HEMATOLOGY Lymphocytes 24.6 20.0 - 40.0 08/19/2019 [facility] HEMATOLOGY Monocytes 7.6 2.0 - 12.0 08/19/2019 [facility] HEMATOLOGY Eosinophils 7.0 0.0 - 4.0 08/19/2019 [facility] HEMATOLOGY Basophils 0.3 0.0 - 1.0 08/19/2019 [facility] HEMATOLOGY Neutrophils # 4.7 1.5 - 8.1 08/19/2019 [facility] HEMATOLOGY Lymphocytes # 1.9 1.0 - 5.5 08/19/2019 [facility] HEMATOLOGY Monocytes # 0.6 0.0 - 0.8 08/19/2019 [facility] HEMATOLOGY Eosinophils # 0.5 0.0 - 0.5 08/19/2019 [facility] IMMUNOLOGY C-REACTIVE PROTEIN 4.5 <=2.9 mg/L 08/19/2019 [facility] URINE AND STOOL UA Turbidity Clear (07/10/19 12:33 PM) Clear 07/10/2019 [facility] URINE AND STOOL UA Spec Grav 1.012 <=1.030 07/10/2019 [facility] URINE AND STOOL UA pH 7.0 5.0 - 8.0 07/10/2019 [facility] URINE AND STOOL UA Protein Negative mg/dL Negative mg/dL 07/10/2019 [facility] URINE AND STOOL UA Glucose Negative mg/dL Negative mg/dL 07/10/2019 [facility] URINE AND STOOL UA Ketones Negative mg/dL Negative mg/dL 07/10/2019 [facility] URINE AND STOOL UA Bili Negative *NA* (07/10/19 12:33 PM) Negative 07/10/2019 [facility] URINE AND STOOL UA Blood Negative (07/10/19 12:33 PM) Negative 07/10/2019 [facility] URINE AND STOOL UA Nitrite Positive *ABN* (07/10/19 12:33 PM) Negative 07/10/2019 [facility] URINE AND STOOL UA Leuk Est Trace *ABN* (07/10/19 12:33 PM) Negative 07/10/2019 [facility] URINE AND STOOL UA Sq Epi Occasional /LPF Few /LPF 07/10/2019 [facility] URINE AND STOOL UA WBC 17 0 - 5 07/10/2019 [facility] URINE AND STOOL UA RBC 2 0 - 2 07/10/2019 [facility] URINE AND STOOL UA Bacteria Occasional /HPF None Seen /HPF 07/10/2019 [facility] URINE AND STOOL UA Color Ltyellow 07/10/2019 [facility] URINE AND STOOL UA Urobilinogen <=1.0 mg/dL 0.1 - 1.0 07/10/[address] [facility] Culture: Urine Subculture In P rogress 07/10/2019 [facility] CARDIAC ENZYMES Total CK 124 12 - 191 07/10/2019 [facility] CARDIAC ENZYMES BNP 31 <=100 pg/mL 07/10/2019 [facility] CHEM PANEL Glucose Lvl 67 70 - 99 07/10/2019 [facility] CHEM PANEL BUN 10 7 - 22 07/10/2019 [facility] CHEM PANEL Creatinine Lvl 0.87 0.50 - 1.40 07/10/2019 [facility] CHEM PANEL Sodium Lvl 142 135 - 145 07/10/2019 [facility] CHEM PANEL Potassium Lvl 4.1 3.5 - 5.1 07/10/2019 [facility] CHEM PANEL Chloride Lvl 108 95 - 109 07/10/2019 [facility] CHEM PANEL CO2 27 24 - 32 07/10/2019 [facility] CHEM PANEL Calcium Lvl 9.6 8.5 - 10.5 07/10/2019 [facility] CHEM PANEL Total Protein 7.5 6.4 - 8.4 07/10/2019 [facility] CHEM PANEL Albumin Lvl 3.6 3.5 - 5.0 07/10/2019 [facility] CHEM PANEL ALT 29 0 - 65 07/10/2019 [facility] CHEM PANEL AST 25 0 - 37 07/10/2019 [facility] CHEM PANEL Alk Phos 111 39 - 136 07/10/2019 [facility] CHEM PANEL Bili Total 0.5 0.2 - 1.3 07/10/2019 [facility] CHEM PANEL eGFR 73 07/10/2019 Result Comment: The eGFR is calculated using [...] should be multiplied by the estimated BMI. [facility] CHEM PANEL AGAP 11.1 10.0 - 20.0 07/10/2019 [facility] CHEM PANEL B/C Ratio 11 6 - 25 07/10/2019 [facility] CHEM PANEL Globulin 3.9 2.7 - 4.2 07/10/2019 [facility] CHEM PANEL A/G Ratio 0.9 0.7 - 1.6 07/10/2019 [facility] CHEM PANEL Magnesium Lvl 1.4 1.8 - 2.4 07/10/2019 [facility] HEMATOLOGY WBC 5.8 3.7 - 10.4 07/10/2019 [facility] HEMATOLOGY RBC 4.03 4.20 - 5.40 07/10/2019 [facility] Hgb 12.1 12.0 - 16.0 07/10/2019 [facility] Hct 36.4 36.0 - 48.0 07/10/2019 [facility] HEMATOLOGY MCV 90.4 80.0 - 98.0 07/10/2019 [facility] MCH 30.0 27.0 - 31.0 07/10/2019 [facility] MCHC 33.2 32.0 - 36.0 07/10/2019 [facility] RDW 13.1 11.5 - 14.5 07/10/2019 [facility] Platelet 198 133 - 450 07/10/2019 [facility] MPV 8.5 7.4 - 10.4 07/10/2019 [facility] INR 0.97 0.85 - 1.17 07/10/2019 [facility] HEMATOLOGY PT 12.7 12.0 - 14.7 07/10/2019 [facility] HEMATOLOGY Segs 70.4 45.0 - 75.0 07/10/2019 [facility] HEMATOLOGY Lymphocytes 20.5 20.0 - 40.0 07/10/2019 [facility] HEMATOLOGY Monocytes 7.0 2.0 - 12.0 07/10/2019 [facility] HEMATOLOGY Eosinophils 1.8 0.0 - 4.0 07/10/2019 [facility] HEMATOLOGY Basophils 0.3 0.0 - 1.0 07/10/2019 [facility] HEMATOLOGY Neutrophils # 4.1 1.5 - 8.1 07/10/2019 [facility] HEMATOLOGY Lymphocytes # 1.2 1.0 - 5.5 07/10/2019 [facility] HEMATOLOGY Monocytes # 0.4 0.0 - 0.8 07/10/2019 [facility] HEMATOLOGY Eosinophils # 0.1 0.0 - 0.5 07/10/2019 [facility] CARDIAC ENZYMES Troponin-I <0.02 0.00 - 0.40 03/29/2019 [facility] CARDIAC ENZYMES Troponin-I <0.02 0.00 - 0.40 03/29/2019 [facility] LIPIDS LDL (Calculated) 64 <=99 mg/dL 03/29/2019 [facility] LIPIDS VLDL 29 03/29/2019 [facility] LIPIDS Chol 154 <=199 mg/dL 03/29/2019 [facility] LIPIDS HDL 61 >=61 mg/dL 03/29/2019 [facility] LIPIDS Trig 144 <=149 mg/dL 03/29/2019 [facility] LIPIDS CHD Risk 2.52 3.90 - 5.80 03/29/2019 [facility] SPECIAL CHEMISTRY Hgb A1C 6.6 <=5.6 % 03/29/2019 [facility] URINE AND STOOL UA Mucus Few /LPF None Seen /LPF 03/29/2019 [facility] URINE AND STOOL UA Color Ltyellow 03/29/2019 [facility] URINE AND STOOL UA Urobilinogen <=1.0 mg/dL 0.1 - 1.0 03/29/2019 [facility] URINE AND STOOL UA Turbidity Clear (03/29/19 8:02 AM) Clear 03/29/2019 [facility] URINE AND STOOL UA Protein Negative mg/dL Negative mg/dL 03/29/2019 [facility] URINE AND STOOL UA pH 6.0 5.0 - 8.0 03/29/2019 [facility] URINE AND STOOL UA Spec Grav 1.006 <=1.030 03/29/2019 [facility] URINE AND STOOL UA Glucose Negative mg/dL Negative mg/dL 03/29/[address] [facility] URINE AND STOOL UA Blood Negative (03/29/19 8:02 AM) Negative 03/29/2019 [facility] URINE AND STOOL UA Bili Negative *NA* (03/29/19 8:02 AM) Negative 03/29/2019 [facility] URINE AND STOOL UA Ketones Negative mg/dL Negative mg/dL 03/29/[address] [facility] URINE AND STOOL UA Nitrite Negative (03/29/19 8:02 AM) Negative 03/29/2019 [facility] URINE AND STOOL UA WBC 3 0 - 5 03/29/2019 [facility] URINE AND STOOL UA Leuk Est Trace *ABN* (03/29/19 8:02 AM) Negative 03/29/2019 [facility] URINE AND STOOL UA Sq Epi Few /LPF Few /LPF 03/29/2019 [facility] URINE AND STOOL UA Bacteria Many /HPF None Seen /HPF 03/29/2019 [facility] CARDIAC ENZYMES BNP 18 <=100 pg/mL 03/29/2019 [facility] CARDIAC ENZYMES Total CK 72 12 - 191 03/29/2019 [facility] CARDIAC ENZYMES Troponin-I <0.02 0.00 - 0.40 03/29/2019 [facility] CHEM PANEL B/C Ratio 12 6 - 25 03/29/2019 [facility] CHEM PANEL AGAP 11.6 10.0 - 20.0 03/29/2019 [facility] CHEM PANEL A/G Ratio 1.0 0.7 - 1.6 03/29/2019 [facility] CHEM PANEL Globulin 3.9 2.7 - 4.2 03/29/2019 [facility] CHEM PANEL Alk Phos 132 39 - 136 03/29/2019 [facility] CHEM PANEL AST 27 0 - 37 03/29/2019 [facility] CHEM PANEL ALT 61 0 - 65 03/29/2019 [facility] CHEM PANEL Albumin Lvl 3.8 3.5 - 5.0 03/29/2019 [facility] CHEM PANEL Bili Total 0.6 0.2 - 1.3 03/29/2019 [facility] CHEM PANEL Chloride Lvl 107 95 - 109 03/29/2019 [facility] CHEM PANEL Sodium Lvl 137 135 - 145 03/29/2019 [facility] CHEM PANEL Potassium Lvl 3.6 3.5 - 5.1 03/29/2019 [facility] CHEM PANEL Total Protein 7.7 6.4 - 8.4 03/29/2019 [facility] CHEM PANEL Calcium Lvl 9.5 8.5 - 10.5 03/29/2019 [facility] CHEM PANEL CO2 22 24 - 32 03/29/2019 [facility] CHEM PANEL eGFR 78 03/29/2019 Result Comment: [...] should be multiplied by the estimated BMI. [facility] CHEM PANEL Glucose Lvl 191 70 - 99 03/29/2019 [facility] CHEM PANEL BUN 10 7 - 22 03/29/2019 [facility] CHEM PANEL Creatinine Lvl 0.83 0.50 - 1.40 03/29/2019 [facility] HEMATOLOGY PT 12.2 12.0 - 14.7 03/29/2019 [facility] HEMATOLOGY INR 0.92 0.85 - 1.17 03/29/2019 [facility] HEMATOLOGY PTT 35.3 22.9 - 35.8 03/29/2019 [facility] HEMATOLOGY RBC 4.34 4.20 - 5.40 03/29/2019 [facility] HEMATOLOGY Hgb 12.7 12.0 - 16.0 03/29/2019 [facility] WBC 7.0 3.7 - 10.4 03/29/2019 [facility] HEMATOLOGY MCV 87.2 80.0 - 98.0 03/29/2019 [facility] Hct 37.8 36.0 - 48.0 03/29/2019 [facility] MCH 29.3 27.0 - 31.0 03/29/2019 [facility] Platelet 189 133 - 450 03/29/2019 [facility] MCHC 33.5 32.0 - 36.0 03/29/2019 [facility] HEMATOLOGY RDW 13.9 11.5 - 14.5 03/29/2019 [facility] HEMATOLOGY MPV 8.9 7.4 - 10.4 03/29/2019 [facility] Neutrophils # 5.5 1.5 - 8.1 03/29/2019 [facility] HEMATOLOGY Basophils 0.2 0.0 - 1.0 03/29/2019 [facility] HEMATOLOGY Monocytes # 0.4 0.0 - 0.8 03/29/2019 [facility] HEMATOLOGY Lymphocytes # 1.1 1.0 - 5.5 03/29/2019 [facility] HEMATOLOGY Eosinophils 0.8 0.0 - 4.0 03/29/2019 [facility] Eosinophils # 0.1 0.0 - 0.5 03/29/2019 [facility] Segs 78.1 45.0 - 75.0 03/29/2019 [facility] Monocytes 5.4 2.0 - 12.0 03/29/2019 [facility] Lymphocytes 15.5 20.0 - 40.0 03/29/2019 [facility] CHEM PANEL eGFR 97 09/16/2018 Result Comment: [...] should be multiplied by the estimated BMI. [facility] CHEM PANEL ALT 29 0 - 65 09/16/2018 [facility] CHEM PANEL AST 18 0 - 37 09/16/2018 [facility] CHEM PANEL Alk Phos 78 39 - 136 09/16/2018 [facility] CHEM PANEL Bili Total 0.3 0.2 - 1.3 09/16/2018 [facility] CHEM PANEL B/C Ratio 16 6 - 25 09/16/2018 [facility] CHEM PANEL Albumin Lvl 2.6 3.5 - 5.0 09/16/2018 [facility] CHEM PANEL Total Protein 5.6 6.4 - 8.4 09/16/2018 [facility] CHEM PANEL Globulin 3.0 2.7 - 4.2 09/16/2018 [facility] CHEM PANEL A/G Ratio 0.9 0.7 - 1.6 09/16/2018 [facility] CHEM PANEL Calcium Lvl 7.4 8.5 - 10.5 09/16/2018 [facility] CHEM PANEL AGAP 7.6 10.0 - 20.0 [...] PANEL CO2 26 24 - 32 09/16/2018 [facility] CHEM PANEL Glucose Lvl 134 70 - 99 09/16/2018 [facility] HEMATOLOGY MPV 8.9 7.4 - 10.4 09/16/2018 [facility] HEMATOLOGY Platelet 140 133 - 450 09/16/2018 [facility] HEMATOLOGY MCHC 32.6 32.0 - 36.0 09/16/2018 [facility] HEMATOLOGY RDW 14.1 11.5 - 14.5 09/16/2018 [facility] HEMATOLOGY MCV 88.4 80.0 - 98.0 09/16/2018 [facility] HEMATOLOGY MCH 28.8 27.0 - 31.0 09/16/2018 [facility] HEMATOLOGY Hgb 10.5 12.0 - 16.0 09/16/2018 [facility] HEMATOLOGY Hct 32.4 36.0 - 48.0 09/16/2018 [facility] HEMATOLOGY WBC 5.0 3.7 - 10.4 09/16/2018 [facility] HEMATOLOGY RBC 3.67 4.20 - 5.40 09/16/2018 [facility] HEMATOLOGY Eosinophils 3.6 0.0 - 4.0 09/16/2018 [facility] HEMATOLOGY Monocytes 9.4 2.0 - 12.0 09/16/2018 [facility] HEMATOLOGY Lymphocytes 28.5 20.0 - 40.0 09/16/2018 [facility] HEMATOLOGY Segs 57.9 45.0 - 75.0 09/16/2018 [facility] HEMATOLOGY Basophils 0.6 0.0 - 1.0 09/16/2018 [facility] HEMATOLOGY Eosinophils # 0.2 0.0 - 0.5 09/16/2018 [facility] HEMATOLOGY Monocytes # 0.5 0.0 - 0.8 09/16/2018 [facility] HEMATOLOGY Lymphocytes # 1.4 1.0 - 5.5 09/16/2018 [facility] HEMATOLOGY Neutrophils # 2.9 1.5 - 8.1 09/16/2018 [facility] SPECIAL CHEMISTRY Hgb A1C 6.5 <=5.6 % 09/16/2018 [facility] ELECTROLYTES Potassium Lvl 4.2 3.5 - 5.1 09/15/2018 [facility] ELECTROLYTES Calcium Lvl 7.4 8.5 - 10.5 09/15/2018 [facility] ELECTROLYTES CO2 24 24 - 32 09/15/2018 [facility] ELECTROLYTES Chloride Lvl 110 95 - 109 09/15/2018 [facility] ELECTROLYTES AGAP 10.2 10.0 - 20.0 09/15/2018 [facility] ELECTROLYTES eGFR 44 09/15/2018 Result Comment: The [...] should be multiplied by the estimated BMI. [facility] ELECTROLYTES Sodium Lvl 140 135 - 145 09/15/2018 [facility] ELECTROLYTES Creatinine Lvl 1.3 2 0.50 - 1.40 09/15/2018 [facility] ELECTROLYTES BUN 21 7 - 22 09/15/2018 [facility] ELECTROLYTES Glucose Lvl 60 70 - 99 09/15/2018 [facility] HEMATOLOGY MCHC 32.4 32.0 - 36.0 09/15/2018 [facility] RDW 14.1 11.5 - 14.5 09/15/2018 [facility] Platelet 169 133 - 450 09/15/2018 Result Comment: specimen not clotted, mf 09/15/2018 06:43 [facility] MPV 8.8 7.4 - 10.4 09/15/2018 [facility] MCH 28.7 27.0 - 31.0 09/15/2018 [facility] RBC 3.81 4.20 - 5.40 09/15/2018 [facility] Hgb 11.0 12.0 - 16.0 09/15/2018 [facility] Hct 33.8 36.0 - 48.0 09/15/2018 [facility] MCV 88.8 80.0 - 98.0 09/15/2018 [facility] WBC 8.9 3.7 - 10.4 09/15/2018 [facility] Monocytes # 0.8 0.0 - 0.8 09/15/2018 [facility] Eosinophils # 0.2 0.0 - 0.5 09/15/2018 [facility] Monocytes 8.9 2.0 - 12.0 09/15/2018 [facility] Eosinophils 1.9 0.0 - 4.0 09/15/2018 [facility] Basophils 0.4 0.0 - 1.0 09/15/2018 [facility] Neutrophils # 5.1 1.5 - 8.1 09/15/2018 [facility] Lymphocytes # 2.8 1.0 - 5.5 09/15/2018 [facility] Segs 57.6 45.0 - 75.0 09/15/2018 [facility] Lymphocytes 31.2 20.0 - 40.0 09/15/2018 [facility] CHEM PANEL POC Creatinine 1.7 0.5 - 1.4 09/15/2018 [facility] CHEM PANEL eGFR 33 09/15/2018 Result Comment: [...] should be multiplied by the estimated BMI. [facility] URINE AND STOOL UA RBC 8 0 - 2 09/15/2018 [facility] URINE AND STOOL UA Bacteria Occasional /HPF None Seen /HPF 09/15/2018 [facility] URINE AND STOOL UA Sq Epi Many /LPF Few /LPF 09/15/2018 [facility] URINE AND STOOL UA WBC 37 0 - 5 09/15/2018 [facility] URINE AND STOOL UA Leuk Est Negative (09/14/18 8:09 PM) Negative 09/15/2018 [facility] URINE AND STOOL UA Nitrite Negative (09/14/18 8:09 PM) Negative 09/15/2018 [facility] URINE AND STOOL UA Blood Negative (09/14/18 8:09 PM) Negative 09/15/2018 [facility] URINE AND STOOL UA Urobilinogen 0.2 0.1 - 1.0 09/15/2018 [facility] URINE AND STOOL UA Glucose 100 mg/dL Negative mg/dL 09/15/2018 [facility] URINE AND STOOL UA pH 5.0 5.0 - 8.0 09/15/2018 [facility] URINE AND STOOL UA Protein 100 mg/dL Negative mg/dL 09/15/2018 [facility] URINE AND STOOL UA Turbidity Clear (09/14/18 8:09 PM) Clear 09/15/2018 [facility] URINE AND STOOL UA Spec Grav 1.025 <=1.030 09/15/2018 [facility] URINE AND STOOL UA Color Yellow *NA* (09/14/18 8:09 PM) Yellow 09/15/2018 [facility] URINE AND STOOL UA Mucus Few /LPF None Seen /LPF 09/15/2018 [facility] URINE AND STOOL UA Ketones Trace *ABN* (09/14/18 8:09 PM) Negative 09/15/2018 [facility] URINE AND STOOL UA Bili Moderate *ABN* (09/14/18 8:09 PM) Negative 09/15/2018 [facility] Culture: Urine >100,000 CFU/mL Skin Radha 09/15/2018 [facility] CARDIAC ENZYMES Troponin-I <0.02 0.00 - 0.40 09/14/2018 [facility] CHEM PANEL Lactic Acid Lvl 1.7 0.5 - 2.2 09/14/2018 [facility] CHEM PANEL Lipase Lvl 109 73 - 393 09/14/2018 [facility] CHEM PANEL B/C Ratio 11 6 - 25 09/14/2018 [facility] CHEM PANEL AGAP 14.3 10.0 - 20.0 09/14/2018 [facility] CHEM PANEL A/G Ratio 0.9 0.7 - 1.6 09/14/2018 [facility] CHEM PANEL Globulin 4.2 2.7 - 4.2 09/14/2018 [facility] CHEM PANEL Albumin Lvl 3.6 3.5 - 5.0 09/14/2018 [facility] CHEM PANEL ALT 43 0 - 65 09/14/2018 [facility] CHEM PANEL AST 24 0 - 37 09/14/2018 [facility] CHEM PANEL Alk Phos 112 39 - 136 09/14/2018 [facility] CHEM PANEL Bili Total 0.6 0.2 - 1.3 09/14/2018 [facility] CHEM PANEL BUN 17 7 - 22 09/14/2018 [facility] CHEM PANEL Glucose Lvl 130 70 - 99 09/14/2018 [facility] CHEM PANEL Sodium Lvl 135 135 - 145 09/14/2018 [facility] CHEM PANEL Creatinine Lvl 1.49 0.50 - 1.40 09/14/2018 [facility] CHEM PANEL Potassium Lvl 4.3 3.5 - 5.1 09/14/2018 [facility] CHEM PANEL Chloride Lvl 101 95 - 109 09/14/2018 [facility] CHEM PANEL CO2 24 24 - 32 09/14/2018 [facility] CHEM PANEL Total Protein 7.8 6.4 - 8.4 09/14/2018 [facility] CHEM PANEL Calcium Lvl 8.7 8.5 - 10.5 09/14/2018 [facility] HEMATOLOGY Neutrophils # 9.5 1.5 - 8.1 09/14/2018 [facility] HEMATOLOGY Lymphocytes # 1.7 1.0 - 5.5 09/14/2018 [facility] HEMATOLOGY Monocytes # 0.7 0.0 - 0.8 09/14/2018 [facility] HEMATOLOGY Eosinophils 0.2 0.0 - 4.0 09/14/2018 [facility] HEMATOLOGY Monocytes 6.3 2.0 - 12.0 09/14/2018 [facility] HEMATOLOGY Lymphocytes 13.9 20.0 - 40.0 09/14/2018 [facility] Segs 79.4 45.0 - 75.0 09/14/2018 [facility] Basophils 0.2 0.0 - 1.0 09/14/2018 [facility] MPV 9.8 7.4 - 10.4 09/14/2018 [facility] MCHC 32.4 32.0 - 36.0 09/14/2018 [facility] RDW 14.3 11.5 - 14.5 09/14/2018 [facility] Platelet 223 133 - 450 09/14/2018 [facility] MCV 89.4 80.0 - 98.0 09/14/2018 [facility] MCH 29.0 27.0 - 31.0 09/14/2018 [facility] RBC 4.53 4.20 - 5.40 09/14/2018 [facility] Hct 40.5 36.0 - 48.0 09/14/2018 [facility] Hgb 13.1 12.0 - 16.0 09/14/2018 [facility] WBC 11.9 3.7 - 10.4 09/14/2018 [facility] CHEM PANEL eGFR 96 08/02/2017 Result Comment: [...] should be multiplied by the estimated BMI. [facility] CHEM PANEL POC Creatinine 0.7 0.5 - 1.4 08/02/2017 [facility] CHEM PANEL eGFR 67 06/20/2017 Result Comment: [...] should be multiplied by the estimated BMI. [facility] CHEM PANEL Chloride Lvl 105 95 - 109 06/20/2017 [facility] CHEM PANEL Potassium Lvl 4.8 3.5 - 5.1 06/20/2017 [facility] CHEM PANEL Calcium Lvl 9.3 8.5 - 10.5 06/20/2017 [facility] CHEM PANEL CO2 25 24 - 32 06/20/2017 [facility] CHEM PANEL Sodium Lvl 138 135 - 145 06/20/2017 [facility] CHEM PANEL BUN 27 7 - 22 06/20/2017 [facility] CHEM PANEL Glucose Lvl 140 70 - 99 06/20/2017 [facility] CHEM PANEL Creatinine Lvl 0.95 0.50 - 1.40 06/20/2017 [facility] CHEM PANEL AGAP 12.8 10.0 - 20.0 06/20/2017 [facility] Pathology Reports No Data Provided for This Section Diagnostic Reports Report Value Date Source ED Abdomen/Pelvis IV contrast only CT Radiation Dose CTDIVOL = 0 (mGy): DLP = 1226.28 (mGy-cm) PROCEDURE INFORMATION: Exam: CT Abdomen And Pelvis With Contrast Exam date and time: 09/07/2019 1:12 PM Age: 58 years old Clinical history: Nausea and vomiting; Additional info: /nausea, vomiting, abd pain. C/O R ankle pain S/P spinal surgery 08/19. Also reports n/v since this am, denies abd pain, vomiting in triage; Pmh colon cancer (no chemo, gerd, HTN, dm TECHNIQUE: Imaging protocol: Computed tomography of the abdomen and pelvis with intravenous contrast. Total DLP: 1226.28 mGy-cm Radiation optimization: All CT scans at this facility use at least one of these dose optimization techniques: automated exposure control; mA and/or kV adjustment per patient size (includes targeted exams where dose is matched to clinical indication); or iterative reconstruction. Contrast material: OMNIPAQUE; Contrast volume: 100 ml; Contrast route: IV; COMPARISON: CT ED Abdomen/Pelvis IV contrast only 09/14/2018 6:53 PM FINDINGS: Lungs: Tiny right middle lobe nodule unchanged. Liver: Diffuse fatty liver. Gallbladder and bile ducts: Cholecystectomy. Normal common duct. Pancreas: Pancreas normal. Spleen: Spleen normal. Adrenals: Adrenals normal. Kidneys and ureters: 8 mm right renal calculus. Right renal cortical scarring. Left kidney normal. Stomach and bowel: Cecum located in the anterior mid abdomen. Moderate amount of colonic fecal material. Diverticulosis. No other intestinal lesion or mesenteric inflammatory change. Appendix: Appendectomy. Intraperitoneal space: No ascites. Vasculature: Minimal coronary artery calcifications. Lymph nodes: No adenopathy. Bladder: Small volume urinary bladder not remarkable. Reproductive: Hysterectomy. No adnexal mass. Bones/joints: Unremarkable. No acute fracture. Soft tissues: Unremarkable. IMPRESSION: 1. No acute abnormality. 2. Moderate colonic fecal material. 3. 8 mm right renal calculus. Right emily ical scarring. 4. Fatty liver and cholecystectomy. 5. Moderate colonic fecal material. Dive rticulosis. 6. Appendectomy. 7. Hysterectomy. Piter Lamb MD On 09/07/2019 14:08:18; [id number] 09/07/2019 [facility] Ankle 3 views DX PROCEDURE INF ORMATION: Exam: XR Right Ankle Exam date and time: 09/07/2019 10:52 AM Age: 58 years old Clinical history: Pain; Additional info: /pain TECHNIQUE: Imaging protocol: XR Right ankle. Views: 3 or more views. AP Oblique Lateral COMPARISON: EXT LOWER LIMITED NON VASCULAR US, RIGHT 06/08/2017 7:11 AM FINDINGS: Bones/joints: There is normal alignment without fractures or dislocations. There is minimal degenerative change including marginal osteophyte formation. An orthopedic anchor is noted in the medial aspect of the tarsal navicular bone. Soft tissues: There is no soft tissue swelling. There are no radiopaque foreign bodies. Notes: If there is further concern, recommend follow-up radiographs or MRI for complete assessment. IMPRESSION: 1. No fracture or dislocation. 2. Postoperative and degenerative change . Angel Garibay MD On 09/07/2019 11:47:53; [id number] 09/07/2019 [facility] Chest 1view DX PROCEDURE INFOR MATION: Exam: XR Chest, 1 View Exam date and time: 09/07/2019 10:50 AM Age: 58 years old Clinical history: Pain; Additional info: /chest pain TECHNIQUE: Imaging protocol: XR of the chest Views: 1 view. Portable AP view COMPARISON: CHEST 1VIEW DX 07/10/2019 10:55 AM FINDINGS: Lungs: Mild decreased lung volumes. No consolidation. Pleural space: Unremarkable. No pleural effusion. No pneumothorax. Heart/Mediastinum: Heart size is within normal limits. Vasculature is unremarkable. Bones/joints: Unremarkable. IMPRESSION: No acute cardiopulmonary findings. Edvin Yates MD On 09/07/2019 11:40:53; [id number] 09/07/2019 [facility] Spine lumbar w/wo contrast MRI PROCEDURE INFORMATION: Exam: MR Lumbar Spine Without and With Contrast. Exam date and time: 08/18/2019 11:47 PM Age: 58 years old Clinical history: Low back pain; Prior surgery; Surgery date: <1 month; Additional info: /recent operation, abscess versus seroma TECHNIQUE: Imaging protocol: Multiplanar magnetic resonance images of the lumbar spine without and with intravenous contrast. Contrast material: MULTIHANCE; Contrast volume: 15 ml; Contrast route: LEFT AC; COMPARISON: SPINE LUMBAR W-WO CONTRAST MRI 07/27/2018 1:50 PM, CT lumbar spine 08/18/2019 FINDINGS: Vertebrae: There is posterior fusion of the lumbar spine, from L2 through S1. On the right side, pedicle screws extend from L2 through L4. On the left side, there are pedicle screws from L2 through S1. There are interbody fusion devices from L2-L3 through L5-S1. There appear to be laminectomies/laminotomies of the lumbar spine, extending from L2 through S1, better evaluated in the preceding CT. In addition, there appears to be partial right facetectomy at L4-L5. There is a stable chronic compression deformity of the L1 vertebral body, with approximately 65% loss of vertebral body height. There is 4 mm of retropulsion of the superior endplate. There is grossly no abnormal bone marrow edema or enhancement of the visible spine to suggest acute compression fractures or osteomyelitis. Soft tissues: Irregular fluid collection is seen at the right paraspinous region, centered at the L5-S1 level, extending from L4-L5 through S1-S2, measuring approximately 6.8 x 3.5 x 3.5 cm (sagittal x AP x transverse). The collection demonstrates peripheral enhancement. The preceding CT demonstrated air foci in the collection. The collection extends ventrally to the right dorsolateral epidural space. There is diffuse dural thickening and enhancement, from L4-L5 to S1-S2. Spinal cord: The distal spinal cord is normal in signal and morphology. The tip of the conus is seen at the L1-L2 level. The cauda equina is grossly normal in signal and without significant clumping to suggest arachnoiditis. T12-L1: The disc is normal in height and signal. There is retropulsion of the superior endplate of L1, resulting in mild spinal canal stenosis. The foramina are patent. L1-L2: This disc is normal in height and signal. The spinal canal and foramina are patent. L2-L3: There is stable dorsal protrusion of the interbody fusion device, without spinal canal stenosis. The foramina are patent. L3-L4 and L4-L5: The interbody fusion devices are grossly unremarkable. There appears to be partial right facetectomy L4-L5. The spinal canal and foramina are grossly patent. L5-S1: As seen in the prior studies, there is right dorsal protrusion of the interbody fusion device, resulting in severe right lateral recess stenosis. There appears to be impingement of the descending right S1 nerve root. The spinal canal is otherwise grossly patent. There is grossly stable moderate to severe bilateral foraminal stenosis, right worse than left. IMPRESSION: 1. Postoperative changes of the lumbar s pine, as described. There is a right paraspinous/dorsolateral epidural fluid collection, centered at the L5-S1 level, as described. The presence of peripheral enhancement and gas, within the collection, suggests a potential abscess. There is grossly no evidence of osteomyelitis or discitis. 2. Grossly stable lumbar spondylosis, as described. There is stable severe right lateral recess stenosis at L5-S1, secondary to right dorsal protrusion of the interbody fusion device. There is otherwise no significant lumbar spinal canal stenosis. There is grossly stable moderate to severe bilateral foraminal stenosis at L5-S1. The foramina are otherwise patent. 3. Stable chronic compression deformity of the L1 vertebral body, as described. Henry Meeks MD On 08/19/2019 01:26:13; [id number] 08/18/2019 [facility] Spine lumbar wo contrast CT Ra diation Dose CTDIVOL = 0 (mGy): DLP = 718.86 (mGy-cm) PROCEDURE INFORMATION: Exam: CT Lumbar Spine Without Contrast Exam date and time: 08/18/2019 7:06 PM Age: 58 years old Clinical history: Pain; Additional info: /recent spinal surgery, back pain. Back pain increasing since yesterday after PT. PT had laminectomy and forminotomy on 08/09. PT aox 3 TECHNIQUE: Imaging protocol: Computed tomography images of the lumbar spine without contrast. Total DLP: 718.86 mGy-cm Radiation optimization: All CT scans at this facility use at least one of these dose optimization techniques: automated exposure control; mA and/or kV adjustment per patient size (includes targeted exams where dose is matched to clinical indication); or iterative reconstruction. COMPARISON: SPINE LUMBAR WO CONTRAST CT 02/21/2018 9:20 AM FINDINGS: Vertebrae: Regional osteopenia is present. Lumbar lordosis is straightened. Moderate chronic anterior wedge compression deformity of L1 is present with at least 50% height loss centrally. Discs/Spinal canal/Neural foramina: T10-T11: Moderate bilateral facet arthrosis is present. There is probably mild osseous foraminal narrowing, greater on the right than the left. T10-11: Unremarkable. T12-L1: Mild bilateral facet arthrosis noted. Retropulsion of the posterior superior corner of L1 into the ventral canal present with borderline central stenosis. L1-2: A small dorsal bulge is present with 4 mm peripherally calcified right foraminal/extraforaminal protrusion. There is mild right foraminal narrowing, with mild posterior displacement of the exiting right L1 root. There are anterior interbody fusions from L2-3-L5-S1, with partial incorporation across the anterior intervertebral disc spaces at L2-3 and L3-4, but no osseous bridging across the L4-5 or L5-S1 disc spaces. Left L2-3 laminectomy and partial facetectomy noted. Wide L3-4 laminectomy and partial bilateral facetectomies are seen. Right L4-5 laminectomy and subtotal facetectomy are present, new as compared to the previous study dated 02/21/2018. Wide decompressive laminecto my and partial facetectomies are present at L5-S1. There are bilateral posterolateral osseous fusions with instrumentation. Hardware consists of bilateral L2 through L4 and left L5 and S1 pedicular is which are affixed with vertical stabilization bars. There is a 2.6 mm heel of lucency about the margins of the left S1 pedicular screw, compatible with loosening. Hardware appears otherwise intact. There is a fibro-osseous bridging across the right L2-3, bilateral L3-4 and left L4-5 facet joints. L2-3: Mild posterior spondylosis is present. There is no central, foraminal or lateral recess stenosis. L3-4: No central, foraminal or lateral recess stenosis. L4-5: There is mild right osseous foraminal narrowing. L5-S1: Posterolateral foraminal/extraforaminal spondylosis and traction bulging noted. Moderate to marked right and moderate left foraminal stenosis are seen. There is facet arthropathy bilaterally, at least moderate in degree. Soft tissues: There is a region of low attenuation in the right L4-5 laminectomy measuring approximately 3 x 3.5 x 3.5 cm with small internal air bubbles. This probably represents a postoperative seroma, but abscess cannot be entirely excluded on the basis of this study. Please correlate clinically. IMPRESSION: Postoperative and degenerative changes are present as described. As compared to the previous study from 2018, right L4-5 laminectomy and partial facetectomy are new. There are postoperative changes in the right posterior paraspinal soft tissues at this level with 3.5 cm rounded area of low attenuation and internal air bubbles. This probably represents a postoperative seroma, but abscess cannot be excluded on the basis of this study. If appropriate, MRI of the lumbar spine without and with contrast could be performed for further assessment. Ina Ruiz MD On 08/18/2019 19:39:10; [id number] 08/18/2019 [facility] Spine cervical wo contrast CT Radiation Dose CTDIVOL = 0 (mGy): DLP = 876.79 (mGy-cm) PROCEDURE INFORMATION: Exam: CT Cervical Spine Without Contrast Exam date and time: 07/10/2019 11:06 AM Clinical history: 58 years old, female; Pain; Additional info: Pain post trauma/pain TECHNIQUE: Imaging protocol: Computed tomography images of the cervical spine without contrast. Total DLP: 876.79 mGy-cm Radiation optimization: All CT scans at this facility use at least one of these dose optimization techniques: automated exposure control; mA and/or kV adjustment per patient size (includes targeted exams where dose is matched to clinical indication); or iterative reconstruction. COMPARISON: SPINE CERVICAL WO CONTRAST CT (ER) 12/23/2018 7:26 AM FINDINGS: Vertebrae: Mild reversal of normal cervical lordosis may be related to positioning or muscle spasm. No definite acute fracture. The odontoid and lateral masses are grossly anatomic. Discs/Spinal canal/Neural foramina: Mild about 2.0 mm anterolisthesis of C3 on C4. Severe left C3-C4 foramen encroachment is present. Please correlate neurologic symptoms and dedicated MRI cervical spine can be perform for further evaluation. Soft tissues: Unremarkable. Lungs: Lung apices are normal. IMPRESSION: Mild reversal of normal cervical lordosis may be related to positioning or muscle spasm. No definite acute fracture detected. Mild about 2.0 mm anterolisthesis of C3 on C4. Severe left C3-C4 foramen encroachment is present. Please correlate neurologic symptoms and dedicated MRI cervical spine can be perform for further evaluation. Tyson Goldberg MD On 07/10/2019 11:49:40; [id number] 07/10/2019 [facility] Brain wo contrast CT Radiation Dose CTDIVOL = 0 (mGy): DLP = 859.97 (mGy-cm) PROCEDURE INFORMATION: Exam: CT Head Without Contrast Exam date and time: 07/10/2019 11:06 AM Clinical history: 58 years old, female; Pain; Additional info: /pain TECHNIQUE: Imaging protocol: Computed tomography of the head without contrast. Total DLP: 859.97 mGy-cm Radiation optimization: All CT scans at this facility use at least one of these dose optimization techniques: automated exposure control; mA and/or kV adjustment per patient size (includes targeted exams where dose is matched to clinical indication); or iterative reconstruction. COMPARISON: No relevant prior studies available. FINDINGS: Brain: Age-indeterminate small left cerebellar infarct is present. No acute intracranial hemorrhage detected. Old right parietal infarct is present. Marked atherosclerotic calcification of the distal internal carotid arteries. Empty sella is present which is a normal variant. Ventricles: No ventriculomegaly. Bones/joints: No acute displaced fracture. Sinuses: Visualized paranasal sinuses are unremarkable. No fluid levels. Mastoid air cells: Visualized mastoid air cells are well aerated. Soft tissues: Unremarkable. IMPRESSION: 1. Age-indeterminate small left cerebell ar infarct is present. No acute intracranial hemorrhage detected. Please correlate neurologic symptoms and dedicated MRI brain can be perform for further evaluation. 2. Old right parietal infarct is present . Tyson Goldberg MD On 07/10/2019 11:45:05; [id number] 07/10/2019 [facility] Chest 1view DX PROCEDURE INFOR MATION: Exam: XR Chest, 1 View Exam date and time: 07/10/2019 10:55 AM Clinical history: 58 years old, female; Pain; Additional info: /pain, left side body pain, no injury TECHNIQUE: Imaging protocol: XR of the chest Views: 1 view. Portable AP view COMPARISON: No relevant prior studies available. FINDINGS: Lungs: Unremarkable. No consolidation. Pleural space: Unremarkable. No pleural effusion. No pneumothorax. Heart/Mediastinum: Heart size is within normal limits. Vasculature is unremarkable. Bones/joints: No acute osseous abnormality. IMPRESSION: No acute cardiopulmonary abnormality. Franchesca Ramirez MD On 07/10/2019 11:20:29; [id number] 07/10/2019 [facility] Brain wo contrast MRI Patient Name: LOREN ROCK : 1960; Age: 58 years y/o Female MR: [id number] Study: Brain wo contrast MRI 03/29/2019 6:54 [...] IMPRESSION: 1. No evidence of acute intracranial pro cess. 2. 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 3. Multiple FLAIR hyperintensities in th e periventricular and deep hemispheric white matter likely representing chronic microangiopathy. 4. Old lacunar insult in the right thala mus. 03/29/2019 [facility] Carotid artery Doppler bilat US BILATERAL CAROTID [...] IMPRESSION: No evidence of significant carotid stenosis. [id number] 03/29/2019 [facility] Chest 1view DX CHEST RADIOGRAP H SINGLE VIEW INDICATION: Chest pain, headaches COMPARISON: Chest radiograph 09/14/2018 IMPRESSION: The lungs are underinflated. No consolidation or other acute intrathoracic abnormalities are visualized. SL:16 03/29/2019 [facility] Brain wo contrast CT CT BRAIN WITHOUT [...] acute intracranial abnormalities are visualized. SL:16 03/29/2019 [facility] Spine lumbar 2 or 3 views DX T horacic spine, 2 views Lumbar spine, 3 views [...] noted. IMPRESSION: 1. No acute finding. SL: [id number] 12/23/2018 [facility] Shoulder series DX Thoracic sp ine, 2 views Lumbar spine, 3 views Left [...] noted. IMPRESSION: 1. No acute finding. SL: [id number] 12/23/2018 [facility] Brain wo contrast CT Clinical Indication trauma. [...] control -Adjustment of the mA and/or kV accordin g to patient size -Use of iterative reconstruction technPatient Engagement Systems ue CT Radiation Dose DLP: 982 mGy-cm. DLP [...] lobes and left cerebellum, as above. SL: [id number] 12/23/2018 [facility] Spine cervical wo contrast CT (ER) Spine [...] control -Adjustment of the mA and/or kV accordin g to patient size -Use of iterative reconstruction technPatient Engagement Systems ue CT Radiation Dose DLP 946.16 mGy-cm FINDINGS: [...] noted on the cervical spine CT. SL: [id number] 12/23/2018 [facility] thoracic 2 views DX Thor acic spine, 2 views Lumbar spine, 3 views [...] noted. IMPRESSION: 1. No acute finding. SL: [id number] 12/23/2018 [facility] Abdomen/Pelvis IV contrast only CT Clinical Indication: [...] control -Adjustment of the mA and/or kV accordin g to patient size -Use of iterative reconstruction technPatient Engagement Systems ue CT Radiation Dose DLP 1192 mGy-cm FINDINGS: [...] with cortical scarring. 2. Colonic diverticulosis without evide nce of diverticulitis. 3. Hepatic steatosis and/or chronic hep atocellular disease. 09/14/2018 [facility] Chest 1view DX SINGLE VIEW ANNAB[address] ST RADIOGRAPH CLINICAL INDICATION: Abnormal chest sounds - [...] IMPRESSION: 1. There are increased mild reticular m arkings in the region of the lingula and medial right lung base which could be atelectasis or infiltrate. SL: PATTI 09/14/2018 [facility] Spine lumbar w/wo contrast MRI Spine lumbar [...] stenosis. 3. Stable L2-L3 mild central canal steno sis due to posterior protrusion of disc graft material into the spinal canal. 4. Stable L5-S1 severe right lateral rec ess stenosis with mass effect on right S1 and S2 descending nerve roots, likely due to posterior protrusion of the disc graft material into the right lateral recess. Stable severe bilateral foraminal stenosis. 07/27/2018 [facility] Sp[facility] lumbar wo contrast CT Cl inical Indication: - pain. 57-year-old female with chronic [...] IMPRESSION: 1. Increased bony lucency is seen surrou nding the remaining left screw at S1 since [...] Both of the screws at L2 penetrates t he superior endplate and are surrounded by bony lucency that may be postoperative, infection or loosening. 5. Postoperative changes of a posterior and anterior fusions as described above with multiple laminectomies. 6. Dense extradural abnormality is seen in the right lateral recess at L5-S1 similar to the previous examination. This previously significantly indenting the dural sac and the right traversing nerve root. SL: [id number] 02/21/2018 [facility] Spine Thoracic w/wo contrast MRI PATIENT NAME: LOREN ROCK : 1960; Age: 57 years y/o Female MR: [id number] STUDY: Spine Thoracic w/wo contrast MRI 12/23/2017 [...] spinal cord 2. No substantial thoracic disc degenera tion 3. Please refer to same-day lumbar spine for additional findings 12/23/2017 [facility] Sp[facility] lumbar w/wo contrast MRI LUMBAR SPINE [...] with minimal facet hypertrophy. His results in [id number] canal stenosis with slight contact to the [...] nerve root. IMPRESSION: 1. Postoperative and degenerative change s are grossly stable as detailed above. This includes artificial disc cages migrated posteriorly into the canal with deformity/displacement of the foraminal right L5 and descending right S1 nerve roots. Other mild stenoses as above. 2. Acute to subacute L1 moderate sundeep niharika fracture with retropulsion of fragments causing contact and minimal flattening of the anterior conus. This is likely posttraumatic/insufficiency in nature. 12/23/2017 [facility] Pelvis w/wo contrast MRI MRI p isidra with and without contrast HISTORY: 56-year-old female [...] acute finding. 2. Moderate proximal colonic fecal loadi ng suggests a history of constipation. 3. Diverticulosis. 4. Hysterectomy. 5. Right intervertebral spacer device at L5-S1 extends into the right lateral recess of the spinal canal. Correlate for radicular symptoms. 08/02/2017 [facility] Pelvis wo IV contrast CT Pelvi s wo IV contrast CT Female 56 years Clinical Indication: lymphadenopathy \\T\\ rt groin pain, pt states she was having rt groin pain and they found lymph nodes in that area; Comparison: 01/28/2012 Technique: Noncontrast CT of the pelvis is performed from the umbilicus to the symphysis pubis after oral contrast only. 25cc omni po. Coronal and sagittal reformatted views. CT DLP = 404 mGy-cm. FINDINGS: Examination of the pelvis is [...] harvest site? 3. Interval multilevel lower lumbar lami nectomy and fusion procedure with postoperative scarring. 4. No significant adenopathy identified. 5. Sigmoid diverticulosis. SL: [id number] 06/16/2017 [facility] Ext Lower limited non vascular US Patient Name: LOREN ROCK : 1960; Age: 56 years Female MR: [id number] Study: Ext Lower limited non vascular US [...] IV contrast may provide more detail. SL: [id number] 06/08/2017 [facility] Retroperitoneal Complete US Ex am: Bilateral renal ultrasound. Reason for Exam: N18.3 [...] Impression: 1. Right kidney is smaller than expected . The kidneys are unremarkable in echogenicity without evidence for hydronephrosis. 12/31/2016 [facility] lumbar myelogram DX EXAM : FLUOROSCOPY-GUIDED LUMBAR PUNCTURE FOR CT MYELOGRAM. EXAM: CT MYELOGRAM Lumbar SPINE. 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 FINDINGS: 5 nonrib-bearing lumbar type vertebral b odies. Interval posterior fusion from L2 to S1 [...] right S1 nerve root. 10/26/2016 [facility] Sp[facility] lumbar myelogram CT EXAM : FLUOROSCOPY-GUIDED LUMBAR PUNCTURE FOR CT MYELOGRAM. EXAM: CT MYELOGRAM Lumbar SPINE. 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 FINDINGS: 5 nonrib-bearing lumbar type vertebral b odies. Interval posterior fusion from L2 to S1 [...] Signs Vital Sign Value Date Comments Source Temperature Oral (F) 98.2 F 09/09/2019 [facility] Heart Rate 73 09/09/2019 [facility] Respitory Rate 17 09/09/2019 [facility] Systolic (mm Hg) 175 09/09/2019 [facility] Diastolic (mm Hg) 79 09/09/2019 [facility] Heart Rate 78 09/09/2019 [facility] Respitory Rate 17 09/09/2019 [facility] Systolic (mm Hg) 151 09/09/2019 [facility] Diastolic (mm Hg) 88 09/09/2019 [facility] Heart Rate 95 09/09/2019 [facility] Systolic (mm Hg) 156 09/09/2019 [facility] Diastolic (mm Hg) 62 09/09/2019 [facility] Temperature Oral (F) 98.6 F 09/09/2019 [facility] Respitory Rate 19 09/09/2019 [facility] Temperature Oral (F) 97.9 F 09/08/2019 [facility] Height 152.4 cm 09/08/2019 [facility] Weight 77.273 09/08/2019 [facility] BMI Calculated 33.27 09/08/2019 [facility] Height 160.02 cm 09/07/2019 [facility] BMI Calculated 34.61 09/07/2019 [facility] Weight 88.636 09/07/2019 [facility] Temperature Oral (F) 98.4 F 08/21/2019 [facility] Heart Rate 75 08/21/2019 [facility] Respitory Rate 17 08/21/2019 [facility] Systolic (mm Hg) 131 08/21/2019 [facility] Diastolic (mm Hg) 81 08/21/2019 [facility] Temperature Oral (F) 98.1 F 08/21/2019 [facility] Heart Rate 78 08/21/2019 [facility] Respitory Rate 17 08/21/2019 [facility] Systolic (mm Hg) 118 08/21/2019 [facility] Diastolic (mm Hg) 66 08/21/2019 [facility] Temperature Oral (F) 98.0 F 08/21/2019 [facility] Heart Rate 77 08/21/2019 [facility] Respitory Rate 16 08/21/2019 [facility] Systolic (mm Hg) 113 08/21/2019 [facility] Diastolic (mm Hg) 57 08/21/2019 [facility] Height 152.4 cm 08/19/2019 [facility] BMI Calculated 33.27 08/19/2019 [facility] Weight 77.273 08/19/2019 [facility] Systolic (mm Hg) 146 08/19/2019 [facility] Diastolic (mm Hg) 78 08/19/2019 [facility] Systolic (mm Hg) 172 08/19/2019 [facility] Diastolic (mm Hg) 88 08/19/2019 [facility] Systolic (mm Hg) 188 08/18/2019 [facility] Diastolic (mm Hg) 92 08/18/2019 [facility] Heart Rate 91 08/18/2019 [facility] Respitory Rate 18 08/18/2019 [facility] Temperature Oral (F) 98.5 F 08/18/2019 [facility] Height 152.4 cm 08/18/2019 [facility] BMI Calculated 33.27 08/18/2019 [facility] Weight 77.273 08/18/2019 [facility] Heart Rate 77 07/10/2019 [facility] Respitory Rate 18 07/10/2019 [facility] Systolic (mm Hg) 167 07/10/2019 [facility] Diastolic (mm Hg) 86 07/10/2019 [facility] Temperature Oral (F) 98.5 F 07/10/2019 [facility] Heart Rate 65 07/10/2019 [facility] Respitory Rate 17 07/10/2019 [facility] Systolic (mm Hg) 141 07/10/2019 [facility] Diastolic (mm Hg) 85 07/10/2019 [facility] Heart Rate 66 07/10/2019 [facility] Respitory Rate 18 07/10/2019 [facility] Systolic (mm Hg) 166 07/10/2019 [facility] Diastolic (mm Hg) 92 07/10/2019 [facility] Temperature Oral (F) 98 F 07/10/2019 [facility] Height 152.4 cm 07/10/2019 [facility] BMI Calculated 33.27 07/10/2019 [facility] Weight 77.273 07/10/2019 [facility] BMI Calculated 34.44 04/03/2019 [facility] Weight 80 0 04/03/2019 [facility] Systolic (mm Hg) 157 04/03/2019 [facility] Diastolic (mm Hg) 92 04/03/2019 [facility] Heart Rate 73 04/03/2019 [facility] Respitory Rate 14 04/03/2019 [facility] Height 152.4 cm 04/03/2019 [facility] Heart Rate 71 03/29/2019 [facility] Respitory Rate 17 03/29/2019 [facility] Systolic (mm Hg) 153 03/29/2019 [facility] Diastolic (mm Hg) 88 03/29/2019 [facility] Temperature Oral (F) 98.6 F 03/29/2019 [facility] Respitory Rate 19 03/29/2019 [facility] Weight 77.273 03/29/2019 [facility] Height 152.4 cm 03/29/2019 [facility] BMI Calculated 33.27 03/29/2019 [facility] Temperature Oral (F) 98.1 F 03/29/2019 [facility] Heart Rate 74 03/29/2019 [facility] Respitory Rate 16 03/29/2019 [facility] Systolic (mm Hg) 159 03/29/2019 [facility] Diastolic (mm Hg) 91 03/29/2019 [facility] Temperature Oral (F) 98.5 F 03/29/2019 [facility] Heart Rate 82 03/29/2019 [facility] Systolic (mm Hg) 150 03/29/2019 [facility] Diastolic (mm Hg) 78 03/29/2019 [facility] BMI Calculated 33.27 03/29/2019 [facility] Weight 77.273 03/29/2019 [facility] Height 152.4 cm 03/29/2019 [facility] BMI Calculated 33.27 03/29/2019 [facility] Height 152.4 cm 01/02/2019 [facility] Weight 80.909 01/02/2019 [facility] BMI Calculated 34.84 01/02/2019 [facility] Systolic (mm Hg) 169 01/02/2019 [facility] Diastolic (mm Hg) 95 01/02/2019 [facility] Respitory Rate 14 01/02/2019 [facility] Heart Rate 58 01/02/2019 [facility] Temperature Oral (F) 98.0 F 01/02/2019 [facility] Heart Rate 79 12/23/2018 [facility] Temperature Oral (F) 98.1 F 12/23/2018 [facility] Respitory Rate 18 12/23/2018 [facility] Systolic (mm Hg) 122 12/23/2018 [facility] Diastolic (mm Hg) 86 12/23/2018 [facility] Respitory Rate 18 12/23/2018 [facility] Systolic (mm Hg) 131 12/23/2018 [facility] Diastolic (mm Hg) 83 12/23/2018 [facility] Heart Rate 78 12/23/2018 [facility] Systolic (mm Hg) 143 12/23/2018 [facility] Diastolic (mm Hg) 84 12/23/2018 [facility] Respitory Rate 18 12/23/2018 [facility] BMI Calculated 35.23 12/23/2018 [facility] Height 152.4 cm 12/23/2018 [facility] Heart Rate 79 12/23/2018 [facility] Temperature Oral (F) 97.9 F 12/23/2018 [facility] Weight 81.818 12/23/2018 [facility] BMI Calculated 34.84 10/03/2018 [facility] Weight [...] 92 09/16/2018 [facility] Respitory Rate 18 09/16/2018 [facility] Heart Rate 49 09/16/2018 [facility] Respitory Rate 18 09/16/2018 [facility] Systolic (mm Hg) 138 09/16/2018 [facility] Diastolic (mm Hg) 79 09/16/2018 [facility] Heart Rate 55 09/16/2018 [facility] Temperature Oral (F) 98.9 F 09/16/2018 [facility] Respitory Rate 18 09/16/2018 [facility] Systolic (mm Hg) 128 09/16/2018 [facility] Diastolic (mm Hg) 78 09/16/2018 [facility] Heart Rate 60 09/16/2018 [facility] Temperature Oral (F) 97.7 F 09/16/2018 [facility] Weight 82 1 11/16/2017 [facility] BMI Calculated 35.31 09/15/2018 [facility] Height [...] 36.21 05/23/2018 [facility] Weight 84.091 05/23/2018 [facility] Systolic (mm Hg) 139 05/23/2018 [facility] Diastolic (mm Hg) 85 05/23/2018 [facility] Weight 85 0 04/11/2018 [facility] BMI Calculated 36.6 04/11/2018 [facility] Systolic (mm Hg) 170 04/11/2018 [facility] Diastolic (mm Hg) 91 04/11/2018 [facility] Temperature Oral (F) 98.0 F 04/11/2018 [facility] Respitory Rate 14 04/11/2018 [facility] Heart Rate 83 04/11/2018 [facility] Height 152.4 cm 04/11/2018 [facility] Height 152.4 cm 02/07/2018 [facility] Weight 85.994 02/07/2018 [facility] BMI Calculated 37.03 02/07/2018 [facility] Systolic (mm Hg) 129 02/07/2018 [facility] Diastolic (mm Hg) 87 02/07/2018 [facility] Heart Rate 91 02/07/2018 [facility] Temperature Oral (F) 97.9 F 02/07/2018 [facility] Height 152.4 cm 01/10/2018 [facility] Temperature Oral (F) 98.0 F 01/10/2018 [facility] Respitory Rate 14 01/10/2018 [facility] BMI Calculated 37.77 01/10/2018 [facility] Weight 87.727 01/10/2018 [facility] Systolic (mm Hg) 130 01/10/2018 [facility] Diastolic (mm Hg) 76 01/10/2018 [facility] Heart Rate 63 01/10/2018 [facility] Height 152.4 cm 11/07/2017 [facility] Weight 86.364 11/07/2017 [facility] BMI Calculated 37.18 11/07/2017 [facility] Temperature Oral (F) 98.3 F 11/07/2017 [facility] Respitory Rate 14 11/07/2017 [facility] Heart Rate 81 11/07/2017 [facility] Systolic (mm Hg) 144 11/07/2017 [facility] Diastolic (mm Hg) 84 11/07/2017 [facility] Height 152.4 cm 09/08/2017 [facility] BMI Calculated 36.99 09/08/2017 [facility] Weight 85.909 09/08/2017 [facility] Systolic (mm Hg) 135 09/08/2017 [facility] Diastolic (mm Hg) 83 09/08/2017 [facility] Temperature Oral (F) 98.2 F 09/08/2017 [facility] Respitory Rate 14 09/08/2017 [facility] Heart Rate 54 09/08/2017 [facility] Respitory Rate 20 06/23/2017 [facility] Systolic (mm Hg) 121 06/23/2017 [facility] Diastolic (mm Hg) 86 06/23/2017 [facility] Systolic (mm Hg) 133 06/23/2017 [facility] Diastolic (mm Hg) 93 06/23/2017 [facility] Respitory Rate 21 06/23/2017 [facility] Diastolic (mm Hg) 73 06/23/2017 [facility] Systolic (mm Hg) 103 06/23/2017 [facility] Respitory Rate 19 06/23/2017 [facility] Heart Rate 80 06/23/2017 [facility] Heart Rate 66 06/20/2017 [facility] Temperature Oral (F) 98 F 06/20/2017 [facility] Height 152.4 cm 06/20/2017 [facility] BMI Calculated 36.79 06/20/2017 [facility] Weight 85.455 06/20/2017 [facility] Encounters Location Location Details Encounter Type Encounter Number Reason For Visit Attending Provider ADM Date DC Date Status Source AUDIT [id number] 08/01/2012 08/01/2012 [facility] Candy MICHELLE chasidy: ALANA COX, Status: Johan, Time: 9:30 AM [id number] 09/12/20 12 08/01/2012 [facility] Outpatient Imaging - [place] [facility] Di[facility] Services [id number] Piotr Ceja 10/26/2016 10/27/2016 DELIA Kam [facility] Outpatient [facility] - [place] [facility] [id number] Estelle Bishop 12/31/2016 01/01/2017 [facility] [place] [facility]patient [id number] UMER PATTERSON 05/31/2017 [facility] Outpatient [id number] Umer Patterson 06/08/2017 06/09/2017 [facility] Outpatient [id number] Umer Patterson 06/16/2017 06/17/2017 [facility] Bedded Outpatient [id number] Angelo Gilliam 06/23/2017 06/23/2017 [facility] Outpatient [id number] FRANTZ CHAPMAN 07/07/2017 [facility] Outpatient [id number] Gould Sherly 08/02/2017 08/03/2017 [facility] Outpatient [id number] UMER PATTERSON 09/08/2017 [facility] Primary [facility] Outpatient [id number] Umer Patterson 09/08/2017 09/09/2017 Medical [facility] Primary Care [facility] Outpatient [id number] Umer Patterson 11/07/2017 11/08/2017 [facility] Phone Message [id number] 12/13/2017 12/15/2017 [facility] Phone Message [id number] 12/15/2017 12/17/2017 [facility] Ambulatory Pre-Reg [id number] Sergo Palacios 12/16/2017 12/16/2017 [facility] Outpatient Imaging - [place] [facility] Services [id number] 03 Piotr Ceja 12/23/2017 12/24/2017 [facility] [place] Outpatient [id number] UMER PATTERSON 01/10/[address] [facility] Primary Care [facility] Outpatient [id number] Umer Patterson 01/10/2018 01/11/2018 [facility] Phone Message [id number] 01/31/2018 02/02/2018 [facility] Outpatient [id number] [facility] 02/07/2018 Active [facility] Outpatient [id number] [facility] 02/07/2018 02/08/2018 [facility] Phone Message [id number] 02/09/2018 02/11/2018 [facility] Phone Message [id number] 02/09/2018 02/11/2018 [facility] Phone Message [id number] 02/09/2018 02/11/2018 [facility] Outpatient [id number] [facility] 02/21/2018 02/22/2018 [facility] Phone Message [id number] 03/06/2018 03/08/2018 [facility] Outpatient [id number] [facility] 03/14/2018 Active [facility] Ambulatory Pre-Reg [id number] Sergo Palacios 03/14/2018 03/14/2018 [facility] Outpatient [id number] UMER PATTERSON 04/11/[address] [facility] Primary Care [facility] Outpatient [id number] Umer Patterson 04/11/2018 04/12/2018 [facility] Phone Message [id number] 04/12/2018 04/14/2018 [facility] Outpatient [id number] UMER PATTERSON 05/23/2018 Active [facility] Outpatient [id number] Umer Patterson 05/23/2018 05/24/2018 [facility] Phone Message [id number] 05/26/2018 05/28/2018 [facility] Outpatient [id number] UMER PATTERSON 07/24/[address] [facility] Primary Care [facility] Outpatient [id number] Umer Patterson 07/24/2018 07/25/2018 [facility] Outpatient Imaging - [place] [facility] Diag Services [id number] Piotrvalarie Ceja 07/27/2018 07/28/2018 [facility] [place] Out[facility] [id number] UMER PATTERSON 09/08/[address] [facility] Primary Care [facility] Outpatient [id number] Umer Patterson 09/08/2018 09/09/2018 [facility] Inpatient [id number] Bartolo Cm 09/14/2018 09/16/2018 [facility] Outpatient [id number] UMER PATTERSON 10/03/[address] [facility] Primary Care [facility] Outpatient [id number] Umer Patterson 10/03/2018 10/04/2018 [facility] Emergency [id number] Yovany Nba 12/23/2018 12/23/2018 [facility] Primary Care [facility] Phone Message [id number] 12/26/2018 12/28/2018 [facility] Outpatient [id number] Umer Patterson 01/02/[address] [facility] Primary Care [facility] Outpatient [id number] Umer Patterson 01/02/2019 01/03/2019 Medical Group [facility] Observation [id number] Evelyne Schofield 03/29/2019 03/29/2019 [facility] Outpatient [id number] Umer Patterson 04/03/[address] [facility] Outpatient [id number] Umer Patterson 04/03/2019 04/04/2019 [facility] Emergency [id number] Seferino Rahman 07/10/2019 07/10/2019 [facility] Emergency [id number] Rudi Palomino 08/18/2019 08/19/2019 [facility] Inpatient [id number] Rudi Palomino 08/19/2019 08/21/2019 [facility] Observation [id number] Angelo Robins 09/07/2019 09/09/2019 [facility] Primary Care [facility] Medical Records [id number] 10/18/1910/20/2019 [facility] Procedures Procedure Code Date Perfomer Comments Source Diabetic retinopathy screening<sup>1, 2</sup> [id number] 08/25/2018 normalnormal [facility], [facility], [facility] [place],[facility] Colonoscopy<sup>3</sup> [id number] 06/23/2017 diverticulosis [facility] , [facility] [place],[facility] Colonoscopy<sup>1</sup> [id number] 06/23/2017 diverticulosis Medical Group,[facility], [facility] [place],[facility] Diabetic retinopathy screening<sup>1</sup> [id number] 03/26/2017 normal [facility] Diabetic retinopathy screening<sup>2</sup> [id number] 03/26/2017 normal [facility] an[facility], [facility] [place],[facility] Mammogram - screening [id number] 08/26/2016 [facility], [facility] [place],[facility] Colonoscopy [id number] 09/26/2015 [facility] Appendectomy [id number] Medical [facility] [place] Cholecystectomy [id number] Medical [facility] [place] Esophagogastroduodenoscopy [id number] Medical [facility], [facility] [place],[facility] Hysterectomy [id number] Medical [facility], [facility] [place],[facility] Laparoscopic repair of hiatus hernia [id number] [facility], [facility] [place],[facility] Lumbar spinal fusion [id number] Medical [facility] Partial resection of colon [id number] [facility] Repair of inguinal hernia [phone] [facility] Assessment and Plan Assessment and Plan Date Source Extracted from:Title: Clinical Document Author: Angelo Robins MD Date: 09/08/19 Progress Note - Daily [facility] Completed: Tuesday, SEP 08, 2019, 18:21 by Angelo Robins MD RM: CCDU - 18, SE CCDU LOREN ROCK 58y (: 1960) F Attending: Angelo Robins MD Service: Internal Medicine Reason for Admission: INTRACTABLE NAUSEA AND VOMITING, ACUTE UTI Working DRG: Code status: None Specified=FULL CODE Current diet: Isolation: Contact Allergies: No Known Medication Allergies SUBJECTIVE Chart Reviewed No new events overnight 24hr Labs 09/08 1656 POC Performing Locatio See Note Glucose POC 176 H 09/08 1140 POC Performing Locatio See Note Glucose POC 144 H 09/08 0755 POC Performing Locatio See Note Glucose POC 168 H 09/08 0113 Lactic Acid Lvl 1.7 09/07 1937 POC Performing Locatio See Note Glucose POC 221 H 09/07 1813 Lactic Acid Lvl 3.7 H Norman still necessary (Yes/No): Line still necessary (Yes/No): Vitals Tmp(F) Pulse BP RR SpO2 FIO2 09/08 16:59 97.9 88 126/82 1 6 99 --- 09/08 11:43 98.3 99 166/86 1 8 96 --- 09/08 07:58 98.3 82 190/92 1 8 95 --- 09/08 04:32 99.1 94 195/98 1 7 97 --- 09/07 23:43 98.6 101 167/102 -- --- --- Gen: AAOX3, NAD Neuro: Moving all extremities well CV: RRR, S1 and S2 Lung: CTA-B Abdomen: Non-distended, non-tender, no rebound or gaurding, bowel sounds are present. : no suprapubic region tenderness. No CVA region tenderness. EXT: no peripheral edema. Skin: no rashes or other skin color changes. 24 Hr Tmax: 99.1F (37.28c) at 09/08 04:3 2 Vital Signs are the last 5 in the past 48 hours. Date Wt(kg) Wt(lb) Ht(cm) Ht(in) Method 09/07 (initial) 88.64 195.00 Estimated 09/07 160.02 63.00 Stated I&O Record In Out Bal 09/08 24hr Tot 46 0 46 09/07 24hr Tot 2055 0 2055 Medications (42) Active Scheduled Meds (6): 09/08/19 aspirin (aspirin 81 mg tablet, enteric coated) 81 mg PO Daily 09/08/19 cefTRIAXone + sterile water 10 mL 1 gm IVP [id number] 120 ml/hr 09/07/19 gabapentin (gabapentin 300 mg o ral capsule) 300 mg PO Q8H 09/08/19 glyBURIDE 10 mg PO BID 09/08/19 losartan 100 mg PO Daily 09/08/19 non-formulary (RN please bring pt's own glyburide to pharmacy to label) MISC QSHIFT Unscheduled Meds (1): 09/07/19 influenza virus vaccine, inacti vated 0.5 mL IM ONCALL PRN Meds (21): 09/07/19 Dextrose 50% in Water IV (Dextr ose 50% Syringe (D50W)) 12.5 gm IVP PRN 09/07/19 Dextrose 50% in Water IV (Dextr ose 50% Syringe (D50W)) 25 gm IVP PRN 09/07/19 Dextrose 50% in Water IV (Dextr ose 50% Syringe (D50W)) 12.5 gm IVP PRN 09/07/19 Dextrose 50% in Water IV (Dextr ose 50% Syringe (D50W)) 25 gm IVP PRN 09/07/19 acetaminophen 650 mg PO Q4H 09/07/19 glucagon 1 mg IM PRN 09/07/19 glucagon 1 mg IM PRN 09/08/19 hydrALAZINE 5 mg IV Q6H 09/07/19 insulin lispro 1 unit SUB-Q TID -Before Meals 09/07/19 insulin lispro 2 unit SUB-Q TID -Before Meals 09/07/19 insulin lispro 3 unit SUB-Q TID -Before Meals 09/07/19 insulin lispro 4 unit SUB-Q TID -Before Meals 09/07/19 insulin lispro 5 unit SUB-Q TID -Before Meals 09/07/19 insulin lispro 1 unit SUB-Q Bed time 09/07/19 insulin lispro 2 unit SUB-Q Bed time 09/07/19 insulin lispro 3 unit SUB-Q Bed time 09/07/19 insulin lispro 4 unit SUB-Q Bed time 09/07/19 melatonin 3 mg PO Bedtime 09/07/19 metoclopramide (Reglan) 10 mg I MUSICAL INSTRUMENT MAKER OR REPAIRER Q6H 09/07/19 ondansetron 4 mg IVP Q8H 09/07/19 sodium chloride (Saline Flush 0 .9%) 10 ml IVP PRN One Time Meds (13): 09/07/19 (Completed) Al hydroxide/Mg hy droxide/simethicone 30 mL PO ONCE 09/07/19 (Deleted) GI cocktail (GI cock tail (aluminum hydroxide/magnesium hydroxide/lidocaine/simethicone)) 45 ml PO ONCE 09/07/19 (Completed) Sodium Chloride 0. 9% IV (NS (Bolus) IV) 1,000 mL IV ONCE 1,000 ml/hr 09/07/19 (Completed) Sodium Chloride 0. 9% IV (NS (Bolus) IV) 1,000 mL IV ONCE 1,000 ml/hr 09/07/19 (Completed) acetaminophen-hydr ocodone ([place] 5/325 oral tablet) 1 tab PO ONCE 09/07/19 (Completed) cefTRIAXone + ster ile water 10 mL 1 gm IVP ONCE 120 ml/hr 09/07/19 (Completed) hydrALAZINE 10 mg IV ONCE 09/08/19 (not done) lactulose (lactulos e 10 g/15 mL oral syrup) 20 gm PO ONCE 09/08/19 (Completed) lactulose (lactulo se 10 g/15 mL oral syrup) 20 gm PO ONCE 09/07/19 (Completed) lidocaine topical (Xylocaine Viscous 2% mucous membrane solution) 15 mL PO ONCE 09/07/19 (Completed) morphine Sulfate 4 mg IVP ONCE 09/07/19 (Completed) ondansetron (Zofra n) 4 mg IVP ONCE 09/07/19 (Completed) promethazine 12.5 mg IVPB ONCE Continuous Infusions (1): 09/07/19 Sodium Chloride 0.9% IV 1,000 m L 1,000 mL 100 ml/hr ASSESSMENT and PLAN *Acute urinary tract infection *Lactic acidosis *Nausea and vomiting *Colonic fecal impaction *Diabetes mellitus *Recent lumbar spine surgery *Hypertensive urgency. Patient seen examined 09/08/2019. Patient with the nausea and vomiting likely due to combination of being on oxycodone after recent back surgery, fecal stool impaction along with urinary tract infection. We will provide with enema today hopefully get her more relieved this way. Antiemetics to be provided also. Rocephin for likely urinary tract infection. Patient however is wanting her oxycodone and I was informed that likely this is contributing to her current presentation and symptoms but patient is wanting this medication. We will begin at home doses given her back surgery and pain reported. CT the abdomen reviewed which really does not show any bony artifact within the imaged area on CT abdomen pelvis. Continue with current treatment including IV antibiotics and fluids and plan discharge tomorrow. DVT prophylaxis Disposition: Plan discharge tomorrow. Extracted from:Title: History and Physical Author: Tennille Kerr MD Date: 09/07/19 58-year-old female with history of hyper tension, type 2 diabetes on metformin, colon cancer status post resection, recentspinal surgery on 08/19 with hardware removalwho presented to the ED with intractable nausea and vomitingas well as right ankle pain. Intractable nausea/vomiting - may be related to UTI or opoid-induced - will hold further opoids - will start reglan 10 mg IV q6h prn in case there is component of gastroparesis - will continue IVF - clear liquid diet, advance as tolerate d Lactic acidosis - multifactorial due to vomiting, dehydr ation, and metformin - will hold metformin - will continue IVF and trend lactate un til cleared Acute UTI - will continue ceftriaxone Acute R ankle pain - appears neuropathic following surgery, will start gabapentin Type 2 DM - will start low dose SSI - holding metformin Hypertensive urgency - BP aggravated by vomiting SCDs observation, anticipate 1 midnight 09/09/2019 Ai Extracted from:Title: Progress Note Author: Wang Carreon MD Date: 08/20/19 58-year-old femalewith past medical history of hypertension,diabetespresented with worseninglower back pain after L5-S1 [id number]/14/2019, MRI concerns for epidural abscess. 1.Epidural abscess(G06.2) possible epidural abscess post L5-S1 laminectomy exploration and WO today with NSGY hold antibiotics pending intraoperative culture 2.S/P L5-S1 laminectomy(Z98.890) continue multimodal analgesicregimen 3.Diabetes type 2, with hyperglycemia(E11.9) BG acceptable continue SSI 4.Hypertension(I10) BP acceptable off losartan 5.Anemia(D64.9) H/H stable. 6.Cancer of colon(C18.9) oncology outpatient followup 7.Hyperlipidemia(E78.5) diet controlled Prophylaxis SCD, hold off chemoppxfor spine surgery. Disposition pending spine sx. Extracted from:Title: History and Physical Author: Wang Carreon MD Date: 08/19/19 58-year-old femalewith past med ical history of hypertension,diabetespresented with worseninglower back pain after L5-S1 [id number]/14/2019, MRI concerns for epidural abscess. 1.Epidural abscess(G06.2) possible epidural abscess post L5-S1 laminectomy ESR and CRP mildly elevated. Patient is not septic, hold off additional antibiotics Ordered: gabapentin, 300 mg, 1 cap, Route: PO, Drug form: CAP, Q8H, Dosing Weight 77.273, kg, Start date: 08/19/19 16:00:00 AREA INTELLIGENCE TECHNICIAN, Duration: 30 day, Stop date: 09/18/19 8:00:00 AREA INTELLIGENCE TECHNICIAN, 0 ketOROLAC, 15 mg, Route: IVP, Drug form: INJ, ONCE, Dosing Weight 77.273, kg, Start date: 08/19/19 11:44:00 AREA INTELLIGENCE TECHNICIAN, Stop date: 08/19/19 11:44:00 AREA INTELLIGENCE TECHNICIAN Admit/Condition, 08/19/19 6:39:00 AREA INTELLIGENCE TECHNICIAN, Status: Inpatient, Acute, Location: 4 son ramin, Expected LOS: 3 or Greater Midnights, Wang Carreon MD, Admit MD Review/Approve Yes, Isolation: No Isolation/Standard Precautions, Epidural abscess 2.S/P L5-S1 laminectomy(Z98.890) as in #1 start multimodal analgesicregimen Ordered: gabapentin, 300 mg, 1 cap, Route: PO, Drug form: CAP, Q8H, Dosing Weight 77.273, kg, Start date: 08/19/19 16:00:00 AREA INTELLIGENCE TECHNICIAN, Duration: 30 day, Stop date: 09/18/19 8:00:00 AREA INTELLIGENCE TECHNICIAN, 0 ketOROLAC, 15 mg, Route: IVP, Drug form: INJ, ONCE, Dosing Weight 77.273, kg, Start date: 08/19/19 11:44:00 AREA INTELLIGENCE TECHNICIAN, Stop date: 08/19/19 11:44:00 AREA INTELLIGENCE TECHNICIAN 3.Diabetes type 2, with hyperglycemia(E11.9) start SSI NPO for now Ordered: gabapentin, 300 mg, 1 cap, Route: PO, Drug form: CAP, Q8H, Dosing Weight 77.273, kg, Start date: 08/19/19 16:00:00 AREA INTELLIGENCE TECHNICIAN, Duration: 30 day, Stop date: 09/18/19 8:00:00 AREA INTELLIGENCE TECHNICIAN, 0 ketOROLAC, 15 mg, Route: IVP, Drug form: INJ, ONCE, Dosing Weight 77.273, kg, Start date: 08/19/19 11:44:00 AREA INTELLIGENCE TECHNICIAN, Stop date: 08/19/19 11:44:00 AREA INTELLIGENCE TECHNICIAN 4.Hypertension(I10) BP acceptable hold losartan Ordered: gabapentin, 300 mg, 1 cap, Route: PO, Drug form: CAP, Q8H, Dosing Weight 77.273, kg, Start date: 08/19/19 16:00:00 AREA INTELLIGENCE TECHNICIAN, Duration: 30 day, Stop date: 09/18/19 8:00:00 AREA INTELLIGENCE TECHNICIAN, 0 ketOROLAC, 15 mg, Route: IVP, Drug form: INJ, ONCE, Dosing Weight 77.273, kg, Start date: 08/19/19 11:44:00 AREA INTELLIGENCE TECHNICIAN, Stop date: 08/19/19 11:44:00 AREA INTELLIGENCE TECHNICIAN 5.Anemia(D64.9) H/H stable. Ordered: gabapentin, 300 mg, 1 cap, Route: PO, Drug form: CAP, Q8H, Dosing Weight 77.273, kg, Start date: 08/19/19 16:00:00 AREA INTELLIGENCE TECHNICIAN, Duration: 30 day, Stop date: 09/18/19 8:00:00 AREA INTELLIGENCE TECHNICIAN, 0 ketOROLAC, 15 mg, Route: IVP, Drug form: INJ, ONCE, Dosing Weight 77.273, kg, Start date: 08/19/19 11:44:00 AREA INTELLIGENCE TECHNICIAN, Stop date: 08/19/19 11:44:00 AREA INTELLIGENCE TECHNICIAN 6.Cancer of colon(C18.9) no active issue oncology outpatient followup Ordered: gabapentin, 300 mg, 1 cap, Route: PO, Drug form: CAP, Q8H, Dosing Weight 77.273, kg, Start date: 08/19/19 16:00:00 AREA INTELLIGENCE TECHNICIAN, Duration: 30 day, Stop date: 09/18/19 8:00:00 AREA INTELLIGENCE TECHNICIAN, 0 ketOROLAC, 15 mg, Route: IVP, Drug form: INJ, ONCE, Dosing Weight 77.273, kg, Start date: 08/19/19 11:44:00 AREA INTELLIGENCE TECHNICIAN, Stop date: 08/19/19 11:44:00 AREA INTELLIGENCE TECHNICIAN 7.Hyperlipidemia(E78.5) diet controlled Ordered: gabapentin, 300 mg, 1 cap, Route: PO, Drug form: CAP, Q8H, Dosing Weight 77.273, kg, Start date: 08/19/19 16:00:00 AREA INTELLIGENCE TECHNICIAN, Duration: 30 day, Stop date: 09/18/19 8:00:00 AREA INTELLIGENCE TECHNICIAN, 0 ketOROLAC, 15 mg, Route: IVP, Drug form: INJ, ONCE, Dosing Weight 77.273, kg, Start date: 08/19/19 11:44:00 AREA INTELLIGENCE TECHNICIAN, Stop date: 08/19/19 11:44:00 AREA INTELLIGENCE TECHNICIAN SCD, hold off chemoppx pending NSGY recommendation expect >2 mn. 08/21/2019 [facility] Extracted from:Title: Clinical Document Author: Andie Steel MD Date: 03/29/19 [facility] Initial Cardiology Consultation Note [...] PO Bedtime 03/29/19 enoxaparin 40 mg SUB-Q [id number] 03/29/19 losartan 50 mg PO Daily 03/29/19 sodium chloride (Saline Flush 0 .9%) 10 ml IVP Q12H Unscheduled Meds: None PRN Meds (17): 03/29/19 Dextrose 50% in Water IV (Dextr ose 50% Syringe) 12.5 gm IVP PRN 03/29/19 Dextrose 50% in Water IV (Dextr ose 50% Syringe) 25 gm IVP PRN 03/29/19 acetaminophen 650 mg PO Q4H 03/29/19 acetaminophen 650 mg PO Q4H 03/29/19 bisacodyl 10 mg MA Daily 03/29/19 glucagon 1 mg IM PRN 03/29/19 hydrALAZINE 10 mg IV Q6H 03/29/19 insulin lispro 1 unit SUB-Q TID -Before Meals 03/29/19 insulin lispro 2 unit SUB-Q TID -Before Meals 03/29/19 insulin lispro 3 unit SUB-Q TID -Before Meals 03/29/19 insulin lispro 4 unit SUB-Q TID -Before Meals 03/29/19 insulin lispro 5 unit SUB-Q TID -Before Meals 03/29/19 nitroglycerin (nitroglycerin SL Tab) 0.4 mg SL Q5Min 03/29/19 nitroglycerin (nitroglycerin 0. 1 mg/hr transdermal film) 1 patch Transdermal Daily 03/29/19 ondansetron 4 mg PO Q8H 03/29/19 sodium chloride (Saline Flush 0 .9%) 10 ml IVP PRN 03/29/19 temazepam 15 [...] for the consult. Call with questions. 03/29/2019 JEMIM[facility] Extracted from:Title: History and Physic al Author: Vitaly Barney MD Date: 09/15/18 57yo woman with above PMHx presents with N/V/poor PO fluid intake and evidence of UTI Abdominal pain, acute(R10.9) >analgesics/antiemetics, analgesics Ordered: Admit/Condition, 09/14/18 21:12:00 AREA INTELLIGENCE TECHNICIAN, Status: Inpatient, Acute, Expected LOS: 2 Midnights, Marlo Figueredo MD, Mikhail GOMEZ Review/Approve Yes, Isolation: No Isolation/Standard Precautions, TIFFANI (acute kidney injury) | Abdominal pain, acute | Acute lower UTI | Back... Acute lower UTI(N39.0) >Given IV rocephin in the ED and will continue for now pending culture results Ordered: Admit/Condition, 09/14/18 21:12:00 AREA INTELLIGENCE TECHNICIAN, Status: Inpatient, Acute, Expected LOS: 2 Midnights, Marlo Figueredo MD, Mikhail GOMEZ Review/Approve Yes, Isolation: No Isolation/Standard Precautions, TIFFANI (acute kidney injury) | Abdominal pain, acute | Acute lower UTI | Back... TIFFANI (acute kidney injury)(N17.9) >close to resolution overnight. WIll rechek labs in AM, avoid nephrotoxins Ordered: Admit/Condition, 09/14/18 21:12:00 AREA INTELLIGENCE TECHNICIAN, Status: Inpatient, Acute, Expected LOS: 2 Midnights, Marlo Figueredo MD, Mikhail GOMEZ Review/Approve Yes, Isolation: No Isolation/Standard Precautions, TIFFANI (acute kidney injury) | Abdominal pain, acute | Acute lower UTI | Back... Back pain, chronic(M54.9) >reconcile home meds. Ordered: Admit/Condition, 09/14/18 21:12:00 AREA INTELLIGENCE TECHNICIAN, Status: Inpatient, Acute, Expected LOS: 2 Midnights, Marlo Figueredo MD, Mikhail GOMEZ Review/Approve Yes, Isolation: No Isolation/Standard Precautions, TIFFANI (acute kidney injury) | Abdominal pain, acute | Acute lower UTI | Back... N&V (nausea and vomiting)(R11.2) >symptoms have been cocntrolled Ordered: Admit/Condition, 09/14/18 21:12:00 AREA INTELLIGENCE TECHNICIAN, Status: Inpatient, Acute, Expected LOS: 2 Midnights, Marlo Figueredo MD, Admit MD Review/Approve Yes, Isolation: No Isolation/Standard Precautions, TIFFANI (acute kidney injury) | Abdominal pain, acute | Acute lower UTI | Back... Right nephrolithiasis(N20.0) >without evidence of obstrucition Ordered: Admit/Condition, 09/14/18 21:12:00 [employer], Status: Inpatient, Acute, Expected LOS: 2 Midnights, Marlo Figueredo MD, Admit Review/Approve Yes, Isolation: No Isolation/Standard Precautions, TIFFANI (acute kidney injury) | Abdominal pain, acute | Acute lower UTI | Back... per protocol 2-3 midnights, inpatient 09/16/2018 [facility] Plan of Care Plan of Care Date Source Upper Endoscopy 04/12/2012 RoutineGastri c Emptying Study 04/12/2012 [id number] hr Hope Capsule Placement 04/12/2012 RoutineGI Esophagus barium swallow function video 04/12/2012 RoutineCardiology Referral 04/12/2012 Routine 08/01/2012 [facility] Social History Social History Date Source Social [...] 09/15/2018 [facility] Social History TypeResponse Alcohol Never 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 Exercise Exercise duration: 0. Substance Abuse Use: None. Smoking Status Never smoker; Ready to change: No; Concerns about tobacco use in household: No; Exposure to Tobacco Smoke None; Cigarette Smoking Last 365 Days No; Reg Smoking Cessation Counseling No entered on: 09/07/19 09/15/2018 [facility] Social History TypeResponse Alcohol Never 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 Exercise Exercise duration: 0. Substance Abuse Use: None. Smoking Status Never smoker; Ready to change: No; Concerns about tobacco use in household: No; Exposure to Tobacco Smoke None; Cigarette Smoking Last 365 Days No; Reg Smoking Cessation Counseling No entered on: 09/07/19 09/15/2018 [facility] Social History TypeResponse Alcohol Never 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 Exercise Exercise duration: 0. Substance Abuse Use: None. Smoking Status Never smoker; Ready to change: No; Concerns about tobacco use in household: No; Exposure to Tobacco Smoke None; Cigarette Smoking Last 365 Days No; Reg Smoking Cessation Counseling No entered on: 08/19/19 09/15/2018 [facility] Social History TypeResponse Exercise Exercise duration: 0. 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 Alcohol Never Smoking Status Never smoker; Exposure to Tobacco Smoke None; Cigarette Smoking Last 365 Days No; Reg Smoking Cessation Counseling No entered on: 02/07/18 05/31/2017 [facility] Social History TypeResponse 10/27/2016 [facility] Kam No History of Alcohol Use (Denied ) No History of Drug Use (Denied) Former Smoker Comments: quit 3-4 yrs ago (V15.82); (Active) 08/01/2012 [facility] Family History Value Date S ource Family history of Cancer (Active) Family history of Family Health Status (Active) 08/01/2012 [facility] Advance Directives Order Name Results Value Date Source Advance Directives Advance Dir ectives No Advance Directives available. 08/01/2012 [facility] Functional Status No Data Provided for This Section
--- OUTSIDE RECORDS SUMMARY | 2020-06-05 12:02 | XMS REPORT | Continuity of Care Document ---
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 unit, Route: IV, ONCE, Dosing Weight 77.273, kg, Start date: 08/20/19 13:54:00 AIRSET MOLDER, Stop date: 08/20/19 13:54:00 [facility] glycopyrrolate ([facility]) 2019-08-20 18:58:00 No Route: IV, Drug form: INJ, ONCE, Stop date: 08/20/19 12:58:00 [facility] neostigmine ([facility]) 2019-08-20 18:58:00 No Route: IV, Drug form: INJ, ONCE, Stop date: 08/20/19 12:58:00 [facility] ondansetron ([facility]) 2019-08-20 18:58:00 No Route: IV, Drug form: INJ, ONCE, Stop date: 08/20/19 12:58:00 [facility] Dilaudid 2019-08-20 18:56:00 No Notes: Same as Dilaudid [facility] Oxycodone Hydrochloride 5 MG Oral Tablet 2019-08-20 18:56:00 No Notes: (Same as: Roxicodone) [facility] hydromorphone ([facility]) 2019-08-20 18:21:00 No Route: IV, Drug form: INJ, ONCE, Stop date: 08/20/19 12:21:00 [facility] Insulin regular 2019-08-20 17:18:00 No Notes: (Same as: Humulin R) Roll in palms of hands gently; Do not shake vigorously. WASTE: F/P - Black; E - Municipal Trash Bin Stable for 31 days at room temperature Expires in days from Date [facility] Calcium Chloride 0.0014 MEQ/ML / Potassi um Chloride 0.004 MEQ/ML / Sodium Chloride 0.103 MEQ/ML / Sodium Lactate 0.028 MEQ/ML Injectable Solution 2019-08-20 17:17:00 No 1,000 mL, Rate: 125 ml/hr, Infuse over: 8 hr, Route: IV, Dosing Weight 77.273 kg, Total Volume: 1,000, Start date: 08/20/19 11:17:00 AIRSET MOLDER, Duration: 30 day, Stop date: 09/19/19 11:16:00 AIRSET MOLDER, 1.84, m2, 0 [facility] Hydralazine 2019-08-20 17:17:00 No Notes: (Same as: Apresoline) Push over 5 minutes [facility] Labetalol 2019-08-20 17:17:00 No 10 mg, 2 mL, Route: IVP, Drug form: INJ, Q5Min, Dosing Weight 77.273, kg, PRN Elevated BP, Start date: 08/20/19 11:17:00 AIRSET MOLDER, Duration: 5 doses or times, Stop date: Limited # of times, 0 [facility] Oxycodone Hydrochloride 5 MG Oral Tablet 2019-08-20 17:17:00 No Notes: (Same as: R[facility]odone) [facility] 2019-08-20 17:17:00 No Notes: Same as Dilaudid [facility] Flumazenil 2019-08-20 17:17:00 No Notes: (S xiao as: Romazicon) [facility] Naloxone 2019-08-20 17:17:00 No Notes: Same as Narcan [facility] Ondansetron 2019-08-20 17:17:00 No Notes: (Same as: Zofran) MEDICATION WASTE Product Size: 4 mg Product Wasted: ___ mg [facility] Promethazine 2019-08-20 17:17:00 No Notes: Do not give IV push. (Same as: Phenergan) [facility] phenylephrine ([facility]) 100 microgram 2019-08-20 16:55:00 No Route: IV, Drug form: INJ, Start date: 08/20/19 10:55:00 AIRSET MOLDER, Stop date: 08/20/19 11:55:00 AIRSET MOLDER [facility] ePHEDrine (ANES) 2019-08-20 16:45:00 No Route: IV, Drug form: INJ, ONCE, Stop date: 08/20/19 10:45:00 [facility] ([facility] 2019-08-20 16:40:00 No Route: IV, Drug form: INJ, ONCE, Stop date: 08/20/19 10:40:00 AIRSET MOLDER [facility] phenylephrine (ANES) 2019-08-20 16:29:00 No Route: IV, Drug form: INJ, ONCE, Stop date: 08/20/19 10:29:00 AIRSET MOLDER [facility] lidocaine ([facility]) 2019-08-20 16:24:00 No Route: IV, Drug form: INJ, ONCE, Stop date: 08/20/19 10:24:00 [facility] propof[facility] ([facility]) 2019-08-20 16:24:00 No Route: IV, Drug form: INJ, ONCE, Stop date: 08/20/19 10:24:00 [facility]OLDER [facility] rocuronium (ANES) 2019-08-20 16:24:00 No Route: IV, Drug form: INJ, ONCE, Stop date: 08/20/19 10:24:00 [facility] MOLDER [facility] fentaNYL (ANES) 2019-08-20 16:24:00 No Route: IV, Drug form: INJ, ONCE, Stop date: 08/20/19 10:24:00 [facility]SET MOLDER [facility] ceFAZolin (ANES) 2019-08-20 16:24:00 No Route: IV, Drug form: INJ, ONCE, Stop date: 08/20/19 10:24:00 [facility] midazolam (ANES) 2019-08-20 15:54:00 No Route: IV, Drug form: SOLN, ONCE, Stop date: 08/20/19 9:54:00 AIRSET MOLDER [facility] Isolyte S PH 7.4 (ANES) 1000 mL 2019-08-20 15:20:00 No Route: IV, Total Volume: 1,000, Start date: 08/20/19 9:20:00 AIRSET MOLDER, Stop date: 08/20/19 10:20:00 AIRSET MOLDER [facility] sennosides, CUSTODIAL 2019-08-20 03:00:00 No Notes: (Same as: Senokot) [facility] influenza virus vaccine, inactivated 2019-08-20 00:39:32 No Notes: (Same as: Fluzone Quadrivalent, Fluarix Quadrivalent) For patients 6 - 35 months of age (0.5 mL IM) For 3 years of age and older (0.5 mL IM) Shake well before use [facility] Docusate 2019-08-19 23:00:00 No Notes: (Same as: Colace) (Do Not Crush) [facility] gabapentin 2019-08-19 22:00:00 No Notes: (S xiao as: Neurontin) [facility] gabapentin 300 MG Oral Capsule 2019-08-19 17:51:00 No Notes: (Same as: Neurontin) [facility] Ketorolac 2019-08-19 17:44:00 No 4 days. [facility] Acetaminophen 2019-08-19 16:00:00 No Notes: Max acetaminophen 4000 mg/day (4 gm/day). (Same as: Tylenol Extra Strength) [facility] Oxycodone Hydrochloride 5 MG Oral Tablet 2019-08-19 15:31:00 No Notes: (Same as: Roxicodone) [facility] Morphine 2019-08-19 15:31:00 No Not es: (Same as:MORPhine Sulfate) [facility] Acetaminophen 325 MG / Hydrocodone Bitartrate 5 MG Oral Tabl et 2019-08-19 15:07:00 No Notes: (Sa me as: Ferney 325/5) Do not exceed 4gm/day of acetaminophen. [facility] Tramadol 2019-08-19 15:07:00 No Notes: Not to exceed 400mg/day. (Same As: Ultram) [facility] Dextrose 50% Syringe (D50W) 2019-08-19 15:06:00 No 12.5 gm, 25 mL, Route: IVP, Drug Form: INJ, Dosing Weight 77.273, kg, PRN, PRN Blood Glucose Results, Start date: 08/19/19 9:06:00 AIRSET MOLDER, Duration: 30 day, Stop date: 09/18/19 9:05:00 AIRSET MOLDER, 0 [facility] Glucagon 2019-08-19 15:06:00 No 1 mg, Route: IM, Drug form: PDR/INJ, PRN, Dosing Weight 77.273, kg, PRN Blood Glucose Results, Start date: 08/19/19 9:06:00 AIRSET MOLDER, Duration: 30 day, Stop date: 09/18/19 9:05:00 AIRSET MOLDER, 0 [facility] Ondansetron 2019-08-19 15:06:00 No Notes: (Same as: Zofran) MEDICATION WASTE Product Size: 4 mg Product Wasted: ___ mg Wilder Charlton Acetaminophen 2019-08-19 15:06:00 No Notes: Do not exceed 4 gm/day. (Same as: Tylenol) [facility] Zoltan Insulin Lispro 2019-08-19 15:06:00 No Notes: (Same as: Humalog) Roll in palms of hands gently; Do not shake vigorously. WASTE: F/P - Black; E - Municipal Trash Bin Stable for 28 days at room temperature. Expires in days from Date Wilder alvarenga Morphine 2019-08-19 11:39:00 No 4 mg, Route: IVP, ONCE, Dosing Weight 77.273, kg, Priority: STAT, Start date: 08/19/19 5:39:00 AIRSET MOLDER, Stop date: 08/19/19 5:39:00 AIRSET MOLDER [facility] Zoltan Vancomycin 2019-08-19 11:38:00 No 2001 mg: infuse over 2.5 hours For adult patients only: Round to nearest 250 mg per Medical Staff approval MEDICATION WASTE Product Size: 1000 mg Product Wasted: ___ mg Wilder Charlton D5W 1/2NS 1,000 mL 2019-08-19 09:40:00 No 1,000 mL, Rate: 100 ml/hr, Infuse over: 10 hr, Route: IV, Dosing Weight 77.273 kg, Total Volume: 1,000, Start date: 08/19/19 3:40:00 AIRSET MOLDER, Duration: 30 day, Stop date: 09/18/19 3:39:00 AIRSET MOLDER, 1.84, m2, 0 Wilder Charlton morphine 0.5 mg/mL preservative-free injectable solution 2019-08-19 09:21:00 No Notes: (Same as:MORPhine Sulfate ) Wilder Charlton cefepime 2019-08-19 08:02:00 No Notes: (Same as: Maxipime) MEDICATION WASTE Product Size: 2000 mg Product Wasted: ___ mg Wilder Charlton Vancomycin 2019-08-19 08:01:00 No 2000 mg: infuse over 2.5 hours For adult patients only: Round to nearest 250 mg per Medical Staff approval MEDICATION WASTE Product Size: 1000 mg Product Wasted: ___ mg Wilder Charlton Morphine 2019-08-19 05:16:00 No Not es: (Same as:MORPhine Sulfate) Wilder Charlton ketOROLAC 15 mg/mL injectable solution 2019-08-19 05:16:00 No 4 days. Wilder Charlton Acetaminophen 325 MG / Hydrocodone Bitartrate 10 MG Or al Tablet [Ferney 10/325] 2019-08-19 02:18:00 No 1 ta b, Route: PO, Drug Form: TAB, Dosing Weight 77.273, kg, ONCE, STAT, Start date: 08/18/19 20:18:00 AIRSET MOLDER, Stop date: 08/18/19 20:18:00 AIRSET MOLDER Wilder Charlton Fentanyl 2019-08-19 00:22:00 No Notes: (Same as: Sublimaze) Preservative free. Wilder Charlton Phenergan 25 mg oral tablet 2019-07-10 18:10:00 Yes 25 mg = 1 tab, PO, Q6H, PRN Nausea, # 15 tab, 0 Refill(s) Wilder Charlton Cephalexin 500 MG Oral Capsule [Keflex] 2019-07-10 18:10:00 Yes 500 mg = 1 cap, PO, TID, X 10 day, # 30 cap, 0 Refill(s) Wilder Charlton Metoclopramide 2019-07-10 18:09:00 No 10 mg, Route: IVP, Drug form: INJ, ONCE, Dosing Weight 77.273, kg, Priority: STAT, Start date: 07/10/19 13:09:00 CDT, Stop date: 07/10/19 13:09:00 CDT [facility] Zoltan Fentanyl 2019-07-10 18:07:00 No 25 microgram, Route: IVP, ONCE, Dosing Weight 77.273, kg, Priority: STAT, Start date: 07/10/19 13:07:00 CDT, Stop date: 07/10/19 13:07:00 CDT Brayan Charlton Methocarbamol 500 MG Oral Tablet [Robaxin] 2019-07-10 18:05:00 Yes 500 mg = 1 tab, PO, BID, PRN Spasms, X 20 day, # 20 tab, 0 Refill(s) Wilder Charlton Fentanyl 2019-07-10 15:30:00 No 50 microgram, Route: IVP, ONCE, Dosing Weight 77.273, kg, Priority: STAT, Start date: 07/10/19 10:30:00 CDT, Stop date: 07/10/19 10:30:00 CDT Brayan Charlton Ondansetron 2019-07-10 15:30:00 No 4 mg, Route: IVP, Drug form: INJ, ONCE, Dosing Weight 77.273, kg, Priority: STAT, Start date: 07/10/19 10:30:00 CDT, Stop date: 07/10/19 10:30:00 CDT Wi claudiaantwon Charlton Metformin hydrochloride 1000 MG Oral Tablet 2019-04-03 15:25:00 Yes 1,000 mg = 1 tab, PO, BID-Meals, # 180 tab, 1 Refill(s), Pharmacy: [facility] [id number] [facility] glyBURIDE 5 mg oral tablet 2019-04-03 15:22:47 Yes 10 mg = 2 tab, PO, BID, # 360 tab, 1 Refill(s), Pharmacy: [facility] [id number] [facility] losartan 100 mg oral tablet 2019-04-03 15:22:00 Yes 100 mg = 1 tab, PO, Daily, # 90 tab, 1 Refill(s), Pharmacy: [facility] [id number] [facility] Metformin 2019-04-03 15:01:00 No PO, 0 Refi ll(s) [facility] aspirin 81 mg tablet, enteric coated 2019-03-30 14:00:00 No Notes: Do not crush or chew. (Same As: Ecotrin) [facility] atorvastatin 2019-03-30 02:00:00 No Notes: (Same as: Lipitor) [facility] remove patch 2019-03-30 02:00:00 No Notes: Remove from 9 pm to 9 am daily for 12 hour nitrate free period. (Verify Patient has not taken Viagra, Cialis or Levitra in last 24 hours; if taken, hold NTG and notify MD.) [facility] Aspirin 81 MG Enteric Coated Tablet 2019-03-29 20:26:00 Yes 81 mg = 1 tab, PO, Daily, # 30 tab, 0 Refill(s), Pharmacy: [facility] [id number] [facility] Saline Flush 0.9% 2019-03-29 14:00:00 No 10 ml, Route: IVP, Drug Form: INJ, Dosing Weight 77.273, kg, Q12H, Start date: 03/29/19 9:00:00 CDT, Duration: 30 day, Stop date: 04/27/19 21:00:00 CDT [facility] 24 HR Nitroglycerin 0.1 MG/HR Transdermal Patch 2019-03-29 14:00 :00 No Notes: Apply only once for u p to 12 hours in a 24 hour period (12 hours on and 12 hours off.) (Same as:Nitro-Dur,Deponit,Transderm Nitro) For topical use only. "Remove old patch before application of new patch" [facility] Losartan 2019-03-29 14:00:00 No Notes: (Kade domingo as: Unruly) [facility] Dextrose 50% Syringe 2019-03-29 13:28:00 No 12.5 gm, 25 mL, Route: IVP, Drug Form: INJ, Dosing Weight 77.273, kg, PRN, PRN Blood Glucose Results, Start date: 03/29/19 8:28:00 CDT, Duration: 30 day, Stop date: 04/28/19 8:27:00 CDT, 0 [facility] Glucagon 2019-03-29 13:28:00 No 1 mg, Route: IM, Drug form: PDR/INJ, PRN, Dosing Weight 77.273, kg, PRN Blood Glucose Results, Start date: 03/29/19 8:28:00 CDT, Duration: 30 day, Stop date: 04/28/19 8:27:00 CDT, 0 [facility] Zoltan Insulin Lispro 2019-03-29 13:28:00 No Notes: (Same as: Humalog) Roll in palms of hands gently; Do not shake vigorously. WASTE: F/P - Black; E - Municipal Trash Bin Stable for 28 days at room temperature. Expires in days from Date [facility] J Luis alvarenga 24 HR Nitroglycerin 0.1 MG/HR Transdermal Patch 2019-03-29 13:28 :00 No Notes: Apply only once for u p to 12 hours in a 24 hour period (12 hours on and 12 hours off.) (Same as:Nitro-Dur,Deponit,Transderm Nitro) For topical use only. "Remove old patch before application of new patch" [facility] Charlton Enoxaparin 2019-03-29 12:00:00 No Notes: (S xiao as: Lovenox) Wilder Charlton Aspirin 81 MG Enteric Coated Tablet 2019-03-29 12:00:00 No 81 mg, Route: PO, Drug form: ECTAB, Q24H, Dosing Weight 77.273, kg, Start date: 03/29/19 7:00:00 CDT, Duration: 30 day, Stop date: 04/27/19 7:00:00 CDT Wilder Charlton Saline Flush 0.9% 2019-03-29 11:56:00 No 10 ml, Route: IVP, Drug Form: INJ, Dosing Weight 77.273, kg, PRN, PRN Line Flush, Start date: 03/29/19 6:56:00 CDT, Duration: 30 day, Stop date: 04/28/19 6:55:00 CDT [facility] Zoltan Ondansetron 2019-03-29 11:56:00 No Notes: ( Same as: Zofran) Wilder [facility] Temazepam 2019-03-29 11:56:00 No Notes: (Sa me As: Restoril) Wilder Charlton Nitroglycerin 2019-03-29 11:56:00 No Notes: (Same as:Nitroquick, Nitrostat) "Do Not Crush" Sublingual tablet [facility] Zoltan Acetaminophen 2019-03-29 11:56:00 No Notes: Do not exceed 4 gm/day. (Same as: Tylenol) [facility] Saline Flush 0.9% 2019-03-29 11:54:00 No Notes: (Same as: BD Posiflush) [facility] Acetaminophen 2019-03-29 11:54:00 No Notes: Do not exceed 4 gm/day. (Same as: Tylenol) [facility] Bisacodyl 2019-03-29 11:54:00 No Notes: (Same As: Dulcolax, Bisco-Lax) [facility] Hydralazine 2019-03-29 11:52:00 No Notes: (Same as: Apresoline) Push over 5 minutes [facility] Aspirin 2019-03-29 11:35:00 No Notes: Take with food. [facility] Acetaminophen 2019-03-29 10:21:00 No 650 mg, Route: PO, Drug form: TAB, ONCE, Dosing Weight 77.273, kg, Priority: STAT, Start date: 03/29/19 5:21:00 CDT, Stop date: 03/29/19 5:21:00 CDT [facility] Metoclopramide 2019-03-29 10:05:00 No 10 mg, Route: IVP, Drug form: INJ, ONCE, Dosing Weight 77.273, kg, Priority: STAT, Start date: 03/29/19 5:05:00 CDT, Stop date: 03/29/19 5:05:00 CDT [facility] Diphenhydramine 2019-03-29 10:05:00 No 25 mg, Route: IVP, ONCE, Dosing Weight 77.273, kg, Priority: STAT, Start date: 03/29/19 5:05:00 CDT, Stop date: 03/29/19 5:05:00 CDT [facility] Blood Glucose Test Strips 2019-01-04 15:39:24 Yes 1 box, MISC, TID- Before Meals, freestyle, # 100 strip, 3 Refill(s), Pharmacy: [facility] [id number] [facility] Blood Glucose Monitor 2019-01-04 15:39:00 Yes 1 ea, MISC, Daily, freestyle machine. Use as directed., # 1 ea, 0 Refill(s), [facility] [id number] [facility] tizanidine 2 mg oral tablet 2019-01-02 13:16:00 Yes 2 mg = 1 tab, PO, TID, PRN for muscle spasm, # 30 tab, 1 Refill(s), Pharmacy: [facility] [id number] [facility] Blood Glucose Test Strips 2019-01-02 13:13:11 No 1 box, MISC, TID- Before Meals, # 100 strip, 3 Refill(s), Pharmacy: [address] Blood Glucose Test Strips 2018-12-26 17:48:00 Yes 1 box, MISC, TID- Before Meals, # 100 strip, 3 Refill(s), Pharmacy: [place] [id number] [facility] Cyclobenzaprine hydrochloride 10 MG Oral Tablet [Flexeril] 2018-12-23 14:58:00 Yes 10 mg = 1 tab, PO, TID, PRN for spasm, X 7 day, # 21 tab, 0 Refill(s) [facility] ibuprofen 600 mg oral tablet 2018-12-23 14:58:00 Yes 600 mg = 1 tab, PO, Q8H, PRN pain, X 7 day, # 21 tab, 0 Refill(s) [facility] cyclobenzaprine 2018-12-23 14:21:00 No Notes: (Same As: Flexeril) [facility]oltan Zofran 2018-12-23 11:46:00 No Notes: (Same as: Zofran ODT) [facility] Acetaminophen 325 MG / Hydrocodone Bitartrate 5 MG Oral Tabl et 2018-12-23 11:19:00 No Notes: (Sa me as: Ferney 325/5) Do not exceed 4gm/day of acetaminophen. [facility] Metformin hydrochloride 1000 MG Oral Tablet 2018-10-16 20:06:16 Yes = 1 tab, PO, BID-Meals, # 180 tab, Refill(s) 1, [place] [facility] [place] [id number] [facility] losartan 50 mg oral tablet 2018-10-16 20:06:16 Yes = 1 tab, PO, Daily, # 90 tab, Refill(s) 1, [place] [facility] [place] [id number] [facility] gabapentin 600 MG Oral Tablet 2018-10-03 14:43:13 No 600 mg = 1 tab, PO, BID, # 180 tab, 1 Refill(s), Pharmacy: [facility] [id number] Wilder Charlton Cefuroxime 250 MG Oral Tablet [Ceftin] 2018-09-16 16:45:00 No 250 mg = 1 tab, PO, BID, X 7 day, # 14 tab, 0 Refill(s) Wilder Charlton Losartan 2018-09-16 15:00:00 No Notes: (Kade e as: Unruly) Wilder Charlton Glyburide 2018-09-16 15:00:00 No 10 mg, Route: PO, Drug form: TAB, BID, Dosing Weight 82, kg, Start date: 09/16/18 9:00:00 AIRSET MOLDER, Duration: 30 day, Stop date: 10/15/18 17:00:00 AIRSET MOLDER Brayan Charlton gabapentin 600 MG Oral Tablet 2018-09-16 15:00:00 No Notes: (Same as: Neurontin) Wilder Charlton *Please bring pt's own glyburide to pharmacy for label* 2018-09-16 06:00:00 No *Please bring p t's own glyburide to pharmacy for label*, ATTN:RN, Drug form: MISC, Route: MISC, QSHIFT, 09/16/18 0:00:00 AIRSET MOLDER, Duration: 30 day, Stop date: 10/15/18 16:00:00 AIRSET MOLDER Brayan Charlton Ceftriaxone 2018-09-16 04:00:00 No Notes: (Same As: Rocephin). Use with 100 mL NS and infuse over 30 min MEDICATION WASTE Product Size: 1000 mg Product Wasted: ___ mg Wilder Charlton atorvastatin 2018-09-16 03:00:00 No Notes: (Same As: Lipitor) Wilder Charlton Insulin Lispro 2018-09-16 00:43:00 No Notes: (Same as: Humalog ) Roll in palms of hands gently; Do not shake `vigorously. "Single Patient Use Only " WASTE: F/P - Black; E - Municipal Trash Bin Stable for 28 days at room temperature. Expires in days from Date Wilder Charlton Dextrose 50% Syringe 2018-09-16 00:43:00 No 12.5 gm, 25 mL, Route: IVP, Drug Form: INJ, Dosing Weight 82, kg, PRN, PRN Blood Glucose Results, Start date: 09/15/18 18:43:00 AIRSET MOLDER, Duration: 30 day, Stop date: 10/15/18 18:42:00 AIRSET MOLDER [facility] Glucagon 2018-09-16 00:43:00 No 1 mg, Route: IM, Drug form: PDR/INJ, PRN, Dosing Weight 82, kg, PRN Blood Glucose Results, Start date: 09/15/18 18:43:00 AIRSET MOLDER, Duration: 30 day, Stop date: 10/15/18 18:42:00 AIRSET MOLDER [facility] heparin 2018-09-15 14:00:00 No Notes: porci ne heparin [facility] Saline Flush 0.9% 2018-09-15 08:16:00 No Notes: (Same as: BD Posiflush) [facility] Dextrose 50% Syringe 2018-09-15 08:16:00 No 12.5 gm, 25 mL, Route: IVP, Drug Form: INJ, Dosing Weight 82, kg, PRN, PRN Blood Glucose Results, Start date: 09/15/18 2:16:00 AIRSET MOLDER, Duration: 30 day, Stop date: 10/15/18 2:15:00 [facility] Glucagon 2018-09-15 08:16:00 No 1 mg, Route: IM, Drug form: PDR/INJ, PRN, Dosing Weight 82, kg, PRN Blood Glucose Results, Start date: 09/15/18 2:16:00 AIRSET MOLDER, Duration: 30 day, Stop date: 10/15/18 2:15:00 [facility] Sodium Chloride 0.9% IV 1,000 mL 2018-09-15 08:16:00 No 1,000 mL, Rate: 125 ml/hr, Infuse over: 8 hr, Route: IV, Dosing Weight 82 kg, Total Volume: 1,000, Start date: 09/15/18 2:16:00 AIRSET MOLDER, Duration: 30 day, Stop date: 10/15/18 2:15:00 AIRSET MOLDER, 1.9, m2 [facility] Ondansetron 2018-09-15 08:16:00 No Notes: (Same as: Gene) MEDICATION WASTE Product Size: 4 mg Product Wasted: ___ mg [facility] Acetaminophen 2018-09-15 08:16:00 No Notes: Do not exceed 4 gm/day. (Same as: Tylenol) Wilder Charlton Morphine 2018-09-15 08:16:00 No Not es: (Same as:MORPhine Sulfate) Wilder Charlton Sodium Chloride 0.9% (Bolus) IV 2018-09-15 06:31:00 No 1,000 mL, 1000 ml/hr, Infuse Over: 1 hr, Route: IV, 1,000, Drug form: INJ, ONCE, Dosing Weight 82 kg, Start date: 09/15/18 0:31:00 AIRSET MOLDER, Stop date: 09/15/18 0:31:00 AIRSET MOLDER Wilder Charlton Morphine 2018-09-15 03:16:00 No Not es: (Same as:MORPhine Sulfate) Wilder Charlton Rocephin + sterile water 10 mL 2018-09-15 03:13:00 No Notes: (Same As: Rocephin). Use with 100 mL NS and infuse over 30 min MEDICATION WASTE Product Size: 1000 mg Product Wasted: ___ mg Wilder Charlton Cephalexin 500 MG Oral Capsule [Keflex] 2018-09-15 02:38:00 No 500 mg = 1 cap, PO, TID, X 7 day, # 21 cap, 0 Refill(s) Wilder Charlton Ondansetron 4 MG Disintegrating Tablet [Zofran] 2018-09-15 02:12 :00 No 4 mg = 1 tab, PO, TID, PRN N ausea & Vomiting, Dissolve tab under tongue, # 15 tab, 0 Refill(s) Wilder Charlton Sodium Chloride 0.9% (Bolus) IV 2018-09-14 23:42:00 No 1,000 mL, 1000 ml/hr, Infuse Over: 1 hr, Route: IV, 1,000, Drug form: INJ, ONCE, Priority: STAT, Dosing Weight 77.273 kg, Start date: 09/14/18 17:42:00 AIRSET MOLDER, Stop date: 09/14/18 17:42:00 AIRSET MOLDER Wilder Charlton Morphine 2018-09-14 23:39:00 No Not es: (Same as:MORPhine Sulfate) Wilder Charlton Zofran 2018-09-14 21:50:00 No Notes: (Same as: Zofran) MEDICATION WASTE Product Size: 4 mg Product Wasted: ___ mg [facility] Morphine 2018-09-14 21:50:00 No Not es: (Same as:MORPhine Sulfate) [facility] Sodium Chloride 0.9% (Bolus) IV 2018-09-14 21:50:00 No 1,000 mL, 1000 ml/hr, Infuse Over: 1 hr, Route: IV, 1,000, Drug form: INJ, ONCE, Priority: STAT, Dosing Weight 77.273 kg, Start date: 09/14/18 15:50:00 AIRSET MOLDER, Stop date: 09/14/18 15:50:00 AIRSET MOLDER [facility] Sulfamethoxazole 800 MG / Trimethoprim 160 MG Oral Tablet 2018-09-11 12:46:00 No 1 tab, PO, BID , For UTI, X 3 day, # 6 tab, 0 Refill(s), Pharmacy: [facility] [id number] [facility] ciprofloxacin 500 mg oral tablet 2018-09-08 23:25:28 No 500 mg = 1 tab, PO, Q12H, for UTI, X 3 day, # 6 tab, 0 Refill(s), [place] [facility] [place] [id number] [facility] ciprofloxacin 500 mg oral tablet 2018-09-08 23:23:00 No 500 mg = 1 tab, PO, Q12H, for UTI, X 3 day, # 6 tab, 0 Refill(s), [place] [facility] [place] [id number] [facility] Insulin Pen [place] Misc/Other 2018-05-26 18:52:00 No 1 ea, MISC, Daily, # 100 ea, 3 Refill(s), dispense needles for victoza [facility] 0.65 ML exenatide 3.08 MG/ML Prefilled Syringe [Bydureon] 2018-04-13 16:15:00 No 2 mg, SUB-Q, q Week, # 4 ea, 5 Refill(s), Pharmacy: [facility] [id number] [facility] gabapentin 600 MG Oral Tablet 2018-04-12 19:01:00 No 300 mg = 0.5 tab, PO, BID, X 90 day, # 90 tab, 1 Refill(s), Pharmacy[place] [facility] [place] [id number] [facility] Metformin hydrochloride 1000 MG Oral Tablet 2018-04-12 02:43:00 No 1,000 mg = 1 tab, PO, BID-Meals, # 180 tab, 1 Refill(s), Pharmacy: [address] 3 ML liraglutide 6 MG/ML Prefilled Syringe [Victoza] 2 14:10:00 Yes 1.2 mg, SUB-Q, Daily, Initial: 0.6 mg once daily for 1 week; then increase to 1.2 mg once daily, # 6 mL, 5 Refill(s), Pharmacy: [address] glyBURIDE 5 mg oral tablet 2018-04-11 13:25:11 Yes 10 mg = 2 tab, PO, BID, # 360 tab, 1 Refill(s), Pharmacy: [address] gabapentin 600 MG Oral Tablet 2018-04-11 13:24:08 No 300 mg = 0.5 tab, PO, BID, X 90 day, # 90 tab, 1 Refill(s), Pharmacy: [address] Metformin hydrochloride 500 MG Oral Tablet 2018-04-11 13:24:00 No 500 mg = 1 tab, PO, BID-Meals, X 90 day, # 180 tab, 1 Refill(s), Pharmacy: [address] losartan 50 mg oral tablet 2018-04-11 13:24:00 No 50 mg = 1 tab, PO, Daily, # 90 tab, 1 Refill(s), Pharmacy: [address] atorvastatin 10 mg oral tablet 2018-01-11 22:59:13 Yes 10 mg = 1 tab, PO, Bedtime, # 90 tab, 1 Refill(s), Pharmacy: [address] glyBURIDE 5 mg oral tablet 2018-01-11 22:58:44 Yes 10 mg = 2 tab, PO, BID, # 360 tab, 1 Refill(s), Pharmacy: [address] canagliflozin 100 MG Oral Tablet [Invokana] 2018-01-10 16:03:00 Yes 100 mg = 1 tab, PO, Before Breakfast, # 30 tab, 5 Refill(s), Pharmacy: [place] [id number] [facility] losartan 25 mg oral tablet 2018-01-10 15:32:29 Yes 25 mg = 1 tab, PO, Daily, # 90 tab, 1 Refill(s), Pharmacy: [address] gabapentin 600 MG Oral Tablet 2018-01-10 15:32:00 Yes 300 mg = 0.5 tab, PO, BID, # 90 tab, 1 Refill(s), Pharmacy: [address] Hydroxyzine Hydrochloride 25 MG Oral Tablet 2017-11-07 18:39:37 No 12.5 mg = 0.5 tab, PO, QID, PRN Itching, X 10 day, # 30 tab, 2 Refill(s), Pharmacy: [address] Hydroxyzine Hydrochloride 25 MG Oral Tablet 2017-11-07 18:27:00 No 12.5 mg = 0.5 tab, PO, QID, PRN Itching, X 10 day, # 30 tab, 0 Refill(s), Pharmacy: [address] losartan 25 mg oral tablet 2017-11-07 18:26:00 No 25 mg = 1 tab, PO, Daily, # 30 tab, 5 Refill(s), Pharmacy: [address] Codeine Phosphate 2 MG/ML / Guaifenesin 20 MG/ML Oral Soluti on [Cheratussin] 2017-09-08 22:23:00 Yes 5 ml, PO, Q6H, PRN for cough and congestion, X 14 day, # 150 mL, 0 Refill(s) [facility] Fluticasone propionate 0.05 MG/ACTUAT Metered Dose Nasal Spr ay 2017-09-08 22:23:00 Yes 1 spray, N ISAC, Daily, # 1 ea, 3 Refill(s), Pharmacy: [address] Albuterol 0.833 MG/ML / Ipratropium [place] 0.167 MG/ML Inha lant Solution 2017-06-23 13:44:00 No 3 mL, Route: NEB, Dosing Weight 85.455, kg, ONCE, STAT, Start date: 06/23/17 8:44:00 CDT, Stop date: 06/23/17 8:44:00 CDT [facility] Sodium Chloride 0.9% IV 500 mL 2017-06-23 13:44:00 No 500 mL, Rate: 25 ml/hr, Infuse over: 20 hr, Route: IV, Dosing Weight 85.455 kg, Total Volume: 500, Start date: 06/23/17 8:44:00 CDT, Duration: 30 day, Stop date: 07/23/17 8:43:00 CDT [facility] pregabalin 100 MG Oral Capsule [Lyrica] 2017-06-20 14:38:00 Yes 100 mg = 1 cap, PO, BID, # 90 cap, 1 Refill(s) [facility] Insulin Detemir 100 Unit/Ml Pen, 10 Unit Sub-Q Insulin Detemir 100 Unit/Ml Pen, 10 Unit Sub-Q 2016-07-02 00:00:00 2017-02-23 00:00:00 No Ranulfo Smith Md 10 Bedtime [facility] Metronidazole (Flagyl) 500 Mg Tablet, 250 Mg Oral Metr onidazole (Flagyl) 500 Mg Tablet, 250 Mg Oral 2016-07-02 00:00:00 2017-02-23 00:00:00 No Ranulfo herrera Md 250 Three Times A Day [facility] Nifedipine (Nifedipine Er) 30 Mg Tab.er.24, 30 Mg Oral Nifedipine (Nifedipine Er) 30 Mg Tab.er.24, 30 Mg Oral 2016-07-02 00:00:00 2017-02-23 00:00:00 Marleen Smith Md 30 Every 12 Hours [facility] Levofloxacin (Levaquin) 500 Mg Tablet, 500 Mg Oral Lev ofloxacin (Levaquin) 500 Mg Tablet, 500 Mg Oral 2016-01-01 00:00:00 2016-01-28 00:00:00 Marleen Powell Md 500 Daily [facility] Omeprazole 40 MG Oral Capsule Delayed Release 2012-03-30 05:00:0 0 Yes ; Start Date: 03/30/2012; End Date: (Active) [facility] Glyburide 5 Mg Tablet Glyburide 5 Mg Tablet Yes 5 Daily [facility] Lorazepam (Ativan) 1 Mg Tablet Lorazepam (Ativan) 1 Mg Tablet Yes Three Times A Day as needed for Prn [facility] Losartan Potassium 100 Mg Tablet Losartan Potassium 100 Mg Tablet Yes 100 Daily [facility] Metformin Hcl 500 Mg Tablet Metformin Hcl 500 Mg Tablet Yes 1000 Daily [facility] Oxycodone Hcl 20 Mg Tablet Oxycodone Hcl 20 Mg Tablet Yes 30 Every 4 Hours as needed for Pain [facility] Ropinirole Hcl 1 Mg Tablet Ropinirole Hcl 1 Mg Tablet Yes 1 Daily [facility] Lisinopril 5 Mg Tablet, 5 Mg Oral Lisinopril 5 Mg Tablet, 5 Mg O ral 2019-06-19 00:00:00 No 5 Daily [facility] Acetaminophen 325 Mg Tablet, 650 Mg Oral Acetaminophen 325 Mg Tablet, 650 Mg Oral 2018-07-04 00:00:00 No 650 Ever y 6 Hours as needed for Pain And Temperature [facility] Cephalexin Monohydrate (Keflex) 500 Mg Capsule, 500 Mg Oral Cephalexin Monohydrate (Keflex) 500 Mg Capsule, 500 Mg Oral 2018-07-04 00:00:00 No 500 Three Times A Day [facility] Cyclobenzaprine Hcl 10 Mg Tablet, 10 Mg Oral Cyclobenz aprine Hcl 10 Mg Tablet, 10 Mg Oral 2018-07-04 00:00:00 No 10 T hree Times A Day as needed for Muscle Spasms [facility] Insulin Detemir (Levemir) 100 Unit/1 Ml Vial, 13 Units Sub-Q Insulin Detemir (Levemir) 100 Unit/1 Ml Vial, 13 Units Sub-Q 2018-07-04 00:00:00 No 13 Bedtime [facility] Ropinirole Hcl 1 Mg Tablet, 1 Mg Oral Ropinirole Hcl 1 Mg Tablet , 1 Mg Oral 2018-07-04 00:00:00 No 1 Bedtime [facility] Zolpidem Tartrate 10 Mg Tablet, 10 Mg Oral Zolpidem Ta rtrate 10 Mg Tablet, 10 Mg Oral 2018-07-04 00:00:00 No 10 Bedtime as needed for Insomnia [facility] Levofloxacin (Levaquin) 500 Mg Tablet, 500 Mg Oral Lev ofloxacin (Levaquin) 500 Mg Tablet, 500 Mg Oral 2017-09-11 00:00:00 No 500 D aily [facility] Promethazine Hcl 12.5 Mg Tablet, 12.5 Mg Oral Prometha zine Hcl 12.5 Mg Tablet, 12.5 Mg Oral 2017-09-11 00:00:00 No 12.5 Every 6 Hours as needed for Nausea And Vomiting [facility] Lisinopril 5 Mg Tablet, 10 Mg Oral Lisinopril 5 Mg Tablet, 10 Mg Oral 2017-02-23 00:00:00 No 10 Daily [facility] Metformin Hcl 500 Mg Tablet, 500 Mg Oral Metformin Hcl 500 Mg Tablet, 500 Mg Oral 2017-02-23 00:00:00 No 500 Daily [facility] Metoclopramide Hcl 10 Mg Tablet, 10 Mg Oral Metoclopra mide Hcl 10 Mg Tablet, 10 Mg Oral 2017-02-23 00:00:00 No 10 Three Times A Da y [facility] Acetaminophen With Codeine (Tylenol With Codeine #3 Tablet) 1 Each Tablet, 300 Mg Oral Acetaminophen With Codeine (Tylenol With Codeine #3 Tablet) 1 Each Tablet, 300 Mg Oral 2015-12-25 00:00:00 No 300 Every 4 Hours as needed for Pain [facility] Promethazine Hcl 25 Mg Tablet, 25 Mg Oral Promethazine Hcl 25 Mg Tablet, 25 Mg Oral 2015-12-25 00:00:00 No 25 Every 4 Hours as n eeded for Nausea [facility] Acetaminophen/Codeine Phosphate (Tylenol # 3*) 1 Ea Ta b, 1 Tab Oral Acetaminophen/Codeine Phosphate (Tylenol # 3*) 1 Ea Tab, 1 Tab Oral 2015-10-30 00:00:00 No 1 Every 6 Hours as needed for Pa in [facility] Hydrochlorothiazide 25 Mg Tablet, 12.5 Mg Hydrochlorot hiazide 25 Mg Tablet, 12.5 Mg 2015-10-30 00:00:00 No 12.5 Daily [facility] Metoclopramide Hcl (Reglan) 10 Mg Tablet, 1 Tab Oral M etoclopramide Hcl (Reglan) 10 Mg Tablet, 1 Tab Oral 2015-10-30 00:00:00 No 1 Three Times A Day [facility] Metoclopramide Hcl (Reglan) 10 Mg Tablet, 20 Mg Oral M etoclopramide Hcl (Reglan) 10 Mg Tablet, 20 Mg Oral 2015-10-30 00:00:00 No 20 Three Times A Day as needed for Abdominal Pain [facility] Mirtazapine (Remeron) 15 Mg Tablet, 1 Tab Oral Mirtaza pine (Remeron) 15 Mg Tablet, 1 Tab Oral 2015-10-30 00:00:00 No 1 Bedti me [facility] Pantoprazole Sodium (Protonix) 40 Mg Suspdr.pkt, 40 Mg Oral Pantoprazole Sodium (Protonix) 40 Mg Suspdr.pkt, 40 Mg Oral 2015-10-30 00:00:00 No 40 Daily [facility] Promethazine Hcl 25 Mg Tablet, 25 Mg Oral Promethazine Hcl 25 Mg Tablet, 25 Mg Oral 2015-10-30 00:00:00 No 25 Daily [facility] Glyburide 5 Mg Tablet, 5 Mg Oral Glyburide 5 Mg Tablet, 5 Mg Ora l 2015-08-10 00:00:00 No 5 Daily [facility] Oxycodone Hcl/Acetaminophen (Oxycodone-A cetaminophen 5-325) 1 Each Tablet, 5-325 Each Oral Oxycodone Hcl/Acetaminophen (Oxycodone-A cetaminophen 5-325) 1 Each Tablet, 5-325 Each Oral 2015-08-10 00:00:00 No Three Times A Day as needed for Breakthrough Pain [facility] Hydrocodone Bit/Acetaminophen (Ferney 10-325 Tablet) 1 Each Tablet, 1 Tab Oral Hydrocodone Bit/Acetaminophen (Ferney 10-325 Tablet) 1 Each Tablet, 1 Tab Oral 2015-08-03 00:00:00 No 1 Three Times A Day as needed for Pain [facility] Pantoprazole Sodium (Protonix) 40 Mg Tablet.dr, 40 Mg Oral Pantoprazole Sodium (Protonix) 40 Mg Tablet.dr, 40 Mg Oral 2015-08-03 00:00:00 No 40 Daily [facility] Promethazine Hcl 25 Mg Tablet, 12.5 Mg Oral Promethazi ne Hcl 25 Mg Tablet, 12.5 Mg Oral 2015-08-03 00:00:00 No 12.5 Thre e Times A Day as needed for Vomiting [facility] Acetaminophen 650 Mg Tablet, 650 Mg Oral Acetaminophen 650 Mg Tablet, 650 Mg Oral 2014-08-29 00:00:00 No 650 Every 4 Hours as n eeded for Pain [facility] Fenofibrate 160 Mg Tablet, 160 Mg Oral Fenofibrate 160 Mg Tablet , 160 Mg Oral 2014-08-29 00:00:00 No 160 Daily [facility] Insulin Aspart (Novolog) 100 Units/1 Ml Inj, 18 Units Sub-Q Insulin Aspart (Novolog) 100 Units/1 Ml Inj, 18 Units Sub-Q 2014-08-29 00:00:00 No 18 Three Times Daily With Meals [facility] Insulin Detemir (Levemir) 100 Unit/1 Ml Vial, 34 Units Sub-Q Insulin Detemir (Levemir) 100 Unit/1 Ml Vial, 34 Units Sub-Q 2014-08-29 00:00:00 No 34 Bedtime [facility] Sennosides/Docusate Sodium (Senokot-S Tablet) 1 Each T ablet, 2 Tab Oral Sennosides/Docusate Sodium (Senokot-S Tablet) 1 Each Tablet, 2 Tab Oral 2014-08-29 00:00:00 No 2 Bedtime as needed fo r Constipation [facility] Sucralfate (Carafate) 1 Gm/10 Ml Oral.susp, 1 Gm Oral Sucralfate (Carafate) 1 Gm/10 Ml Oral.susp, 1 Gm Oral 2014-08-29 00:00:00 No 1 Before Meals And At Bedtime [facility] Tramadol Hcl (Ultram 50MG*) 50 Mg Tab, 50 Mg Oral Tram adol Hcl (Ultram 50MG*) 50 Mg Tab, 50 Mg Oral 2014-08-29 00:00:00 No 50 Twice A Day as needed for Pain [facility] Nabumetone 750 Mg Tablet, 750 Mg Oral Nabumetone 750 Mg Tablet, 750 Mg Oral 2014-08-03 00:00:00 No 750 Twice A Day [facility] Metformin Hcl 500 Mg Tablet, 500 Mg Oral Metformin Hcl 500 Mg Tablet, 500 Mg Oral 2014-07-31 00:00:00 No 500 Twice A Day [facility] Vital Signs Vital Name Observation Time Observation Value Comments Source Temperature Oral (F) 2019-09-09 13:18:00 98.2 F [facility] Heart Rate 2019-09-09 13:18:00 [facility] Respitory Rate 2019-09-09 13:18:00 [facility] Systolic (mm Hg) 2019-09-09 13:18:00 [facility] Diastolic (mm Hg) 2019-09-09 13:18:00 [facility] Heart Rate 2019-09-09 10:11:00 [facility] Respitory Rate 2019-09-09 10:11:00 [facility] Systolic (mm Hg) 2019-09-09 10:11:00 [facility] Diastolic (mm Hg) 2019-09-09 10:11:00 [facility] Heart Rate 2019-09-09 07:20:00 [facility] Systolic (mm Hg) 2019-09-09 07:20:00 [facility] Diastolic (mm Hg) 2019-09-09 07:20:00 [facility] Temperature Oral (F) 2019-09-09 01:11:00 98.6 F [facility] Respitory Rate 2019-09-09 01:11:00 [facility] Temperature Oral (F) 2019-09-08 22:59:00 97.9 F [facility] Height 2019-09-08 02:00:00 152.4 cm [facility] 2019-09-08 [facility] 2019-09-08 02:00:00 [facility] Height 2019-09-07 16:36:00 160.02 cm [facility] BMI Calculated 2019-09-07 16:36:00 [facility] Weight 2019-09-07 16:36:00 [facility] Temperature Oral (F) 2019-08-21 18:00:00 98.4 F [facility] Heart Rate 2019-08-21 18:00:00 [facility] Respitory Rate 2019-08-21 18:00:00 [facility] Systolic (mm Hg) 2019-08-21 18:00:00 [facility] Diastolic (mm Hg) 2019-08-21 18:00:00 [facility] Temperature Oral (F) 2019-08-21 14:00:00 98.1 F [facility] Heart Rate 2019-08-21 14:00:00 [facility] Respitory Rate 2019-08-21 14:00:00 [facility] Systolic (mm Hg) 2019-08-21 14:00:00 [facility] Diastolic (mm Hg) 2019-08-21 14:00:00 [facility] Temperature Oral (F) 2019-08-21 10:24:00 98.0 F [facility] Heart Rate 2019-08-21 10:24:00 [facility] Respitory Rate 2019-08-21 10:24:00 [facility] Systolic (mm Hg) 2019-08-21 10:24:00 [facility] Diastolic (mm Hg) 2019-08-21 10:24:00 [facility] Height 2019-08-19 10:59:00 152.4 cm [facility] BMI Calculated 2019-08-19 10:59:00 [facility] Weight 2019-08-19 10:59:00 [facility] Systolic (mm Hg) 2019-08-19 09:40:00 [facility] Diastolic (mm Hg) 2019-08-19 09:40:00 [facility] Systolic (mm Hg) 2019-08-19 04:00:00 [facility] Diastolic (mm Hg) 2019-08-19 04:00:00 [facility] Systolic (mm Hg) 2019-08-18 23:35:00 [facility] Diastolic (mm Hg) 2019-08-18 23:35:00 [facility] Heart Rate 2019-08-18 23:35:00 [facility] Respitory Rate 2019-08-18 23:35:00 [facility] Temperature Oral (F) 2019-08-18 23:35:00 98.5 F [facility] Height 2019-08-18 23:35:00 152.4 cm [facility] BMI Calculated 2019-08-18 23:35:00 [facility] Weight 2019-08-18 23:35:00 [facility] Heart Rate 2019-07-10 18:55:00 [facility] Respitory Rate 2019-07-10 18:55:00 [facility] Systolic (mm Hg) 2019-07-10 18:55:00 [facility] Diastolic (mm Hg) 2019-07-10 18:55:00 [facility] Temperature Oral (F) 2019-07-10 18:55:00 98.5 F [facility] Heart Rate 2019-07-10 16:25:00 [facility] Respitory Rate 2019-07-10 16:25:00 [facility] Systolic (mm Hg) 2019-07-10 16:25:00 [facility] Diastolic (mm Hg) 2019-07-10 16:25:00 [facility] Heart Rate 2019-07-10 16:00:00 [facility] Respitory Rate 2019-07-10 16:00:00 [facility] Systolic (mm Hg) 2019-07-10 16:00:00 [facility] Diastolic (mm Hg) 2019-07-10 16:00:00 [facility] Temperature Oral (F) 2019-07-10 14:59:00 98 F [facility] Height 2019-07-10 14:59:00 152.4 cm [facility] BMI Calculated 2019-07-10 14:59:00 [facility] Weight 2019-07-10 14:59:00 [facility] BMI Calculated 2019-04-03 14:52:00 [facility] Weight 2019-04-03 14:52:00 [facility] Systolic (mm Hg) 2019-04-03 14:52:00 [facility] Diastolic (mm Hg) 2019-04-03 14:52:00 [facility] Heart Rate 2019-04-03 14:52:00 [facility] Respitory Rate 2019-04-03 14:52:00 [facility] Height 2019-04-03 14:52:00 152.4 cm [facility] Heart Rate 2019-03-29 17:48:00 [facility] Respitory Rate 2019-03-29 17:48:00 [facility] Systolic (mm Hg) 2019-03-29 17:48:00 [facility] Diastolic (mm Hg) 2019-03-29 17:48:00 [facility] Temperature Oral (F) 2019-03-29 17:48:00 98.6 F [facility] Respitory Rate 2019-03-29 13:30:00 [facility] Weight 2019-03-29 13:05:00 [facility] Height 2019-03-29 13:05:00 152.4 cm [facility] BMI Calculated 2019-03-29 13:05:00 [facility] Temperature Oral (F) 2019-03-29 12:50:00 98.1 F [facility] Heart Rate 2019-03-29 12:50:00 [facility] Respitory Rate 2019-03-29 12:50:00 [facility] Systolic (mm Hg) 2019-03-29 12:50:00 [facility] Diastolic (mm Hg) 2019-03-29 12:50:00 [facility] Temperature Oral (F) 2019-03-29 12:10:00 98.5 F [facility] Heart Rate 2019-03-29 12:10:00 [facility] Systolic (mm Hg) 2019-03-29 12:10:00 [facility] Diastolic (mm Hg) 2019-03-29 12:10:00 [facility] BMI Calculated 2019-03-29 11:56:00 [facility] Weight 2019-03-29 09:43:00 [facility] Height 2019-03-29 09:43:00 152.4 cm [facility] BMI Calculated 2019-03-29 09:43:00 [facility] Height 2019-01-02 13:01:00 152.4 cm [facility] Weight 2019-01-02 13:01:00 [facility] BMI Calculated 2019-01-02 13:01:00 [facility] Systolic (mm Hg) 2019-01-02 13:01:00 [facility] Diastolic (mm Hg) 2019-01-02 13:01:00 [facility] Respitory Rate 2019-01-02 13:01:00 [facility] Heart Rate 2019-01-02 13:01:00 [facility] Temperature Oral (F) 2019-01-02 13:01:00 98.0 F [facility] Heart Rate 2018-12-23 15:11:00 [facility] Temperature Oral (F) 2018-12-23 15:11:00 98.1 F [facility] Respitory Rate 2018-12-23 15:11:00 [facility] Systolic (mm Hg) 2018-12-23 15:11:00 [facility] Diastolic (mm Hg) 2018-12-23 15:11:00 [facility] Respitory Rate 2018-12-23 14:35:00 [facility] Systolic (mm Hg) 2018-12-23 14:35:00 [facility] Diastolic (mm Hg) 2018-12-23 14:35:00 [facility] Heart Rate 2018-12-23 13:03:00 [facility] Systolic (mm Hg) 2018-12-23 13:03:00 [facility] Diastolic (mm Hg) 2018-12-23 13:03:00 [facility] Respitory Rate 2018-12-23 13:03:00 [facility] BMI Calculated 2018-12-23 10:57:00 [facility] Height 2018-12-23 10:57:00 152.4 cm [facility] Heart Rate 2018-12-23 10:57:00 [facility] Temperature Oral (F) 2018-12-23 10:57:00 97.9 F [facility] Weight 2018-12-23 10:57:00 [facility] BMI Calculated 2018-10-03 14:25:00 [facility] Weight 2018-10-03 14:25:00 [facility] Height 2018-10-03 14:25:00 152.4 cm [facility] Heart Rate 2018-10-03 14:25:00 [facility] Respitory Rate 2018-10-03 14:25:00 [facility] Systolic (mm Hg) 2018-10-03 14:25:00 [facility] Diastolic (mm Hg) 2018-10-03 14:25:00 [facility] Temperature Oral (F) 2018-09-16 17:30:00 97.9 F [facility] Systolic (mm Hg) 2018-09-16 17:30:00 [facility] Diastolic (mm Hg) 2018-09-16 17:30:00 [facility] Respitory Rate 2018-09-16 17:30:00 [facility] Heart Rate 2018-09-16 17:30:00 [facility] Respitory Rate 2018-09-16 13:52:00 [facility] Systolic (mm Hg) 2018-09-16 13:52:00 [facility] Diastolic (mm Hg) 2018-09-16 13:52:00 [facility] Heart Rate 2018-09-16 13:52:00 [facility] Temperature Oral (F) 2018-09-16 13:52:00 98.9 F [facility] Respitory Rate 2018-09-16 10:46:00 [facility] Systolic (mm Hg) 2018-09-16 10:46:00 [facility] Diastolic (mm Hg) 2018-09-16 10:46:00 [facility] Heart Rate 2018-09-16 10:46:00 [facility] Temperature Oral (F) 2018-09-16 10:46:00 97.7 F [facility] Weight 2018-09-15 06:21:00 [facility] BMI Calculated 2018-09-15 06:21:00 [facility] Height 2018-09-15 06:21:00 152.4 cm [facility] Height 2018-09-14 20:42:00 152.4 cm [facility] BMI Calculated 2018-09-14 20:42:00 [facility] Weight 2018-09-14 20:42:00 [facility] BMI Calculated 2018-09-08 15:21:00 [facility] Weight 2018-09-08 15:21:00 [facility] Height 2018-09-08 15:21:00 152.4 cm [facility] Heart Rate 2018-09-08 15:21:00 [facility] Temperature Oral (F) 2018-09-08 15:21:00 98.0 F [facility] Respitory Rate 2018-09-08 15:21:00 [facility] Systolic (mm Hg) 2018-09-08 15:21:00 [facility] Diastolic (mm Hg) 2018-09-08 15:21:00 [facility] Heart Rate 2018-07-24 16:45:00 [facility] Respitory Rate 2018-07-24 16:45:00 [facility] Temperature Oral (F) 2018-07-24 16:45:00 98.0 F [facility] Height 2018-07-24 16:45:00 152.4 cm [facility] Weight 2018-07-24 16:45:00 [facility] BMI Calculated 2018-07-24 16:45:00 [facility] Systolic (mm Hg) 2018-07-24 16:45:00 [facility] Diastolic (mm Hg) 2018-07-24 16:45:00 [facility] Height 2018-05-23 13:35:00 152.4 cm [facility] Heart Rate 2018-05-23 13:35:00 [facility] Respitory Rate 2018-05-23 13:35:00 [facility] Temperature Oral (F) 2018-05-23 13:35:00 98.0 F [facility] BMI Calculated 2018-05-23 13:35:00 [facility] Weight 2018-05-23 13:35:00 [facility] Systolic (mm Hg) 2018-05-23 13:35:00 [facility] Diastolic (mm Hg) 2018-05-23 13:35:00 [facility] Weight 2018-04-11 13:05:00 [facility] BMI Calculated 2018-04-11 13:05:00 [facility] Systolic (mm Hg) 2018-04-11 13:05:00 [facility] Diastolic (mm Hg) 2018-04-11 13:05:00 [facility] Temperature Oral (F) 2018-04-11 13:05:00 98.0 F [facility] Respitory Rate 2018-04-11 13:05:00 [facility] Heart Rate 2018-04-11 13:05:00 [facility] Height 2018-04-11 13:05:00 152.4 cm [facility] Height 2018-02-07 19:21:00 152.4 cm [facility] Weight 2018-02-07 19:21:00 [facility] BMI Calculated 2018-02-07 19:21:00 [facility] Systolic (mm Hg) 2018-02-07 19:21:00 [facility] Diastolic (mm Hg) 2018-02-07 19:21:00 [facility] Heart Rate 2018-02-07 19:21:00 [facility] Temperature Oral (F) 2018-02-07 19:21:00 97.9 F [facility] Height 2018-01-10 15:17:00 152.4 cm [facility] Temperature Oral (F) 2018-01-10 15:17:00 98.0 F [facility] Respitory Rate 2018-01-10 15:17:00 [facility] BMI Calculated 2018-01-10 15:17:00 [facility] Weight 2018-01-10 15:17:00 [facility] Systolic (mm Hg) 2018-01-10 15:17:00 [facility] Diastolic (mm Hg) 2018-01-10 15:17:00 [facility] Heart Rate 2018-01-10 15:17:00 [facility] Height 2017-11-07 17:58:00 152.4 cm [facility] Weight 2017-11-07 17:58:00 [facility] BMI Calculated 2017-11-07 17:58:00 [facility] Temperature Oral (F) 2017-11-07 17:58:00 98.3 F [facility] Respitory Rate 2017-11-07 17:58:00 [facility] Heart Rate 2017-11-07 17:58:00 [facility] Systolic (mm Hg) 2017-11-07 17:58:00 [facility] Diastolic (mm Hg) 2017-11-07 17:58:00 [facility] Height 2017-09-08 21:53:00 152.4 cm [facility] BMI Calculated 2017-09-08 21:53:00 [facility] Weight 2017-09-08 21:53:00 [facility] Systolic (mm Hg) 2017-09-08 21:53:00 [facility] Diastolic (mm Hg) 2017-09-08 21:53:00 [facility] Temperature Oral (F) 2017-09-08 21:53:00 98.2 F [facility] Respitory Rate 2017-09-08 21:53:00 [facility] Heart Rate 2017-09-08 21:53:00 [facility] Respitory Rate 2017-06-23 16:34:00 [facility] Systolic (mm Hg) 2017-06-23 16:34:00 Michel rial Zoltan Diastolic (mm Hg) 2017-06-23 16:34:00 Mem orial Zoltan Systolic (mm Hg) 2017-06-23 16:19:00 [facility] Diastolic (mm Hg) 2017-06-23 16:19:00 [facility] Respitory Rate 2017-06-23 16:19:00 Memori al [facility] Diastolic (mm Hg) 2017-06-23 16:04:00 [facility] Systolic (mm Hg) 2017-06-23 16:04:00 Michel [facility] Zoltan Respitory Rate 2017-06-23 16:04:00 [facility] Heart Rate 2017-06-23 13:45:00 [facility] Heart Rate 2017-06-20 14:37:00 [facility] Temperature Oral (F) 2017-06-20 14:37:00 98 F [facility] Height 2017-06-20 14:11:00 152.4 cm [facility] BMI Calculated 2017-06-20 14:11:00 [facility] Weight 2017-06-20 14:11:00 [facility] Procedures Procedure Date / Time Performed Performing Clinician [facility] e Exploratory laparotomy 2019-10-31 00:00:00 VERONICA NEIL CH I [facility] EXCISION OF STOMACH, PYLORUS, ENDO, DIAGN 2019-10-22 00:00:00 ROSA ZABALA [facility]I [facility] Magnetic resonance imaging of brain without contrast 2019-09 00:00:00 MICHELLE SLATER [facility] Computed tomography of brain without radiopaque contrast 00:00:00 WENDY TOBAR [facility] Computed tomography of abdomen and pelvis with contrast 2019 00:00:00 SHORT, WENDY D [facility] DIAGNOSTIC COLONOSCOPY 2019-06-22 00:00:00 VERONICA NEIL CH I [facility] X-ray of chest, two views 2019-06-19 00:00:00 VERONICA NEIL [facility] Diabetic retinopathy screening<sup>1, 2</sup> 2018-08-25 06:00:0 0 [facility] Colonoscopy<sup>3</sup> 2017-06-23 05:00:00 Michel rial [facility] Diabetic retinopathy screening<sup>2</sup> 2017-03-26 00:00:00 [facility] Mammogram - screening 2016-08-26 00:00:00 Memori al [facility] Colonoscopy 2015-09-26 00:00:00 [facility] robertson Appendectomy [facility] Cholecystectomy [facility] Esophagogastroduodenoscopy Memor ial [facility] Hysterectomy [facility] Laparoscopic repair of hiatus hernia [facility] Lumbar spinal fusion [facility] rmann Partial resection of colon [facility] of Care Planned Activity Planned Date Details Comments Source Future Scheduled Test 2012-08-01 21:01:19 Plan of Care [code = 1877 6-5] [facility] Encounters Start Date/Time End Date/Time Encounter Type Admission Type Attendi [facility] Facility Care Department Encounter ID Source 2019-10-29 13:10:00 2019-11-06 11:53:00 Discharged Inpatient [facility] [id number] [facility] 2019-10-21 08:05:00 2019-10-26 21:12:00 Discharged Inpatient 1 GLORIA HILLS [facility] [id number] [facility] 2019-10-18 09:21:13 2019-10-19 23:59:59 Outpatient [facility] MG [id number] 2019-09-07 10:22:22 2019-09-09 11:21:00 Outpatient Angelo Robins [facility] [id number] 2019-09-07 18:53:00 2019-09-07 18:53:00 Outpatient E [facility] MED [address] [place] [address] 2019-08-19 04:59:00 2019-08-21 13:56:00 Outpatient Wang Carreon C [facility] [id number] 2019-08-19 06:39:00 2019-08-19 04:46:00 Inpatient E [facility] [id number] [facility] 2019-08-18 17:31:41 2019-08-19 04:15:00 Outpatient Boyd Palomino MH[facility] [id number] 2019-08-18 17:31:00 2019-08-18 17:31:00 Emergency E [facility]SE [id number] 2019-07-10 09:54:34 2019-07-10 14:10:00 Outpatient Candis Rahman MHSE [facility]SE [id number] 2019-07-10 09:54:00 2019-07-10 09:54:00 Emergency E MHSE [facility]SE [id number] 2019-06-22 05:37:00 2019-06-22 05:37:00 Registered Surgical Day Car VERONICA Duke [facility] [id number] [facility] 2019-04-03 10:00:00 2019-04-03 23:59:59 Outpatient Roz Patterson [facility] MHMG [id number] 2019-03-29 04:41:10 2019-03-29 16:31:00 Outpatient Eliza Schofield MHSE MHSE [id number] 2019-03-29 06:37:00 2019-03-29 06:37:00 Outpatient E [facility] MED [id number] 2019-01-02 08:15:00 2019-01-02 23:59:59 Outpatient Roz Patterson MHMG MHMG [id number] 2018-12-26 08:24:00 2018-12-27 23:59:59 Outpatient MHMG [facility] [id number] 2018-12-23 05:47:00 2018-12-23 10:43:00 Outpatient Yovani Arango MHSE MHSE [id number] 2018-12-23 05:47:00 2018-12-23 05:47:00 Emergency E MHSE MHSE [id number] 2018-10-03 11:30:00 2018-10-03 23:59:59 Outpatient Roz Patterson MG MG [id number] 2018-09-14 14:23:00 2018-09-16 13:10:00 Outpatient Celestino Cm MHSE MHSE [id number] 2018-09-08 09:30:00 2018-09-08 23:59:59 Outpatient Roz Patterson MG MG [id number] 2018-07-27 12:13:00 2018-07-27 23:59:00 Outpatient Piotr Ceja [facility] M[facility] [id number] 2018-07-24 11:30:00 2018-07-24 23:59:59 [id number] 2018-05-26 13:32:00 2018-05-27 23:59:59 Outpatient MHMG [facility] [id number] 2018-05-23 09:15:00 2018-05-23 23:59:59 Outpatient Roz Patterson MG MG [id number] 2018-04-12 13:55:00 2018-04-13 23:59:59 Outpatient MHMG MHMG [id number] 2018-04-11 08:15:00 2018-04-11 23:59:59 Outpatient Roz Patterson MG MG [id number] 2018-03-14 08:45:00 2018-03-14 08:45:00 Outpatient ElvisTyson [facility] [id number] 2018-03-06 13:03:00 2018-03-07 23:59:59 Outpatient MHMIS SHAUN [facility] [id number] 2018-02-21 09:14:00 2018-02-21 23:59:00 Outpatient Elvis, Jo bianca Holly MHSE MHSE [id number] 2018-02-09 11:29:00 2018-02-10 23:59:59 Outpatient MHMIS SHAUN [facility] [id number] 2018-02-09 11:28:00 2018-02-10 23:59:59 Outpatient MHMIS SHAUN [facility] [id number] 2018-02-09 11:26:00 2018-02-10 23:59:59 Outpatient MHMIS SHAUN [facility] [id number] 2018-02-07 12:30:00 2018-02-07 23:59:59 Outpatient Tyson Leal [facility] [id number] 2018-01-31 09:14:00 2018-02-01 23:59:59 Outpatient MHMIS SHAUN [facility] [id number] 2018-01-31 09:14:00 2018-02-01 23:59:59 Outpatient MHMIS SHAUN [facility] [id number] 2018-01-10 10:00:00 2018-01-10 23:59:59 Outpatient Roz Patterson MHMG MHMG [id number] 2017-12-23 07:18:00 2017-12-23 23:59:00 Outpatient Piotr Ceja [facility] M[facility] [id number] 2017-12-15 15:03:00 2017-12-16 23:59:59 Outpatient MHMIS SHAUN [facility] [id number] 2017-12-16 09:00:00 2017-12-16 09:00:00 Outpatient Alesha Ravi [facility] [id number] 2017-12-13 08:47:00 2017-12-14 23:59:59 Outpatient MHMIS SHAUN [facility] [id number] 2017-11-07 11:45:00 2017-11-07 23:59:59 Outpatient Roz Patterson MG [facility] [id number] 2017-09-08 16:00:00 2017-09-08 23:59:59 Outpatient Roz Patterson MHMG MHMG [id number] 2017-08-02 07:25:00 2017-08-02 23:59:00 Outpatient Luis Fernando Dubois MHSE MHSE [id number] 2017-06-23 07:37:00 2017-06-23 11:40:00 Outpatient Angelo Fleming MHSE MHSE [id number] 2017-06-16 07:15:00 2017-06-16 23:59:00 Outpatient Roz Patterson [facility] [id number] 2017-06-08 06:52:00 2017-06-08 23:59:00 Outpatient Roz Patterson [facility] [id number] 2016-12-31 08:46:00 2016-12-31 23:59:00 Outpatient Afshin Bishop [facility] [id number] 2016-10-26 07:29:00 2016-10-26 23:59:00 Outpatient Piotr Valadez [id number] 2012-08-01 15:01:34 2012-08-01 15:01:19 Outpatient BELLE ODONNELL [id number] Results Test Description Test Time Test Comments Results Result Comments Source Urine Culture 2019-11-06 08:17:00 Test Item Urine Culture (test code = 630-4) No [facility] Zfopj2177[facility]18-90 05:34:00* Test Item Value Reference Range Interpretation Comments Sodium Level (test code = 2951-2) 138 136-145 [facility] Lkjym2108-54-05 05:34:00* Test Item Value Reference Range Interpretation Comments Potassium Level (test code = 2823-3) 3.4 3.5-5.1 L [facility] HospitalChloride Hngvo2795-73-59 05:34:00* Test Item Value Reference Range Interpretation Comments Chloride Level (test code = 2075-0) 100 98-107 [facility]Carbon Dioxide Brsgj6983-71-96 05:34:00* Test Item Value Reference Range Interpretation Comments Carbon Dioxide Level (test code = 2028-9) 25 22-29 [facility] HospitalAnion Fxh7241-23-86 05:34:00* Test Item Value Reference Range Interpretation Comments Anion Gap (test code = 91957-5) 16.4 8-16 H [facility]Blood Urea Bjqvzuwn7399-68-69 05:34:00* Test Item Value Reference Range Interpretation Comments Blood Urea Nitrogen (test code = 3094-0) 6 7-26 L [facility] HospitalCreatinine2020-02-11 05:34:00* Test Item Value Reference Range Interpretation Comments Creatinine (test code = 2160-0) 0.71 0.57-1.11 [facility] HospitalBUN/Creatinine Yvujr0148-53-46 05:34:00* Test Item Value Reference Range Interpretation Comments BUN/Creatinine Ratio (test code = 3097-3) 8 6-25 [facility] HospitalEstimat Glomerular Filtration Rate 2019-11-06 05:34:00* Test Item Value Reference Range Interpretation Comments Estimat Glomerular Filtration Rate (test code = 577719591) > 60 >60 Ranges were taken from the National Kidney Disease Education Program and the [facility] literature.Reference ranges:60 or greater: Ggoarv55-87 ( for 3 consecutive months): Chronic kidney disease 15 or less: Kidney failureUniversity HospitalGlucose Segzu3038-72-22 05:34:00* Test Item Value Reference Range Interpretation Comments Glucose Level (test code = GCC4582) 118 74-118 [facility] HospitalCalcium Qxodl8099-98-18 05:34:00* Test Item Value Reference Range Interpretation Comments Calcium Level (test code = 77366-7) 8.1 8.4-10.2 L [facility] HospitalPhosphorus Qrmqz7184-92-75 05:34:00* Test Item Value Reference Range Interpretation Comments Phosphorus Level (test code = FHW1572) 2.6 2.3-4.7 [facility] HospitalMagnesium Oxfyc1260-26-65 05:34:00* Test Item Value Reference Range Interpretation Comments Magnesium Level (test code = 14989-7) 1.4 1.3-2.1 [facility] HospitalBedside Xwcujhr5182-29-44 20:57:00* Test Item Value Reference Range Interpretation Comments Bedside Glucose (test code = 89649-5) 149 70-120 H Meter ID: [id number] HospitalWhite Blood Count 2019-11-05 05:51:00* Test Item Value Reference Range Interpretation Comments White Blood Count (test code = 6690-2) 5.92 4.8-10.8 [facility] HospitalRed Blood Ccbbn6453-19-15 05:51:00* Test Item Value Reference Range Interpretation Comments Red Blood Count (test code = 789-8) 3.19 3.6-5.1 L [facility] HospitalHemoglobin2020-02-10 05:51:00* Test Item Value Reference Range Interpretation Comments Hemoglobin (test code = 50345-5) 8.3 12.0-16.0 L [facility] HospitalHematocrit2020-02-10 05:51:00* Test Item Value Reference Range Interpretation Comments Hematocrit (test code = 4544-3) 26.3 34.2-44.1 L [facility] HospitalMean Corpuscular Nwtakm6309-05-39 05:51:00* Test Item Value Reference Range Interpretation Comments Mean Corpuscular Volume (test code = 787-2) 82.4 81-99 [facility] HospitalMean Corpuscular Tupgwrbbqs7455-74-96 05:51:00* Test Item Value Reference Range Interpretation Comments Mean Corpuscular Hemoglobin (test code = 785-6) 26.0 28-32 L [facility] HospitalMean Corpuscular Hemoglobin Concent 2019-11-05 05:51:00* Test Item Value Reference Range Interpretation Comments Mean Corpuscular Hemoglobin Concent (test code = 786-4) 31.6 31-35 [facility] HospitalRed Cell Distribution Tjefj6140-70-54 05:51:00* Test Item Value Reference Range Interpretation Comments Red Cell Distribution Width (test code = 42935-7) 17.8 11.7 -14.4 H [facility] HospitalPlatelet Erhqu3331-53-10 05:51:00* Test Item Value Reference Range Interpretation Comments Platelet Count (test code = 777-3) 174 140-360 [facility] HospitalNeutrophils (%) (Auto)2019-11-05 05:51:00 * Test Item Value Reference Range Interpretation Comments Neutrophils (%) (Auto) (test code = 50977-4) 65.9 38.7-80.0 [facility] HospitalLymphocytes (%) (Auto)2019-11-05 05:51:00 * Test Item Value Reference Range Interpretation Comments Lymphocytes (%) (Auto) (test code = 736-9) 19.4 18.0-39.1 [facility] HospitalMonocytes (%) (Auto)2019-11-05 05:51:00* Test Item Value Reference Range Interpretation Comments Monocytes (%) (Auto) (test code = 5905-5) 7.9 4.4-11.3 [facility] HospitalEosinophils (%) (Auto)2019-11-05 05:51:00 * Test Item Value Reference Range Interpretation Comments Eosinophils (%) (Auto) (test code = 713-8) 6.4 0.0-6.0 H [facility] HospitalBasophils (%) (Auto)2019-11-05 05:51:00* Test Item Value Reference Range Interpretation Comments Basophils (%) (Auto) (test code = 706-2) 0.2 0.0-1.0 [facility] HospitalIM GRANULOCYTES %2019-11-05 05:51:00* Test Item Value Reference Range Interpretation Comments IM GRANULOCYTES % (test code = IM GRANULOCYTES %) 0.2 0.0- 1.0 [facility] HospitalNeutrophils # (Auto)2019-11-05 05:51:00* Test Item Value Reference Range Interpretation Comments Neutrophils # (Auto) (test code = 751-8) 3.9 2.1-6.9 [facility] HospitalLymphocytes # (Auto)2019-11-05 05:51:00* Test Item Value Reference Range Interpretation Comments Lymphocytes # (Auto) (test code = 34252-3) 1.2 1.0-3.2 [facility] HospitalMonocytes # (Auto)2019-11-05 05:51:00* Test Item Value Reference Range Interpretation Comments Monocytes # (Auto) (test code = 742-7) 0.5 0.2-0.8 [facility] HospitalEosinophils # (Auto)2019-11-05 05:51:00* Test Item Value Reference Range Interpretation Comments Eosinophils # (Auto) (test code = 711-2) 0.4 0.0-0.4 [facility] HospitalBasophils # (Auto)2019-11-05 05:51:00* Test Item Value Reference Range Interpretation Comments Basophils # (Auto) (test code = 704-7) 0.0 0.0-0.1 [facility] HospitalAbsolute Immature Granulocyte (auto 2019-11-05 05:51:00* Test Item Value Reference Range Interpretation Comments Absolute Immature Granulocyte (auto (silviano t code = Absolute Immature Granulocyte (auto) 0.01 0-0.1 University HospitalTotal Mnbfihwxr5735-96-87 09:48:00* Test Item Value Reference Range Interpretation Comments Total Bilirubin (test code = 1975-2) 0.6 0.2-1.2 University HospitalAspartate Amino Transf (AST/SGOT) 2019-11-03 09:48:00* Test Item Value Reference Range Interpretation Comments Aspartate Amino Transf (AST/SGOT) (test code = Aspartate Amino Transf (AST/SGOT)) 28 5-34 [facility] HospitalAlanine Aminotransferase (ALT/SGPT) 2019-11-03 09:48:00* Test Item Value Reference Range Interpretation Comments Alanine Aminotransferase (ALT/SGPT) (test code = 1742-6) 41 0-55 University HospitalTotal Ayjgmxl3090-32-39 09:48:00* Test Item Value Reference Range Interpretation Comments Total Protein (test code = 2885-2) 6.3 6.5-8.1 L [facility] HospitalAlbumin2020-02-08 09:48:00* Test Item Value Reference Range Interpretation Comments Albumin (test code = 1751-7) 2.7 3.5-5.0 L [facility] HospitalGlobulin2020-02-08 09:48:00* Test Item Value Reference Range Interpretation Comments Globulin (test code = 13504-4) 3.6 2.3-3.5 H [facility] HospitalAlbumin/Globulin Yocbe3460-29-84 09:48:00 * Test Item Value Reference Range Interpretation Comments Albumin/Globulin Ratio (test code = 1759-0) 0.8 0.8-2.0 [facility] HospitalAlkaline Osdovnodzaw7024-12-93 09:48:00* Test Item Value Reference Range Interpretation Comments Alkaline Phosphatase (test code = 6768-6) 71 40-150 [facility] HospitalAmylase Crenn8862-81-33 06:00:00* Test Item Value Reference Range Interpretation Comments Amylase Level (test code = 1798-8) 39 25-125 [facility] HospitalLipase2020-02-07 06:00:00* Test Item Value Reference Range Interpretation Comments Lipase (test code = 3040-3) 17 8-78 [facility] HospitalUrine Random Total Qaazxfp2693-86-38 19:41:00* Test Item Value Reference Range Interpretation Comments Urine Random Total Protein (test code = 2888-6) 12.2 1-14 [facility] HospitalUrine Random Gnkkfm1760-13-54 19:41:00* Test Item Value Reference Range Interpretation Comments Urine Random Sodium (test code = 2955-3) 92 University HospitalUrine Kwsrsqfxdh7242-84-36 19:41:00* Test Item Value Reference Range Interpretation Comments Urine Creatinine (test code = 2161-8) 50.00 47-110 [facility] HospitalUrine WVL7890-54-59 19:31:00* Test Item Value Reference Range Interpretation Comments Urine WBC (test code = 5821-4) 6-10 0-5 H [facility] HospitalUrine XNA2624-23-74 19:31:00* Test Item Value Reference Range Interpretation Comments Urine RBC (test code = 44954-6) 0-5 0-5 [facility] HospitalUrine Rbvrkizf8158-60-90 19:31:00* Test Item Value Reference Range Interpretation Comments Urine Bacteria (test code = 67279-4) FEW NONE [facility] HospitalUrine Epithelial Azqcd2527-03-30 19:31:00 * Test Item Value Reference Range Interpretation Comments Urine Epithelial Cells (test code = 27476-4) FEW NONE [facility] HospitalUrine Rfovp4750-74-09 19:31:00* Test Item Value Reference Range Interpretation Comments Urine Yeast (test code = 45566-1) MANY NONE H [facility] HospitalUrine Hebts6561-53-13 19:14:00* Test Item Value Reference Range Interpretation Comments Urine Color (test code = 5778-6) YELLOW YELLOW [facility] HospitalUrine Mbefizr6283-93-10 19:14:00* Test Item Value Reference Range Interpretation Comments Urine Clarity (test code = 55129-1) CLEAR CLEAR [facility] HospitalUrine Specific Doaokvr3360-65-73 19:14:00 * Test Item Value Reference Range Interpretation Comments Urine Specific [place] (test code = 5811-5) 1.020 1.010-1.02 5 [facility] HospitalUrine hI1943-80-19 19:14:00* Test Item Value Reference Range Interpretation Comments Urine pH (test code = 27353-9) 5.5 5-7 [facility] HospitalUrine Leukocyte Renncgar2538-26-86 19:14:00* Test Item Value Reference Range Interpretation Comments Urine Leukocyte Esterase (test code = 5799-2) NEGATIVE NEGATIVE [facility] HospitalUrine Zjyslhf8321-03-76 19:14:00* Test Item Value Reference Range Interpretation Comments Urine Nitrite (test code = 89118-8) NEGATIVE NEGATIVE [facility] HospitalUrine Yukdbbi7906-03-39 19:14:00* Test Item Value Reference Range Interpretation Comments Urine Protein (test code = 5804-0) NEGATIVE NEGATIVE [facility] HospitalUrine Glucose (UA)2019-11-01 19:14:00* Test Item Value Reference Range Interpretation Comments Urine Glucose (UA) (test code = 2349-9) NEGATIVE NEGATIVE [facility] HospitalUrine Ztnjost7865-33-85 19:14:00* Test Item Value Reference Range Interpretation Comments Urine Ketones (test code = 69901-5) NEGATIVE NEGATIVE [facility] HospitalUrine Ywfcieyjjkgp7786-67-20 19:14:00* Test Item Value Reference Range Interpretation Comments Urine Urobilinogen (test code = 73243-1) 0.2 0.2-1 [facility] HospitalUrine Vdoihzgnm0363-47-77 19:14:00* Test Item Value Reference Range Interpretation Comments Urine Bilirubin (test code = 1978-6) NEGATIVE NEGATIVE [facility] HospitalUrine Pxjpt3243-18-33 19:14:00* Test Item Value Reference Range Interpretation Comments Urine Blood (test code = 26627-8) 1+ NEGATIVE H University HospitalDifferential Total Cells Counted 2019-11-01 07:48:00* Test Item Value Reference Range Interpretation Comments Differential Total Cells Counted (test code = Differen tial Total Cells Counted) 100 [facility] HospitalNeutrophils % (Manual)2019-11-01 07:48:00 * Test Item Value Reference Range Interpretation Comments Neutrophils % (Manual) (test code = 37845-3) 89 40-74 H [facility] HospitalLymphocytes % (Manual)2019-11-01 07:48:00 * Test Item Value Reference Range Interpretation Comments Lymphocytes % (Manual) (test code = 737-7) 5 19-48 L [facility] HospitalMonocytes % (Manual)2019-11-01 07:48:00* Test Item Value Reference Range Interpretation Comments Monocytes % (Manual) (test code = 744-3) 6 3.4-9.0 [facility] HospitalCreatine Prkwuy4341-03-03 06:40:00* Test Item Value Reference Range Interpretation Comments Creatine Kinase (test code = 2157-6) 17 29-168 L [facility] HospitalCreatine Kinase CT2095-14-04 06:40:00* Test Item Value Reference Range Interpretation Comments Creatine Kinase MB (test code = 39715-0) 0.40 0-5.0 [facility] HospitalTroponin O3719-32-29 06:40:00* Test Item Value Reference Range Interpretation Comments Troponin I (test code = CLE5484) 0.004 0-0.300 [facility] HospitalBedside Nnqxuom8561-59-12 15:54:00* Test Item Value Reference Range Interpretation Comments Bedside Glucose (test code = 28208-7) 114 70-120 Meter ID: [id number] [facility] 2019-10-26 06:20:00* Test Item Value Reference Range Interpretation Comments Sodium Level (test code = 2951-2) 142 136-145 [facility] HospitalPotassium Excgj1314-74-55 06:20:00* Test Item Value Reference Range Interpretation Comments Potassium Level (test code = 2823-3) 3.0 3.5-5.1 L [facility] HospitalChloride Bukrn6870-82-71 06:20:00* Test Item Value Reference Range Interpretation Comments Chloride Level (test code = 2075-0) 108 98-107 H [facility] HospitalCarbon Dioxide Ebfzl2961-36-54 06:20:00* Test Item Value Reference Range Interpretation Comments Carbon Dioxide Level (test code = 2028-9) 22 22-29 [facility] HospitalAnion Qcr4279-73-30 06:20:00* Test Item Value Reference Range Interpretation Comments Anion Gap (test code = 54278-3) 15.0 8-16 [facility] HospitalBlood Urea Pydqpksj9740-31-54 06:20:00* Test Item Value Reference Range Interpretation Comments Blood Urea Nitrogen (test code = 3094-0) 5 7-26 L [facility] HospitalCreatinine2020-01-31 06:20:00* Test Item Value Reference Range Interpretation Comments Creatinine (test code = 2160-0) 0.71 0.57-1.11 [facility] HospitalBUN/Creatinine Zwxet4810-24-62 06:20:00* Test Item Value Reference Range Interpretation Comments BUN/Creatinine Ratio (test code = 3097-3) 7 6-25 [facility] HospitalEstimat Glomerular Filtration Rate 2019-10-26 06:20:00* Test Item Value Reference Range Interpretation Comments Estimat Glomerular Filtration Rate (test code = 196875380) > 60 >60 Ranges were taken from the National Kidney Disease Education Program and the [facility] Kidney Foundation literature.Reference ranges:60 or greater: Xlwvvs79-13 ( for 3 consecutive months): Chronic kidney disease 15 or less: Kidney failureUniversity HospitalGlucose Dlqij5143-45-82 06:20:00* Test Item Value Reference Range Interpretation Comments Glucose Level (test code = YVV3666) 124 74-118 H [facility] HospitalCalcium Yjpsg4395-10-26 06:20:00* Test Item Value Reference Range Interpretation Comments Calcium Level (test code = 60562-2) 8.7 8.4-10.2 University HospitalGASTRIC TGWIEMPF7588-49-07 18:58:00 [place] [address] Patient Name: LOREN ROCK MR #: [id number] : Age/Sex: 59/F Req #: [id number] Adm Physician: GLORIA HILLS MD Ordered by: ROSA SAINI MD Report #: [id number] Location: MED/SURG Room/Bed: [facility] Procedure: 0130 -0001 NM/GASTRIC EMPTYING Exam Date: 10/25/19 Exam T rome: 0957 REPORT STATUS: Signed Solid-phase gastric emptying study Reason for examination: Abdominal pain The protocol used for this study is based on the Consensus Recommendations f or Gastric Scintigraphy by the [place] [employer] and the Society of Nuclear Medicine. Clinical information: The patie nt is diabetic. The patient had gastric sleeve surgery and hiatal hernia repa ir approximately 8 years ago. The patient has been receiving pain medications and metoclopramide. The patient has been fasting for at least 6 hours prior to this exam. Radiopharmaceutical: Tc-99m sulfur colloid 1 mCi Report: The radiopharmaceutical was added to Ensure Enlive 8 ounces. The patient took the liquid meal orally. Images were obtained of the abdomen in the anterior and posterior projections at 10 minutes post the meal and at 1, 2, 3, and 4 h ours. Uptake was determined from the geometric mean of the anterior and poste rior counts and the counts were corrected for decay of the radiolabel. NOTE : The patient was very nauseated and having severe abdominal pain at one hour post ingestion of the liquid meal. She was given ondansetron at 1.5 hours pos t the meal. She continued to have severe abdominal pain and was given metoclo pramide and morphine at 2 hours. The percent gastric retention of the label ed meal at: 1 hour was 91% (normal 30-90%) 2 hours was 72% (normal <60%) 3 hours was 71% (normal <30%) 4 hours was 57% (normal <10%) Impression: Gastric emptying is markedly delayed throughout the study. Findings are compatible with severe gastroparesis, however, because the patient was given ondansetron, metoclopramide and morphine during the study, the results may not be valid. The study should be repeated when the patient's nausea and pain have lessened and she can manage without metoclopramide and morphine for more than 4 hours. Signed by: Dr. Piedad Sanchez M.D. on 10/25/2019 7:09 PM Dictated By: PIEDAD SANCHEZ MD 08 Transcribed By: REED on 10/25/191908 COPY TO: ROSA SAINI MD Clostridium Difficile Toxin A & B7307-20-87 14:37:00* Test Item Value Reference Range Interpretation Comments Clostridium Difficile Toxin A & B (test code = 158761838) NEGATIVE NEGATIVE Testing on stool aspirate specimens is outside ic design manager claims since specime n type not validated on this assay.[facility] Clostridium Difficile Toxin A & T2030-65-89 14:37:00* Test Item Value Reference Range Interpretation Comments Clostridium Difficile Toxin A & B (test code = 448156154) NEGATIVE NEGATIVE Testing on stool aspirate specimens is outside ic design manager claims since specime n type not validated on this assay.[facility] Olcypxuir5258-97-43 05:43:00* Test Item Value Reference Range Interpretation Comments Total Bilirubin (test code = 1975-2) 0.6 0.2-1.2 [facility] HospitalAspartate Amino Transf (AST/SGOT) 2019 05:43:00* Test Item Value Reference Range Interpretation Comments Aspartate Amino Transf (AST/SGOT) (test code = Aspartate Amino Transf (AST/SGOT)) 33 5-34 [facility] HospitalAlanine Aminotransferase (ALT/SGPT) 2019 05:43:00* Test Item Value Reference Range Interpretation Comments Alanine Aminotransferase (ALT/SGPT) (test code = 1742-6) 39 0-55 [facility] Ovjcwvl2077-87-93 05:43:00* Test Item Value Reference Range Interpretation Comments Total Protein (test code = 2885-2) 6.9 6.5-8.1 [facility] HospitalAlbumin2020-01-28 05:43:00* Test Item Value Reference Range Interpretation Comments Albumin (test code = 1751-7) 3.7 3.5-5.0 [facility] HospitalGlobulin2020-01-28 05:43:00* Test Item Value Reference Range Interpretation Comments Globulin (test code = 38731-9) 3.2 2.3-3.5 [facility] HospitalAlbumin/Globulin Lneaq0327-01-40 05:43:00 * Test Item Value Reference Range Interpretation Comments Albumin/Globulin Ratio (test code = 1759-0) 1.2 0.8-2.0 [facility] HospitalAlkaline Sjnjxdkyqfa8319-67-62 05:43:00* Test Item Value Reference Range Interpretation Comments Alkaline Phosphatase (test code = 6768-6) 125 40-150 [facility] HospitalWhite Blood Pocys8567-70-02 05:23:00* Test Item Value Reference Range Interpretation Comments White Blood Count (test code = 6690-2) 8.54 4.8-10.8 [facility] HospitalRed Blood Bbwlg1476-00-06 05:23:00* Test Item Value Reference Range Interpretation Comments Red Blood Count (test code = 789-8) 4.12 3.6-5.1 [facility] HospitalHemoglobin2020-01-28 05:23:00* Test Item Value Reference Range Interpretation Comments Hemoglobin (test code = 59236-8) 10.2 12.0-16.0 L [facility] HospitalHematocrit2020-01-28 05:23:00* Test Item Value Reference Range Interpretation Comments Hematocrit (test code = 4544-3) 33.9 34.2-44.1 L [facility] HospitalMean Corpuscular Uotjtk1315-88-14 05:23:00* Test Item Value Reference Range Interpretation Comments Mean Corpuscular Volume (test code = 787-2) 82.3 81-99 [facility]Mean Corpuscular Ozbxjsoknl4346-96-17 05:23:00* Test Item Value Reference Range Interpretation Comments Mean Corpuscular Hemoglobin (test code = 785-6) 24.8 28-32 L [facility] HospitalMean Corpuscular Hemoglobin Concent 2019 05:23:00* Test Item Value Reference Range Interpretation Comments Mean Corpuscular Hemoglobin Concent (test code = 786-4) 30.1 31-35 L [facility] HospitalRed Cell Distribution Krfit4424-74-67 05:23:00* Test Item Value Reference Range Interpretation Comments Red Cell Distribution Width (test code = 65955-5) 14.2 11.7 -14.4 [facility] HospitalPlatelet Wgqbc6575-87-08 05:23:00* Test Item Value Reference Range Interpretation Comments Platelet Count (test code = 777-3) 238 140-360 [facility] HospitalNeutrophils (%) (Auto)2019 05:23:00 * Test Item Value Reference Range Interpretation Comments Neutrophils (%) (Auto) (test code = 18441-9) 78.6 38.7-80.0 [facility] HospitalLymphocytes (%) (Auto)2019 05:23:00 * Test Item Value Reference Range Interpretation Comments Lymphocytes (%) (Auto) (test code = 736-9) 13.9 18.0-39.1 L [facility] HospitalMonocytes (%) (Auto)2019 05:23:00* Test Item Value Reference Range Interpretation Comments Monocytes (%) (Auto) (test code = 5905-5) 6.7 4.4-11.3 [facility] HospitalEosinophils (%) (Auto)2019 05:23:00 * Test Item Value Reference Range Interpretation Comments Eosinophils (%) (Auto) (test code = 713-8) 0.1 0.0-6.0 [facility] HospitalBasophils (%) (Auto)2019 05:23:00* Test Item Value Reference Range Interpretation Comments Basophils (%) (Auto) (test code = 706-2) 0.1 0.0-1.0 [facility] HospitalIM GRANULOCYTES %2019 05:23:00* Test Item Value Reference Range Interpretation Comments IM GRANULOCYTES % (test code = IM GRANULOCYTES %) 0.6 0.0- 1.0 [facility] HospitalNeutrophils # (Auto)2019 05:23:00* Test Item Value Reference Range Interpretation Comments Neutrophils # (Auto) (test code = 751-8) 6.7 2.1-6.9 [facility] HospitalLymphocytes # (Auto)2019 05:23:00* Test Item Value Reference Range Interpretation Comments Lymphocytes # (Auto) (test code = 23128-9) 1.2 1.0-3.2 [facility] HospitalMonocytes # (Auto)2019 05:23:00* Test Item Value Reference Range Interpretation Comments Monocytes # (Auto) (test code = 742-7) 0.6 0.2-0.8 [facility] HospitalEosinophils # (Auto)2019 05:23:00* Test Item Value Reference Range Interpretation Comments Eosinophils # (Auto) (test code = 711-2) 0.0 0.0-0.4 [facility] HospitalBasophils # (Auto)2019 05:23:00* Test Item Value Reference Range Interpretation Comments Basophils # (Auto) (test code = 704-7) 0.0 0.0-0.1 [facility] HospitalAbsolute Immature Granulocyte (auto 2019 05:23:00* Test Item Value Reference Range Interpretation Comments Absolute Immature Granulocyte (auto (silviano t code = Absolute Immature Granulocyte (auto) 0.05 0-0.1 [facility] HospitalFolate2020-01-28 05:13:00* Test Item Value Reference Range Interpretation Comments Folate (test code = 2284-8) 15.5 >3.0 A serum folate concentration of less than 3.1 ng/mL isconsidered to represent cl inical deficiency.Performed at: [facility] [id number] Director: David Triana MD, Phone: [phone] HospitalFolate2020-01-28 05:13:00* Test Item Value Reference Range Interpretation Comments Folate (test code = 2284-8) 15.5 >3.0 A serum folate concentration of less than 3.1 ng/mL isconsidered to represent cl inical deficiency.Performed at: [facility] [id number] Director: David Triana MD, Phone: [phone] HospitalVitamin B12 Aecor7377-44-04 06:36:00* Test Item Value Reference Range Interpretation Comments Vitamin B12 Level (test code = 56625-1) 265 213-816 [facility] HospitalVitamin B12 Shedp6050-95-40 06:36:00* Test Item Value Reference Range Interpretation Comments Vitamin B12 Level (test code = 12703-4) 265 213-816 [facility] HospitalFerritin2020-01-27 06:33:00* Test Item Value Reference Range Interpretation Comments Ferritin (test code = 2276-4) 25.94 4.63-204.00 [facility] HospitalFerritin2020-01-27 06:33:00* Test Item Value Reference Range Interpretation Comments Ferritin (test code = 2276-4) 25.94 4.63-204.00 [facility] Yjuns8649-74-98 06:18:00* Test Item Value Reference Range Interpretation Comments Iron Level (test code = 2498-4) 31 50-170 L [facility] Iron Binding Axgpchah9640-79-93 06:18:00* Test Item Value Reference Range Interpretation Comments Total Iron Binding Capacity (test code = 2500-7) 412 261-4 78 [facility] Iron Elkbpbyicy6235-53-06 06:18:00* Test Item Value Reference Range Interpretation Comments Percent Iron Saturation (test code = 2502-3) 8 15-50 L [facility] HospitalTransferrin2020-01-27 06:18:00* Test Item Value Reference Range Interpretation Comments Transferrin (test code = 3034-6) 294 180-382 [facility]2020-01-27 06:18:00* Test Item Value Reference Range Interpretation Comments Iron Level (test code = 2498-4) 31 50-170 L [facility] Iron Binding Nbjmizwm3239-33-00 06:18:00* Test Item Value Reference Range Interpretation Comments Total Iron Binding Capacity (test code = 2500-7) 412 261-4 78 [facility] Iron Jzjpypeyvv0457-79-21 06:18:00* Test Item Value Reference Range Interpretation Comments Percent Iron Saturation (test code = 2502-3) 8 15-50 L [facility] HospitalTransferrin2020-01-27 06:18:00* Test Item Value Reference Range Interpretation Comments Transferrin (test code = 3034-6) 294 180-382 [facility] Reticulocyte Xrujv2087-25-81 05:30:00* Test Item Value Reference Range Interpretation Comments Percent Reticulocyte Count (test code = 49031-9) 1.7 0.8-2 .2 [facility] Reticulocyte Vinsr7985-27-68 05:30:00* Test Item Value Reference Range Interpretation Comments Percent Reticulocyte Count (test code = 96900-8) 1.7 0.8-2 .2 [facility] HospitalUrine Ffcffcl6868-69-98 08:08:00* Test Item Value Reference Range Interpretation Comments Urine Culture (test code = 630-4) No Result Data Provided [facility] HospitalUrine Vcdited8032-50-99 08:08:00* Test Item Value Reference Range Interpretation Comments Urine Culture (test code = 630-4) No Result Data Provided University HospitalMagnesium Zendq7980-47-37 06:10:00* Test Item Value Reference Range Interpretation Comments Magnesium Level (test code = 28603-8) 1.7 1.3-2.1 University HospitalTriglycerides Faari7507-76-52 06:10:00* Test Item Value Reference Range Interpretation Comments Triglycerides Level (test code = 2571-8) 120 0-149 [facility] HospitalCholesterol Blwuw9862-98-43 06:10:00* Test Item Value Reference Range Interpretation Comments Cholesterol Level (test code = 2093-3) 146 0-199 Less than 200 mg/dL Low Jbqv924 - 239 mg/dL Borderline Slzj928 m g/dl and greater High Risk University HospitalLDL Rboyfieilve4500-36-48 06:10:00* Test Item Value Reference Range Interpretation Comments LDL Cholesterol (test code = 2089-1) 78 60-130 [facility] HospitalHDL Wdmmvnqtnhl6496-51-56 06:10:00* Test Item Value Reference Range Interpretation Comments HDL Cholesterol (test code = 2085-9) 44 40-60 [facility] HospitalCholesterol/HDL Fmcmi0361-32-20 06:10:00 * Test Item Value Reference Range Interpretation Comments Cholesterol/HDL Ratio (test code = 9830-1) 3.3 3.0-3.6 [facility] HospitalTriglycerides Hjxzy0419-37-05 06:10:00* Test Item Value Reference Range Interpretation Comments Triglycerides Level (test code = 2571-8) 120 0-149 [facility] HospitalCholesterol Wmplg4190-07-09 06:10:00* Test Item Value Reference Range Interpretation Comments Cholesterol Level (test code = 2093-3) 146 0-199 Less than 200 mg/dL Low Eegy529 - 239 mg/dL Borderline Bydu653 m g/dl and greater High Risk [facility] HospitalLDL Qtzldendscy3341-57-42 06:10:00* Test Item Value Reference Range Interpretation Comments LDL Cholesterol (test code = 2089-1) 78 60-130 [facility] HospitalHDL Tvwtlmgcidh0334-15-29 06:10:00* Test Item Value Reference Range Interpretation Comments HDL Cholesterol (test code = 2085-9) 44 40-60 [facility] HospitalCholesterol/HDL Xqrti3490-20-11 06:10:00 * Test Item Value Reference Range Interpretation Comments Cholesterol/HDL Ratio (test code = 9830-1) 3.3 3.0-3.6 University HospitalCreatine Kinase QE4433-74-75 14:42:00* Test Item Value Reference Range Interpretation Comments Creatine Kinase MB (test code = 16369-8) 0.50 0-5.0 [facility] HospitalTroponin U5402-16-87 14:42:00* Test Item Value Reference Range Interpretation Comments Troponin I (test code = ZHQ7542) < 0.001 0-0.300 [facility] HospitalCreatine Xgtgej5962-26-71 14:32:00* Test Item Value Reference Range Interpretation Comments Creatine Kinase (test code = 2157-6) 47 29-168 [facility] HospitalMRI BRAIN WT2375-65-36 11:48:00 [place] [address] Patient Name: LOREN ROCK MR #: [id number] : Age/Sex: 58/F Req #: [id number] Adm Physician: GLORIA HILLS MD Ordered by: MICHELLE SLATER MD Report #: [id number] Location: [facility] Room/Bed: [place] [address]-1 Procedure : [id number] MRI/MRI BRAIN WO Exam Date: Exam Time: REPORT STATUS: Signed History: Evaluate age-indeterminate infarcts are seen on head CT. Comparison studies: H ead CT 10/19/2019 at 18:51 hours Technique: Sagittal and axial T2 FS, axi al DWI, axial T2*GRE, axial T1 FLAIR and axial coronal T2 FLAIR. Intravenous contrast: None Findings: Scalp: Normal in signal. No masses. Bone m arrow: Normal in signal intensity. Brain sulci: Appropriate for age. Vent ricles: Mildly prominent. No hydrocephalus. Extra axial spaces: No mass, no fl uid collection. Parenchyma: No mass, acute hemorrhage or acute ischemia. A few scattered T2 FLAIR hyperintense foci in the supratentorial white matter are nonspecific but are most compatible with chronic microvascular ischemic ch anges. There are small chronic lacunar infarcts in the right reyes radiata ne ar the level of the perirolandic gyri. Chronic bilateral middle occipital infa rcts are also present with encephalomalacia and gliosis (2.5 cm on the right s ubcentimeter on the on the left). Right occipital infarct is with curvilinear decreased signal along its margins on the T2*GRE sequence compatible with hemo siderin staining from prior hemorrhage. Small chronic insult with encephalomal acia and gliosis also present in the left cerebellum. Suprasellar region: No abnormalities. Craniocervical junction: Patent foramen magnum. No Chiari malformation. Vessels: Normal flow-voids in the arteries and sinuses. Inc idental findings: Left intraocular lens or placement for previous cataract ilya julianna. IMPRESSION: 1. No acute intracranial abnormalities. 2. 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 Signed by: Dr. Alana Xiao M.D. on 10/20/2019 12:04 PM Dic tated By: ALANA XIAO MD 03 COPY TO: MICHELLE CASTRO MD Hemoglobin A1c Cehykiq7165-35-79 08:43:00* Test Item Value Reference Range Interpretation Comments Hemoglobin A1c Percent (test code = Hemoglobin A1c Percent) 7.4 4.0-7.0 H [facility] HospitalHemoglobin A1c Bfyfmkr2721-16-15 08:43:00 * Test Item Value Reference Range Interpretation Comments Hemoglobin A1c Percent (test code = Hemoglobin A1c Percent) 7.4 4.0-7.0 H [facility] HospitalUrine KST5415-74-23 21:32:00* Test Item Value Reference Range Interpretation Comments Urine WBC (test code = 5821-4) 0-5 0-5 [facility] HospitalUrine XWU5145-61-84 21:32:00* Test Item Value Reference Range Interpretation Comments Urine RBC (test code = 74829-4) NONE 0-5 [facility] HospitalUrine Zapbhkkv8489-83-16 21:32:00* Test Item Value Reference Range Interpretation Comments Urine Bacteria (test code = 23013-1) MANY NONE H [facility] HospitalUrine Epithelial Fjixe1185-94-63 21:32:00 * Test Item Value Reference Range Interpretation Comments Urine Epithelial Cells (test code = 89093-3) FEW NONE [facility] HospitalUrine Hffcg2038-76-80 21:18:00* Test Item Value Reference Range Interpretation Comments Urine Color (test code = 5778-6) YELLOW YELLOW [facility] HospitalUrine Wuoupoj7582-06-80 21:18:00* Test Item Value Reference Range Interpretation Comments Urine Clarity (test code = 77270-5) SL CLOUDY CLEAR [facility] HospitalUrine Specific Bganxfn2703-49-33 21:18:00 * Test Item Value Reference Range Interpretation Comments Urine Specific [place] (test code = 5811-5) 1.020 1.010-1.02 5 [facility] HospitalUrine xA9512-31-19 21:18:00* Test Item Value Reference Range Interpretation Comments Urine pH (test code = 16284-7) 6.5 5-7 [facility] HospitalUrine Leukocyte Spmuqtyh0828-78-80 21:18:00* Test Item Value Reference Range Interpretation Comments Urine Leukocyte Esterase (test code = 5799-2) NEGATIVE NEGATIVE [facility] HospitalUrine Jesozdq3649-02-18 21:18:00* Test Item Value Reference Range Interpretation Comments Urine Nitrite (test code = 58878-5) NEGATIVE NEGATIVE [facility] HospitalUrine Dvcdagb2658-83-87 21:18:00* Test Item Value Reference Range Interpretation Comments Urine Protein (test code = 5804-0) NEGATIVE NEGATIVE [facility] HospitalUrine Glucose (UA)2019-10-19 21:18:00* Test Item Value Reference Range Interpretation Comments Urine Glucose (UA) (test code = 2349-9) 2+ NEGATIVE H [facility] HospitalUrine Bdjejrz8827-92-51 21:18:00* Test Item Value Reference Range Interpretation Comments Urine Ketones (test code = 92739-1) NEGATIVE NEGATIVE [facility] HospitalUrine Acakrtujtzhi2722-36-53 21:18:00* Test Item Value Reference Range Interpretation Comments Urine Urobilinogen (test code = 46003-8) 0.2 0.2-1 [facility] HospitalUrine Fvhnctxnv7742-55-70 21:18:00* Test Item Value Reference Range Interpretation Comments Urine Bilirubin (test code = 1978-6) NEGATIVE NEGATIVE [facility] HospitalUrine Bnokm5462-91-73 21:18:00* Test Item Value Reference Range Interpretation Comments Urine Blood (test code = 41323-6) NEGATIVE NEGATIVE [facility] HospitalCT ABDOMEN/PELVIS P5994-24-27 20:33:00 [facility] [address] [address] Patient Name: LOREN ROCK MR #: [id number] : Age/Sex: 58/F Req #: [id number] [facility] Physician: Ordered by: WENDY TOBAR INSPECTOR WATCH TRAIN Report #: [id number] Location: ER Room/Bed: Procedure: [id number] 0030 CT/CT ABDOMEN/PELVIS W Exam Date: 10/19/19 Exam Time: 2009 REPORT STATUS: Signed CT Abdomen And Pelvis with Intravenous Contrast INDICATION: Nausea, vomit ing abd pain n/v [id number] TECHNIQUE: Thin collimation axial images obtained from the diaphragm to the level of the pubic symphysis follow ing the uneventful administration of 100 cc of low osmolar, nonionic intraven ous contrast. Dose reduction techniques used: Automated exposure control, a djustment of the mAs and/or kVp according to patient size, standardized low-do se protocol, and/or iterative reconstruction technique. RADIATION DOSE : Total DLP: 719 mGy*cm Estimated effective dose: (DLP x 0.015 x size factor) mSv CTDIvol has been reviewed. It is below the limits set by the Radiation Protocol Committee (RPC). COMPARISON: Report of CT of t he abdomen/pelvis performed 01/28/2016. Images are not available for comparison. . ABDOMEN FINDINGS: Lung Bases: Bibasilar atelectasis. There is mild thickening of the distal esophagus. A small hiatal hernia may be present. Visu alized portion of the heart is normal. Liver: Steatosis. No evidence for mass. The right lobe measures 20 cm in length. Gallbladder: Absent. No b iliary ductal dilatation. Pancreas: Mild atrophy. No mass or ductal dilatat ion. Spleen: Normal in size. No evidence of mass.. Adrenal Glands: No evidence for mass. Kidneys: Right: Atrophic with normal enhancement parenchyma. No soft tissue mass. No hydronephrosis. Left: Normal enhan cement. No soft tissue mass. No hydronephrosis. Lymph Nodes: No lymphaden opathy. Aorta: Normal in diameter with scattered calcifications PELV IS FINDINGS: Bowel: Stomach: Normal. Small Bowel: Small periampullar y duodenal diverticulum. Small bowel is normal in diameter with normal wall th ickness. Large Bowel: Moderate burden of stool throughout. No mural thickeni ng or pericolonic inflammation. There are a few scattered diverticula. Surgica l clips at the base of the cecum. Appendix: Absent. Bladder: Well dis tended and normal. The uterus is absent. No adnexal mass Peritoneum/re troperitoneum: No free fluid or fluid collection. Bones: Hardware in the stephanie mbar spine from L2 to S1. No evidence of hardware failure. There is a compress ion fracture of L1 proximally 50%. This is stable by report. No new compressio n deformities. Small focus of retropulsed bone from the superior endplate of L 1 the spinal canal. Soft tissues: Small fat-containing helical hernia. IMPRESSION: 1. Diverticulosis coli. No evidence for bowel obstruction or inflammation. 2. Steatosis and hepatomegaly. 3. Hysterectomy, appen dectomy, and cholecystectomy. 4. Nonspecific thickening of the distal esoph roverto, either due to vomiting or small hiatal hernia. 5. L1 compression de formity as described above. Signed by: Dr. Allyson Cota MD on 10/19/19 8:40 PM Dictated By: ALLYSON COTA MD 39 Transcribed By: REED on 10/19/192039 COPY TO: WENDY TOBAR NP Amylase Fmqah7871-98-64 19:51:00* Test Item Value Reference Range Interpretation Comments Amylase Level (test code = 1798-8) 101 25-125 [facility] HospitalLipase2020-01-24 19:51:00* Test Item Value Reference Range Interpretation Comments Lipase (test code = 3040-3) 22 8-78 [facility] HospitalProthrombin Mhlk1224-79-55 19:50:00* Test Item Value Reference Range Interpretation Comments Prothrombin Time (test code = 5902-2) 12.2 11.9-14.5 [facility] HospitalProthromb Time International Ratio 2019-10-19 19:50:00* Test Item Value Reference Range Interpretation Comments Prothromb Time International Ratio (test code = 6301-6) 0.86 Oral Anticoagulant Therapy INR Values:1. Low Intensity Therapy 1.5 - 2.02 . Moderate Intensity Therapy 2.0 - 3.03. High Intensity Therapy(1) 2.5 - 3. 54. High Intensity Therapy(2) 3.0 - 4.05. Panic Value INR > 5.0 [facility] HospitalActivated Partial Thromboplast Time 2019-10-19 19:50:00* Test Item Value Reference Range Interpretation Comments Activated Partial Thromboplast Time (test code = 05303-1) 29.7 23.8-35.5 [facility] HospitalProthrombin Rfnc5356-86-27 19:50:00* Test Item Value Reference Range Interpretation Comments Prothrombin Time (test code = 5902-2) 12.2 11.9-14.5 [facility] HospitalProthromb Time International Ratio 2019-10-19 19:50:00* Test Item Value Reference Range Interpretation Comments Prothromb Time International Ratio (test code = 6301-6) 0.86 Oral Anticoagulant Therapy INR Values:1. Low Intensity Therapy 1.5 - 2.02 . Moderate Intensity Therapy 2.0 - 3.03. High Intensity Therapy(1) 2.5 - 3. 54. High Intensity Therapy(2) 3.0 - 4.05. Panic Value INR > 5.0 [facility] HospitalActivated Partial Thromboplast Time 2019-10-19 19:50:00* Test Item Value Reference Range Interpretation Comments Activated Partial Thromboplast Time (test code = 31232-8) 29.7 23.8-35.5 [facility] HospitalCT BRAIN DY6326-95-53 19:27:00 [facility] [address] [place] [address] Patient Name: LOREN ROCK MR #: [id number] : Age/Sex: 58/F Req #: [id number] Adm Physician: Ordered by: WENDY TOBAR INSPECTOR WATCH TRAIN Report #: [id number] Location: ER Room/Bed: Procedure: [id number] 0029 CT/CT BRAIN WO Exam Date: 10/19/19 Exam Time: 1 850 REPORT STATUS: Signed EXAMIN ATION: Head CT without contrast. HISTORY:Headache and vomiting. C OMPARISON:CT brain from 12/27/2015. TECHNIQUE: Multidetector axial images were o btained from the foramen magnum to the vertex without contrast. The images wer e reconstructed using brain and bone algorithms. Thin section brain images we re reformatted into coronal and sagittal planes. Dose modulation, iterative reconstruction, and/or weight based adjustment of the mA/kV was utilized to re duce the radiation dose to as low as reasonably achievable. Intravenous c ontrast: None IMAGE QUALITY: Acceptable. FINDINGS: Skull/scalp : No lytic or blastic. lesions. No surgical changes. Parenchyma: Interval development of cortical-based hypodensity in right more than left occipital l obe represents age indeterminate vascular insult in [employer] territory. Interval development of focal hypodensity in lateral aspect of left cerebellar hemisphe re represents another age indeterminate, possible chronic vascular insult. U nchanged punctate chronic lacunar infarct in the anterior limb of left interna l capsule. No acute hemorrhage or mass. Arteries: No density suggestive of thrombosis. Mild atherosclerotic calcification in bilateral carotid siphon. Dural sinuses: No abnormal density suggestive of thrombosis. Ve ntricles: No hydrocephalus or displacement. Extra-axial spaces: No abnorma l density. Brain volume: Mild generalized cerebral volume loss. Cr aniocervical junction: No mass, Chiari malformation, or basilar invagination. Sella: Partial empty sella. Paranasal/mastoid sinuses: Mild mucosal thickening in bilateral ethmoid sinuses. IMPRESSION: 1. Interval development of age indeterminate vascular insult in right more than left occi pital lobe in [employer] territory. 2. Interval development of age indeterminate poss ible chronic vascular insult in left cerebellar hemisphere. 3. Chronic punct ate lacunar infarct in the anterior limb of left internal capsule. 4. Mild g eneralized cerebral volume loss. Signed by: Dr. Poli Perez M.D. on 7:35 PM Dictated By: POLI PEREZ MD 34 Transcribed By: REED on 10/19/191934 COPY TO: WENDY TOBAR INSPECTOR WATCH TRAIN CHEM ZQTQT9850-15-56 07:13:001.7 [facility] UYYYG7021-45-08 00:13:003.7[facility]annCHEM PANEL 2019-09-07 20:36:003.9[facility]annGENTAMICIN:SUSC:PT:ISOLATE:ORDQN:EUSEBIA 2019-09-07 19:15:00Enterobacter cloacaeMemorial HermannURINE AND CDEKF0796-96-89 19:15:00Clear (09/07/19 1:15 PM)[facility] VVRBP3924-98-25 19:15:00* Test Item Value Reference Range Interpretation Comments UA Spec Grav (test code = UA Spec Grav) 1.017 1 [facility] OXHPN7471-22-67 19:15:00* Test Item Value Reference Range Interpretation Comments UA pH (test code = UA pH) 6.0 1 5.0-8.0 [facility] YKEWO8904-97-27 19:15:00Negative *NA*(09/07/19 1:15 PM)[facility] GSMVP0354-32-88 19:15:00Negative (09/07/19 1:15 PM) [facility] XXMCB3868-97-94 19:15:00Negative (09/07/19 1:15 PM) [facility] IEXUD6563-38-29 19:15:00Trace *ABN*(09/07/19 1:15 PM) [facility] IRVPQ0829-39-12 19:15:0014[facility] BUFHB9128-02-34 19:15:003[facility] QGHZM6498-85-62 19:15:001 [facility]annCARDIAC VTNWLYU8541-88-15 17:22:00<0.02[facility]annCARDIAC TRIFTXE0559-30-37 17:22:0083[facility]annCHEM TZHHM5710-13-46 17:22:23609 [facility]CHE[facility] IJWYM7053-31-24 17:22:0022[facility]annCHEM PANEL 2019-09-07 17:22:000.97[facility]annCHE[facility] IWEBT5333-99-10 17:22:68237Jwvjkprh HermannCHEM AVARS2324-18-16 17:22:004.3[facility]annCHEM CHMSG0693-29-70 17:22:57110Mwpjeqbb HermannCHEM NEMAL3970-39-72 17:22:0022[facility]annCHE[facility] UCSAB1768-49-43 17:22:009.1[facility]annCHE[facility] FOPHQ4250-60-64 17:22:007.8 [facility] QDAGY8453-95-79 17:22:003.6[facility]annCHEM PANEL 2019-09-07 17:22:0028[facility]annCHE[facility] AHQBZ1084-96-69 17:22:0025[facility]annCHEM PYLKR5820-03-19 17:22:00662Aalksdvd HermannCHEM WECQM5768-50-92 17:22:000.4[facility]annCHE[facility] ILCEO1119-60-66 17:22:0064[facility]CHE[facility] QCPXA2262-60-78 17:22:0014.3[facility]annCHE[facility] UTTIV4053-97-77 17:22:00* Test Item Value Reference Range Interpretation Comments B/C Ratio (test code = B/C Ratio) 23 1 6-25 [facility]CHE[facility] LGHIF3303-63-03 17:22:004.2[facility]annCHEM PANEL 2019-09-07 17:22:00* Test Item Value Reference Range Interpretation Comments A/G Ratio (test code = A/G Ratio) 0.9 1 0.7-1.6 [facility]CHE[facility] KHYFV8159-64-24 17:22:0095[facility]annCHEM PANEL 2019-09-07 17:22:001.7[facility] GmheuvfNSYFJMNEST6450-50-72 17:22:007.0[facility] OazpmvmOIHHEGAAUC8581-79-38 17:22:003.81[facility] GgvuzvnKXWLZAWVTT9616-94-18 17:22:0010.8[facility] HlgeztsSTVGEMVXDD1014-26-90 17:22:0033.5[facility] CGZJFFOSTK2759-32-83 17:22:0087.9[facility] VtwgyqnXFRJLOCBBN3857-83-66 17:22:00* Test Item Value Reference Range Interpretation Comments MCH (test code = MCH) 28.2 pg 27.0-31.0 [facility] DwiqrmlNYNGXKTGMV5838-10-90 17:22:0032.1[facility]annHEMATOLOGY 2019-09-07 17:22:0013.7[facility] HvjeflkRHQSIQPSPC4981-32-70 17:22:95251Pkkorxoq KwljhlwTYCDROXBZU5315-13-89 17:22:008.9[facility] IaopkltWYFRWDOAOV9975-23-45 17:22:00* Test Item Value Reference Range Interpretation Comments INR (test code = INR) 0.96 1 0.85-1.17 [facility] QyeihpeCQPFKMEWGV5234-82-60 17:22:00* Test Item Value Reference Range Interpretation Comments PT (test code = PT) 12.6 s 12.0-14.7 [facility] AyahgwqVXKQLMBQEY5177-84-94 17:22:00* Test Item Value Reference Range Interpretation Comments PTT (test code = PTT) 30.4 s 22.9-35.8 [facility] EtleohaFXDKXSIKSE3417-29-50 17:22:0069.4[facility]annHEMATOLOGY 2019-09-07 17:22:0021.8[facility] EhdtgdnCHJILJORGN5683-41-51 17:22:006.0[facility] EaifnmjEUBLRWGVSD3752-50-59 17:22:002.4[facility] QyqojfmLFAWHLTEZS6505-72-76 17:22:000.4[facility] XngajndRYOCCWCPUW6027-91-26 17:22:004.8[facility] EAQQGXSGED0416-45-43 17:22:001.5[facility] UewwearUMVUYMIKEP5520-47-29 17:22:000.4 [facility] ItmkeygDGOOHIAFSV0198-83-23 17:22:000.2[facility]annCHEM PANEL 2019-08-20 19:42:47356Odmujhsk HermannCHEM WDEPF1452-27-62 19:42:0022[facility]annCHEM RBJGR9186-27-45 19:42:001.04[facility]annCHEM VVWUZ1794-87-03 19:42:72953Kziobkqp HermannCHEM KKNJP9419-15-28 19:42:004.1[facility]annCHEM VLCAD9069-74-53 19:42:77433Vkhvaoga HermannCHEM VTOMI7909-42-13 19:42:0025 [facility]annCHE[facility] LNIXH2085-98-07 19:42:0010.1[facility]annCHEM PANEL 2019-08-20 19:42:008.1[facility]annCHEM VTLWA2731-95-67 19:42:0059[facility] JeufrbrFQKLVBOKDF4617-33-33 19:42:008.0[facility] ArvexomTHKBOYJFYD9840-87-12 19:42:003.39[facility] AdpqccgGQHRCHFUVE1361-62-30 19:42:0010.1[facility] YJIIOHMSSO5906-05-97 19:42:0030.5[facility] PyfzmotDNWUMTSNFY3207-83-75 19:42:00 89.9[facility] CkvispfJDPAFKFUHG3003-61-26 19:42:00* Test Item Value Reference Range Interpretation Comments MCH (test code = MCH) 29.7 pg 27.0-31.0 [facility] HbtoykiLLHIIXGFIK6766-78-37 19:42:0033.1[facility] HermannHEMATOLOGY 2019-08-20 19:42:0013.5[facility] UdghbkoNHIKXEHNGU7453-17-05 19:42:84646Vnujnckw SozmykfVLZPDYHOYN8822-34-00 19:42:008.6[facility] AujtmuvAKSOQRVYNK5703-66-42 19:42:0091.1[facility] OrvxjtvAUUAAMGOCT4828-13-04 19:42:006.8[facility] FKXSYZXULG7911-85-50 19:42:001.3[facility] FokqdrxFNQESLAGVU6580-73-03 19:42:000.6 [facility] YrusszlFCSIBNIGET7445-01-33 19:42:000.2[facility]annHEMATOLOGY 2019-08-20 19:42:007.3[facility] KshilfuETOFDRWRUZ3229-65-87 19:42:000.5[facility] YhyxqgaNNOQXKTXXG7399-06-45 19:42:000.1[facility] HermannBLOOD BANK RESULTS 2019-08-20 09:27:00Negative (08/20/19 3:27 AM)[facility]annCHEM PANEL 2019-08-20 09:27:36079Apnctagk HermannCHEM TZJYU5490-18-00 09:27:0025[facility]annCHEM UFYLC0627-05-18 09:27:000.88[facility]annCHEM BZGWZ4511-70-00 09:27:63648Ngvjehcw HermannCHEM ZWAWN2120-64-81 09:27:004.2[facility]annCHEM PVRVE4316-14-06 09:27:72949Qtlfiiwc HermannCHEM YZNOK1703-96-09 09:27:0025 [facility]annCHEM QEFXM1748-42-86 09:27:008.7[facility]annCHEM PANEL 2019-08-20 09:27:0072[facility]annCHEM ODUYK9696-96-06 09:27:0011.2[facility] EprmpqiXACDXMOJZH0697-00-84 09:27:0055.3[facility] KgcfjubAYHWNHQQQL1310-90-46 09:27:0027.9[facility] AmmlqprGKIPKQAAFL9816-61-15 09:27:006.9[facility] NTMRXJUSSX4079-43-84 09:27:009.4[facility] CbbqouvTJOYHYQRHQ6731-69-40 09:27:000.5 [facility] DkivymaQWWGRNQOOY2636-32-88 09:27:003.2[facility] HermannHEMATOLOGY 2019-08-20 09:27:001.6[facility] PnpnluwLHUEAFPFFO8583-69-99 09:27:000.4[facility] NhiizinXOUCSAEBBE6594-97-71 09:27:000.5[facility]Great[facility] HospitalXozrbwmKHMHJMJNKC1980-13-96 09:27:00* Test Item Value Reference Range Interpretation Comments R-time (test code = R-time) 4.8 min 5.0-10.0 [facility]LvuiuabDJRNJZSGKQ8848-68-02 09:27:00* Test Item Value Reference Range Interpretation Comments K-time (test code = K-time) 0.9 min 1.0-3.0 [facility] HospitalBsczewcOIWVPHERGX8058-28-56 09:27:00* Test Item Value Reference Range Interpretation Comments Angle (test code = Angle) 61.1 degrees 53.0-72.0 [facility] HospitalRykmdksTZKHOIBOMB9688-41-41 09:27:00* Test Item Value Reference Range Interpretation Comments Max Amp (test code = Max Amp) 71.8 mm 50.0-70.0 [facility] HospitalTvxecmxINDLDDLZFN6305-60-45 09:27:0012.8[facility] 2019-[facility]-20 09:27:000.9[facility] HospitalPqykorqDDXGWJPEGJ6762-85-39 09:27:00* Test Item Value Reference Range Interpretation Comments Coag Index (test code = Coag Index) 2.1 1 <=3.0 [facility] HospitalQbzafvlRWBPORJVYV7578-09-51 09:27:00See Note (08/20/19 3:27 AM)[facility] HospitalDbkyfohFNFXSIZJIC2054-41-28 09:27:00* Test Item Value Reference Range Interpretation Comments PT (test code = PT) 12.6 s 12.0-14.7 [facility] HospitalQhkzbfdIINHHXGSYG0532-10-75 09:27:00* Test Item Value Reference Range Interpretation Comments INR (test code = INR) 0.96 1 0.85-1.17 [facility] HospitalCqefdkaVLSATATGWD4110-68-34 09:27:00* Test Item Value Reference Range Interpretation Comments PTT (test code = PTT) 33.5 s 22.9-35.8 [facility] HospitalOqwmidaKUGUVWURRN9849-96-08 09:27:005.9[facility]ri[facility] HospitalannHEMATOLOGY 2019-08-20 09:27:003.43[facility]oriGreat[facility] HospitalAbnoenlNEHJPXBCQU4157-04-27 09:27:0010.1[facility] BporgigNSARKVIEYX7059-16-90 09:27:0030.8[facility] ShndggsFEVIJLLSCP1323-30-88 09:27:0089.8[facility] LlopkvdUIFRZRRZEC2580-08-98 09:27:00* Test Item Value Reference Range Interpretation Comments MCH (test code = MCH) 29.6 pg 27.0-31.0 [facility] NetkpyzTYJOYQSJGN5199-50-75 09:27:0033.0[facility]annHEMATOLOGY 2019-08-20 09:27:0013.6[facility] ZovpgzfRFGPISMLUE5163-07-64 09:27:77797Ggncnood OttpnznNKITIVFIBT1759-95-34 09:27:008.5[facility]annBLOOD BANK RESULTS 2019-08-19 12:37:00Negative (08/19/19 6:37 AM)[facility] HermannIMMUNOLOGY 2019-08-19 12:32:00Negative *NA*(08/19/19 6:32 AM)[facility] HermannHEMATOLOGY 2019-08-19 12:31:13* Test Item Value Reference Range Interpretation Comments PT (test code = PT) 12.4 s 12.0-14.7 [facility] DamhtkvAGFLHRKQNT8752-49-92 12:31:13* Test Item Value Reference Range Interpretation Comments INR (test code = INR) 0.94 1 0.85-1.17 [facility] GntnyoxPKZYXMZOUQ5066-90-99 12:31:13* Test Item Value Reference Range Interpretation Comments PTT (test code = PTT) 31.5 s 22.9-35.8 [facility]annCHEM EBYWN7980-61-67 02:12:71203Libfdhsi HermannCHEM PANEL 2019-08-19 02:12:0021[facility]annCHEM QBROV5537-90-67 02:12:001.01[facility]annCHEM GNMJM2304-81-62 02:12:20189Xuxdfxkt HermannCHEM RYLBZ6994-96-02 02:12:003.9[facility]annCHEM ACJBF4092-99-46 02:12:68012Kfcxvhza HermannCHEM BOGKL4057-63-17 02:12:0028[facility]annCHEM TGDYG6194-00-31 02:12:008.7 [facility]annCHEM GLAHS1749-62-85 02:12:0061[facility]annCHEM PANEL 2019-08-19 02:12:004.9[facility] ZzhdryhYEETTTQLWT4974-30-08 02:12:007.8[facility] FcnnobkITYTJENYZE2737-38-29 02:12:003.60[facility] JsefapxPQUJPRCJRN2411-64-43 02:12:0010.8[facility] IummrvvHPNCMLXDTZ5900-63-09 02:12:0032.3[facility] BHRBCLVPMU5409-31-98 02:12:0089.8[facility] QrllnrbZPVSWZPYHL8585-10-19 02:12:00* Test Item Value Reference Range Interpretation Comments MCH (test code = MCH) 29.9 pg 27.0-31.0 [facility] GiqgttpXTIJHLOQWE9835-46-87 02:12:0033.3[facility] HermannHEMATOLOGY 2019-08-19 02:12:0013.2[facility] MjawlnjSXFOQLBMNE6655-87-98 02:12:02333Ssggjucu XxnevvrEHHKLXBBVK4735-79-10 02:12:008.4[facility] UhzcrstGWDAEVIIKQ5748-66-55 02:12:0027[facility] SeujaiwYJEEUOQHWW7160-49-42 02:12:0060.5[facility] IEVATOKOWS0954-24-85 02:12:0024.6[facility] MampxvcCIKMXCHWUI3737-63-79 02:12:00 7.6[facility] BhtpvooURNUTZMZHE5915-33-39 02:12:007.0[facility] HermannHEMATOLOGY 2019-08-19 02:12:000.3[facility] RkjejwmLWEAAGUPPO3390-01-80 02:12:004.7[facility] QnamyuaNFXHQRDWWL3607-61-85 02:12:001.9[facility] ZdraodsYHEIGLXKLA7742-09-57 02:12:000.6[facility] RhemhzqFPQNTZVCFM8307-73-59 02:12:000.5[facility] PGSRCSXAHY6822-27-56 02:12:004.5[facility]UR[facility] AND HDOPI7789-36-18 17:33:00Clear (07/10/19 12:33 PM)[facility] ZOYIU1593-58-47 17:33:00* Test Item Value Reference Range Interpretation Comments UA Spec Grav (test code = UA Spec Grav) 1.012 1 [facility] JZQEX0385-87-63 17:33:00* Test Item Value Reference Range Interpretation Comments UA pH (test code = UA pH) 7.0 1 5.0-8.0 [facility] VYOLZ6892-66-76 17:33:00Negative *NA*(07/10/19 12:33 PM)[facility] CKUTY5177-93-09 17:33:00Negative (07/10/19 12:33 PM)[facility] HBTCC4590-50-27 17:33:00Positive *ABN*(07/10/19 12:33 PM)[facility] GHYHR6402-11-50 17:33:00Trace *ABN*(07/10/19 12:33 PM)[facility] NTCKL1802-16-14 17:33:0017[facility] URINE AND QALMZ1169-37-31 17:33:002[facility] HermannCARDIAC QQQZIVR8213-91-62 16:20:03633Kveseezn HermannCARDIAC UTTEPDM0012-22-71 16:20:0031[facility] CHEM NQQPM8383-20-45 16:20:0067[facility] HermannCHEM FKIVD4662-33-54 16:20:0010 [facility]annCHEM KOHLG4699-02-96 16:20:000.87[facility]annCHEM PANEL 2019-07-10 16:20:70143Mzlimcez HermannCHEM KUVWB9485-45-12 16:20:004.1[facility] HermannCHEM DONIM2299-45-79 16:20:40649Uvkjtfjs HermannCHEM CLGVD3677-72-95 16:20:0027[facility]annCHEM NNBHV0525-24-82 16:20:009.6[facility]annCHEM IYYEJ3082-67-02 16:20:007.5[facility]annCHEM RZNGF4157-35-27 16:20:003.6 [facility]annCHEM RUDIO8968-74-56 16:20:0029[facility]annCHEM PANEL 2019-07-10 16:20:0025[facility] HermannCHEM GORIS2366-17-12 16:20:42066Ubdkhlaa HermannCHEM PLPTL7492-03-77 16:20:000.5[facility] HermannCHEM HQDLM5070-46-57 16:20:0073[facility]annCHEM GUKAI6132-57-87 16:20:0011.1[facility]annCHEM DEMAT0364-90-10 16:20:00* Test Item Value Reference Range Interpretation Comments B/C Ratio (test code = B/C Ratio) 11 1 -25 [facility]annCHEM SWOUD9532-12-38 16:20:003.9[facility]annCHEM PANEL 2019-07-10 16:20:00* Test Item Value Reference Range Interpretation Comments A/G Ratio (test code = A/G Ratio) 0.9 1 0.7-1.6 [facility] HermannCHEM UKSNE0441-37-88 16:20:001.4[facility] HermannHEMATOLOGY 2019-07-10 16:20:005.8[facility] RgvffpvSZTFRNIXDK5610-73-75 16:20:004.03[facility] QkrtdejKKDLJOQEJV8259-24-59 16:20:0012.1[facility] MetfbplGNREKXHKYG7487-87-65 16:20:0036.4[facility] TlumrabMABSEIWSMT5377-02-22 16:20:0090.4[facility] PKDMRCMXGT1921-42-65 16:20:00* Test Item Value Reference Range Interpretation Comments MCH (test code = MCH) 30.0 pg 27.0-31.0 [facility] TyedlivLHZEMLHNGY0719-71-75 16:20:0033.2[facility] HermannHEMATOLOGY 2019-07-10 16:20:0013.1[facility] GiermozZGRCNXQJMD1631-16-39 16:20:52038Mpwzobbt HzkvblcSVZWLBNXOI0821-46-84 16:20:008.5[facility] QjulontUDJJAOOEKF2988-24-32 16:20:00* Test Item Value Reference Range Interpretation Comments INR (test code = INR) 0.97 1 0.85-1.17 [facility] RckzahwMBSJWGSQGY5358-92-51 16:20:00* Test Item Value Reference Range Interpretation Comments PT (test code = PT) 12.7 s 12.0-14.7 [facility] HxbidciYBSPYPTRHW8166-85-48 16:20:0070.4[facility] HermannHEMATOLOGY 2019-07-10 16:20:0020.5[facility] NyhonduTNGJZTVJGS5014-16-45 16:20:007.0[facility] RzykwwbOJTMBURTUH7979-10-47 16:20:001.8[facility] NjqadznZQVCZJSLLS3293-97-08 16:20:000.3[facility] JnpmwdrEKOOYIRJNG4715-94-96 16:20:004.1[facility] AUOMIFDTIS8793-00-14 16:20:001.2[facility] GyfspstYFEDROLXSM1734-85-76 16:20:000.4 [facility] TbylvkxLVMDIUBUYJ0119-46-21 16:20:000.1[facility] HermannCHEST 2 VIEWS 2019-06-19 17:43:00 [place] [address] Patient Name: LOREN ROCK MR #: [id number] : 1960 Age/Sex: 58/F Req #: [id number] Adm Physician: Ordered by: VERONICA NEIL MD Report #: [id number] Location: OR Room/Bed: Procedure: [id number] DX/CHEST 2 VIEWS Exam Date: 06/19/19 Exam Adriano e: 1710 REPORT STATUS: Signed Fr ontal and lateral views of the chest. HISTORY: Preop, screening colonoscop y COMPARISON: None available. DISCUSSION: Soft tissue attenuation partially limits sensitivity of the exam. Lungs: Low lung volumes resu lt in bibasilar vascular crowding, accentuation of the pulmonary interstitial markings, central pulmonary vasculature, and the cardiac silhouette. Allowing for these limitations, the findings are as follows: No evidence of a consol idative pneumonia or pulmonary alveolar edema. Pleura: No pleural effus ion or pneumothorax. Heart and mediastinum: The cardiomediastinal silho uette appear(s) unremarkable. Bones and soft tissues: Partially visuali zed lumbar fixation hardware. Other: Cholecystectomy clips. IMPRE SSION: No acute radiographic abnormality. Signed by: Cordell Gruber, M.M.M. on 06/19/2019 5:45 PM Dictated By: SALTY MCCLAIN DO Electronical ly Signed By: SALTY MCCLAIN DO on 06/19/191744 Transcribed By: REED on 1744 COPY TO: VERONICA NEIL MD CARDIAC SRJUYME8451-87-14 20:31:00<0.02[facility] HermannCARDIAC DJAJSJF4108-85-28 16:16:00<0.02[facility] HobhcvgFXCPRN3290-23-35 16:16:0064[facility] JcfzlwkUNUCIH5357-43-49 16:16:00* Test Item Value Reference Range Interpretation Comments VLDL (test code = VLDL) 29 1 [facility] JsqtoyyGVUQUW5568-42-72 16:16:01015Dwjkovey NsoksdgGZFVOV2394-40-64 16:16:0061[facility] NlfsglnBOEBJU1662-85-28 16:16:79008[facility] HermannLIPIDS 2019-03-29 16:16:00* Test Item Value Reference Range Interpretation Comments CHD Risk (test code = CHD Risk) 2.52 1 3.90-5.80 [facility] HermannSPECIAL CBGNYJRQF3422-66-16 16:16:006.6[facility]annURINE AND MCIMT4551-59-46 13:02:00Clear (03/29/19 8:02 AM)[facility]annUR[facility] AND STOOL 2019-03-29 13:02:00* Test Item Value Reference Range Interpretation Comments UA pH (test code = UA pH) 6.0 1 5.0-8.0 [facility] AND QURED8793-85-70 13:02:00* Test Item Value Reference Range Interpretation Comments UA Spec Grav (test code = UA Spec Grav) 1.006 1 [facility]UR[facility] AND DANYX9492-42-10 13:02:00Negative (03/29/19 8:02 AM) [facility] OPZJF0424-94-50 13:02:00Negative *NA*(03/29/19 8:02 AM) [facility] QQQHX4753-05-72 13:02:00Negative (03/29/19 8:02 AM) [facility] JOKIW1863-70-45 13:02:003[facility]annURINE AND MKIVM6849-71-91 13:02:00Trace *ABN*(03/29/19 8:02 AM)[facility] HermannCARDIAC ZDLBXDB1213-22-28 10:09:0018[facility] HermannCARDIAC GUUPTOH5963-76-59 10:09:0072 [facility]annCARDIAC KQPGDBJ0804-38-62 10:09:00<0.02[facility] HermannCHEM BCNKB7883-71-54 10:09:00* Test Item Value Reference Range Interpretation Comments B/C Ratio (test code = B/C Ratio) 12 1 6-25 [facility] HermannCHEM KEZBA6896-84-95 10:09:0011.6[facility] HermannCHEM PANEL 2019-03-29 10:09:00* Test Item Value Reference Range Interpretation Comments A/G Ratio (test code = A/G Ratio) 1.0 1 0.7-1.6 [facility] HermannCHEM AKRMC3131-49-17 10:09:003.9[facility] HermannCHEM PANEL 2019-03-29 10:09:72912Aynbzwnf HermannCHEM BKBZP0496-71-11 10:09:0027[facility] HermannCHEM RSBTY5007-65-77 10:09:0061[facility] HermannCHEM GNJHR3744-84-47 10:09:003.8[facility] HermannCHEM YUTPE9682-92-20 10:09:000.6[facility] HermannCHEM HYXFG1611-94-34 10:09:51246Moufngbb HermannCHEM HVCLN9899-94-70 10:09:77465 [facility]annCHEM NYFQR8227-27-51 10:09:003.6[facility] HermannCHEM PANEL 2019-03-29 10:09:007.7[facility] HermannCHEM DYVPJ5544-58-68 10:09:009.5[facility] HermannCHEM LWGAE1038-58-89 10:09:0022[facility] HermannCHEM OLODS4775-62-50 10:09:0078[facility] HermannCHEM EOICU9055-46-72 10:09:21928Imsqbdzq HermannCHEM LAXYP9648-36-16 10:09:0010[facility] HermannCHEM PHJFT4730-54-90 10:09:000.83 [facility] HjddlyuTUVSXSBWZS8887-52-19 10:09:00* Test Item Value Reference Range Interpretation Comments PT (test code = PT) 12.2 s 12.0-14.7 [facility]coiZDJBGMEOJD5809-64-58 10:09:00* Test Item Value Reference Range Interpretation Comments INR (test code = INR) 0.92 1 0.85-1.17 [facility] HospitalPjavyyiCJQMAEZVAV2637-02-77 10:09:00* Test Item Value Reference Range Interpretation Comments PTT (test code = PTT) 35.3 s 22.9-35.8 [facility] HospitalCkptgdqTSMJEUKEJH8191-98-64 10:09:004.34[facility] HermannHEMATOLOGY 2019-03-29 10:09:0012.7[facility] FrxyejkOWBGPSDWLT3839-11-64 10:09:007.0[facility] UkzihhpEEZTXHXUXH8279-63-50 10:09:0087.2[facility] RvsdxznRVSHAOEKYX4419-16-21 10:09:0037.8[facility] AutiknrEJJOUKIABO8937-26-21 10:09:00* Test Item Value Reference Range Interpretation Comments MCH (test code = MCH) 29.3 pg 27.0-31.0 [facility] UnqygxcPEBIUQHNXN3024-25-77 10:09:32351Asecfoww HermannHEMATOLOGY 2019-03-29 10:09:0033.5[facility] WitgcxwZYVAFFYGIE8616-97-05 10:09:0013.9[facility] PjqgoxwCUQDWPYEML0070-94-51 10:09:008.9[facility] PxxkfoaXQEPAWLEXX7939-24-67 10:09:005.5[facility] FcwfgxiEEPXAGBKMW9376-51-31 10:09:000.2[facility] CSLLUMTYCF4750-21-49 10:09:000.4[facility] RlamatnAZETTRMAEG8638-10-68 10:09:001.1 [facility] XgodbjtPYAOQCGZUF2046-28-50 10:09:000.8[facility]annHEMATOLOGY 2019-03-29 10:09:000.1[facility] AmyyegvRLZEDDTHSW8071-44-13 10:09:0078.1[facility] CzoftwhCWJANSDCVN7702-75-57 10:09:005.4[facility] NfxfulxDGDWAYILIX2704-43-93 10:09:0015.5[facility]annCHEM JZXNM5197-63-16 11:51:0097[facility]annCHEM ZZVFZ0950-78-27 11:51:0029[facility]annCHEM FQMVE5354-31-28 11:51:0018 [facility]annCHEM JYUHL5780-48-71 11:51:0078[facility]annCHEM PANEL 2018-09-16 11:51:000.3[facility]annCHEM RGGAY3252-19-77 11:51:00* Test Item Value Reference Range Interpretation Comments B/C Ratio (test code = B/C Ratio) 16 1 6-25 [facility]annCHEM HPMLG2165-85-93 11:51:002.6[facility]annCHEM PANEL 2018-09-16 11:51:005.6[facility]annCHEM YHJMJ5282-42-53 11:51:003.0[facility]annCHEM HXPDV0943-21-68 11:51:00* Test Item Value Reference Range Interpretation Comments A/G Ratio (test code = A/G Ratio) 0.9 1 0.7-1.6 [facility]annCHEM SBWPZ8040-65-57 11:51:007.4[facility]annCHEM PANEL 2018-09-16 11:51:007.6[facility]annCHEM VAFOP9857-93-20 11:51:0011[facility]annCHEM FEFNR5241-37-59 11:51:000.68[facility]annCHEM SBMNG6915-78-57 11:51:19115Avhfpxuz HermannCHEM UJCDZ2752-14-16 11:51:66167Uscstzfx HermannCHEM WKTZZ8848-57-41 11:51:003.6[facility]annCHEM EEITS8005-68-30 11:51:0026 [facility]annCHEM JXLMW3489-43-29 11:51:84976Yjindovq HermannHEMATOLOGY 2018-09-16 11:51:008.9[facility] SzwwhxaZBDBOPPZKH6065-94-44 11:51:96477Oumjagqm UhzvcaoCXMYVIKRFR5717-31-97 11:51:0032.6[facility] TlqalyhCSNGSNWXLB8724-89-44 11:51:0014.1[facility] ScbawvzMRVPWGKWCF8883-18-71 11:51:0088.4[facility] ZPWJDNRWWW2689-26-85 11:51:00* Test Item Value Reference Range Interpretation Comments MCH (test code = MCH) 28.8 pg 27.0-31.0 [facility] ZhylnkqCHGDRUIIUC6840-23-01 11:51:0010.5[facility]annHEMATOLOGY 2018-09-16 11:51:0032.4[facility] XjwhwmoEKSRZEIWIA5650-92-79 11:51:005.0[facility] TgrczegPXRJPZKECC2317-14-24 11:51:003.67[facility] TdobutsFJYKDLIMTM4050-04-37 11:51:003.6[facility] PeaceauVAJHMVIJFQ6000-40-49 11:51:009.4[facility] NACEQWVBUF9039-82-57 11:51:0028.5[facility] RxsypyxZDMIGEMQKG1475-60-01 11:51:00 57.9[facility] IrfbnpcBNLGHWVBHP6346-03-65 11:51:000.6[facility]annHEMATOLOGY 2018-09-16 11:51:000.2[facility] DtbbprkAUGLXJSYZS8676-49-68 11:51:000.5[facility] TxxukuwRQIJXAILPG3482-30-06 11:51:001.4[facility] WelagkqFBTIUFBTYG4330-01-92 11:51:002.9[facility] HermannSPECIAL WPYWIWYZT1502-64-28 11:51:006.5[facility] UorfekiZUXBQOWXBEXK2342-15-30 12:00:004.2[facility] ZqozjftUNIERPKCKLZF5750-21-86 12:00:007.4[facility] XgzofmvCQEXZJZIHXLX8545-03-74 12:00:0024[facility] OCJMJVGPVFSC1368-21-87 12:00:53235Eyuomfnt PkrlacvOFKWZSQQALYT9245-44-70 12:00:0010.2[facility] PqtrmbyVHJCVEOMYUYE7779-02-79 12:00:0044[facility] FDGNANRGSHOA0453-36-68 12:00:08360Hjhyuyiw FmuqjgaYJKRODTRRVKN1252-34-59 12:00:001.32[facility] ApeztisWQCELEDYCBYS0790-23-14 12:00:0021[facility] VIXAUAJFQFHD7529-62-39 12:00:0060[facility] QoukkrjRCQZUGPNIL0709-17-02 12:00:00 32.4[facility] RxyojimLXAGHKZKLB2250-14-19 12:00:0014.1[facility]annHEMATOLOGY 2018-09-15 12:00:44598Ejgomzqn UbreaelHOFTVSQMFV7139-68-71 12:00:008.8[facility] LiryaoaVOFSGFTKEC8015-81-72 12:00:00* Test Item Value Reference Range Interpretation Comments MCH (test code = MCH) 28.7 pg 27.0-31.0 [facility] XvtcipgZLGRRCQIBX4231-16-16 12:00:003.81[facility]annHEMATOLOGY 2018-09-15 12:00:0011.0[facility] TfjfkjkGNVZONDBXY6895-86-88 12:00:0033.8[facility] JzfpsnnMWCCAJGKOH4606-74-69 12:00:0088.8[facility] SusnnfiRDCAPNOQDU6466-27-78 12:00:008.9[facility] GfmonjjCEGIQUUBGB0758-94-75 12:00:000.8[facility] RSQWWREDNL5777-34-71 12:00:000.2[facility] BeuoqwaYMQUHWFDUD6178-96-99 12:00:008.9 [facility] HzhikekJBXAUVZXFF8131-25-81 12:00:001.9[facility]annHEMATOLOGY 2018-09-15 12:00:000.4[facility] LxtqcbaOYQVITBELL4927-20-26 12:00:005.1[facility] YjivpwpEPCMFWCUOZ3785-86-67 12:00:002.8[facility] RswiukaTSJVUHJEKK9150-71-54 12:00:0057.6[facility] ZdqptggQSVBFMJJAR8840-05-30 12:00:0031.2[facility] CHEM PWBJY1928-43-19 02:55:001.7[facility] HermannCHEM ORESE6045-46-72 02:55:0033 [facility] HPQHT8066-69-35 02:09:008[facility] NEFNH2197-07-04 02:09:0037[facility] GUTIF0991-76-24 02:09:00 Negative (09/14/18 8:09 PM)[facility] GRAVS7732-38-43 02:09:00 Negative (09/14/18 8:09 PM)[facility] JGNMN6408-24-46 02:09:00 Negative (09/14/18 8:09 PM)[facility] FOVTX0696-39-31 02:09:000.2 [facility] KXGGO2456-48-88 02:09:00* Test Item Value Reference Range Interpretation Comments UA pH (test code = UA pH) 5.0 1 5.0-8.0 [facility] [id number] 02:09:00Clear (09/14/18 8:09 PM) [facility] GYEMU0440-96-12 02:09:00* Test Item Value Reference Range Interpretation Comments UA Spec Grav (test code = UA Spec Grav) 1.025 1 [facility] [id number] 02:09:00Yellow *NA*(09/14/18 8:09 PM) [facility] [id number] 02:09:00Trace *ABN*(09/14/18 8:09 PM) [facility] IHZSE9782-11-21 02:09:00Moderate *ABN*(09/14/18 8:09 PM)[facility]annCARDIAC HAWNMKR3899-21-64 22:32:00<0.02[facility]annCHEM EHGJR2503-80-80 22:32:001.7[facility]annCHEM HBIQA5920-65-16 22:32:19605 [facility] MPJMJ2840-71-22 22:32:00* Test Item Value Reference Range Interpretation Comments B/C Ratio (test code = B/C Ratio) 11 1 6-25 [facility] ZZAOP8063-14-41 22:32:0014.3[facility]annCHEM PANEL 2018-09-14 22:32:00* Test Item Value Reference Range Interpretation Comments A/G Ratio (test code = A/G Ratio) 0.9 1 0.7-1.6 [facility]annCHEM [id number] 22:32:004.2[facility]annCHEM PANEL 2018-09-14 22:32:003.6[facility]annCHEM ZVELX9862-39-99 22:32:0043[facility]annCHEM EIJUR2685-66-54 22:32:0024[facility]annCHEM GDFUJ3142-09-55 22:32:41514Vncduajd HermannCHEM LODHJ5275-71-82 22:32:000.6[facility]annCHEM YTXVQ2544-00-68 22:32:0017[facility]annCHEM FADMW6951-86-18 22:32:74858 [facility]annCHE[facility] PMUUV4858-14-65 22:32:50964Xlymosbt HermannCHEM PANEL 2018-09-14 22:32:001.49[facility]annCHEM QZOBT0339-18-18 22:32:004.3[facility]annCHEM NFQSQ6093-51-43 22:32:74260Enyquvku HermannCHEM ASAGM5612-79-19 22:32:0024[facility]annCHEM SSYMN6291-52-51 22:32:007.8[facility]annCHEM MOECZ3321-65-80 22:32:008.7[facility] JjltthyHYUYACYUJU8178-09-00 22:32:009.5 [facility] UezcppoPJKYBRODCX2508-57-94 22:32:001.7[facility]annHEMATOLOGY 2018-09-14 22:32:000.7[facility] TmvwetnQWMJGGOIRX3137-03-97 22:32:000.2[facility] IwngjvkALLTPCBMTU9387-86-20 22:32:006.3[facility] SjcnfrzNRKMEUFEWT4573-36-56 22:32:0013.9[facility] WfljngyJQABJGOIPU9642-85-05 22:32:0079.4[facility] IQKWOPQDPD9463-20-48 22:32:000.2[facility] UvgtioiUCHYPADRFR1540-09-25 22:32:009.8 [facility] FwymvjqNBJMBTYEHV5859-38-53 22:32:0032.4[facility]annHEMATOLOGY 2018-09-14 22:32:0014.3[facility] CkdyzwuSFNYIEYAYB1340-11-99 22:32:68309Eawwdlgj SvnochqPMWEDAWJMA5545-94-93 22:32:0089.4[facility] EapujtgEWYSLNRPMB5502-87-54 22:32:00* Test Item Value Reference Range Interpretation Comments MCH (test code = MCH) 29.0 pg 27.0-31.0 [facility] HhbxbboFFGTRRLOPR9753-59-73 22:32:004.53[facility]annHEMATOLOGY 2018-09-14 22:32:0040.5[facility] IipftpgZPCOOFAYSS3732-61-04 22:32:0013.1[facility] HvlwvhjAKTELXKAAA2105-28-23 22:32:0011.9[facility]annCHEM PMJXX0658-30-60 15:57:0096[facility]annCHEM CMQVE4390-83-07 15:57:000.7[facility]annCHEM RSYFK0688-67-01 14:42:0067[facility]annCHEM AUZZE4840-69-23 14:42:93017 [facility]annCHEM KWRCS2950-90-97 14:42:004.8[facility]annCHEM PANEL 2017-06-20 14:42:009.3[facility]annCHEM OQLJK8731-94-33 14:42:0025[facility]annCHEM JJLIF6606-57-50 14:42:48627Kfdioffm HermannCHEM OCJKD5368-38-84 14:42:0027[facility]annCHEM CIOKA5809-93-99 14:42:91332Gfuwjmzt HermannCHEM FQGWH6220-98-76 14:42:000.95[facility] HermannCHEM QKAFK9484-32-20 14:42:0012.8 [facility]
[2020-06-05] MEDS ORDERED: SODIUM CHLORIDE 0.9% 1000ML 1,000 ML IV SCH (12:15)
[2020-06-05 12:46] LABS: BASOPHILS % 0.3 % (0.0-1.0); EOSINOPHILS % 0.3 % (0.0-6.0); HEMATOCRIT 38.2 % (34.2-44.1); HEMOGLOBIN 12.2 g/dL (12.0-16.0); LYMPHOCYTES # (AUTO) 0.8 (1.0-3.2); LYMPHOCYTES % 11.6 % (18.0-39.1); MEAN CORPUSCULAR HEMOGLOBIN 28.8 pg (28-32); MEAN CORPUSCULAR HGB CONC 31.9 g/dL (31-35); MEAN CORPUSCULAR VOLUME 90.3 fL (81-99); MONOCYTES # (AUTO) 0.3 (0.2-0.8); MONOCYTES % 3.6 % (4.4-11.3); NEUTROPHILS # (AUTO) 5.8 (2.1-6.9); NEUTROPHILS % 83.9 % (38.7-80.0); PLATELET COUNT 201 x10e3/uL (140-360); RED BLOOD COUNT 4.23 x10e6/uL (3.6-5.1); RED CELL DISTRIBUTION WIDTH 13.7 % (11.7-14.4)
[2020-06-05 13:11] LABS: ALBUMIN 4.4 g/dL (3.5-5.0); ALBUMIN/GLOBULIN RATIO 1.4 (0.8-2.0); ANION GAP 21.3 mmol/L (8-16); CALCIUM 9.1 mg/dL (8.4-10.2); CREATININE, SERUM 1.09 mg/dL (0.57-1.11); POTASSIUM 3.3 mmol/L (3.5-5.1)
[2020-06-05 13:17] LABS: CREATINE KINASE MB 0.7 ng/mL (0-5.0)
[2020-06-05] MEDS ORDERED: LACTATED RINGER'S 1,000 ML INJ STA (13:51)
--- NOTE | 2020-06-05 13:53 | Emergency Department Note ---
History of Present Illnes History of Present Illness Chief Complaint: Abdominal Complaints History of Present Illness This is a 59 year old female . Chief Complaint Comment Patient in from home via EMS with complaints of abdominal pain, nausea and vomiting that started this morning. Patient states that she had a hernia repair surgery in October of this year and states that the pain and nausea have been there since then but got excessively worse this morning. Patient reports that she was unable to take her morning medications today because of the nausea. Patient is dry heaving nearly constantly in triage. Historian: Patient Arrival Mode: HFD Past Medical/Family History Physician Review I have reviewed the patient's past medical and family history. Any updates have been documented here. Past Medical History Recent Fever: No Clinical Suspicion of Infectio: No New/Unexplained Change in Ment: No Past Medical History: Hypertension, Diabetes Other Medical History: colon mass Past Surgical History: Back Surgery Other Surgery: HIATAL HERNIA REPAIR BACK SURGERY Social History Smoking Cessation: Never Smoker Alcohol Use: Occasional Any Illegal Drug Use: No Other Last Tetanus: OOD Any Pre-Existing Lines (PICC,: No Physical Exam Related Data Allergies: Coded Allergies: No Known Allergies (Unverified , 02/23/17) Triage Vital Signs Vital Signs Date Time Temp Pulse Resp B/P (MAP) Pulse Ox O2 Delivery O2 Flow Rate FiO2 06/05/20 11:47 98.1 107 18 184/113 98 Room Air Physical Exam CONSTITUTIONAL HENT EYES NECK PULMONARY CARDIOVASCULAR GASTROINTESTINAL GENITOURINARY SKIN MUSCULOSKELETAL NEUROLOGICAL PSYCHOLOGICAL Results Laboratory Result Diagram: 06/05/20 1200 06/05/20 1200 Laboratory Laboratory Tests Test 06/05/20 12:00 White Blood Count 6.91 x10e3/uL (4.8-10.8) Red Blood Count 4.23 x10e6/uL (3.6-5.1) Hemoglobin 12.2 g/dL (12.0-16.0) Hematocrit 38.2 % (34.2-44.1) Mean Corpuscular Volume 90.3 fL (81-99) Mean Corpuscular Hemoglobin 28.8 pg (28-32) Mean Corpuscular Hemoglobin Concent 31.9 g/dL (31-35) Red Cell Distribution Width 13.7 % (11.7-14.4) Platelet Count 201 x10e3/uL (140-360) Neutrophils (%) (Auto) 83.9 % (38.7-80.0) Lymphocytes (%) (Auto) 11.6 % (18.0-39.1) Monocytes (%) (Auto) 3.6 % (4.4-11.3) Eosinophils (%) (Auto) 0.3 % (0.0-6.0) Basophils (%) (Auto) 0.3 % (0.0-1.0) Neutrophils # (Auto) 5.8 (2.1-6.9) Lymphocytes # (Auto) 0.8 (1.0-3.2) Monocytes # (Auto) 0.3 (0.2-0.8) Eosinophils # (Auto) 0.0 (0.0-0.4) Basophils # (Auto) 0.0 (0.0-0.1) Absolute Immature Granulocyte (auto 0.02 x10e3/uL (0-0.1) Sodium Level 141 mmol/L (136-145) Potassium Level 3.3 mmol/L (3.5-5.1) Chloride Level 106 mmol/L (98-107) Carbon Dioxide Level 17 mmol/L (22-29) Anion Gap 21.3 mmol/L (8-16) Blood Urea Nitrogen 11 mg/dL (7-26) Creatinine 1.09 mg/dL (0.57-1.11) Estimat Glomerular Filtration Rate 51 ML/MIN (60-) BUN/Creatinine Ratio 10 (6-25) Glucose Level 192 mg/dL (74-118) Calcium Level 9.1 mg/dL (8.4-10.2) Total Bilirubin 0.7 mg/dL (0.2-1.2) Aspartate Amino Transf (AST/SGOT) 23 IU/L (5-34) Alanine Aminotransferase (ALT/SGPT) 17 IU/L (0-55) Alkaline Phosphatase 130 IU/L (40-150) Creatine Kinase 75 IU/L (29-168) Creatine Kinase MB 0.70 ng/mL (0-5.0) Troponin I 0.003 ng/mL (0-0.300) Total Protein 7.6 g/dL (6.5-8.1) Albumin 4.4 g/dL (3.5-5.0) Globulin 3.2 g/dL (2.3-3.5) Albumin/Globulin Ratio 1.4 (0.8-2.0) Lipase 10 U/L (8-78) Assessment & Plan Last Vital Signs Date Time Temp Pulse Resp B/P (MAP) Pulse Ox O2 Delivery O2 Flow Rate FiO2 06/05/20 11:47 98.1 107 18 184/113 98 Room Air Home Meds Reported Medications Lorazepam (ATIVAN) 1 Mg Tablet, PO TID PRN for PRN 10/20/19 Ropinirole Hcl (ROPINIROLE HCL) 1 Mg Tablet, 1 MG PO DAILY, #30 TAB 06/19/19 Losartan Potassium (LOSARTAN POTASSIUM) 100 Mg Tablet, 100 MG PO DAILY, TAB 06/19/19 Metformin Hcl (METFORMIN HCL) 500 Mg Tablet, 1000 MG PO DAILY, #60 TAB 07/04/18 Glyburide (GLYBURIDE) 5 Mg Tablet, 5 MG PO DAILY, #30 TAB 09/11/17 Oxycodone Hcl (OXYCODONE HCL) 20 Mg Tablet, 30 MG PO Q4HR PRN for PAIN, TAB 09/11/17 Medications in the ED Ondansetron HCl 4 mg NOW STAT IV Last administered on 06/05/20at 12:36; Admin Dose 4 MG; Start 06/05/20 at 12:01; Stop 06/05/20 at 12:12; Status DC Morphine Sulfate 4 mg NOW STAT IV Last administered on 06/05/20at 12:36; Admin Dose 4 MG; Start 06/05/20 at 12:01; Stop 06/05/20 at 12:12; Status DC Sodium Chloride 1,000 ml @ 0 mls/hr Q0M IV Last administered on 06/05/20at 12:36; Admin Dose 1,000 MLS/HR; Start 06/05/20 at 12:15; Stop 06/05/20 at 15:00 REFUGIO BENDEICT DO Jun 05, 2020 13:52
[2020-06-05] MEDS ORDERED: SODIUM CHLORIDE 0.9% 50ML 50 ML ONE (14:01)
[2020-06-05] MEDS ORDERED: IOPAMIDOL 370 MG/ML 200 ML INFUS..BTL INJ ONE (14:01)
[2020-06-05] MEDS ORDERED: KETOROLAC TROMETHAMINE 30 MG/ML VIAL IV STA (14:48)
--- NOTE | 2020-06-05 15:39 | Diagnostic Imaging Report ---
EXAM: CT Abdomen and Pelvis WITH intravenous contrast INDICATION: Nausea, vomiting COMPARISON: None. TECHNIQUE: Abdomen and pelvis were scanned utilizing a multidetector helical scanner from the lung base to the pubic symphysis after administration of IV contrast. Coronal and sagittal reformations were obtained. Routine protocol was performed. Scan was performed during portal venous phase. IV CONTRAST: 100mL of Isovue 370 ORAL CONTRAST: Water RADIATION DOSE: Total DLP: 416 mGy*cm Dose modulation, iterative reconstruction, and/or weight based adjustment of the mA/kV was utilized to reduce the radiation dose to as low as reasonably achievable. FINDINGS: LOWER THORAX: No focal lung base consolidation. Small hiatal hernia. HEPATOBILIARY: No focal liver lesion. No biliary ductal dilation. Status post cholecystectomy. SPLEEN: No splenomegaly. PANCREAS: No focal masses or ductal dilatation. ADRENALS: No adrenal nodules. KIDNEYS/URETERS: 6 mm nonobstructive right lower pole renal calculus. No hydronephrosis or hydroureter. No solid renal mass lesions. No left renal calculi. PELVIC ORGANS/BLADDER: Status post hysterectomy. Phleboliths in the pelvis. PERITONEUM / RETROPERITONEUM: No free air or fluid. LYMPH NODES: No lymphadenopathy. VESSELS: Scattered atherosclerotic calcifications of the nonaneurysmal abdominal aorta and major branches. GI TRACT: No abnormal bowel thickening. No bowel obstruction. BONES AND SOFT TISSUES: Postoperative findings of L2-S1 spinal fusion. Degenerative loss of L1 vertebral body height at the superior endplate. No acute osseous injury. No suspicious lytic or blastic lesions. IMPRESSION: 6 mm nonobstructive right lower pole renal calculus. No hydronephrosis or hydroureter. Signed by: Tracy Chatman MD on 06/05/2020 3:36 PM
[2020-06-05] MEDS ORDERED: MORPHINE SULFATE 2 MG/ML SYR 1ML IV PRN (17:00)
[2020-06-05] MEDS ORDERED: LEVOFLOXACIN 500MG/D5W 100ML IV SCH (17:00)
[2020-06-05] MEDS ORDERED: POTASSIUM CHLORIDE 20 MEQ TAB CR PO STA (17:05)
--- OUTSIDE RECORDS SUMMARY | 2020-06-05 17:13 | XMS REPORT | Continuity of Care Document ---
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 for 12 hour nitrate free period. (Verify Patient has not taken Viagra, Cialis or Levitra in last 24 hours; if taken, hold NTG and notify MD.) Inactive 03/30/2019 [facility] Aspirin 81 MG Enteric Coated Tablet 81 mg = 1 tab, PO, Daily, # 30 tab, 0 Refill(s), Pharmacy: [facility] [id number] Active 03/29/2019 [facility] Saline Flush 0.9% 10 ml, Route : IVP, Drug Form: INJ, Dosing Weight 77.273, kg, Q12H, Start date: 03/29/19 9:00:00 CDT, Duration: 30 day, Stop date: 04/27/19 21:00:00 CDT Inactive 03/29/2019 [facility] 24 HR Nitroglycerin 0.1 MG/HR Transdermal Patch Notes: Apply only once for up to 12 hours in a 24 hour period (12 hours on and 12 hours off.) (Same as:Nitro-Dur,Deponit,Transderm Nitro) For topical use only. "Remove old patch before application of new patch" Inactive 03/29/2019 [facility] Losartan Notes: (Same as: Raegan hull) Inactive 03/29/2019 [facility] Dextrose 50% Syringe 12.5 gm, 25 mL, Route: IVP, Drug Form: INJ, Dosing Weight 77.273, kg, PRN, PRN Blood Glucose Results, Start date: 03/29/19 8:28:00 CDT, Duration: 30 day, Stop date: 04/28/19 8:27:00 CDT, 0 Inactive 03/29/2019 [facility] Glucagon 1 mg, Route: IM, Drug form: PDR/INJ, PRN, Dosing Weight 77.273, kg, PRN Blood Glucose Results, Start date: 03/29/19 8:28:00 CDT, Duration: 30 day, Stop date: 04/28/19 8:27:00 CDT, 0 Inactive 03/29/2019 [facility] Insulin Lispro Notes: (Same as : Humalog) Roll in palms of hands gently; Do not shake vigorously. WASTE: F/P - Black; E - Municipal Trash Bin Stable for 28 days at room temperature. Expires in days from Date Inactive 03/29/2019 [facility] 24 HR Nitroglycerin 0.1 MG/HR Transdermal Patch Notes: Apply only once for up to 12 hours in a 24 hour period (12 hours on and 12 hours off.) (Same as:Nitro-Dur,Deponit,Transderm Nitro) For topical use only. "Remove old patch before application of new patch" Inactive 03/29/2019 [facility] Enoxaparin Notes: (Same as: Lo venox) Inactive 03/29/2019 [facility] Aspirin 81 MG Enteric Coated Tablet 81 mg, Route: PO, Drug form: ECTAB, Q24H, Dosing Weight 77.273, kg, Start date: 03/29/19 7:00:00 CDT, Duration: 30 day, Stop date: 04/27/19 7:00:00 CDT Inactive 03/29/2019 [facility] Saline Flush 0.9% 10 ml, Route : IVP, Drug Form: INJ, Dosing Weight 77.273, kg, PRN, PRN Line Flush, Start date: 03/29/19 6:56:00 CDT, Duration: 30 day, Stop date: 04/28/19 6:55:00 CDT Inactive 03/29/2019 [facility] Ondansetron Notes: (Same as: Z latiaran) Inactive 03/29/2019 [facility] Temazepam Notes: (Same As: Res toril) Inactive 03/29/2019 [facility] Nitroglycerin Notes: (Same as: Nitroquick, Nitrostat) "Do Not Crush" Sublingual tablet Inactive 03/29/2019 [facility] Acetaminophen Notes: Do not ex ceed 4 gm/day. (Same as: Tylenol) Inactive 03/29/2019 [facility] Saline Flush 0.9% Notes: (Same as: BD Posiflush) Inactive 03/29/2019 [facility] Acetaminophen Notes: Do not ex ceed 4 gm/day. (Same as: Tylenol) Inactive 03/29/2019 [facility] Bisacodyl Notes: (Same As: Dul colax, Bisco-Lax) Inactive 03/29/2019 [facility] Hydralazine Notes: (Same as: A presoline) Push over 5 minutes Inactive 03/29/2019 [facility] Aspirin Notes: Take with food. Inactive 03/29/2019 [facility] Acetaminophen 650 mg, Route: P O, Drug form: TAB, ONCE, Dosing Weight 77.273, kg, Priority: STAT, Start date: 03/29/19 5:21:00 CDT, Stop date: 03/29/19 5:21:00 CDT Inactive 03/29/2019 [facility] Metoclopramide 10 mg, Route: I MARKET MANAGER, Drug form: INJ, ONCE, Dosing Weight 77.273, kg, Priority: STAT, Start date: 03/29/19 5:05:00 CDT, Stop date: 03/29/19 5:05:00 CDT Inactive 03/29/2019 [facility] Diphenhydramine 25 mg, Route: IVP, ONCE, Dosing Weight 77.273, kg, Priority: STAT, Start date: 03/29/19 5:05:00 CDT, Stop date: 03/29/19 5:05:00 CDT Inactive 03/29/2019 [facility] Blood Glucose Test Strips 1 leonidas x, MISC, TID-Before Meals, freestyle, # 100 strip, 3 Refill(s), Pharmacy: [facility] [id number] Active 01/04/2019 [facility] Blood Glucose Monitor 1 ea, [place], Daily, freestyle machine. Use as directed., # 1 ea, 0 Refill(s), Pharmacy: [facility] [id number] Active 01/04/2019 [facility] tizanidine 2 mg oral tablet 2 mg = 1 tab, PO, TID, PRN for muscle spasm, # 30 tab, 1 Refill(s), Pharmacy: [facility] [id number] Active 01/02/2019 [facility] Blood Glucose Test Strips 1 leonidas x, MISC, TID-Before Meals, # 100 strip, 3 Refill(s), Pharmacy: [facility] [id number] No Longer Active 01/02/2019 [facility] Blood Glucose Test Strips 1 leonidas x, MISC, TID-Before Meals, # 100 strip, 3 Refill(s), Pharmacy: [facility] [id number] Active 12/26/2018 [facility] Cyclobenzaprine hydrochloride 10 MG Oral Tablet [Flexeril] 10 mg = 1 tab, PO, TID, PRN for spasm, X 7 day, # 21 tab, 0 Refill(s) Active 12/23/2018 [facility] ibuprofen 600 mg oral tablet 6 00 mg = 1 tab, PO, Q8H, PRN pain, X 7 day, # 21 tab, 0 Refill(s) Active 12/23/2018 [facility] cyclobenzaprine Notes: (Same A s: Flexeril) Inactive 12/23/2018 [facility] Zofran Notes: (Same as: Zofran ODT) Inactive 12/23/2018 [facility] Acetaminophen 325 MG / Hydrocodone Willow trate 5 MG Oral Tablet Notes: (Same as: [place] 325/5) Do not ex ceed 4gm/day of acetaminophen. Inactive 12/23/2018 [facility] Metformin hydrochloride 1000 MG Oral Tablet = 1 tab, PO, BID-Meals, # 180 tab, Refill(s) 1, Pharmacy: [facility] [id number] Active 10/16/2018 [facility] losartan 50 mg oral tablet = 1 tab, PO, Daily, # 90 tab, Refill(s) 1, [facility]: [facility] [id number] Active 10/16/2018 [facility] gabapentin 600 MG Oral Tablet 600 mg = 1 tab, PO, BID, # 180 tab, 1 Refill(s), Pharmacy: [facility] [id number] No Longer Active 10/03/2018 [facility] Cefuroxime 250 MG Oral Tablet [Ceftin] 250 mg = 1 tab, PO, BID, X 7 day, # 14 tab, 0 Refill(s) No Longer Active 09/16/2018 [facility] Losartan Notes: (Same as: Raegan hull) Inactive 09/16/2018 [facility] Glyburide 10 mg, Route: PO, Dr ug form: TAB, BID, Dosing Weight 82, kg, Start date: 09/16/18 9:00:00 OIL REFINER, Duration: 30 day, Stop date: 10/15/18 17:00:00 OIL REFINER Inactive 09/16/2018 [facility] gabapentin 600 MG Oral Tablet Notes: (Same as: Neurontin) Inactive 09/16/2018 [facility] *Please bring pt's own glyburide to pharmacy for label * *Please bring pt's own glyburide to pharmacy for label*, ATTN:RN, Drug form: MISC, Route: MISC, ANHFT, 09/16/18 0:00:00 OIL REFINER, Duration: 30 day, Stop date: 10/15/18 16:00:00 OIL REFINER Inactive 09/16/2018 [facility] Ceftriaxone Notes: (Same As: Anirudh roe). Use with 100 mL NS and infuse over 30 min MEDICATION WASTE Product Size: 1000 mg Product Wasted: ___ mg No Longer Active 09/16/2018 [facility] atorvastatin Notes: (Same As: Lipitor) No Longer Active 09/16/2018 [facility] Insulin Lispro Notes: (Same as : Humalog ) Roll in palms of hands gently; Do not shake `vigorously. "Single Patient Use Only " WASTE: F/P - Black; E - Municipal Trash Bin Stable for 28 days at room temp erature. Expires in days from Date No Longer Active 09/16/2018 [facility] Dextrose 50% Syringe 12.5 gm, 25 mL, Route: IVP, Drug Form: INJ, Dosing Weight 82, kg, PRN, PRN Blood Glucose Results, Start date: 09/15/18 18:43:00 OIL REFINER, Duration: 30 day, Stop date: 10/15/18 18:42:00 OIL REFINER No Longer Active 09/16/2018 [facility] Glucagon 1 mg, Route: IM, Drug form: PDR/INJ, PRN, Dosing Weight 82, kg, PRN Blood Glucose Results, Start date: 09/15/18 18:43:00 OIL REFINER, Duration: 30 day, Stop date: 10/15/18 18:42:00 OIL REFINER No Longer Active 09/16/2018 [facility] heparin Notes: porcine heparin No Longer Active 09/15/2018 [facility] Saline Flush 0.9% Notes: (Same as: BD Posiflush) No Longer Active 09/15/2018 [facility] Dextrose 50% Syringe 12.5 gm, 25 mL, Route: IVP, Drug Form: INJ, Dosing Weight 82, kg, PRN, PRN Blood Glucose Results, Start date: 09/15/18 2:16:00 OIL REFINER, Duration: 30 day, Stop date: 10/15/18 2:15:00 OIL REFINER Inactive 09/15/2018 [facility] Glucagon 1 mg, Route: IM, Drug form: PDR/INJ, PRN, Dosing Weight 82, kg, PRN Blood Glucose Results, Start date: 09/15/18 2:16:00 OIL REFINER, Duration: 30 day, Stop date: 10/15/18 2:15:00 OIL REFINER Inactive 09/15/2018 [facility] Sodium Chloride 0.9% IV 1,000 mL 1,000 mL, Rate: 125 ml/hr, Infuse over: 8 hr, Route: IV, Dosing Weight 82 kg, Total Volume: 1,000, Start date: 09/15/18 2:16:00 OIL REFINER, Duration: 30 day, Stop date: 10/15/18 2:15:00 OIL REFINER, 1.9, m2 No Longer Active 09/15/2018 [facility] Ondansetron Notes: (Same as: Sreekanth ricks) MEDICATION WASTE Product Size: 4 mg Product Wasted: ___ mg No Longer Active 09/15/2018 [facility] Acetaminophen Notes: Do not ex ceed 4 gm/day. (Same as: Tylenol) No Longer Active 09/15/2018 [facility] Morphine Notes: (Same as:MORPh ine Sulfate) No Longer Active 09/15/2018 [facility] Sodium Chloride 0.9% (Bolus) IV 1,000 mL, 1000 ml/hr, Infuse Over: 1 hr, Route: IV, 1,000, Drug form: INJ, ONCE, Dosing Weight 82 kg, Start date: 09/15/18 0:31:00 OIL REFINER, Stop date: 09/15/18 0:31:00 OIL REFINER Inactive 09/15/2018 [facility] Morphine Notes: (Same as:MORPh ine Sulfate) Inactive 09/15/2018 [facility] Rocephin + sterile water 10 mL Notes: (Same As: Rocephin). Use with 100 mL NS and infuse over 30 min MEDICATION WASTE Product Size: 1000 mg Product Wasted: ___ mg Inactive 09/15/2018 [facility] Cephalexin 500 MG Oral Capsule [Keflex] 500 mg = 1 cap, PO, TID, X 7 day, # 21 cap, 0 Refill(s) Inactive 09/15/2018 [facility] Ondansetron 4 MG Disintegrating Tablet [Zofran] 4 mg = 1 tab, PO, TID, PRN Nausea & Vomiting, Dissolve tab under tongue, # 15 tab, 0 Refill(s) Inactive 09/15/2018 [facility] Sodium Chloride 0.9% (Bolus) IV 1,000 mL, 1000 ml/hr, Infuse Over: 1 hr, Route: IV, 1,000, Drug form: INJ, ONCE, Priority: STAT, Dosing Weight 77.273 kg, Start date: 09/14/18 17:42:00 OIL REFINER, Stop date: 09/14/18 17:42:00 OIL REFINER Inactive 09/14/2018 [facility] Morphine Notes: (Same as:MORPh ine Sulfate) Inactive 09/14/2018 [facility] Zofran Notes: (Same as: Zofran ) MEDICATION WASTE Product Size: 4 mg Product Wasted: ___ mg Inactive 09/14/2018 [facility] Morphine Notes: (Same as:MORPh ine Sulfate) Inactive 09/14/2018 [facility] Sodium Chloride 0.9% (Bolus) IV 1,000 mL, 1000 ml/hr, Infuse Over: 1 hr, Route: IV, 1,000, Drug form: INJ, ONCE, Priority: STAT, Dosing Weight 77.273 kg, Start date: 09/14/18 15:50:00 OIL REFINER, Stop date: 09/14/18 15:50:00 OIL REFINER Inactive 09/14/2018 [facility] Sulfamethoxazole 800 MG / Trimethoprim 1 60 MG Oral Tablet 1 tab, PO, BID, For UTI, X 3 day, # 6 ta b, 0 Refill(s), Pharmacy: [facility] [id number] No Longer Active 09/11/2018 [facility] ciprofloxacin 500 mg oral tablet 500 mg = 1 tab, PO, Q12H, for UTI, X 3 day, # 6 tab, 0 Refill(s), Pharmacy: [facility] [id number] No Longer Active 09/08/2018 [facility] ciprofloxacin 500 mg oral tablet 500 mg = 1 tab, PO, Q12H, for UTI, X 3 day, # 6 tab, 0 Refill(s), Pharmacy: [facility] [id number] Inactive 09/08/2018 [facility] Insulin Pen [place] Misc/Other 1 ea, MISC, Daily, # 100 ea, 3 Refill(s), dispense needles for victoza No Longer Active 05/26/2018 [facility] 0.65 ML exenatide 3.08 MG/ML Prefilled S yringe [Bydureon] 2 mg, SUB-Q, qWeek, # 4 ea, 5 Refill(s), [facility] [id number] No Longer Active 04/13/2018 [facility] gabapentin 600 MG Oral Tablet 300 mg = 0.5 tab, PO, BID, X 90 day, # 90 tab, 1 Refill(s), Pharmacy: [facility] [id number] No Longer Active 04/12/2018 [facility] Metformin hydrochloride 1000 MG Oral Tablet 1,000 mg = 1 tab, PO, BID-Meals, # 180 tab, 1 Refill(s), Pharmacy: [facility] [id number] No Longer Active 04/12/2018 [facility] 3 ML liraglutide 6 MG/ML Prefilled Syringe [Victoza] 1.2 mg, SUB-Q, Daily, Initial: 0.6 mg once daily for 1 week; then increase to 1.2 mg once daily, # 6 mL, 5 Refill(s), Pharmacy: [facility] [id number] Active 04/11/2018 [facility] glyBURIDE 5 mg oral tablet 10 mg = 2 tab, PO, BID, # 360 tab, 1 Refill(s), Pharmacy: [facility] [id number] Active 04/11/2018 [facility] gabapentin 600 MG Oral Tablet 300 mg = 0.5 tab, PO, BID, X 90 day, # 90 tab, 1 Refill(s), Pharmacy: [facility] [id number] No Longer Active 04/11/2018 [facility] Metformin hydrochloride 500 MG Oral Tablet 500 mg = 1 tab, PO, BID-Meals, X 90 day, # 180 tab, 1 Refill(s), [facility] [id number] Inactive 04/11/2018 [facility] losartan 50 mg oral tablet 50 mg = 1 tab, PO, Daily, # 90 tab, 1 Refill(s), [facility] [id number] No Longer Active 04/11/2018 [facility] atorvastatin 10 mg oral tablet 10 mg = 1 tab, PO, Bedtime, # 90 tab, 1 Refill(s), [facility] [id number] Active 01/11/2018 [facility] glyBURIDE 5 mg oral tablet 10 mg = 2 tab, PO, BID, # 360 tab, 1 Refill(s), [facility] [id number] Active 01/11/2018 [facility] canagliflozin 100 MG Oral Tablet [Invokana] 100 mg = 1 tab, PO, Before Breakfast, # 30 tab, 5 Refill(s), Pharmacy: [facility] [id number] Active 01/10/2018 [facility] losartan 25 mg oral tablet 25 mg = 1 tab, PO, Daily, # 90 tab, 1 Refill(s), [facility] [id number] Active 01/10/2018 [facility] gabapentin 600 MG Oral Tablet 300 mg = 0.5 tab, PO, BID, # 90 tab, 1 Refill(s), Pharmacy: [facility] [id number] Active 01/10/2018 [facility] Hydroxyzine Hydrochloride 25 MG Oral Tablet 12.5 mg = 0.5 tab, PO, QID, PRN Itching, X 10 day, # 30 tab, 2 Refill(s), [facility] [facility] [id number] No Longer Active 11/07/2017 [facility] Hydroxyzine Hydrochloride 25 MG Oral Tablet 12.5 mg = 0.5 tab, PO, QID, PRN Itching, X 10 day, # 30 tab, 0 Refill(s), Pharmacy: [facility] [id number] Inactive 11/07/2017 [facility] losartan 25 mg oral tablet 25 mg = 1 tab, PO, Daily, # 30 tab, 5 Refill(s), Pharmacy: [facility] [place] [id number] No Longer Active 11/07/2017 [facility] Codeine Phosphate 2 MG/ML / Guaifenesin 20 MG/ML Oral Solution [Cheratussin] 5 ml, PO, Q6H, PRN for cough and congest ion, X 14 day, # 150 mL, 0 Refill(s) Active 09/08/2017 [facility] Fluticasone propionate 0.05 MG/ACTUAT Me tered Dose Nasal [place] 1 spray, NASAL, Daily, # 1 ea, 3 Refill( s), Pharmacy: [facility] [place] [id number] Active 09/08/2017 [facility] Albuterol 0.833 MG/ML / Ipratropium Brom carl 0.167 MG/ML Inhalant Solution 3 mL, Route: NEB, Dosing Weight 85.455, kg, ONCE, STAT, Start date: 06/23/17 8:44:00 CDT, Stop date: 06/23/17 8:44:00 CDT Inactive 06/23/2017 [facility] Sodium Chloride 0.9% IV 500 mL 500 mL, Rate: 25 ml/hr, Infuse over: 20 hr, Route: IV, Dosing Weight 85.455 kg, Total Volume: 500, Start date: 06/23/17 8:44:00 CDT, Duration: 30 day, Stop date: 07/23/17 8:43:00 CDT Inactive 06/23/2017 [facility] pregabalin 100 MG Oral Capsule [Lyrica] 100 mg = 1 cap, PO, BID, # 90 cap, 1 Refill(s) Active 06/20/2017 [facility] Omeprazole 40 MG Oral Capsule Delayed Release ; Start Date: 03/30/2012; End Date: (Active) Active 03/30/2012 [facility] Allergies, Adverse Reactions, Alerts Substance Category Reaction Severity Reaction type Status Date Reported Comments Source No Known Drug Allergies drug a llergy drug aller gy Active [facility] No Known Medication Allergies Assertion Drug aller gy [facility] Immunizations Immunization Date Given Site Status Last Updated Comments Source influenza virus vaccine, inactivated 09/09/2019 Right deltoid completed Ed [facility] pneumococcal 23-valent vaccine 09/16/2018 Left deltoid completed Fadi Pepe [facility] influenza virus vaccine, inactivated<sup>1</sup> 07/24/2018 Left Deltoid completed [place] Result Comment: Patient waited 15 minutes, no reaction noted. [facility] influenza virus vaccine, inactivated<sup>2</sup> 09/08/2017 Left Deltoid completed [place] Result Comment: Patient waited 15 minutes, no reaction noted. [facility] influenza virus vaccine, inactivated<sup>1</sup> 09/08/2017 Left Deltoid completed [place] Result Comment: Patient waited 15 minutes, no reaction noted. [facility], [facility] Results Order Name Results Value Reference Range Date Interpretation Comments Source CHEM PANEL Lactic Acid Lvl 1.7 0.5 - 2.2 09/08/2019 [facility] CHEM PANEL Lactic Acid Lvl 3.7 0.5 - 2.2 09/08/2019 [facility] CHEM PANEL Lactic Acid Lvl 3.9 0.5 - 2.2 09/07/2019 [facility] GENTAMICIN:SUSC:PT:ISOLATE:ORDQN:EUSEBIA Culture: Urine >100,000 CFU/mL Enterobacter cloacae 09/07/2019 [facility] GENTAMICIN:SUSC:PT:ISOLATE:ORDQN:EUSEBIA Enterobacter cloacae Enterobacter cloacae 09/07/2019 [facility] URINE AND STOOL UA Turbidity Clear (09/07/19 1:15 PM) Clear 09/07/2019 [facility] URINE AND STOOL UA Spec Grav 1.017 <=1.030 09/07/2019 [facility] URINE AND STOOL UA pH 6.0 5.0 - 8.0 09/07/2019 [facility] URINE AND STOOL UA Protein Negative mg/dL Negative mg/dL 09/07/2019 [facility] URINE AND STOOL UA Glucose 50 mg/dL Negative mg/dL 09/07/2019 [facility] URINE AND STOOL UA Ketones Trace mg/dL Negative mg/dL 09/07/2019 [facility] URINE AND STOOL UA Bili Negative *NA* (09/07/19 1:15 PM) Negative 09/07/2019 [facility] URINE AND STOOL UA Blood Negative (09/07/19 1:15 PM) Negative 09/07/2019 [facility] URINE AND STOOL UA Nitrite Negative (09/07/19 1:15 PM) Negative 09/07/2019 [facility] URINE AND STOOL UA Leuk Est Trace *ABN* (09/07/19 1:15 PM) Negative 09/07/2019 [facility] URINE AND STOOL UA Sq Epi Occasional /LPF Few /LPF 09/07/2019 [facility] URINE AND STOOL UA WBC 14 0 - 5 09/07/2019 [facility] URINE AND STOOL UA RBC 3 0 - 2 09/07/2019 [facility] URINE AND STOOL UA Bacteria Many /HPF None Seen /HPF 09/07/2019 [facility] URINE AND STOOL UA Mucus Few /LPF None Seen /LPF 09/07/2019 [facility] URINE AND STOOL UA Hyal Cast 1 0 - 2 09/07/2019 [facility] URINE AND STOOL UA Color Ltyellow 09/07/2019 [facility] URINE AND STOOL UA Urobilinogen <=1.0 mg/dL 0.1 - 1.0 09/07/2019 [facility] CARDIAC ENZYMES Troponin-I <0.02 0.00 - 0.40 09/07/2019 [facility] CARDIAC ENZYMES Total CK 83 12 - 191 09/07/2019 [facility] CHEM PANEL Glucose Lvl 174 70 - [...] A/G Ratio 0.9 0.7 - 1.6 09/07/2019 [facility] CHEM PANEL Lipase Lvl 95 73 - 393 09/07/2019 [facility] CHEM PANEL Magnesium Lvl 1.7 1.8 - 2.4 09/07/2019 [facility] HEMATOLOGY WBC 7.0 3.7 - 10.4 09/07/2019 [facility] HEMATOLOGY RBC 3.81 4.20 - 5.40 09/07/2019 [facility] HEMATOLOGY Hgb 10.8 12.0 - 16.0 09/07/2019 [facility] HEMATOLOGY Hct 33.5 36.0 - 48.0 09/07/2019 [facility] HEMATOLOGY MCV 87.9 80.0 - 98.0 09/07/2019 [facility] HEMATOLOGY MCH 28.2 27.0 - 31.0 09/07/2019 [facility] HEMATOLOGY MCHC 32.1 32.0 - 36.0 09/07/2019 [facility] HEMATOLOGY RDW 13.7 11.5 - 14.5 09/07/2019 [facility] HEMATOLOGY Platelet 290 133 - 450 09/07/2019 [facility] HEMATOLOGY MPV 8.9 7.4 - 10.4 09/07/2019 [facility] HEMATOLOGY INR 0.96 0.85 - 1.17 09/07/2019 [facility] HEMATOLOGY PT 12.6 12.0 - 14.7 09/07/2019 [facility] HEMATOLOGY PTT 30.4 22.9 - 35.8 09/07/2019 [facility] HEMATOLOGY Segs 69.4 45.0 - 75.0 09/07/2019 [facility] HEMATOLOGY Lymphocytes 21.8 20.0 - 40.0 09/07/2019 [facility] HEMATOLOGY Monocytes 6.0 2.0 - 12.0 09/07/2019 [facility] HEMATOLOGY Eosinophils 2.4 0.0 - 4.0 09/07/2019 [facility] HEMATOLOGY Basophils 0.4 0.0 - 1.0 09/07/2019 [facility] HEMATOLOGY Neutrophils # 4.8 1.5 - 8.1 09/07/2019 [facility] HEMATOLOGY Lymphocytes # 1.5 1.0 - 5.5 09/07/2019 [facility] HEMATOLOGY Monocytes # 0.4 0.0 - 0.8 09/07/2019 [facility] HEMATOLOGY Eosinophils # 0.2 0.0 - 0.5 09/07/2019 [facility] CHEM PANEL Glucose Lvl 259 70 - 99 08/20/2019 [facility] CHEM PANEL BUN 22 7 - 22 08/20/2019 [facility] CHEM PANEL Creatinine Lvl 1.04 0.50 - 1.40 08/20/2019 [facility] CHEM PANEL Sodium Lvl 138 135 - 145 08/20/2019 [facility] CHEM PANEL Potassium Lvl 4.1 3.5 - 5.1 08/20/2019 [facility] CHEM PANEL Chloride Lvl 107 95 - 109 08/20/2019 [facility] CHEM PANEL CO2 25 24 - 32 08/20/2019 [facility] CHEM PANEL AGAP 10.1 10.0 - 20.0 08/20/2019 [facility] CHEM PANEL Calcium Lvl 8.1 8.5 - 10.5 08/20/2019 [facility] CHEM PANEL eGFR 59 08/20/2019 Result Comment: [...] should be multiplied by the estimated BMI. [facility] HEMATOLOGY WBC 8.0 3.7 - 10.4 08/20/2019 [facility] HEMATOLOGY RBC 3.39 4.20 - 5.40 08/20/2019 [facility] HEMATOLOGY Hgb 10.1 12.0 - 16.0 08/20/2019 [facility] HEMATOLOGY Hct 30.5 36.0 - 48.0 08/20/2019 [facility] HEMATOLOGY MCV 89.9 80.0 - 98.0 08/20/2019 [facility] HEMATOLOGY MCH 29.7 27.0 - 31.0 08/20/2019 [facility] HEMATOLOGY MCHC 33.1 32.0 - 36.0 08/20/2019 [facility] HEMATOLOGY RDW 13.5 11.5 - 14.5 08/20/2019 [facility] HEMATOLOGY Platelet 200 133 - 450 08/20/2019 [facility] HEMATOLOGY MPV 8.6 7.4 - 10.4 08/20/2019 [facility] HEMATOLOGY Segs 91.1 45.0 - 75.0 08/20/2019 [facility] HEMATOLOGY Lymphocytes 6.8 20.0 - 40.0 08/20/2019 [facility] HEMATOLOGY Monocytes 1.3 2.0 - 12.0 08/20/2019 [facility] HEMATOLOGY Eosinophils 0.6 0.0 - 4.0 08/20/2019 [facility] HEMATOLOGY Basophils 0.2 0.0 - 1.0 08/20/2019 [facility] HEMATOLOGY Neutrophils # 7.3 1.5 - 8.1 08/20/2019 [facility] HEMATOLOGY Lymphocytes # 0.5 1.0 - 5.5 08/20/2019 [facility] HEMATOLOGY Monocytes # 0.1 0.0 - 0.8 08/20/2019 [facility] Culture: Anaerobic No Anaerobes Is olated After 3 Days 08/20/2019 [facility] Gram Stain Report Few Wbc'S; No Organisms Seen 08/20/2019 [facility] Culture: Aspirate/Body Fluid/Tissue No Growth 08/20/2019 [facility] BLOOD BANK RESULTS Antibody Scrn Negative (08/20/19 3:27 AM) 08/20/2019 [facility] BLOOD BANK RESULTS ABO/Rh O POS 08/20/2019 [facility] CHEM PANEL Glucose Lvl 154 70 - 99 08/20/2019 [facility] CHEM PANEL BUN 25 7 - 22 08/20/2019 [facility] CHEM PANEL Creatinine Lvl 0.88 0.50 - 1.40 08/20/2019 [facility] CHEM PANEL Sodium Lvl 139 135 - 145 08/20/2019 [facility] CHEM PANEL Potassium Lvl 4.2 3.5 - 5.1 08/20/2019 [facility] CHEM PANEL Chloride Lvl 107 95 - 109 08/20/2019 [facility] CHEM PANEL CO2 25 24 - 32 08/20/2019 [facility] CHEM PANEL Calcium Lvl 8.7 8.5 - 10.5 08/20/2019 [facility] CHEM PANEL eGFR 72 08/20/2019 Result Comment: [...] should be multiplied by the estimated BMI. [facility] CHEM PANEL AGAP 11.2 10.0 - 20.0 08/20/2019 [facility] HEMATOLOGY Segs 55.3 45.0 - 75.0 08/20/2019 [facility] HEMATOLOGY Lymphocytes 27.9 20.0 - 40.0 08/20/2019 [facility] HEMATOLOGY Monocytes 6.9 2.0 - 12.0 08/20/2019 [facility] HEMATOLOGY Eosinophils 9.4 0.0 - 4.0 08/20/2019 [facility] HEMATOLOGY Basophils 0.5 0.0 - 1.0 08/20/2019 [facility] HEMATOLOGY Neutrophils # 3.2 1.5 - 8.1 08/20/2019 [facility] HEMATOLOGY Lymphocytes # 1.6 1.0 - 5.5 08/20/2019 [facility] HEMATOLOGY Monocytes # 0.4 0.0 - 0.8 08/20/2019 [facility] HEMATOLOGY Eosinophils # 0.5 0.0 - 0.5 08/20/2019 [facility] HEMATOLOGY R-time 4.8 5.0 - 10.0 08/20/2019 [facility] HEMATOLOGY K-time 0.9 1.0 - 3.0 08/20/2019 [facility] HEMATOLOGY Angle 61.1 53.0 - 72.0 08/20/2019 [facility] HEMATOLOGY Max Amp 71.8 50.0 - 70.0 08/20/2019 [facility] HEMATOLOGY G-value 12.8 4.5 - 11.0 08/20/2019 [facility] HEMATOLOGY Ly30 0.9 0.0 - 7.5 08/20/2019 [facility] HEMATOLOGY Coag Index 2.1 -3.0-3.0 - 3.0 08/20/2019 [facility] HEMATOLOGY TEG Data See N ote (08/20/19 3:27 AM) 08/20/2019 [facility] HEMATOLOGY TEG Interp Throm belastograph results show shortened value of R and increased value of MA. These findings are suggestive of platelet and enzymatic hypercoagulation. clinical correlation is suggested. CPT:84067 08/20/2019 [facility] HEMATOLOGY PT 12.6 12.0 - 14.7 08/20/2019 [facility] HEMATOLOGY INR 0.96 0.85 - 1.17 08/20/2019 [facility] HEMATOLOGY PTT 33.5 22.9 - 35.8 08/20/2019 [facility] HEMATOLOGY WBC 5.9 3.7 - 10.4 08/20/2019 [facility] HEMATOLOGY RBC 3.43 4.20 - 5.40 08/20/2019 [facility] HEMATOLOGY Hgb 10.1 12.0 - 16.0 08/20/2019 [facility] HEMATOLOGY Hct 30.8 36.0 - 48.0 08/20/2019 [facility] HEMATOLOGY MCV 89.8 80.0 - 98.0 08/20/2019 [facility] HEMATOLOGY MCH 29.6 27.0 - 31.0 08/20/2019 [facility] HEMATOLOGY MCHC 33.0 32.0 - 36.0 08/20/2019 [facility] HEMATOLOGY RDW 13.6 11.5 - 14.5 08/20/2019 [facility] HEMATOLOGY Platelet 189 133 - 450 08/20/2019 [facility] HEMATOLOGY MPV 8.5 7.4 - 10.4 08/20/2019 [facility] BLOOD BANK RESULTS ABO/Rh O POS 08/19/2019 [facility] BLOOD BANK RESULTS Antibody Scrn Negative (08/19/19 6:37 AM) 08/19/2019 [facility] IMMUNOLOGY CDC HIV 4th GEN Negat hellen *NA* (08/19/19 6:32 AM) Negative 08/19/2019 [facility] HEMATOLOGY PT 12.4 12.0 - 14.7 08/19/2019 [facility] HEMATOLOGY INR 0.94 0.85 - 1.17 08/19/2019 [facility] HEMATOLOGY PTT 31.5 22.9 - 35.8 08/19/2019 [facility] CHEM PANEL Glucose Lvl 255 70 - 99 08/19/2019 [facility] CHEM PANEL BUN 21 7 - 22 08/19/2019 [facility] CHEM PANEL Creatinine Lvl 1.01 0.50 - 1.40 08/19/2019 [facility] CHEM PANEL Sodium Lvl 140 135 - 145 08/19/2019 [facility] CHEM PANEL Potassium Lvl 3.9 3.5 - 5.1 08/19/2019 [facility] CHEM PANEL Chloride Lvl 111 95 - 109 08/19/2019 [facility] CHEM PANEL CO2 28 24 - 32 08/19/2019 [facility] CHEM PANEL Calcium Lvl 8.7 8.5 - 10.5 08/19/2019 [facility] CHEM PANEL eGFR 61 08/19/2019 Result Comment: [...] be multiplied by the estimated BMI. [facility] CHEM PANEL AGAP 4.9 10.0 - 20.0 08/19/2019 [facility] HEMATOLOGY WBC 7.8 3.7 - 10.4 08/19/2019 [facility] RBC 3.60 4.20 - 5.40 08/19/2019 [facility] HEMATOLOGY Hgb 10.8 12.0 - 16.0 08/19/2019 [facility] HEMATOLOGY Hct 32.3 36.0 - 48.0 08/19/2019 [facility] HEMATOLOGY MCV 89.8 80.0 - 98.0 08/19/2019 [facility] HEMATOLOGY MCH 29.9 27.0 - 31.0 08/19/2019 [facility] MCHC 33.3 32.0 - 36.0 08/19/2019 [facility] RDW 13.2 11.5 - 14.5 08/19/2019 [facility] Platelet 216 133 - 450 08/19/2019 [facility] HEMATOLOGY MPV 8.4 7.4 - 10.4 08/19/2019 [facility] HEMATOLOGY Sed Rate 27 0 - 20 08/19/2019 [facility] HEMATOLOGY Segs 60.5 45.0 - 75.0 08/19/2019 [facility] HEMATOLOGY Lymphocytes 24.6 20.0 - 40.0 08/19/2019 [facility] HEMATOLOGY Monocytes 7.6 2.0 - 12.0 08/19/2019 [facility] HEMATOLOGY Eosinophils 7.0 0.0 - 4.0 08/19/2019 [facility] HEMATOLOGY Basophils 0.3 0.0 - 1.0 08/19/2019 [facility] HEMATOLOGY Neutrophils # 4.7 1.5 - 8.1 08/19/2019 [facility] HEMATOLOGY Lymphocytes # 1.9 1.0 - 5.5 08/19/2019 [facility] HEMATOLOGY Monocytes # 0.6 0.0 - 0.8 08/19/2019 [facility] HEMATOLOGY Eosinophils # 0.5 0.0 - 0.5 08/19/2019 [facility] IMMUNOLOGY C-REACTIVE PROTEIN 4.5 <=2.9 mg/L 08/19/2019 [facility] URINE AND STOOL UA Turbidity Clear (07/10/19 12:33 PM) Clear 07/10/2019 [facility] URINE AND STOOL UA Spec Grav 1.012 <=1.030 07/10/2019 [facility] URINE AND STOOL UA pH 7.0 5.0 - 8.0 07/10/2019 [facility] URINE AND STOOL UA Protein Negative mg/dL Negative mg/dL 07/10/2019 [facility] URINE AND STOOL UA Glucose Negative mg/dL Negative mg/dL 07/10/2019 [facility] URINE AND STOOL UA Ketones Negative mg/dL Negative mg/dL 07/10/2019 [facility] URINE AND STOOL UA Bili Negative *NA* (07/10/19 12:33 PM) Negative 07/10/2019 [facility] URINE AND STOOL UA Blood Negative (07/10/19 12:33 PM) Negative 07/10/2019 [facility] URINE AND STOOL UA Nitrite Positive *ABN* (07/10/19 12:33 PM) Negative 07/10/2019 [facility] URINE AND STOOL UA Leuk Est Trace *ABN* (07/10/19 12:33 PM) Negative 07/10/2019 [facility] URINE AND STOOL UA Sq Epi Occasional /LPF Few /LPF 07/10/2019 [facility] URINE AND STOOL UA WBC 17 0 - 5 07/10/2019 [facility] URINE AND STOOL UA RBC 2 0 - 2 07/10/2019 [facility] URINE AND STOOL UA Bacteria Occasional /HPF None Seen /HPF 07/10/2019 [facility] URINE AND STOOL UA Color Ltyellow 07/10/2019 [facility] URINE AND STOOL UA Urobilinogen <=1.0 mg/dL 0.1 - 1.0 07/10/[address] [facility] [address] Culture: Urine Subculture In P rogress 07/10/2019 [facility] CARDIAC ENZYMES Total CK 124 12 - 191 07/10/2019 [facility] CARDIAC ENZYMES BNP 31 <=100 pg/mL 07/10/2019 [facility] CHEM PANEL Glucose Lvl 67 70 - 99 07/10/2019 [facility] CHEM PANEL BUN 10 7 - 22 07/10/2019 [facility] CHEM PANEL Creatinine Lvl 0.87 0.50 - 1.40 07/10/2019 [facility] CHEM PANEL Sodium Lvl 142 135 - 145 07/10/2019 [facility] CHEM PANEL Potassium Lvl 4.1 3.5 - 5.1 07/10/2019 [facility] CHEM PANEL Chloride Lvl 108 95 - 109 07/10/2019 [facility] CHEM PANEL CO2 27 24 - 32 07/10/2019 [facility] CHEM PANEL Calcium Lvl 9.6 8.5 - 10.5 07/10/2019 [facility] CHEM PANEL Total Protein 7.5 6.4 - 8.4 07/10/2019 [facility] CHEM PANEL Albumin Lvl 3.6 3.5 - 5.0 07/10/2019 [facility] CHEM PANEL ALT 29 0 - 65 07/10/2019 [facility] CHEM PANEL AST 25 0 - 37 07/10/2019 [facility] CHEM PANEL Alk Phos 111 39 - 136 07/10/2019 [facility] CHEM PANEL Bili Total 0.5 0.2 - 1.3 07/10/2019 [facility] CHEM PANEL eGFR 73 07/10/2019 Result Comment: [...] be multiplied by the estimated BMI. [facility] CHEM PANEL AGAP 11.1 10.0 - 20.0 07/10/2019 [facility] CHEM PANEL B/C Ratio 11 6 - 25 07/10/2019 [facility] CHEM PANEL Globulin 3.9 2.7 - 4.2 07/10/2019 [facility] CHEM PANEL A/G Ratio 0.9 0.7 - 1.6 07/10/2019 [facility] CHEM PANEL Magnesium Lvl 1.4 1.8 - 2.4 07/10/2019 [facility] HEMATOLOGY WBC 5.8 3.7 - 10.4 07/10/2019 [facility] HEMATOLOGY RBC 4.03 4.20 - 5.40 07/10/2019 [facility] Hgb 12.1 12.0 - 16.0 07/10/2019 [facility] Hct 36.4 36.0 - 48.0 07/10/2019 [facility] HEMATOLOGY MCV 90.4 80.0 - 98.0 07/10/2019 [facility] MCH 30.0 27.0 - 31.0 07/10/2019 [facility] MCHC 33.2 32.0 - 36.0 07/10/2019 [facility] RDW 13.1 11.5 - 14.5 07/10/2019 [facility] Platelet 198 133 - 450 07/10/2019 [facility] MPV 8.5 7.4 - 10.4 07/10/2019 [facility] INR 0.97 0.85 - 1.17 07/10/2019 [facility] HEMATOLOGY PT 12.7 12.0 - 14.7 07/10/2019 [facility] HEMATOLOGY Segs 70.4 45.0 - 75.0 07/10/2019 [facility] HEMATOLOGY Lymphocytes 20.5 20.0 - 40.0 07/10/2019 [facility] HEMATOLOGY Monocytes 7.0 2.0 - 12.0 07/10/2019 [facility] HEMATOLOGY Eosinophils 1.8 0.0 - 4.0 07/10/2019 [facility] [facility] HEMATOLOGY Basophils 0.3 0.0 - 1.0 07/10/2019 [facility] HEMATOLOGY Neutrophils # 4.1 1.5 - 8.1 07/10/2019 [facility] HEMATOLOGY Lymphocytes # 1.2 1.0 - 5.5 07/10/2019 [facility] HEMATOLOGY Monocytes # 0.4 0.0 - 0.8 07/10/2019 [facility] HEMATOLOGY Eosinophils # 0.1 0.0 - 0.5 07/10/2019 [facility] CARDIAC ENZYMES Troponin-I <0.02 0.00 - 0.40 03/29/2019 [facility] CARDIAC ENZYMES Troponin-I <0.02 0.00 - 0.40 03/29/2019 [facility] LIPIDS LDL (Calculated) 64 <=99 mg/dL 03/29/2019 [facility] LIPIDS VLDL 29 03/29/2019 [facility] LIPIDS Chol 154 <=199 mg/dL 03/29/2019 [facility] LIPIDS HDL 61 >=61 mg/dL 03/29/2019 [facility] LIPIDS Trig 144 <=149 mg/dL 03/29/2019 [facility] LIPIDS CHD Risk 2.52 3.90 - 5.80 03/29/2019 [facility] SPECIAL CHEMISTRY Hgb A1C 6.6 <=5.6 % 03/29/2019 [facility] URINE AND STOOL UA Mucus Few /LPF None Seen /LPF 03/29/2019 [facility] URINE AND STOOL UA Color Ltyellow 03/29/2019 [facility] URINE AND STOOL UA Urobilinogen <=1.0 mg/dL 0.1 - 1.0 03/29/2019 [facility] URINE AND STOOL UA Turbidity Clear (03/29/19 8:02 AM) Clear 03/29/2019 [facility] URINE AND STOOL UA Protein Negative mg/dL Negative mg/dL 03/29/2019 [facility] URINE AND STOOL UA pH 6.0 5.0 - 8.0 03/29/2019 [facility] URINE AND STOOL UA Spec Grav 1.006 <=1.030 03/29/2019 [facility] URINE AND STOOL UA Glucose Negative mg/dL Negative mg/dL 03/29/[address] [facility] [address] URINE AND STOOL UA Blood Negative (03/29/19 8:02 AM) Negative 03/29/2019 [facility] URINE AND STOOL UA Bili Negative *NA* (03/29/19 8:02 AM) Negative 03/29/2019 [facility] URINE AND STOOL UA Ketones Negative mg/dL Negative mg/dL 03/29/[address] [facility] [address] URINE AND STOOL UA Nitrite Negative (03/29/19 8:02 AM) Negative 03/29/2019 [facility] URINE AND STOOL UA WBC 3 0 - 5 03/29/2019 [facility] URINE AND STOOL UA Leuk Est Trace *ABN* (03/29/19 8:02 AM) Negative 03/29/2019 [facility] URINE AND STOOL UA Sq Epi Few /LPF Few /LPF 03/29/2019 [facility] URINE AND STOOL UA Bacteria Many /HPF None Seen /HPF 03/29/2019 [facility] CARDIAC ENZYMES BNP 18 <=100 pg/mL 03/29/2019 [facility] CARDIAC ENZYMES Total CK 72 12 - 191 03/29/2019 [facility] CARDIAC ENZYMES Troponin-I <0.02 0.00 - 0.40 03/29/2019 [facility] CHEM PANEL B/C Ratio 12 6 - 25 03/29/2019 [facility] CHEM PANEL AGAP 11.6 10.0 - 20.0 03/29/2019 [facility] CHEM PANEL A/G Ratio 1.0 0.7 - 1.6 03/29/2019 [facility] CHEM PANEL Globulin 3.9 2.7 - 4.2 03/29/2019 [facility] CHEM PANEL Alk Phos 132 39 - 136 03/29/2019 [facility] CHEM PANEL AST 27 0 - 37 03/29/2019 [facility] CHEM PANEL ALT 61 0 - 65 03/29/2019 [facility] CHEM PANEL Albumin Lvl 3.8 3.5 - 5.0 03/29/2019 [facility] CHEM PANEL Bili Total 0.6 0.2 - 1.3 03/29/2019 [facility] CHEM PANEL Chloride Lvl 107 95 - 109 03/29/2019 [facility] CHEM PANEL Sodium Lvl 137 135 - 145 03/29/2019 [facility] CHEM PANEL Potassium Lvl 3.6 3.5 - 5.1 03/29/2019 [facility] CHEM PANEL Total Protein 7.7 6.4 - 8.4 03/29/2019 [facility] CHEM PANEL Calcium Lvl 9.5 8.5 - 10.5 03/29/2019 [facility] CHEM PANEL CO2 22 24 - 32 03/29/2019 [facility] CHEM PANEL eGFR 78 03/29/2019 Result Comment: [...] be multiplied by the estimated BMI. [facility] CHEM PANEL Glucose Lvl 191 70 - 99 03/29/2019 [facility] CHEM PANEL BUN 10 7 - 22 03/29/2019 [facility] CHEM PANEL Creatinine Lvl 0.83 0.50 - 1.40 03/29/2019 [facility] HEMATOLOGY PT 12.2 12.0 - 14.7 03/29/2019 [facility] HEMATOLOGY INR 0.92 0.85 - 1.17 03/29/2019 [facility] HEMATOLOGY PTT 35.3 22.9 - 35.8 03/29/2019 [facility] HEMATOLOGY RBC 4.34 4.20 - 5.40 03/29/2019 [facility] HEMATOLOGY Hgb 12.7 12.0 - 16.0 03/29/2019 [facility] WBC 7.0 3.7 - 10.4 03/29/2019 [facility] HEMATOLOGY MCV 87.2 80.0 - 98.0 03/29/2019 [facility] Hct 37.8 36.0 - 48.0 03/29/2019 [facility] MCH 29.3 27.0 - 31.0 03/29/2019 [facility] Platelet 189 133 - 450 03/29/2019 [facility] MCHC 33.5 32.0 - 36.0 03/29/2019 [facility] HEMATOLOGY RDW 13.9 11.5 - 14.5 03/29/2019 [facility] HEMATOLOGY MPV 8.9 7.4 - 10.4 03/29/2019 [facility] Neutrophils # 5.5 1.5 - 8.1 03/29/2019 [facility] HEMATOLOGY Basophils 0.2 0.0 - 1.0 03/29/2019 [facility] HEMATOLOGY Monocytes # 0.4 0.0 - 0.8 03/29/2019 [facility] HEMATOLOGY Lymphocytes # 1.1 1.0 - 5.5 03/29/2019 [facility] HEMATOLOGY Eosinophils 0.8 0.0 - 4.0 03/29/2019 [facility] Eosinophils # 0.1 0.0 - 0.5 03/29/2019 [facility] Segs 78.1 45.0 - 75.0 03/29/2019 [facility] Monocytes 5.4 2.0 - 12.0 03/29/2019 [facility] Lymphocytes 15.5 20.0 - 40.0 03/29/2019 [facility] CHEM PANEL eGFR 97 09/16/2018 Result Comment: [...] be multiplied by the estimated BMI. [facility] CHEM PANEL ALT 29 0 - 65 09/16/2018 [facility] CHEM PANEL AST 18 0 - 37 09/16/2018 [facility] CHEM PANEL Alk Phos 78 39 - 136 09/16/2018 [facility] CHEM PANEL Bili Total 0.3 0.2 - 1.3 09/16/2018 [facility] CHEM PANEL B/C Ratio 16 6 - [...] Lvl 134 70 - 99 09/16/2018 [facility] HEMATOLOGY MPV 8.9 7.4 - 10.4 09/16/2018 [facility] HEMATOLOGY Platelet 140 133 - 450 09/16/2018 [facility] HEMATOLOGY MCHC 32.6 32.0 - 36.0 09/16/2018 [facility] HEMATOLOGY RDW 14.1 11.5 - 14.5 09/16/2018 [facility] HEMATOLOGY MCV 88.4 80.0 - 98.0 09/16/2018 [facility] HEMATOLOGY MCH 28.8 27.0 - 31.0 09/16/2018 [facility] HEMATOLOGY Hgb 10.5 12.0 - 16.0 09/16/2018 [facility] HEMATOLOGY Hct 32.4 36.0 - 48.0 09/16/2018 [facility] HEMATOLOGY WBC 5.0 3.7 - 10.4 09/16/2018 [facility] HEMATOLOGY RBC 3.67 4.20 - 5.40 09/16/2018 [facility] HEMATOLOGY Eosinophils 3.6 0.0 - 4.0 09/16/2018 [facility] HEMATOLOGY Monocytes 9.4 2.0 - 12.0 09/16/2018 [facility] HEMATOLOGY Lymphocytes 28.5 20.0 - 40.0 09/16/2018 [facility] HEMATOLOGY Segs 57.9 45.0 - 75.0 09/16/2018 [facility] HEMATOLOGY Basophils 0.6 0.0 - 1.0 09/16/2018 [facility] HEMATOLOGY Eosinophils # 0.2 0.0 - 0.5 09/16/2018 [facility] HEMATOLOGY Monocytes # 0.5 0.0 - 0.8 09/16/2018 [facility] HEMATOLOGY Lymphocytes # 1.4 1.0 - 5.5 09/16/2018 [facility] HEMATOLOGY Neutrophils # 2.9 1.5 - 8.1 09/16/2018 [facility] SPECIAL CHEMISTRY Hgb A1C 6.5 <=5.6 % 09/16/2018 [facility] ELECTROLYTES Potassium Lvl 4.2 3.5 - 5.1 09/15/2018 [facility] ELECTROLYTES Calcium Lvl 7.4 8.5 - 10.5 09/15/2018 [facility] ELECTROLYTES CO2 24 24 - 32 09/15/2018 [facility] ELECTROLYTES Chloride Lvl 110 95 - 109 09/15/2018 [facility] ELECTROLYTES AGAP 10.2 10.0 - 20.0 09/15/2018 [facility] ELECTROLYTES eGFR 44 09/15/2018 Result Comment: The [...] be multiplied by the estimated BMI. [facility] ELECTROLYTES Sodium Lvl 140 135 - 145 09/15/2018 [facility] ELECTROLYTES Creatinine Lvl 1.3 2 0.50 - 1.40 09/15/2018 [facility] ELECTROLYTES BUN 21 7 - 22 09/15/2018 [facility] ELECTROLYTES Glucose Lvl 60 70 - 99 09/15/2018 [facility] HEMATOLOGY MCHC 32.4 32.0 - 36.0 09/15/2018 [facility] RDW 14.1 11.5 - 14.5 09/15/2018 [facility] Platelet 169 133 - 450 09/15/2018 Result Comment: specimen not clotted, mf 09/15/2018 06:43 [facility] MPV 8.8 7.4 - 10.4 09/15/2018 [facility] MCH 28.7 27.0 - 31.0 09/15/2018 [facility] RBC 3.81 4.20 - 5.40 09/15/2018 [facility] Hgb 11.0 12.0 - 16.0 09/15/2018 [facility] Hct 33.8 36.0 - 48.0 09/15/2018 [facility] MCV 88.8 80.0 - 98.0 09/15/2018 [facility] WBC 8.9 3.7 - 10.4 09/15/2018 [facility] Monocytes # 0.8 0.0 - 0.8 09/15/2018 [facility] Eosinophils # 0.2 0.0 - 0.5 09/15/2018 [facility] Monocytes 8.9 2.0 - 12.0 09/15/2018 [facility] Eosinophils 1.9 0.0 - 4.0 09/15/2018 [facility] Basophils 0.4 0.0 - 1.0 09/15/2018 [facility] Neutrophils # 5.1 1.5 - 8.1 09/15/2018 [facility] Lymphocytes # 2.8 1.0 - 5.5 09/15/2018 [facility] Segs 57.6 45.0 - 75.0 09/15/2018 [facility] Lymphocytes 31.2 20.0 - 40.0 09/15/2018 [facility] CHEM PANEL POC Creatinine 1.7 0.5 - 1.4 09/15/2018 [facility] CHEM PANEL eGFR 33 09/15/2018 Result Comment: [...] be multiplied by the estimated BMI. [facility] URINE AND STOOL UA RBC 8 0 - 2 09/15/2018 [facility] URINE AND STOOL UA Bacteria Occasional /HPF None Seen /HPF 09/15/2018 [facility] URINE AND STOOL UA Sq Epi Many /LPF Few /LPF 09/15/2018 [facility] URINE AND STOOL UA WBC 37 0 - 5 09/15/2018 [facility] URINE AND STOOL UA Leuk Est Negative (09/14/18 8:09 PM) Negative 09/15/2018 [facility] URINE AND STOOL UA Nitrite Negative (09/14/18 8:09 PM) Negative 09/15/2018 [facility] URINE AND STOOL UA Blood Negative (09/14/18 8:09 PM) Negative 09/15/2018 [facility] URINE AND STOOL UA Urobilinogen 0.2 0.1 - 1.0 09/15/2018 [facility] URINE AND STOOL UA Glucose 100 mg/dL Negative mg/dL 09/15/2018 [facility] URINE AND STOOL UA pH 5.0 5.0 - 8.0 09/15/2018 [facility] URINE AND STOOL UA Protein 100 mg/dL Negative mg/dL 09/15/2018 [facility] URINE AND STOOL UA Turbidity Clear (09/14/18 8:09 PM) Clear 09/15/2018 [facility] URINE AND STOOL UA Spec Grav 1.025 <=1.030 09/15/2018 [facility] URINE AND STOOL UA Color Yellow *NA* (09/14/18 8:09 PM) Yellow 09/15/2018 [facility] URINE AND STOOL UA Mucus Few /LPF None Seen /LPF 09/15/2018 [facility] URINE AND STOOL UA Ketones Trace *ABN* (09/14/18 8:09 PM) Negative 09/15/2018 [facility] URINE AND STOOL UA Bili Moderate *ABN* (09/14/18 8:09 PM) Negative 09/15/2018 [facility] Culture: Urine >100,000 CFU/mL Skin Radha 09/15/2018 [facility] CARDIAC ENZYMES Troponin-I <0.02 0.00 - 0.40 [...] Lymphocytes # 1.7 1.0 - 5.5 09/14/2018 [facility] HEMATOLOGY Monocytes # 0.7 0.0 - 0.8 09/14/2018 [facility] HEMATOLOGY Eosinophils 0.2 0.0 - 4.0 09/14/2018 [facility] HEMATOLOGY Monocytes 6.3 2.0 - 12.0 09/14/2018 [facility] HEMATOLOGY Lymphocytes 13.9 20.0 - 40.0 09/14/2018 [facility] Segs 79.4 45.0 - 75.0 09/14/2018 [facility] Basophils 0.2 0.0 - 1.0 09/14/2018 [facility] MPV 9.8 7.4 - 10.4 09/14/2018 [facility] MCHC 32.4 32.0 - 36.0 09/14/2018 [facility] RDW 14.3 11.5 - 14.5 09/14/2018 [facility] Platelet 223 133 - 450 09/14/2018 [facility] MCV 89.4 80.0 - 98.0 09/14/2018 [facility] MCH 29.0 27.0 - 31.0 09/14/2018 [facility] RBC 4.53 4.20 - 5.40 09/14/2018 [facility] Hct 40.5 36.0 - 48.0 09/14/2018 [facility] Hgb 13.1 12.0 - 16.0 09/14/2018 [facility] WBC 11.9 3.7 - 10.4 09/14/2018 [facility] CHEM PANEL eGFR 96 08/02/2017 Result Comment: [...] be multiplied by the estimated BMI. [facility] CHEM PANEL POC Creatinine 0.7 0.5 - 1.4 08/02/2017 [facility] CHEM PANEL eGFR 67 06/20/2017 Result Comment: [...] be multiplied by the estimated BMI. [facility] CHEM PANEL Chloride Lvl 105 95 - 109 06/20/2017 [facility] CHEM PANEL Potassium Lvl 4.8 3.5 - 5.1 06/20/2017 [facility] CHEM PANEL Calcium Lvl 9.3 8.5 - 10.5 06/20/2017 [facility] CHEM PANEL CO2 25 24 - 32 06/20/2017 [facility] CHEM PANEL Sodium Lvl 138 135 - 145 06/20/2017 [facility] CHEM PANEL BUN 27 7 - 22 06/20/2017 [facility] CHEM PANEL Glucose Lvl 140 70 - 99 06/20/2017 [facility] CHEM PANEL Creatinine Lvl 0.95 0.50 - 1.40 06/20/2017 [facility] CHEM PANEL AGAP 12.8 10.0 - 20.0 06/20/2017 [facility] Pathology Reports No Data Provided for This [...] . Angel Garibay MD On 09/07/2019 11:47:53; [id number] 09/07/2019 [facility] Chest 1view DX PROCEDURE INFOR MATION: Exam: [...] findings. Edvin Yates MD On 09/07/2019 11:40:53; [id number] 09/07/2019 [facility] Spine lumbar w/wo contrast MRI PROCEDURE INFORMATION: [...] described. Henry Meeks MD On 08/19/2019 01:26:13; [id number] 08/18/2019 [facility] Spine lumbar wo contrast CT Ra diation [...] assessment. Ina Ruiz MD On 08/18/2019 19:39:10; [id number] 08/18/2019 [facility] Spine cervical wo contrast CT Radiation Dose [...] evaluation. Tyson Goldberg MD On 07/10/2019 11:49:40; [id number] 07/10/2019 [facility] Brain wo contrast CT Radiation Dose CTDIVOL [...] . Tyson Goldberg MD On 07/10/2019 11:45:05; [id number] 07/10/2019 [facility] Chest 1view DX PROCEDURE INFOR MATION: Exam: [...] Ramirez MD On 07/10/2019 11:20:29; [id number] 07/10/2019 [facility] Brain wo contrast MRI Patient Name: LOREN ROCK : 1960; Age: 58 years y/o Female MR: [id number] Study: Brain wo contrast MRI 03/29/2019 6:54 [...] insult in the right thala mus. 03/29/2019 [facility] Carotid artery Doppler bilat US BILATERAL CAROTID [...] IMPRESSION: No evidence of significant carotid stenosis. [id number] 03/29/2019 [facility] Chest 1view DX CHEST RADIOGRAP H SINGLE VIEW INDICATION: Chest pain, headaches COMPARISON: Chest radiograph 09/14/2018 IMPRESSION: The lungs are underinflated. No consolidation or other acute intrathoracic abnormalities are visualized. SL:16 03/29/2019 [facility] Brain wo contrast CT CT BRAIN WITHOUT [...] intracranial abnormalities are visualized. SL:16 03/29/2019 [facility] Spine lumbar 2 or 3 views DX [...] noted. IMPRESSION: 1. No acute finding. SL: [id number] 12/23/2018 [facility] Shoulder series DX Thoracic sp ine, 2 [...] noted. IMPRESSION: 1. No acute finding. SL: [id number] 12/23/2018 [facility] Brain wo contrast CT Clinical Indication trauma. [...] to patient size -Use of iterative reconstruction [employer] [place] ue CT Radiation Dose DLP: 982 mGy-cm. [...] lobes and left cerebellum, as above. SL: [id number] 12/23/2018 [facility] Spine cervical wo contrast CT (ER) Spine [...] to patient size -Use of iterative reconstruction [employer] [place] ue CT Radiation Dose DLP 946.16 mGy-cm [...] noted on the cervical spine CT. SL: [id number] 12/23/2018 [facility] thoracic 2 views DX Thor acic [...] noted. IMPRESSION: 1. No acute finding. SL: [id number] 12/23/2018 [facility] Abdomen/Pelvis IV contrast only CT Clinical [...] to patient size -Use of iterative reconstruction [employer] [place] ue CT Radiation Dose DLP 1192 mGy-cm [...] steatosis and/or chronic hep atocellular disease. 09/14/2018 [facility] Chest 1view DX SINGLE VIEW ANNABEL ST [...] be atelectasis or infiltrate. SL: PATTI 09/14/2018 [facility] Spine lumbar w/wo contrast MRI Spine lumbar [...] Stable severe bilateral foraminal stenosis. 07/27/2018 [facility] [place] Spine lumbar wo contrast CT Cl inical [...] and the right traversing nerve root. SL: [id number] 02/21/2018 [facility] Spine Thoracic w/wo contrast MRI PATIENT NAME: LOREN ROCK : 1960; Age: 57 years y/o Female MR: [id number] STUDY: Spine Thoracic w/wo contrast MRI 12/23/2017 [...] with minimal facet hypertrophy. His results in [id number] canal stenosis with slight contact to the [...] is likely posttraumatic/insufficiency in nature. 12/23/2017 [facility] [place] Pelvis w/wo contrast MRI MRI p isidra [...] spinal canal. Correlate for radicular symptoms. 08/02/2017 [facility] Pelvis wo IV contrast CT Pelvi s [...] significant adenopathy identified. 5. Sigmoid diverticulosis. SL: [id number] 06/16/2017 [facility] Ext Lower limited non vascular US Patient Name: LOREN ROCK : 1960; Age: 56 years Female MR: [id number] Study: Ext Lower limited non vascular US [...] IV contrast may provide more detail. SL: [id number] 06/08/2017 [facility] Retroperitoneal Complete US Ex am: Bilateral renal [...] MYELOGRAM Lumbar SPINE. 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 DATE: 10/26/2016 9:35 AM OIL REFINER INDICATION: M43.28 Fusion of spine, sacral and [...] Source Temperature Oral (F) 98.2 F 09/09/2019 [facility] Heart Rate 73 09/09/2019 [facility] Respitory Rate 17 09/09/2019 [facility] Systolic (mm Hg) 175 09/09/2019 [facility] Diastolic (mm Hg) 79 09/09/2019 [facility] Heart Rate 78 09/09/2019 [facility] Respitory Rate 17 09/09/2019 [facility] Systolic (mm Hg) 151 09/09/2019 [facility] Diastolic (mm Hg) 88 09/09/2019 [facility] Heart Rate 95 09/09/2019 [facility] Systolic (mm Hg) 156 09/09/2019 [facility] Diastolic (mm Hg) 62 09/09/2019 [facility] Temperature Oral (F) 98.6 F 09/09/2019 [facility] Respitory Rate 19 09/09/2019 [facility] Temperature Oral (F) 97.9 F 09/08/2019 [facility] Height 152.4 cm 09/08/2019 [facility] Weight 77.273 09/08/2019 [facility] [facility] BMI Calculated 33.27 09/08/2019 [facility] Height 160.02 cm 09/07/2019 [facility] BMI Calculated 34.61 09/07/2019 [facility] Weight 88.636 09/07/2019 [facility] Temperature Oral (F) 98.4 F 08/21/2019 [facility] Heart Rate 75 08/21/2019 [facility] Respitory Rate 17 08/21/2019 [facility] Systolic (mm Hg) 131 08/21/2019 [facility] Diastolic (mm Hg) 81 08/21/2019 [facility] Temperature Oral (F) 98.1 F 08/21/2019 [facility] Heart Rate 78 08/21/2019 [facility] Respitory Rate 17 08/21/2019 [facility] Systolic (mm Hg) 118 08/21/2019 [facility] Diastolic (mm Hg) 66 08/21/2019 [facility] Temperature Oral (F) 98.0 F 08/21/2019 [facility] Heart Rate 77 08/21/2019 [facility] Respitory Rate 16 08/21/2019 [facility] Systolic (mm Hg) 113 08/21/2019 [facility] Diastolic (mm Hg) 57 08/21/2019 [facility] Height 152.4 cm 08/19/2019 [facility] BMI Calculated 33.27 08/19/2019 [facility] Weight 77.273 08/19/2019 [facility] Systolic (mm Hg) 146 08/19/2019 [facility] Diastolic (mm Hg) 78 08/19/2019 [facility] Systolic (mm Hg) 172 08/19/2019 [facility] Diastolic (mm Hg) 88 08/19/2019 [facility] Systolic (mm Hg) 188 08/18/2019 [facility] Diastolic (mm Hg) 92 08/18/2019 [facility] Heart Rate 91 08/18/2019 [facility] Respitory Rate 18 08/18/2019 [facility] Temperature Oral (F) 98.5 F 08/18/2019 [facility] Height 152.4 cm 08/18/2019 [facility] BMI Calculated 33.27 08/18/2019 [facility] Weight 77.273 08/18/2019 [facility] Heart Rate 77 07/10/2019 [facility] Respitory Rate 18 07/10/2019 [facility] Systolic (mm Hg) 167 07/10/2019 [facility] Diastolic (mm Hg) 86 07/10/2019 [facility] Temperature Oral (F) 98.5 F 07/10/2019 [facility] Heart Rate 65 07/10/2019 [facility] Respitory Rate 17 07/10/2019 [facility] Systolic (mm Hg) 141 07/10/2019 [facility] Diastolic (mm Hg) 85 07/10/2019 [facility] Heart Rate 66 07/10/2019 [facility] Respitory Rate 18 07/10/2019 [facility] Systolic (mm Hg) 166 07/10/2019 [facility] Diastolic (mm Hg) 92 07/10/2019 [facility] Temperature Oral (F) 98 F 07/10/2019 [facility] Height 152.4 cm 07/10/2019 [facility] BMI Calculated 33.27 07/10/2019 [facility] Weight 77.273 07/10/2019 [facility] BMI Calculated 34.44 04/03/2019 [facility] Weight 80 0 04/03/2019 [facility] Systolic (mm Hg) 157 04/03/2019 [facility] Diastolic (mm Hg) 92 04/03/2019 [facility] Heart Rate 73 04/03/2019 [facility] Respitory Rate 14 04/03/2019 [facility] Height 152.4 cm 04/03/2019 [facility] Heart Rate 71 03/29/2019 [facility] Respitory Rate 17 03/29/2019 [facility] Systolic (mm Hg) 153 03/29/2019 [facility] Diastolic (mm Hg) 88 03/29/2019 [facility] Temperature Oral (F) 98.6 F 03/29/2019 [facility] Respitory Rate 19 03/29/2019 [facility] Weight 77.273 03/29/2019 [facility] Height 152.4 cm 03/29/2019 [facility] BMI Calculated 33.27 03/29/2019 [facility] Temperature Oral (F) 98.1 F 03/29/2019 [facility] Heart Rate 74 03/29/2019 [facility] Respitory Rate 16 03/29/2019 [facility] Systolic (mm Hg) 159 03/29/2019 [facility] Diastolic (mm Hg) 91 03/29/2019 [facility] Temperature Oral (F) 98.5 F 03/29/2019 [facility] Heart Rate 82 03/29/2019 [facility] Systolic (mm Hg) 150 03/29/2019 [facility] Diastolic (mm Hg) 78 03/29/2019 [facility] BMI Calculated 33.27 03/29/2019 [facility] Weight 77.273 03/29/2019 [facility] Height 152.4 cm 03/29/2019 [facility] BMI Calculated 33.27 03/29/2019 [facility] Height 152.4 [...] 12/23/2018 [facility] Diastolic (mm Hg) 86 12/23/2018 [facility] Respitory Rate 18 12/23/2018 [facility] Systolic (mm Hg) 131 12/23/2018 [facility] Diastolic (mm Hg) 83 12/23/2018 [facility] Heart Rate 78 12/23/2018 [facility] Systolic (mm Hg) 143 12/23/2018 [facility] Diastolic (mm Hg) 84 12/23/2018 [facility] Respitory Rate 18 12/23/2018 [facility] BMI Calculated 35.23 12/23/2018 [facility] Height 152.4 cm 12/23/2018 [facility] Heart Rate 79 12/23/2018 [facility] Temperature Oral (F) 97.9 F 12/23/2018 [facility] Weight 81.818 12/23/2018 [facility] BMI Calculated 34.84 10/03/2018 [facility] Weight [...] 93 06/23/2017 [facility] Respitory Rate 21 06/23/2017 [facility] Diastolic (mm Hg) 73 06/23/2017 [facility] Systolic (mm Hg) 103 06/23/2017 [facility] Respitory Rate 19 06/23/2017 [facility] Heart Rate 80 06/23/2017 [facility] Heart Rate 66 06/20/2017 [facility] Temperature Oral (F) 98 F 06/20/2017 [facility] Height 152.4 cm 06/20/2017 [facility] BMI Calculated 36.79 06/20/2017 [facility] Weight 85.455 06/20/2017 [facility] Encounters Location Location Details Encounter Type Encounter Number Reason For Visit Attending Provider ADM Date DC Date Status Source AUDIT [id number] 08/01/2012 08/01/2012 [facility] Candy MICHELLE chasidy: ALANA COX, Status: Johan, Time: 9:30 AM [id number] 09/12/20 12 08/01/2012 [facility] [place] [facility] Diag Services [id number] Piotr Ceja 10/26/2016 10/27/2016 DELIA Kam [facility] Outpatient [facility] - [place] Out[facility] Diag Services [id number] 02 Estelle Bishop 12/31/2016 01/01/2017 [facility] [place] Outpatient [id number] UMER PATTERSON 05/31/2017 [facility] Outpatient [id number] Umer Patterson 06/08/2017 06/09/2017 [facility] Outpatient [id number] Umer Patterson 06/16/2017 06/17/2017 [facility] Bedded Outpatient [id number] Angelo Gilliam 06/23/2017 06/23/2017 [facility] Outpatient [id number] FRANTZ CHAPMAN 07/07/2017 [facility] Outpatient [id number] Gould Sherly 08/02/2017 08/03/2017 [facility] Outpatient [id number] UMER PATTERSON 09/08/2017 [facility] Primary [facility] Outpatient [id number] Umer Patterson 09/08/2017 09/09/2017 [facility] Primary Care [facility] Outpatient [id number] Umer Patterson 11/07/2017 11/08/2017 [facility] Phone Message [id number] 12/13/2017 12/15/2017 [facility] Phone Message [id number] 12/15/2017 12/17/2017 [facility] Ambulatory Pre-Reg [id number] Sergo Palacios 12/16/2017 12/16/2017 [facility] Outpatient [facility] - [place] Outpt [facility] Services [id number] Piotr Ceja 12/23/2017 12/24/2017 [facility] [place] Outpatient [id number] UMER PATTERSON 01/10/2018 Active [facility] Primary Care [facility] Outpatient [id number] Umer Patterson 01/10/2018 01/11/2018 [facility] Phone Message [id number] 01/31/2018 02/02/2018 [facility] Outpatient [id number] [facility] 02/07/2018 Active [facility] Outpatient [id number] [facility] 02/07/2018 02/08/2018 [facility] Phone Message [id number] 02/09/2018 02/11/2018 [facility] Phone Message [id number] 02/09/2018 02/11/2018 [facility] Phone Message [id number] 02/09/2018 02/11/2018 [facility] Outpatient [id number] [facility] 02/21/2018 02/22/2018 [facility] Phone Message [id number] 03/06/2018 03/08/2018 [facility] Outpatient [id number] [facility] 03/14/2018 Active [facility] Ambulatory Pre-Reg [id number] Sergo Palacios 03/14/2018 03/14/2018 [facility] Outpatient [id number] UMER PATTERSON 04/11/2018 Active [facility] Primary [facility] Outpatient [id number] Umer Patterson 04/11/2018 04/12/2018 [facility] [place] Phone Message [id number] 04/12/2018 04/14/2018 [facility] Outpatient [id number] UMER PATTERSON 05/23/2018 Active [facility] [place] Outpatient [id number] Umer Patterson 05/23/2018 05/24/2018 [facility] Phone Message [id number] 05/26/2018 05/28/2018 [facility] Outpatient [id number] UMER PATTERSON 07/24/2018 Active [facility] Primary [facility] Outpatient [id number] Umer Patterson 07/24/2018 07/25/2018 [facility] - [place] Outpt Diag Services [id number] Piotrvalarie Ceja 07/27/2018 07/28/2018 [facility] [place] Outpatient [id number] UMER PATTERSON 09/08/2018 Active [facility] Primary [facility] Outpatient [id number] Umer Patterson 09/08/2018 09/09/2018 [facility] Inpatient [id number] Bartolo Cm 09/14/2018 09/16/2018 [facility] Outpatient [id number] UMER PATTERSON 10/03/2018 Active [facility] Primary Care [facility] Outpatient [id number] Umer Patterson 10/03/2018 10/04/2018 [facility] Emergency [id number] Yovany Nba 12/23/2018 12/23/2018 [facility] Primary Care [facility] Phone Message [id number] 12/26/2018 12/28/2018 [facility] Outpatient [id number] Umer Patterson 01/02/2019 Active [facility] Primary [facility] Outpatient [id number] Umer Patterson 01/02/2019 01/03/2019 [facility] Observation [id number] Evelyne Schofield 03/29/2019 03/29/2019 [facility] Outpatient [id number] Umer Patterson 04/03/2019 Active [facility] Outpatient [id number] Umer Patterson 04/03/2019 04/04/2019 [facility] Emergency [id number] Seferino Rahman 07/10/2019 07/10/2019 [facility] Emergency [id number] Rudi Palomino 08/18/2019 08/19/2019 [facility] Inpatient [id number] Rudi Palomino 08/19/2019 08/21/2019 [facility] Observation [id number] Angelo Robins 09/07/2019 09/09/2019 [facility] Primary Care [facility] Medical Records [id number] 10/18/1910/20/2019 [facility] Procedures Procedure Code Date Perfomer Comments Source Diabetic retinopathy screening<sup>1, 2</sup> [id number] 08/25/2018 normalnormal Medical [facility], [facility], [facility] [place],[facility] Colonoscopy<sup>3</sup> [id number] 06/23/2017 diverticulosis Medical [facility] , [facility] [place],[facility] Colonoscopy<sup>1</sup> [id number] 06/23/2017 diverticulosis [facility], [facility] [place] Diabetic retinopathy screening<sup>1</sup> [id number] 03/26/2017 normal [facility] Diabetic retinopathy screening<sup>2</sup> [id number] 03/26/2017 normal Medical [facility], [facility] [place],[facility] Mammogram - screening [id number] 08/26/2016 Medical [facility], [facility] [place],[facility] Colonoscopy [id number] 09/26/2015 [facility] Appendectomy [id number] [facility] [place],[facility] Cholecystectomy [id number] Medical [facility] [place],[facility] Esophagogastroduodenoscopy [id number] Medical [facility], [facility] [place],[facility] Hysterectomy [id number] Medical [facility], [facility] [place],[facility] Laparoscopic repair of hiatus hernia [id number] Medical [facility], [facility] [place],[facility] Lumbar spinal fusion [id number] Medical [facility] Partial resection of colon [id number] [facility] Repair of inguinal hernia [id number] [facility] Assessment and Plan Assessment and Plan Date Source Extracted from:Title: Clinical Document Author: Angelo Robins MD Date: 09/08/19 Progress Note - Daily [facility] Completed: Tuesday, SEP 08, 2019, 18:21 [...] sterile water 10 mL 1 gm IVP [id number] 120 ml/hr 09/07/19 gabapentin (gabapentin 300 mg [...] Bedtime 09/07/19 metoclopramide (Reglan) 10 mg I MARKET MANAGER Q6H 09/07/19 ondansetron 4 mg IVP Q8H [...] ONCE 1,000 ml/hr 09/07/19 (Completed) acetaminophen-hydr ocodone ([place] 5/325 oral tablet) 1 tab PO ONCE [...] hypertension,diabetespresented with worseninglower back pain after L5-S1 pagzbyozkxiik45/14/2019, MRI concerns for epidural abscess. 1.Epidural abscess(G06.2) [...] hypertension,diabetespresented with worseninglower back pain after L5-S1 arpcaftrungjw37/14/2019, MRI concerns for epidural abscess. 1.Epidural abscess(G06.2) possible epidural abscess post L5-S1 laminectomy ESR and CRP mildly elevated. Patient is not septic, hold off additional antibiotics Ordered: gabapentin, 300 mg, 1 cap, Route: PO, Drug form: CAP, Q8H, Dosing Weight 77.273, kg, Start date: 08/19/19 16:00:00 OIL REFINER, Duration: 30 day, Stop date: 09/18/19 8:00:00 OIL REFINER, 0 ketOROLAC, 15 mg, Route: IVP, Drug form: INJ, ONCE, Dosing Weight 77.273, kg, Start date: 08/19/19 11:44:00 OIL REFINER, Stop date: 08/19/19 11:44:00 OIL REFINER Admit/Condition, 08/19/19 6:39:00 OIL REFINER, Status: Inpatient, Acute, Location: 4 son ramin, Expected LOS: 3 or [facility] Midnights, Wang Carreon MD, Admit MD Review/Approve Yes, Isolation: No Isolation/Standard Precautions, Epidural abscess 2.S/P L5-S1 laminectomy(Z98.890) as in #1 start multimodal analgesicregimen Ordered: gabapentin, 300 mg, 1 cap, Route: PO, Drug form: CAP, Q8H, Dosing Weight 77.273, kg, Start date: 08/19/19 16:00:00 OIL REFINER, Duration: 30 day, Stop date: 09/18/19 8:00:00 OIL REFINER, 0 ketOROLAC, 15 mg, Route: IVP, Drug form: INJ, ONCE, Dosing Weight 77.273, kg, Start date: 08/19/19 11:44:00 OIL REFINER, Stop date: 08/19/19 11:44:00 OIL REFINER 3.Diabetes type 2, with hyperglycemia(E11.9) start SSI NPO for now Ordered: gabapentin, 300 mg, 1 cap, Route: PO, Drug form: CAP, Q8H, Dosing Weight 77.273, kg, Start date: 08/19/19 16:00:00 OIL REFINER, Duration: 30 day, Stop date: 09/18/19 8:00:00 OIL REFINER, 0 ketOROLAC, 15 mg, Route: IVP, Drug form: INJ, ONCE, Dosing Weight 77.273, kg, Start date: 08/19/19 11:44:00 OIL REFINER, Stop date: 08/19/19 11:44:00 OIL REFINER 4.Hypertension(I10) BP acceptable hold losartan Ordered: gabapentin, 300 mg, 1 cap, Route: PO, Drug form: CAP, Q8H, Dosing Weight 77.273, kg, Start date: 08/19/19 16:00:00 OIL REFINER, Duration: 30 day, Stop date: 09/18/19 8:00:00 OIL REFINER, 0 ketOROLAC, 15 mg, Route: IVP, Drug form: INJ, ONCE, Dosing Weight 77.273, kg, Start date: 08/19/19 11:44:00 OIL REFINER, Stop date: 08/19/19 11:44:00 OIL REFINER 5.Anemia(D64.9) H/H stable. Ordered: gabapentin, 300 mg, 1 cap, Route: PO, Drug form: CAP, Q8H, Dosing Weight 77.273, kg, Start date: 08/19/19 16:00:00 OIL REFINER, Duration: 30 day, Stop date: 09/18/19 8:00:00 OIL REFINER, 0 ketOROLAC, 15 mg, Route: IVP, Drug form: INJ, ONCE, Dosing Weight 77.273, kg, Start date: 08/19/19 11:44:00 OIL REFINER, Stop date: 08/19/19 11:44:00 OIL REFINER 6.Cancer of colon(C18.9) no active issue oncology outpatient followup Ordered: gabapentin, 300 mg, 1 cap, Route: PO, Drug form: CAP, Q8H, Dosing Weight 77.273, kg, Start date: 08/19/19 16:00:00 OIL REFINER, Duration: 30 day, Stop date: 09/18/19 8:00:00 OIL REFINER, 0 ketOROLAC, 15 mg, Route: IVP, Drug form: INJ, ONCE, Dosing Weight 77.273, kg, Start date: 08/19/19 11:44:00 OIL REFINER, Stop date: 08/19/19 11:44:00 OIL REFINER 7.Hyperlipidemia(E78.5) diet controlled Ordered: gabapentin, 300 mg, 1 cap, Route: PO, Drug form: CAP, Q8H, Dosing Weight 77.273, kg, Start date: 08/19/19 16:00:00 OIL REFINER, Duration: 30 day, Stop date: 09/18/19 8:00:00 OIL REFINER, 0 ketOROLAC, 15 mg, Route: IVP, Drug form: INJ, ONCE, Dosing Weight 77.273, kg, Start date: 08/19/19 11:44:00 OIL REFINER, Stop date: 08/19/19 11:44:00 OIL REFINER SCD, hold off chemoppx pending NSGY recommendation expect >2 mn. 08/21/2019 [facility] Extracted from:Title: Clinical Document Author: Andie Steel MD Date: 03/29/19 [facility] Initial Cardiology Consultation Note [...] PO Bedtime 03/29/19 enoxaparin 40 mg SUB-Q [id number] 03/29/19 losartan 50 mg PO Daily 03/29/19 [...] mg PO Q4H 03/29/19 bisacodyl 10 mg SC Daily 03/29/19 glucagon 1 mg IM PRN [...] acute(R10.9) >analgesics/antiemetics, analgesics Ordered: Admit/Condition, 09/14/18 21:12:00 OIL REFINER, Status: Inpatient, Acute, Expected LOS: 2 Midnights, Marlo Figueredo MD, Mikhail GOMEZ Review/Approve Yes, Isolation: No Isolation/Standard Precautions, TIFFANI (acute kidney injury) | Abdominal pain, acute | Acute lower UTI | Back... Acute lower UTI(N39.0) >Given IV rocephin in the ED and will continue for now pending culture results Ordered: Admit/Condition, 09/14/18 21:12:00 OIL REFINER, Status: Inpatient, Acute, Expected LOS: 2 Midnights, Marol Figueredo MD, Mikhail GOMEZ Review/Approve Yes, Isolation: No Isolation/Standard Precautions, TIFFANI (acute kidney injury) | Abdominal pain, acute | Acute lower UTI | Back... TIFFANI (acute kidney injury)(N17.9) >close to resolution overnight. WIll rechek labs in AM, avoid nephrotoxins Ordered: Admit/Condition, 09/14/18 21:12:00 OIL REFINER, Status: Inpatient, Acute, Expected LOS: 2 Midnights, Marlo Figueredo MD, Mikhail GOMEZ Review/Approve Yes, Isolation: No Isolation/Standard Precautions, TIFFANI (acute kidney injury) | Abdominal pain, acute | Acute lower UTI | Back... Back pain, chronic(M54.9) >reconcile home meds. Ordered: Admit/Condition, 09/14/18 21:12:00 OIL REFINER, Status: Inpatient, Acute, Expected LOS: 2 Midnights, Marlo Figueredo MD, Mikhail GOMEZ Review/Approve Yes, Isolation: No Isolation/Standard Precautions, TIFFANI (acute kidney injury) | Abdominal pain, acute | Acute lower UTI | Back... N&V (nausea and vomiting)(R11.2) >symptoms have been cocntrolled Ordered: Admit/Condition, 09/14/18 21:12:00 OIL REFINER, Status: Inpatient, Acute, Expected LOS: 2 Midnights, Marlo Figueredo MD, Admit MD Review/Approve Yes, Isolation: No Isolation/Standard Precautions, TIFFANI (acute kidney injury) | Abdominal pain, acute | Acute lower UTI | Back... Right nephrolithiasis(N20.0) >without evidence of obstrucition Ordered: Admit/Condition, 09/14/18 21:12:00 OIL REFINER, Status: Inpatient, Acute, Expected LOS: 2 Midnights, Marlo Figueredo MD, Admit Review/Approve Yes, Isolation: No Isolation/Standard Precautions, TIFFANI (acute kidney injury) | Abdominal pain, acute | Acute lower UTI | Back... per protocol 2-3 midnights, inpatient 09/16/2018 [facility] Plan of Care Plan of Care Date Source Upper Endoscopy 04/12/2012 RoutineGastri c Emptying Study 04/12/2012 [id number] hr Hope Capsule Placement 04/12/2012 RoutineGI Esophagus barium swallow function video 04/12/2012 RoutineCardiology Referral 04/12/2012 Routine 08/01/2012 [facility] Social History Social History Date Source [...] Cessation Counseling No entered on: 09/07/19 09/15/2018 [facility] Social History TypeResponse Alcohol Never 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 Exercise Exercise duration: 0. Substance Abuse Use: None. Smoking Status Never smoker; Ready to change: No; Concerns about tobacco use in household: No; Exposure to Tobacco Smoke None; Cigarette Smoking Last 365 Days No; Reg Smoking Cessation Counseling No entered on: 08/19/19 09/15/2018 [facility] Social History TypeResponse Exercise Exercise duration: 0. [...] quit 3-4 yrs ago (V15.82); (Active) 08/01/2012 [facility] Family History Value Date S ource Family history of Cancer (Active) Family history of Family Health Status (Active) 08/01/2012 [facility] Advance Directives Order Name Results Value Date Source Advance Directives Advance Dir ectives No Advance Directives available. 08/01/2012 [facility] Functional Status No Data Provided for This Section
[2020-06-05] MEDS ORDERED: MORPHINE SULFATE INJ 4 MG/ML INJ 1ML IV PRN (17:15)
[2020-06-05] MEDS ORDERED: HYDROMORPHONE 20MG/ NS 100ML IV STA (17:30)
[2020-06-05] MEDS: LEVOFLOXACIN 500MG/D5W 100ML 100 ML IV SCH (17:43)
[2020-06-05] MEDS: ONDANSETRON HCL INJ 2MG/ML 2ML 2 MG/ML VIAL IV PRN (17:44)
[2020-06-05] MEDS ORDERED: HYDROMORPHONE 1MG/1ML INJ IV ONE (17:45)
--- NOTE | 2020-06-05 18:01 | Consultation ---
DATE OF CONSULTATION: 06/05/2020 REASON FOR CONSULTATION: Nausea and vomiting. HISTORY OF PRESENT ILLNESS: The patient has been examined in the emergency room along with her . She complains of nausea and vomiting. The patient has had a chronic history of nausea and vomiting. She had in October of this year redo Raiza fundoplication because of a slippage and pyloroplasty. The patient has been having nausea and vomiting for many years and presents to the emergency room now with those complaints. Upon examination, she is awake, alert. She is anxious. She cries. She complains of abdominal pain. A CT scan of the abdomen and pelvis without oral contrast did not show any acute surgical condition. This was reviewed with the radiologist and there is no evidence of obstruction, volvulus, torsion, gastric outlet obstruction or any type of acute surgical emergency. PHYSICAL EXAMINATION: GENERAL: An anxious 59-year-old female, who cries and complains of abdominal pain. ABDOMEN: Soft without any peritoneal signs. ASSESSMENT: 1. Chronic nausea and vomiting, possible gastroparesis. 2. Status post redo Raiza fundoplication with pyloroplasty. At this point, there is no evidence of any acute surgical condition. PLAN: The plan is to admit the patient, hydrate, control her nausea and vomiting, obtain GI consult with Dr. Tanner Stone who is also familiar with the patient. If she continues to vomit, I had left instruction for her to have an NG tube placed. I have discussed this with the patient and her . MD MARTY Umana/[place]ARD /[id number]
--- NOTE | 2020-06-05 19:28 | NUR ---
DR. SAINI AT PTS BS, UPDATED ON POC, NEW ORDER RECEIVED FOR N/V
[2020-06-05] MEDS ORDERED: PROMETHAZINE 25MG/ NS 50ML (IV) IV PRN (19:30)
[2020-06-05] MEDS: HYDROMORPHONE 2MG/ML 2 MG/ML ML IV PRN (21:58)
[2020-06-05] MEDS ORDERED: POTASSIUM CHLORIDE 20 MEQ TAB CR PO ONE (22:10)
[2020-06-06] VITALS (10 sets, daily range): BP systolic 106–146; BP diastolic 71–82
[2020-06-06] MEDS ORDERED: PNEUMOCOCCAL VACCINE POLYVALENT 23 MCG/0.5 ML VIAL IM SCH (01:01)
[2020-06-06] MEDS ORDERED: INFLUENZA VIRUS VAC SPLIT INJ 0.5 ML SYR IM SCH (01:01)
--- NOTE | 2020-06-06 01:17 | NUR ---
PT IS TRANSFERRED FROM ER .PT IS AOX3 PT C/O ABD PAIN,RESPIRATIONS ARE EVEN AND UNLABORED ,SKIN WARM AND DRY TO TOUCH LEFT AC 18 G NS AT 125 CC/HR PT IS NPO .ORIENTED THE PT TO THE ENVIRONMENT .PHYSICAL ASSESSMENT DONE ,CALL LIGHT WITH IN REACH ,CONTINUE TO MONITOR
[2020-06-06] MEDS: SODIUM CHLORIDE 0.9% 1000ML 1,000 ML IV SCH ×5 (02:11→23:50)
[2020-06-06] MEDS: HYDROMORPHONE 2MG/ML 2 MG/ML ML IV PRN ×5 (02:21→20:57)
[2020-06-06] MEDS: ONDANSETRON HCL INJ 2MG/ML 2ML 2 MG/ML VIAL IV PRN ×5 (02:22→20:57)
[2020-06-06] MEDS ORDERED: AMBIEN10 MG PO (02:35)
[2020-06-06] MEDS ORDERED: TIZANIDINE HCL4 M1 (02:35)
[2020-06-06] MEDS ORDERED: ATORVASTATIN CA10 MG PO (02:35)
[2020-06-06] MEDS ORDERED: PANTOPRAZOLE SO40 M1 (02:35)
[2020-06-06 05:57] LABS: BASOPHILS % 0.1 % (0.0-1.0); EOSINOPHILS % 0.3 % (0.0-6.0); HEMOGLOBIN 11.6 g/dL (12.0-16.0); LYMPHOCYTES # (AUTO) 1.9 (1.0-3.2); LYMPHOCYTES % 19.3 % (18.0-39.1); MEAN CORPUSCULAR HEMOGLOBIN 29.2 pg (28-32); MEAN CORPUSCULAR HGB CONC 32.2 g/dL (31-35); MEAN CORPUSCULAR VOLUME 90.7 fL (81-99); MONOCYTES # (AUTO) 0.8 (0.2-0.8); MONOCYTES % 7.6 % (4.4-11.3); NEUTROPHILS # (AUTO) 7.1 (2.1-6.9); NEUTROPHILS % 72.3 % (38.7-80.0); PLATELET COUNT 181 x10e3/uL (140-360); RED BLOOD COUNT 3.97 x10e6/uL (3.6-5.1); RED CELL DISTRIBUTION WIDTH 13.5 % (11.7-14.4)
[2020-06-06 06:12] LABS: ALBUMIN/GLOBULIN RATIO 1.4 (0.8-2.0); ANION GAP 19.5 mmol/L (8-16); CALCIUM 8.7 mg/dL (8.4-10.2); CREATININE, SERUM 1.38 mg/dL (0.57-1.11); POTASSIUM 3.5 mmol/L (3.5-5.1)
--- NOTE | 2020-06-06 06:20 | NUR ---
C/O PAIN AND GIVEN ORDERED PAIN MEDICATION ,CALL LIGHT WITH IN REACH CONTINUE TO MONITOR
--- NOTE | 2020-06-06 06:49 | NUR ---
BEDSIDE REPORT GIVEN TO THE ONCOMING NURSE
--- NOTE | 2020-06-06 06:58 | NUR ---
BEDSIDE SBAR REPORT RECEIVED FROM DENAE FLORES, PM SHIFT. PATIENT FOUND RESTING IN BED EASY TO AROUSE. PT AAOX4, ABLE TO MAKE NEEDS KNOWN, AND DENIES ANY FURTHER NEEDS. PATIENT WAS EDUCATED ON FALL RISK PRECAUTIONS AND VERBALIZED UNDERSTANDING. CALL LIGHT AND BELONGINGS PLACED NEARBY. WILL CONTINUE TO MONITOR. Addendum: 06/06/20 at 1058 by Cindy Jackson RN REPORT RECEIVED FROM RICARDO FLORES. LINDA PHILIPPE
[2020-06-06] MEDS: LEVOFLOXACIN 500MG/D5W 100ML 100 ML IV SCH (17:25)
[2020-06-07 00:39] VITALS: BP 152/77
[2020-06-07] MEDS: ONDANSETRON HCL INJ 2MG/ML 2ML 2 MG/ML VIAL IV PRN ×2 (00:59→11:27)
[2020-06-07] MEDS: HYDROMORPHONE 2MG/ML 2 MG/ML ML IV PRN ×4 (00:59→15:26)
[2020-06-07] MEDS: SODIUM CHLORIDE 0.9% 1000ML 1,000 ML IV SCH ×4 (01:00→10:00)
[2020-06-07] MEDS ORDERED: PANTOPRAZOLE 40 MG 10ML VIAL IV SCH (03:45)
[2020-06-07] MEDS: METOCLOPRAMIDE HCL 10 MG/2ML VIAL IV SCH ×2 (05:25→11:26)
[2020-06-07 05:38] VITALS: BP 152/81
[2020-06-07 06:18] LABS: CLARITY,URINE CLEAR (CLEAR); COLOR,URINE YELLOW (YELLOW); LEUKOCYTE ESTERASE ,URINE TRACE (NEGATIVE); NITRITE,URINE NEGATIVE (NEGATIVE)
[2020-06-07 06:19] LABS: BILIRUBIN,URINE NEGATIVE (NEGATIVE); KETONES,URINE 1+ (NEGATIVE); PROTEIN,URINE DIPSTICK NEGATIVE (NEGATIVE); URINE UROBILINOGEN 0.2 mg/dL (0.2 - 1)
[2020-06-07 06:20] LABS: BACTERIA,URINE RARE /HPF; EPITHELIAL CELLS,URINE FEW /LPF; RBC,URINE 0-5 /HPF (0-5); WBC,URINE (MAN) 0-5 /HPF (0-5)
--- NOTE | 2020-06-07 06:45 | NUR ---
BEDSIDE SBAR REPORT RECEIVED FROM DENAE RN, PM SHIFT. PATIENT RECEIVED RESTING IN BED IN NO ACUTE DISTRESS. PATIENT IS ABLE TO MAKE NEEDS KNOWN AND DENIES ANY NEEDS AT THIS TIME. PATIENT WAS EDUCATED ON FALL RISK PRECAUTIONS AND VERBALIZED UNDERSTANDING. CALL LIGHT AND BELONGINGS PLACED NEARBY. WILL CONTINUE TO MONITOR.
[2020-06-07 08:00] VITALS: BP 162/91
--- NOTE | 2020-06-07 08:30 | NUR ---
PATIENT OFF THE FLOOR FOR EGD
[2020-06-07] MEDS ORDERED: BENZOCAINE/TETRACAINE/BUTAMBEN AERO SPRAY 56 GM CAN ONE (08:53)
[2020-06-07 09:00] VITALS: BP 162/91
[2020-06-07] MEDS ORDERED: PANTOPRAZOLE 40 MG 10ML VIAL IV STA (09:17)
--- NOTE | 2020-06-07 09:45 | NUR ---
PHONE REPORT RECEIVED FROM JUDY. PT BACK ON FLOOR FROM [facility]
[2020-06-07] MEDS ORDERED: PANTOPRAZOLE INJ 80 MG in SODIUM CHLORIDE 0.9% 100 ML IV ONE (10:30)
--- NOTE | 2020-06-07 10:35 | Operative Report ---
DATE OF PROCEDURE: 06/07/2020 SURGEON: Tanner Stone MD PROCEDURE: EGD with esophageal dilatation and biopsies ADDITIONAL REFERRING PHYSICIAN: Fabien Aponte MD INDICATIONS FOR EGD: Upper abdominal pain, nausea, dysphagia. MEDICATIONS: The patient was done under MAC. Please see anesthesiologist's note. PROCEDURE IN DETAIL: With the patient in left lateral decubitus position, a flexible fiberoptic Olympus gastroscope was introduced into the esophagus under direct visualization without any difficulty. The esophagus appeared to be within normal limits. The esophagus was then dilated to size 52-Ecu[place] Santiago. The scope was then advanced with ease into the stomach. Mucosa overlying the antrum and the body revealed some patchy intense erythema and low-grade edema, and biopsies were obtained and sent to stain for H. pylori. There was then evidence of pyloroplasty and the pylorus was intubated with ease and the scope was advanced all the way to the second portion of the duodenum. There was a small periampullary diverticulum noted and the mucosa overlying the duodenal bulb appeared to be within normal limits. The scope was then withdrawn back into the stomach and retroflexed and an intact Raiza fundoplication was noted. The scope was then straightened out and a minute hyperplastic-appearing polyp was partially excised with a cold biopsy forceps from the body of the stomach. The scope was subsequently withdrawn. The patient tolerated the procedure well. IMPRESSION: 1. Normal esophagus. 2. Esophagus, dilated to size 52-Ecuad[place] Santiago. 3. Status post Raiza fundoplication, intact. 4. Gastritis, biopsied. Biopsies sent to stain for Helicobacter pylori. 5. Gastric body polyp, partially excised with cold biopsy forceps. 6. Status post pyloroplasty. 7. Small periampullary diverticulum. PLAN: Follow up histology. We will augment current anti-PUD regimen. Tanner Stone MD [facility] /[id number] cc: MD Fabien Salazar MD
[2020-06-07] MEDS: PANTOPRAZOL 40MG/SOD CHL 0.9% 50 ML IV SCH ×2 (11:26→15:26)
[2020-06-07] MEDS ORDERED: CHLORDIAZEPOXIDE/CLIDINIUM 1 CAP PO SCH (11:30)
[2020-06-07 11:48] VITALS: BP 164/80
[2020-06-07] MEDS ORDERED: PROPOFOL IV EMULSION 10 MG/ML 20 ML VIAL ONE (12:42)
[2020-06-07] MEDS ORDERED: LIDOCAINE HCL 2% LOCAL INJ 5 ML SDV VIAL INJ ONE (12:42)
--- NOTE | 2020-06-07 14:37 | Discharge Summary ---
ADMITTING DIAGNOSES: 1. Right-sided nonobstructive nephrolithiasis. 2. Gastritis. 3. Gastroparesis, likely. 4. Type 2 diabetes. 5. Hypertensive heart disease. 6. Acute renal insufficiency. DISCHARGE DIAGNOSES: 1. Endoscopically proven gastritis. 2. Gastroparesis. 3. Type 2 diabetes. 4. Hypertensive heart disease. 5. Acute renal insufficiency, resolving. 6. Nonobstructive right-sided nephrolithiasis. HOSPITAL COURSE: A 59-year-old woman, who was initially admitted to [facility] with diagnosis of intense abdominal pain, likely secondary to gastritis. The patient was also diagnosed with gastroparesis on admission. During this hospitalization, the patient underwent EGD, which revealed normal esophagus. The esophagus was dilated during this procedure. The patient was found to have an intact Raiza fundoplication. She was found to have gastritis and a gastric mucosa was biopsied. Gastric body polyp was resected. The patient tolerated the procedure well. On admission, the patient also underwent a CT of the abdomen and pelvis, which revealed a nonobstructive right-sided 6 mm renal calculus. No hydronephrosis or hydroureter was appreciated. The patient was seen by general surgeon during this hospitalization, namely Dr. Ponce Aponte, who stated the patient did not require any surgical intervention. The patient's nausea and vomiting resolved during this hospitalization with intravenous metoclopramide. The patient also received intravenous levofloxacin during this hospitalization. The patient was also seen by urologist, namely Dr. Uriel Junior because of the right-sided nonobstructive 6 mm kidney stone. CONDITION ON DISCHARGE: Stable. She was tolerating a full liquid diet on discharge. DISCHARGE MEDICATIONS: 1. Metoclopramide 5 mg p.o. t.i.d. with meals. 2. Promethazine 25 mg once daily as needed for nausea vomiting, 30 prescribed. 3. Dexilant 60 mg daily. 4. Atorvastatin 10 mg at bedtime. 5. Lorazepam 1 mg daily for anxiety. 6. Losartan 100 mg daily. 7. Oxycodone 30 mg once daily as needed for severe pain. 8. Ropinirole 1 mg daily for her restless legs syndrome. 9. Tizanidine 4 mg once daily as needed for muscle spasms. FOLLOWUP INSTRUCTIONS: The patient instructed to follow up with Dr. Hampel within a week in regard to right-sided kidney stone. The patient was instructed to follow up with primary care physician within 2 weeks. MD ARIEL House/HOWARD /[id number]
[2020-06-07 14:51] LABS: ANION GAP 17.5 mmol/L (8-16); CALCIUM 8.3 mg/dL (8.4-10.2); CREATININE, SERUM 1.03 mg/dL (0.57-1.11); POTASSIUM 3.5 mmol/L (3.5-5.1)
--- NOTE | 2020-06-07 15:50 | NUR ---
PATIENT DISCHARGED HOME VIA PRIVATE VEHICLE. PERIPHERAL IV WAS DISCONTINUED; CATHETER TIP INTACT WITHOUT RESISTANCE. DRY DRESSING APPLIED. PATIENT RECEIVED DISCHARGE SUMMARY, WRITTEN PRESCRIPTIONS, AND EDUCATION LEAFLETS. PT VERBALIZED UNDERSTANDING.
== END 2020-06-07 15:47 | disposition home or self-care (01) ==
LOC: ER 11:57 → ERHOLD 17:00 → MED/SURG2 23:08
DX: N20.0 Calculus of kidney (principal); K31.84 Gastroparesis; E11.43 Type 2 diabetes mellitus with diabetic autonomic (poly)neuropathy; I11.9 Hypertensive heart disease without heart failure; N17.9 Acute kidney failure, unspecified; K29.70 Gastritis, unspecified, without bleeding; K31.7 Polyp of stomach and duodenum; Z11.59 Encounter for screening for other viral diseases; E78.5 Hyperlipidemia, unspecified; N39.0 Urinary tract infection, site not specified; D64.9 Anemia, unspecified
CPT/HCPCS: 36415 ×3; 43239; 43248; 74177; 80048; 80053 ×2; 81001; 82550; 82553; 82948 ×2; 83690; 83970; 84484; 84550; 85025 ×2; 88305; 88312; 99284; C9113; G0378 ×3; J1170 ×4; J1885; J1956 ×2; J2270; J2405 ×3; J2550; J2765; J7030 ×3; J7050; J7121; Q9967; U0002; 43450; J2001

== ENCOUNTER → 2020-07-25 | Day surgery (SDC) | payer BC, OTHER ==
[~2020-07-25] MED LIST changes: +AMBIEN10 MG PO; +ATORVASTATIN CA10 MG PO; +HYOSCYAMINE 0.125 MG TAB ONE; +KETAMINE HCL INJ 50 MG/ML 10 ML VIAL ONE; +LIDOCAINE HCL 2% LOCAL INJ 5 ML SDV VIAL INJ ONE; +MIDAZOLAM HCL 2 MG/2 ML VIAL ONE; +ONDANSETRON HCL INJ 2MG/ML 2ML 2 MG/ML VIAL ONE; +PANTOPRAZOLE SO40 M1; +PROPOFOL IV EMULSION 10 MG/ML 20 ML VIAL ONE; +SUCRALFATE1 GM PO; +TIZANIDINE HCL4 M1
[2020-07-25 10:35] VITALS: BP 164/74
--- NOTE | 2020-07-25 11:20 | Operative Report ---
DATE OF PROCEDURE: 07/25/2020 SURGEON: Tanner Stone MD PROCEDURE: Colonoscopy with polypectomy and biopsies. INDICATIONS FOR COLONOSCOPY: Colorectal cancer screening, history of alternating constipation and diarrhea. MEDICATIONS: The patient was done under MAC, please see anesthesiologist's note. PROCEDURE IN DETAIL: With the patient in the left lateral decubitus position, a flexible fiberoptic Olympus colonoscope was inserted into the rectum with ease and advanced all the way to the cecum. Prep overall was suboptimal to poor with [id number] amount of retained cecum material in the colon. The scope was then withdrawn slowly, whatever was visualized the mucosa overlying the cecum, ascending colon, and transverse colon, there was some patchy mild inflammatory changes. Similar findings were noted in the left colon and rectum, and random biopsies were obtained. Diverticular disease was noted in the sigmoid colon. An approximately 8 mm sessile polyp was hot snared from the distal sigmoid colon. The scope was then retroflexed into the distal rectum and small internal hemorrhoids were noted, none of which was actively bleeding. The scope was then straightened out, it was subsequently withdrawn, and the patient tolerated the procedure well. IMPRESSION: 1. Suboptimal to poor prep. 2. Mild patchy inflammatory changes. Random biopsies obtained from left colon. 3. Diverticulosis. 4. Sigmoid colon polyp, hot snared. 5. Proctitis, mild. 6. Internal hemorrhoids, none actively bleeding. PLAN: Follow up histology. The patient will need a repeat colonoscopy after a better prep. Tanner Stone MD [facility] /[id number] cc: Dr. Lopez
== END | disposition home or self-care (01) ==
LOC: OR 06:48
PROVIDERS: ATTEND Internal Medicine Gastroenterology
DX: K59.09 Other constipation (principal); K63.5 Polyp of colon; Z85.038 Personal history of other malignant neoplasm of large intestine; K52.9 Noninfective gastroenteritis and colitis, unspecified; K57.30 Diverticulosis of large intestine without perforation or abscess without bleeding; K62.89 Other specified diseases of anus and rectum; K64.8 Other hemorrhoids; K29.70 Gastritis, unspecified, without bleeding; I10 Essential (primary) hypertension; Z01.810 Encounter for preprocedural cardiovascular examination; Z01.812 Encounter for preprocedural laboratory examination; Z11.59 Encounter for screening for other viral diseases; Z68.28 Body mass index [BMI] 28.0-28.9, adult; Z80.0 Family history of malignant neoplasm of digestive organs
CPT/HCPCS: 45380; 45385; 93005; J2001; J2405; J2704; U0002; 45378; J2250

== ENCOUNTER 2020-07-27 09:28 | Inpatient (IN) | payer BC, OTHER ==
[~2020-07-27] VITALS: Ht 152.4 cm; Wt 65.8 kg
[~2020-07-27 09:28] MED LIST changes: -HYOSCYAMINE 0.125 MG TAB ONE; -KETAMINE HCL INJ 50 MG/ML 10 ML VIAL ONE; -LIDOCAINE HCL 2% LOCAL INJ 5 ML SDV VIAL INJ ONE; -MIDAZOLAM HCL 2 MG/2 ML VIAL ONE; -ONDANSETRON HCL INJ 2MG/ML 2ML 2 MG/ML VIAL ONE; -PROPOFOL IV EMULSION 10 MG/ML 20 ML VIAL ONE
[2020-07-27] MEDS ORDERED: SODIUM CHLORIDE 0.9% 1000ML 1,000 ML IV STA (09:35)
[2020-07-27] MEDS ORDERED: PANTOPRAZOLE 40 MG 10ML VIAL IV ONE (09:35)
[2020-07-27] MEDS ORDERED: ONDANSETRON HCL INJ 2MG/ML 2ML 2 MG/ML VIAL IV ONE (09:35)
[2020-07-27] MEDS ORDERED: MORPHINE SULFATE 2 MG/ML SYR 1ML IV ONE ×2 (09:35→11:26)
[2020-07-27] MEDS ORDERED: HYDRALAZINE HCL 20 MG/ML VIAL IV ONE (09:52)
[2020-07-27 10:11] LABS: BASOPHILS % 0.1 % (0.0-1.0); HEMATOCRIT 39.6 % (34.2-44.1); HEMOGLOBIN 12.7 g/dL (12.0-16.0); LYMPHOCYTES % 12.3 % (18.0-39.1); MEAN CORPUSCULAR HEMOGLOBIN 29.7 pg (28-32); MEAN CORPUSCULAR HGB CONC 32.1 g/dL (31-35); MEAN CORPUSCULAR VOLUME 92.5 fL (81-99); MONOCYTES # (AUTO) 0.4 (0.2-0.8); MONOCYTES % 4.8 % (4.4-11.3); NEUTROPHILS # (AUTO) 6.5 (2.1-6.9); NEUTROPHILS % 82.5 % (38.7-80.0); PLATELET COUNT 254 x10e3/uL (140-360); RED BLOOD COUNT 4.28 x10e6/uL (3.6-5.1); RED CELL DISTRIBUTION WIDTH 12.8 % (11.7-14.4)
[2020-07-27 10:18] LABS: CLARITY,URINE CLEAR (CLEAR); COLOR,URINE YELLOW (YELLOW)
[2020-07-27 10:21] LABS: BILIRUBIN,URINE NEGATIVE (NEGATIVE); KETONES,URINE NEGATIVE (NEGATIVE); LEUKOCYTE ESTERASE ,URINE NEGATIVE (NEGATIVE); NITRITE,URINE NEGATIVE (NEGATIVE); PROTEIN,URINE DIPSTICK 1+ (NEGATIVE); URINE UROBILINOGEN 0.2 mg/dL (0.2 - 1)
[2020-07-27 10:25] LABS: INR 0.94
[2020-07-27 10:26] LABS: PARTIAL THROMBOPLASTIN TIME 31.9 seconds (23.8-35.5)
[2020-07-27 10:29] LABS: BACTERIA,URINE RARE /HPF; RBC,URINE 0-5 /HPF (0-5); WBC,URINE (MAN) 0-5 /HPF (0-5)
[2020-07-27 10:30] LABS: EPITHELIAL CELLS,URINE FEW /LPF
[2020-07-27 10:31] LABS: ALANINE AMINOTRANSFERASE 17 IU/L (0-55); ALBUMIN 4.5 g/dL (3.5-5.0); ALBUMIN/GLOBULIN RATIO 1.1 (0.8-2.0); ALKALINE PHOSPHATASE 178 IU/L (40-150); AMYLASE 52 U/L (25-125); ANION GAP 16.7 mmol/L (8-16); BLOOD UREA NITROGEN 14 mg/dL (7-26); BUN/CREATININE RATIO 13 (6-25); CALCIUM 9.8 mg/dL (8.4-10.2); CARBON DIOXIDE 19 mmol/L (22-29); CHLORIDE 106 mmol/L (98-107); CREATINE KINASE 44 IU/L (29-168); CREATININE, SERUM 1.12 mg/dL (0.57-1.11); EST GLOMERULAR FILTRATION RATE 50 ML/MIN (60-); GLUCOSE 200 mg/dL (74-118); LIPASE 10 U/L (8-78); POTASSIUM 3.7 mmol/L (3.5-5.1); SODIUM 138 mmol/L (136-145)
[2020-07-27] MEDS ORDERED: SODIUM CHLORIDE 0.9% 100 ML ONE (10:52)
[2020-07-27] MEDS ORDERED: IOPAMIDOL 370 MG/ML 200 ML INFUS..BTL INJ ONE (10:53)
[2020-07-27] MEDS ORDERED: MORPHINE SULFATE INJ 4 MG/ML INJ 1ML IV PRN (14:00)
[2020-07-27] MEDS ORDERED: ACETAMINOPHEN 325 MG TAB PO PRN (14:00)
[2020-07-27] MEDS ORDERED: ONDANSETRON HCL INJ 2MG/ML 2ML 2 MG/ML VIAL IV PRN (14:15)
[2020-07-27] MEDS ORDERED: OXYCODONE HCL 10 MG TAB CR PO PRN (14:15)
[2020-07-27] MEDS ORDERED: HEPARIN 25,000 UNIT 25,000 UNIT in DEXTROSE 5% 250ML 250 ML IV SCH (14:15)
[2020-07-27] MEDS ORDERED: HYDRALAZINE HCL 20 MG/ML VIAL IV PRN (14:15)
[2020-07-27] MEDS: SODIUM CHLORIDE 0.9% 1000ML 1,000 ML IV SCH ×2 (14:30→22:34)
[2020-07-27] MEDS: ONDANSETRON HCL INJ 2MG/ML 2ML 2 MG/ML VIAL IV PRN ×2 (15:49→19:40)
[2020-07-27] MEDS ORDERED: HEPARIN 25,000 UNIT DRIP IV ONE (16:31)
[2020-07-27] MEDS ORDERED: HEPARIN 25,000 UNIT 1,000 UNIT in DEXTROSE 5% 250ML 250 ML IV SCH (17:00)
[2020-07-27] MEDS ORDERED: HEPARIN SOD (PORCINE) 5,000 UNIT/ML VIAL IV ONE (17:00)
[2020-07-27] MEDS ORDERED: HEPARIN SOD (PORCINE) 5,000 UNIT/ML VIAL SC ONE (18:30)
[2020-07-27 18:36] VITALS: BP 170/85
[2020-07-27 19:24] VITALS: BP 170/85
[2020-07-27] MEDS: MORPHINE SULFATE 2 MG/ML SYR 1ML IV PRN (19:40)
[2020-07-27 20:00] VITALS: BP 162/91
[2020-07-27 21:00] VITALS: BP 162/91
[2020-07-27] MEDS ORDERED: ENOXAPARIN SOD INJ 60 MG/0.6 ML SYR SC SCH (21:00)
[2020-07-28] VITALS (8 sets, daily range): BP systolic 114–138; BP diastolic 75–78
[2020-07-28] MEDS: ONDANSETRON HCL INJ 2MG/ML 2ML 2 MG/ML VIAL IV PRN ×6 (00:30→21:33)
[2020-07-28] MEDS: MORPHINE SULFATE 2 MG/ML SYR 1ML IV PRN ×6 (00:30→21:33)
[2020-07-28] MEDS: PANTOPRAZOLE 40 MG 10ML VIAL IV SCH ×3 (02:26→21:07)
[2020-07-28 05:49] LABS: BASOPHILS % 0.3 % (0.0-1.0); EOSINOPHILS # (AUTO) 0.1 (0.0-0.4); EOSINOPHILS % 1.3 % (0.0-6.0); HEMATOCRIT 33.3 % (34.2-44.1); HEMOGLOBIN 10.8 g/dL (12.0-16.0); LYMPHOCYTES # (AUTO) 2.1 (1.0-3.2); LYMPHOCYTES % 28.5 % (18.0-39.1); MEAN CORPUSCULAR HEMOGLOBIN 30.9 pg (28-32); MEAN CORPUSCULAR HGB CONC 32.4 g/dL (31-35); MEAN CORPUSCULAR VOLUME 95.4 fL (81-99); MONOCYTES # (AUTO) 0.6 (0.2-0.8); MONOCYTES % 8.3 % (4.4-11.3); NEUTROPHILS # (AUTO) 4.6 (2.1-6.9); NEUTROPHILS % 61.3 % (38.7-80.0); PLATELET COUNT 220 x10e3/uL (140-360); RED BLOOD COUNT 3.49 x10e6/uL (3.6-5.1); RED CELL DISTRIBUTION WIDTH 12.9 % (11.7-14.4)
[2020-07-28 06:12] LABS: ALBUMIN 3.5 g/dL (3.5-5.0); ALBUMIN/GLOBULIN RATIO 1.2 (0.8-2.0); ANION GAP 10.9 mmol/L (8-16); CALCIUM 8.9 mg/dL (8.4-10.2); CREATININE, SERUM 1.1 mg/dL (0.57-1.11); POTASSIUM 3.9 mmol/L (3.5-5.1)
[2020-07-28] MEDS: SODIUM CHLORIDE 0.9% 1000ML 1,000 ML IV SCH ×3 (06:30→22:20)
[2020-07-28] MEDS: CHLORDIAZEPOXIDE/CLIDINIUM 1 CAP PO SCH ×4 (08:32→21:07)
[2020-07-28] MEDS: ROPINIROLE HCL 1 MG TAB PO SCH (08:33)
[2020-07-28] MEDS: PROMETHAZINE HCL 25 MG TAB PO SCH (08:33)
[2020-07-28] MEDS: POLYETHYLENE GLYCOL 3350 17 GM PACK PO SCH ×2 (08:33→17:10)
[2020-07-28] MEDS: LOSARTAN POTASSIUM 100 MG TAB PO SCH (08:33)
[2020-07-29] VITALS: BP 117/73
[2020-07-29] MEDS: MORPHINE SULFATE 2 MG/ML SYR 1ML IV PRN ×5 (01:35→21:30)
[2020-07-29] MEDS: ONDANSETRON HCL INJ 2MG/ML 2ML 2 MG/ML VIAL IV PRN ×5 (01:35→21:30)
[2020-07-29 04:00] VITALS: BP 141/79
[2020-07-29] MEDS: SODIUM CHLORIDE 0.9% 1000ML 1,000 ML IV SCH ×2 (05:16→17:00)
[2020-07-29] MEDS: POLYETHYLENE GLYCOL 3350 17 GM PACK PO SCH ×4 (05:16→21:29)
[2020-07-29 05:44] LABS: FERRITIN 63.58 ng/mL (4.63-204.00)
[2020-07-29] MEDS: CHLORDIAZEPOXIDE/CLIDINIUM 1 CAP PO SCH ×4 (09:58→21:00)
[2020-07-29] MEDS: PANTOPRAZOLE 40 MG 10ML VIAL IV SCH ×2 (09:58→21:00)
[2020-07-29] MEDS: ROPINIROLE HCL 1 MG TAB PO SCH (09:58)
[2020-07-29] MEDS: PROMETHAZINE HCL 25 MG TAB PO SCH (09:58)
[2020-07-29] MEDS: LOSARTAN POTASSIUM 100 MG TAB PO SCH (09:58)
[2020-07-29] MEDS ORDERED: DIATRIZOATE MEGL/DIATRIZOA SOD 120 ML BTL PO ONE (10:14)
[2020-07-29 11:34] VITALS: BP 159/98
[2020-07-29] MEDS: CYANOCOBALAMIN INJ 1,000 MCG/ML VIAL IM SCH (12:10)
[2020-07-29 15:54] VITALS: BP 143/94
[2020-07-29 20:00] VITALS: BP 138/77
[2020-07-29 22:00] VITALS: BP 138/77
[2020-07-30] VITALS (9 sets, daily range): BP systolic 119–151; BP diastolic 67–83
[2020-07-30] MEDS: ONDANSETRON HCL INJ 2MG/ML 2ML 2 MG/ML VIAL IV PRN ×6 (01:30→21:42)
[2020-07-30] MEDS: MORPHINE SULFATE 2 MG/ML SYR 1ML IV PRN ×6 (01:30→21:42)
[2020-07-30] MEDS: POLYETHYLENE GLYCOL 3350 17 GM PACK PO SCH ×3 (05:17→20:46)
[2020-07-30 06:14] LABS: BASOPHILS % 0.4 % (0.0-1.0); EOSINOPHILS # (AUTO) 0.2 (0.0-0.4); EOSINOPHILS % 3.1 % (0.0-6.0); HEMATOCRIT 30.7 % (34.2-44.1); HEMOGLOBIN 9.7 g/dL (12.0-16.0); LYMPHOCYTES # (AUTO) 1.1 (1.0-3.2); LYMPHOCYTES % 20.3 % (18.0-39.1); MEAN CORPUSCULAR HEMOGLOBIN 29.8 pg (28-32); MEAN CORPUSCULAR HGB CONC 31.6 g/dL (31-35); MEAN CORPUSCULAR VOLUME 94.2 fL (81-99); MONOCYTES # (AUTO) 0.4 (0.2-0.8); MONOCYTES % 7.9 % (4.4-11.3); NEUTROPHILS # (AUTO) 3.7 (2.1-6.9); NEUTROPHILS % 68.1 % (38.7-80.0); PLATELET COUNT 185 x10e3/uL (140-360); RED BLOOD COUNT 3.26 x10e6/uL (3.6-5.1); RED CELL DISTRIBUTION WIDTH 12.5 % (11.7-14.4)
[2020-07-30] MEDS: SODIUM CHLORIDE 0.9% 1000ML 1,000 ML IV SCH ×2 (06:28→20:42)
[2020-07-30 06:45] LABS: ALANINE AMINOTRANSFERASE 10 IU/L (0-55); ALBUMIN 3.1 g/dL (3.5-5.0); ALBUMIN/GLOBULIN RATIO 1.1 (0.8-2.0); ALKALINE PHOSPHATASE 121 IU/L (40-150); ANION GAP 9.4 mmol/L (8-16); BLOOD UREA NITROGEN 7 mg/dL (7-26); BUN/CREATININE RATIO 8 (6-25); CALCIUM 8.3 mg/dL (8.4-10.2); CARBON DIOXIDE 24 mmol/L (22-29); CHLORIDE 113 mmol/L (98-107); CREATININE, SERUM 0.88 mg/dL (0.57-1.11); EST GLOMERULAR FILTRATION RATE > 60 ML/MIN (60-); GLUCOSE 127 mg/dL (74-118); POTASSIUM 3.4 mmol/L (3.5-5.1); SODIUM 143 mmol/L (136-145)
[2020-07-30] MEDS: CHLORDIAZEPOXIDE/CLIDINIUM 1 CAP PO SCH ×4 (07:30→20:42)
[2020-07-30] MEDS: LOSARTAN POTASSIUM 100 MG TAB PO SCH (09:00)
[2020-07-30] MEDS: ROPINIROLE HCL 1 MG TAB PO SCH (09:00)
[2020-07-30] MEDS: PANTOPRAZOLE 40 MG 10ML VIAL IV SCH ×2 (09:00→20:42)
[2020-07-30] MEDS: CYANOCOBALAMIN INJ 1,000 MCG/ML VIAL IM SCH (09:00)
[2020-07-30] MEDS: PROMETHAZINE HCL 25 MG TAB PO SCH (09:00)
[2020-07-31] VITALS (10 sets, daily range): BP systolic 127–160; BP diastolic 58–83
[2020-07-31] MEDS: MORPHINE SULFATE 2 MG/ML SYR 1ML IV PRN ×6 (01:57→22:23)
[2020-07-31] MEDS: ONDANSETRON HCL INJ 2MG/ML 2ML 2 MG/ML VIAL IV PRN ×6 (01:57→22:23)
[2020-07-31] MEDS: POLYETHYLENE GLYCOL 3350 17 GM PACK PO SCH ×3 (05:38→20:48)
[2020-07-31] MEDS: CHLORDIAZEPOXIDE/CLIDINIUM 1 CAP PO SCH ×4 (05:38→20:45)
[2020-07-31] MEDS: CYANOCOBALAMIN INJ 1,000 MCG/ML VIAL IM SCH (09:00)
[2020-07-31] MEDS: PANTOPRAZOLE 40 MG 10ML VIAL IV SCH ×2 (09:00→20:45)
[2020-07-31] MEDS: ROPINIROLE HCL 1 MG TAB PO SCH ×2 (09:00→16:30)
[2020-07-31] MEDS: LOSARTAN POTASSIUM 100 MG TAB PO SCH ×2 (09:00→16:30)
[2020-07-31] MEDS: PROMETHAZINE HCL 25 MG TAB PO SCH (09:00)
[2020-07-31] MEDS: SODIUM CHLORIDE 0.9% 1000ML 1,000 ML IV SCH ×2 (09:07→22:23)
[2020-07-31] MEDS ORDERED: FENTANYL CITRATE/PF 100MCG/2 ML INJ ONE (13:05)
[2020-07-31] MEDS ORDERED: PROPOFOL IV EMULSION 10 MG/ML 20 ML VIAL ONE (13:05)
[2020-07-31] MEDS ORDERED: LIDOCAINE HCL 2% LOCAL INJ 5 ML SDV VIAL INJ ONE (13:05)
[2020-07-31] MEDS ORDERED: MIDAZOLAM HCL 2 MG/2 ML VIAL ONE (13:05)
[2020-08-01] VITALS: BP 127/74
[2020-08-01] MEDS: MORPHINE SULFATE 2 MG/ML SYR 1ML IV PRN ×3 (02:23→11:57)
[2020-08-01] MEDS: ONDANSETRON HCL INJ 2MG/ML 2ML 2 MG/ML VIAL IV PRN ×2 (02:23→11:57)
[2020-08-01 04:00] VITALS: BP 135/77
[2020-08-01] MEDS: POLYETHYLENE GLYCOL 3350 17 GM PACK PO SCH (05:00)
[2020-08-01 08:40] VITALS: BP 148/79
[2020-08-01 08:49] VITALS: BP 148/79
[2020-08-01] MEDS: CYANOCOBALAMIN INJ 1,000 MCG/ML VIAL IM SCH (09:00)
[2020-08-01] MEDS: PANTOPRAZOLE 40 MG 10ML VIAL IV SCH (09:12)
[2020-08-01] MEDS: CHLORDIAZEPOXIDE/CLIDINIUM 1 CAP PO SCH ×2 (09:12→11:57)
[2020-08-01] MEDS: LOSARTAN POTASSIUM 100 MG TAB PO SCH (09:13)
[2020-08-01] MEDS: ROPINIROLE HCL 1 MG TAB PO SCH (09:13)
[2020-08-01] MEDS: PROMETHAZINE HCL 25 MG TAB PO SCH (09:13)
[2020-08-01 11:57] VITALS: BP 125/78
[2020-08-01] MEDS ORDERED: POTASSIUM CHLORIDE 10MEQ EA PO ONE (12:00)
[2020-08-01] MEDS ORDERED: MORPHINE SULFATE INJ 4 MG/ML INJ 1ML IV PRN (12:15)
== END 2020-08-01 12:51 | disposition home or self-care (01) | DRG 391 ==
LOC: ER 09:44 → ERHOLD 11:27 → MED/SURG2 15:05
PROC: 0DB98ZX Excision of Duodenum, Via Natural or Artificial Opening Endoscopic, Diagnostic (ICD-10-PCS; 2020-07-31)
PROC: 0D758ZZ Dilation of Esophagus, Via Natural or Artificial Opening Endoscopic (ICD-10-PCS; principal; 2020-07-31 15:30)
DX: K20.90 Esophagitis, unspecified without bleeding (principal); K55.049 Acute infarction of large intestine, extent unspecified; D68.9 Coagulation defect, unspecified; N39.0 Urinary tract infection, site not specified; K55.1 Chronic vascular disorders of intestine; K22.2 Esophageal obstruction; S37.01 Minor contusion of kidney; E11.65 Type 2 diabetes mellitus with hyperglycemia; I12.9 Hypertensive chronic kidney disease with stage 1 through stage 4 chronic kidney disease, or unspecified chronic kidney disease; E11.22 Type 2 diabetes mellitus with diabetic chronic kidney disease; N18.30 Chronic kidney disease, stage 3 unspecified; Z85.038 Personal history of other malignant neoplasm of large intestine; E78.5 Hyperlipidemia, unspecified; K22.4 Dyskinesia of esophagus; K29.70 Gastritis, unspecified, without bleeding; D64.9 Anemia, unspecified; R62.7 Adult failure to thrive; Z90.49 Acquired absence of other specified parts of digestive tract; T18.2XXA Foreign body in stomach, initial encounter
CPT/HCPCS: 36415; 43239; 71045; 74174; 74246; 80053; 81001; 81241; 81400; 82150; 82550; 82553; 82607; 82728; 82746; 82948; 83540; 83605; 83690; 83735; 84443; 84466; 84484; 85025; 85045; 85303; 85306; 85610; 85730; 86140; 87040; 87086; 88305; 93005; 93306; 99284; J0360; J1644; J2001; J2250; J2270; J2405; J3010; J3420; J7030; J7050; Q9963; Q9967; U0002